=== PATIENT | male | born 1970 | race African-American/Black ===

== ENCOUNTER 2019-11-20 06:07 | Day surgery (SDC) | payer OTHER ==
[~2019-11-20] VITALS: Ht 175.3 cm; Wt 93.0 kg
[2019-11-20] VITALS (12 sets, daily range): BP systolic 97–137; BP diastolic 56–87
[~2019-11-20 06:07] MED LIST: BACTRIM-DS1 EA ORAL; BREO ELLIPTA 11 EACH IH; TIVICAY50 MG ORAL; VENTOLIN HFA18 GM INH; ZITHROMAX200 MG/5 M ORAL; ceFAZolin 1gm IVPB IVPB ONE; celeBREX 200mg Cap **SURGERY PATIENTS ONLY ORAL ONE; oxyCONTIN 20mg tab ORAL ONE
[2019-11-20] MEDS ORDERED: [UNRECOGNIZED DRUG - OTHER] PO (06:56)
[2019-11-20] MEDS ORDERED: Midazolam 2mg/2ml Inj ONE (07:14)
[2019-11-20] MEDS ORDERED: fentaNYL 100 mcg/2 mL IV ONE (07:14)
[2019-11-20] MEDS ORDERED: EPINEPHrine 1mg/1ml Amp ONE (07:21)
[2019-11-20] MEDS ORDERED: Kenalog-40 1ml Vial ONE (07:21)
[2019-11-20] MEDS ORDERED: Ketorolac 30mg Inj ONE (07:21)
[2019-11-20] MEDS ORDERED: Duramorph PF 5mg/10ml amp ONE (07:22)
[2019-11-20] MEDS ORDERED: Lidocaine 1% 10mg/ml/Epi 0.005mg/ml 30ml vial INJ ONE (07:22)
[2019-11-20] MEDS ORDERED: NS Irrig 2000ml IRRIG ONE ×2 (07:25→07:45)
[2019-11-20] MEDS ORDERED: D5 1/2NS 1,000 ML IV SCH (07:30)
[2019-11-20] MEDS ORDERED: Sterile Water Irrig 1000ml IRRIG ONE (07:30)
[2019-11-20] MEDS ORDERED: LR 1000ml ONE (07:30)
[2019-11-20] MEDS ORDERED: HYDROcodone/Acetamin 5/325 tab ORAL PRN (07:30)
[2019-11-20] MEDS ORDERED: propofoL 1,000mg/100ml IV ONE (07:30)
[2019-11-20] MEDS ORDERED: HYDROmorphone 1mg/ml Carpuject SUBQ PRN (07:30)
[2019-11-20] MEDS ORDERED: Tylenol #3 tab (300mg/30mg) ORAL PRN (07:30)
--- NOTE | 2019-11-20 07:31 | Pre-Procedure Note/Attestation ---
Pre-Procedure Note/Attestation Complete Prior to Procedure Planned Procedure: left Procedure Narrative: knee arthroscopy, pssible menisectomy, synovectomy, possible condroplasty Indications for Procedure Pre-Operative Diagnosis: left knee internal derangment Attestation I attest that I discussed the nature of the procedure; its benefits; risks and complications; and alternatives (and the risks and benefits of such alternatives), prior to the procedure, with the patient (or the patient's legal hardware supplies sales representative). I attest that, if there was a reasonable possibility of needing a blood transfusion, the patient (or the patient's legal hardware supplies sales representative) was given the [facility] standardized written summary, pursuant to the Frederick Mita Blood Safety Act ([place] Health and Safety Code # 1645, as amended). I attest that I re-evaluated the patient just prior to the surgery and that there has been no change in the patient's H&P, except as documented below: Cale Taylor MD Nov 20, 2019 07:31
--- NOTE | 2019-11-20 07:31 | Operative Note - PDOC ---
Operative Note Operative Note Pre-op Diagnosis: left knee internal derangment Procedure: see op report Post-op Diagnosis: same as pre-op plus Operative Findings: consistent w/pre-op dx studies Anesthesia: general, MAC Specimen: none Complications: none Condition: stable Estimated Blood Loss: none Implant(s) used?: No Cale Taylor MD Nov 20, 2019 07:31
[2019-11-20] MEDS: Bupivacaine 0.25% Inj 30ml INJ ONE ×2 (07:45→08:06)
[2019-11-20] MEDS ORDERED: Lidocaine 1% MPF 10mg/ml 5ml ONE (07:53)
[2019-11-20] MEDS ORDERED: Metoclopramide 10mg/2ml Inj ONE (07:53)
--- NOTE | 2019-11-20 08:33 | Immediate Post-Op Evaluation ---
Immediate Post-Op Evalulation Immediate Post-Op Evalulation Procedure: left knee scope Date of Evaluation: Nov 20, 2019 Time of Evaluation: 08:29 IV Fluids: tarrillion Blood Pressure Systolic: 98 Blood Pressure Diastolic: 50 Pulse Rate: 70 Respiratory Rate: 14 O2 Sat by Pulse Oximetry: 98 Temperature (Fahrenheit): 97.5 Nausea: No Vomiting: No Patient Status: awake, reacts, patent Drug: ancef Given Within 1 Hr of Incision: Yes Time Given: 07:40 Wendy Lu CRNA Nov 20, 2019 08:33
--- NOTE | 2019-11-20 08:41 | Anethesia Preoperative Eval ---
Anesthesia Pre-op PMH/ROS General Date of Evaluation: Nov 20, 2019 Time of Evaluation: 07:30 Anesthesiologist: willian ASA Score: ASA 2 Mallampati Score Class I : Soft palate, uvula, fauces, pillars visible Class II: Soft palate, uvula, fauces visible Class III: Soft palate, base of uvula visible Class IV: Only hard plate visible Mallampati Classification: Class III Surgeon: rylee Diagnosis: left knee pain Surgical Procedure: left knee scope Anesthesia History: none Social History: alcohol use Family History: no anesthesia problems Allergies: Coded Allergies: LISINOPRIL (Verified Allergy, Unknown, 11/18/19) Medications: see eMAR Patient NPO?: Yes NPO Date: Nov 20, 2019 NPO Time: 00:01 Past Medical History Cardiovascular: Reports: HTN; Denies: CAD, SC, valve dz, arrhythmia, other Pulmonary: Reports: asthma; Denies: COPD, DAVID, other Gastrointestinal/Genitourinary: Reports: GERD; Denies: CRI, ESRD, other Neurologic/Psychiatric: Denies: dementia, CVA, depression/anxiety, TIA, other Endocrine: Denies: DM, hypothyroidism, steroids, other HEENT: Denies: cataract (L), cataract (R), glaucoma, SOBOBA (L), SOBOBA (R), other Hematology/Immune: Reports: bleeding disorder; Denies: anemia, DVT, other Musculoskeletal/Integumentary: Denies: OA, RA, DJD, DDD, edema, other Other: obesity PSxH Narrative: see chart Anesthesia Pre-op Phys. Exam Physician Exam Last Vital Signs Date Time Temp Pulse Resp B/P (MAP) Pulse Ox O2 Delivery O2 Flow Rate FiO2 11/20/19 06:50 97.9 67 18 125/82 96 Room Air Constitutional: NAD Neurologic: CN 2-12 intact Cardiovascular: RRR Respiratory: CTA Gastrointestinal: S/NT/ND Airway Exam Mallampati Classification 3 Mallampati Score: Class II Neck: thick TMD: 2fb ROM: full Dentures: no upper, no lower Anesthesia Pre-op A/P Studies Pre-op Studies: EKG - SR Risk Assessment & Plan Assessment: covid neg; pt c/o of "SEVERE Hiccups" as a complication of GA with previous surgeries. Also, pt refused spinal anesthesia due to previous back pain as a result of spinal anesthesia. Discussed GA with TIVA and risk and benefits of TIVA. Pt agrees and wishes to proceed. Plan: General- TIVA Status Change Before Surgery: No Pre-Antibiotics Drug: Ancef Given Within 1 Hr of Incision: Yes Time Given: 07:40 Wendy Lu CRNA Nov 20, 2019 08:41
--- NOTE | 2019-11-20 09:00 | Operative Note - Dictated ---
DATE OF OPERATION: 11/20/2019 PREOPERATIVE DIAGNOSIS: Left knee medial meniscus tear. POSTOPERATIVE DIAGNOSES: 1. Grade 2 medial patellar facet chondral damage. 2. Left knee medial meniscus tear. 3. Hypertrophic synovial tissue medial, lateral, and patellofemoral compartment. PROCEDURES: 1. Left knee arthroscopic partial medial meniscectomy. 2. Synovectomy medial, lateral, and patellofemoral compartment. 3. Gentle chondroplasty, medial patellar facet. SURGEON: Cale Taylor MD. ANESTHESIA: MAC. INDICATION FOR PROCEDURE: The patient is a pleasant gentleman, who sustained a significant injury to the left knee, was diagnosed with a meniscal tear, failed conservative treatment, elected to undergo left knee arthroscopy with medial meniscectomy. Risks, limitations, expectations, complication of procedure were discussed in detail. All questions addressed. DESCRIPTION OF PROCEDURE: After informed consent obtained, the patient was brought to the operating room. The patient was placed under general anesthesia. Left knee was prepped and draped in a sterile manner. Time-out was performed. Inferolateral stab incision was then made. Trocar introduced into the knee joint. Systematic tour of the knee was performed. There was some grade 2 chondral damage medial patellar facet, hypertrophic synovial tissue patellar and medial compartment. Medial compartment was entered. There was complex tear of posterior horn medial meniscus. Partial meniscectomy was performed. There was also some adjacent level grade 2 chondral damage in the medial tibial plateau. A gentle chondroplasty was performed. The synovectomy extended from the medial compartment to intercondylar notch lateral compartment. The ACL was probed, noted to be intact. Lateral compartment was entered, free from meniscal chondral damage. Camera was repositioned. Patellofemoral compartment, synovectomy was completed. Chondroplasty was completed. Instruments were removed. ESTIMATED BLOOD LOSS: None. COMPLICATIONS: None. SPECIMENS: None. IMPLANTS: None. Cale Taylor M.D. DR: EMILY JOB#: [id number] CC:
--- NOTE | 2019-11-20 09:42 | 48 Hour Post Anesthesia Eval ---
Post Anesthesia Evaluation Procedure: left knee scope Date of Evaluation: Nov 20, 2019 Time of Evaluation: 09:41 Blood Pressure Systolic: 122 0: 81 Pulse Rate: 65 Respiratory Rate: 14 O2 Sat by Pulse Oximetry: 99 Airway: patent Nausea: No Vomiting: No Hydration Status: adequate Cardiopulmonary Status: stable Mental Status/LOC: patient returned to baseline Follow-up Care/Observations: no signs of anesthetic reaction Post-Anesthesia Complications: none Follow-up care needed: N/A Wendy Lu CRNA Nov 20, 2019 09:42
[2019-11-20] MEDS ORDERED: fentaNYL 100 mcg/2 mL IV PRN (09:45)
== END 2019-11-20 10:45 | disposition home or self-care (01) ==
LOC: SUR 06:07
DX: S83.232A Complex tear of medial meniscus, current injury, left knee, initial encounter (principal); M67.262 Synovial hypertrophy, not elsewhere classified, left lower leg; I10 Essential (primary) hypertension; K21.9 Gastro-esophageal reflux disease without esophagitis; E66.9 Obesity, unspecified; X58.XXXA Exposure to other specified factors, initial encounter; Y92.9 Unspecified place or not applicable; Z68.30 Body mass index [BMI] 30.0-30.9, adult
CPT/HCPCS: 29876; 29881; 94003; J0171; J0690; J1885; J2250; J2405; J2704; J2765; J3010; J3301; J3490; J7120; U0002; 94150

== ENCOUNTER 2019-12-24 07:07 | Inpatient (IN) | payer MEDICAID, OTHER ==
[~2019-12-24] VITALS: Ht 175.3 cm; Wt 104.8 kg
[~2019-12-24 07:07] MED LIST changes: +AMLODIPINE BESY10 MG ORAL; +MULTIVITAMINS1 EAC2 ORAL; +[UNRECOGNIZED DRUG - OTHER] PO; -ceFAZolin 1gm IVPB IVPB ONE; -celeBREX 200mg Cap **SURGERY PATIENTS ONLY ORAL ONE; -oxyCONTIN 20mg tab ORAL ONE
--- NOTE | 2019-12-24 07:44 | Emergency Room Report ---
History of Present Illness General Chief Complaint: Fever Source: Patient Present Illness HPI Disclaimer: Please note that this report is being documented using DRAGON technology. This can lead to erroneous entry secondary to incorrect interpretation by the dictating instrument. HPI: 49-year-old male history of HIV on retroviral therapy presents for evaluation of fevers after surgery. Patient recently underwent a meniscal repair the right knee which he states is complicated by postop infection according to his PMD and therapeutic surgeon Dr. Taylor. He has been on antibiotics but cannot recall which ones. Reports low-grade fevers 101 over the past few days. Decreased mobility in the right knee. States there is no new swelling and that this swelling that is currently there is baseline. Denies numbness or tingling. Denies overlying skin breakdown. Denies cough, shortness of breath, vomiting. He reports intermittent nausea from the tramadol but otherwise feels well eating and drinking. Denies sore throat, URI, anosmia or other symptoms. Recent Covid test was negative. PMH: HIV PSH: Bilateral meniscal repair Allergies: Lisinopril Social Hx: Reviewed Allergies: Coded Allergies: LISINOPRIL (Verified Allergy, Severe, FACE SWELLING, 12/11/19) COVID-19 Screening Contact w/high risk pt: No Experienced COVID-19 symptoms?: No COVID-19 Testing performed FIG WASHER: No Nursing Documentation-PMH Past Medical History: No History, Except For Hx Cardiac Problems: Yes - right knee surgery 12/11/19 Hx Hypertension: Yes Hx Asthma: Yes Hx Cancer: No Hx Gastrointestinal Problems: No Hx Neurological Problems: No Review of Systems All Other Systems: negative except mentioned in HPI Physical Exam Vital Signs Date Time Temp Pulse Resp B/P (MAP) Pulse Ox O2 Delivery O2 Flow Rate FiO2 12/24/19 07:15 101.5 105 20 150/115 (127) 98 Room Air General: Awake and alert, no acute distress HEENT: NC/AT. EOMI. Cardiovascular: RRR. S1 and S2 normal. No murmur appreciated Resp: Normal work of breathing. No cough, wheezing or crackles appreciated Abdomen: Abdomen is soft, nondistended. Nontender Skin: Intact. No abrasions, laceration or rash over the exposed skin MSK: Normal tone and bulk. Moving all extremities. Effusion around the distal femur. Warm to the touch. No overlying cellulitic changes ulcerations or breakdown. Neuro: Awake and alert. Mentating appropriately. Procedures Additional Procedure Procedure Narrative Right knee aspiration: Knee was prepped with Betadine for antiseptic and draped in sterile fashion. 6 cc 1% lidocaine without epinephrine injected into the skin for anesthetic. Lateral approach taken of the superior aspect of right knee with negative pressure advance needle. Able to aspirate approximately 45 cc yellow straw- colored material I was mildly cloudy but not overly pruritic. No bleeding. Patient tolerated the procedure well. Sterile bandage applied. No complications. Medical Decision Making Diagnostic Impression: Primary Impression: Septic joint of right knee joint ER Course 49-year-old male presents for evaluation of fever. He had a recent knee surgery though also was taking antibiotics for dental infection which he states was resolved after the tooth was extracted. He arrives febrile mildly tachycardic. Culture sent. Broad labs ordered. Joint aspiration performed shows over 60,000 nucleated cells which are 99% polymorphonuclear cells concerning for septic joint. ESR and CRP are elevated. Patient receiving broad-spectrum antibiotics vancomycin and ceftriaxone. Discussed with his surgeon Dr. Taylor who will take the patient for OR and washout. He will be admitted to panel physician Dr. Sandhu. Laboratory Tests Test 12/24/19 08:00 12/24/19 08:40 White Blood Count 10.4 K/UL (4.8-10.8) Red Blood Count 5.04 M/UL (4.70-6.10) Hemoglobin 13.3 G/DL (14.2-18.0) L Hematocrit 39.9 % (42.0-52.0) L Mean Corpuscular Volume 79 FL (80-99) L Mean Corpuscular Hemoglobin 26.3 PG (27.0-31.0) L Mean Corpuscular Hemoglobin Concent 33.3 G/DL (32.0-36.0) Red Cell Distribution Width 13.2 % (11.6-14.8) Platelet Count 394 K/UL (150-450) Mean Platelet Volume 6.4 FL (6.5-10.1) L Neutrophils (%) (Auto) 78.4 % (45.0-75.0) H Lymphocytes (%) (Auto) 9.5 % (20.0-45.0) L Monocytes (%) (Auto) 10.5 % (1.0-10.0) H Eosinophils (%) (Auto) 0.4 % (0.0-3.0) Basophils (%) (Auto) 1.2 % (0.0-2.0) Erythrocyte Sedimentation Rate 62 MM/HR (0-15) H Urine Color Pale yellow Urine Appearance Clear Urine pH 6 (4.5-8.0) Urine Specific Dora 1.005 (1.005-1.035) Urine Protein Negative (NEGATIVE) Urine Glucose (UA) Negative (NEGATIVE) Urine Ketones Negative (NEGATIVE) Urine Blood Negative (NEGATIVE) Urine Nitrite Negative (NEGATIVE) Urine Bilirubin Negative (NEGATIVE) Urine Urobilinogen Normal MG/DL (0.0-1.0) Urine Leukocyte Esterase Negative (NEGATIVE) Sodium Level 135 MMOL/L (136-145) L Potassium Level 3.7 MMOL/L (3.5-5.1) Chloride Level 98 MMOL/L (98-107) Carbon Dioxide Level 30 MMOL/L (21-32) Anion Gap 7 mmol/L (5-15) Blood Urea Nitrogen 8 mg/dL (7-18) Creatinine 1.3 MG/DL (0.55-1.30) Estimated Glomerular Filtration Rate > 60 mL/min (>60) Glucose Level 106 MG/DL (74-106) Lactic Acid Level 0.90 mmol/L (0.4-2.0) Calcium Level 9.4 MG/DL (8.5-10.1) Total Bilirubin 1.4 MG/DL (0.2-1.0) H Direct Bilirubin 0.7 MG/DL (0.0-0.3) H Aspartate Amino Transferase (AST) 52 U/L (15-37) H Alanine Aminotransferase (ALT) 82 U/L (12-78) H Alkaline Phosphatase 177 U/L (46-116) H Total Creatine Kinase 186 U/L (26-308) Creatine Kinase MB < 0.5 NG/ML (0.0-3.6) Creatine Kinase MB Relative Index 0.2 Troponin I 0.000 ng/mL (0.000-0.056) C-Reactive Protein, Quantitative 28.1 mg/dL (0.00-0.90) H Total Protein 7.5 G/DL (6.4-8.2) Albumin 2.9 G/DL (3.4-5.0) L Globulin 4.6 g/dL Albumin/Globulin Ratio 0.6 (1.0-2.7) L Body Fluid Source Synovial Body Fluid Volume 20 mL Body Fluid Appearance Yellow/cloudy (Clear) Body Fluid RBC 5500 /CUMM Body Fluid Total Nucleated Cells 86591 /CUMM Body Fluid Polynuclear WBCs (%) 99 % Body Fluid Mononuclear WBCs (%) 1 % Body Fluid Mesothelial Cells (%) 0 % Body Fluid Comment Pending Microbiology Date/Time Source Procedure Growth Status 12/24/19 08:00 Nasopharynx SARS-CoV-2 RdRp Gene Assay - Final Complete EKG Diagnostic Results Troponin ordered: Yes When was troponin ordered?: Dec 24, 2019 EKG Time: 07:49 Rate: tachycardiac Rhythm: NSR ST Segments: no acute changes Other Impression Sinus tachycardia, normal axis, normal intervals, no ST segment changes Rhythm Strip Diag. Results Rhythm Strip Time: 07:49 EP Interpretation: yes Rate: 103 Rhythm: NSR, no PVC's, no ectopy Last Vital Signs Date Time Temp Pulse Resp B/P (MAP) Pulse Ox O2 Delivery O2 Flow Rate FiO2 12/24/19 07:15 101.5 105 20 150/115 (127) 98 Room Air Disposition: ADMITTED INPATIENT Condition: Serious Sam Mortensen MD Dec 24, 2019 07:44
[2019-12-24] MEDS ORDERED: Acetaminophen 500mg (ES) tab ORAL ONE (07:45)
[2019-12-24 07:51] VITALS: BP 150/115
[2019-12-24] MEDS ORDERED: Morphine Sulfate 4mg/ml Inj (IV USE ONLY) IVP ONE ×2 (08:00→13:00)
--- NOTE | 2019-12-24 08:00 | NUR ---
ED Nurse Note:pt. came to ER with infected post-up right knee site, it looks swallen and pt. has fever, he is ambulatory, blood cultures and covid swab sent to labs, pt. received pain meds
[2019-12-24] MEDS ORDERED: Lidocaine 1% Plain 30 ml INJ ONE (08:30)
[2019-12-24 08:31] LABS: APPEARANCE,URINE CLEAR; BILIRUBIN, URINE NEGATIVE (NEGATIVE); COLOR,URINE PALE YELLOW; GLUCOSE, URINE (UA) NEGATIVE (NEGATIVE); KETONES,URINE NEGATIVE (NEGATIVE); LEUKOCYTE ESTERASE ,URINE NEGATIVE (NEGATIVE); NITRITE,URINE NEGATIVE (NEGATIVE); PH,URINE 6 (4.5-8.0); PROTEIN,URINE NEGATIVE (NEGATIVE); UROBILINOGEN,URINE NORMAL MG/DL (0.0-1.0)
[2019-12-24 08:35] LABS: BASOPHILS % (AUTO) 1.2 % (0.0-2.0); EOSINOPHILS % (AUTO) 0.4 % (0.0-3.0); HEMATOCRIT 39.9 % (42.0-52.0); HEMOGLOBIN 13.3 G/DL (14.2-18.0); LYMPHOCYTES % (AUTO) 9.5 % (20.0-45.0); MEAN CORPUSCULAR VOLUME 79 FL (80-99); MONOCYTES % (AUTO) 10.5 % (1.0-10.0); NEUTROPHILS % (AUTO) 78.4 % (45.0-75.0); PLATELET COUNT 394 K/UL (150-450); RED BLOOD COUNT 5.04 M/UL (4.70-6.10); RED CELL DISTRIBUTION WIDTH 13.2 % (11.6-14.8); WHITE BLOOD COUNT 10.4 K/UL (4.8-10.8)
[2019-12-24 08:43] VITALS: BP 145/89
--- NOTE | 2019-12-24 08:45 | NUR ---
ED Nurse Note:pt. had right knee drainage done at the bed side by ER MD, fluid was sent to labs for culture
[2019-12-24 08:52] LABS: ANION GAP 7 mmol/L (5-15); BLOOD UREA NITROGEN 8 mg/dL (7-18); CALCIUM 9.4 MG/DL (8.5-10.1); CARBON DIOXIDE 30 MMOL/L (21-32); CHLORIDE 98 MMOL/L (98-107); CREATININE 1.3 MG/DL (0.55-1.30); POTASSIUM 3.7 MMOL/L (3.5-5.1); SODIUM 135 MMOL/L (136-145)
[2019-12-24 09:04] LABS: ALANINE AMINOTRANSFERASE 82 U/L (12-78); ALBUMIN 2.9 G/DL (3.4-5.0); ALBUMIN/GLOBULIN RATIO 0.6 (1.0-2.7); ALKALINE PHOSPHATASE 177 U/L (46-116); ASPARTATE AMINO TRANSFERASE 52 U/L (15-37); BILIRUBIN,TOTAL 1.4 MG/DL (0.2-1.0); CKMB < 0.5 NG/ML (0.0-3.6); CREATINE KINASE 186 U/L (26-308)
[2019-12-24 09:05] LABS: BILIRUBIN,DIRECT 0.7 MG/DL (0.0-0.3)
[2019-12-24] MEDS ORDERED: Vancomycin 1 GM in NS 275 ML IVPB ONE (11:00)
[2019-12-24] MEDS ORDERED: cefTRIAXone 2 GM in NS 55 ML IVPB ONE (11:00)
[2019-12-24] MEDS ORDERED: Azithromycin 600mg Tab ORAL SCH (11:45)
[2019-12-24] MEDS ORDERED: Albuterol/Ipratropium 3ml neb HHN PRN (11:45)
[2019-12-24] MEDS ORDERED: Miralax 17gm pkt ORAL PRN (11:45)
[2019-12-24 12:49] VITALS: BP 143/86
--- NOTE | 2019-12-24 13:20 | NUR ---
NURSE NOTES: PT arrived to the floor via [facility] , pt is a/o X4, breaths regular unlabored at RA, c/o pain to the R knee 08/11, pain medication given to pt prior to transfer from ER, will continue to monitor , belongings verified and signed for . Assessed pt ,skin intact Except the R knee , with 4x4 [place] dressing, oriented pt to the room, bed in low locked position side rails upX2 , call light with in reach, will call for admission orders
--- NOTE | 2019-12-24 14:43 | Consultation ---
History of Present Illness General Date patient seen: Dec 24, 2019 Chief Complaint: Fever Present Illness HPI 49 y/o M with hx of HIV on ARV, HTN, asthma presents to ED On 12/24/19 with fever and possible post-op infection. Patient had recent meniscal repair of R knee 12/11/19. There was concern for post-op infection per PMD and Dr Taylor and patient has been taking antibiotics (Doxycycline 100mg bid for 4 days). Fever up to 101, decreased mobility R knee. +intermittent nausea from tramadol. Denied cough, SOB, vomiting, sore throat, URI. Recent covid test was negative Allergies: Coded Allergies: LISINOPRIL (Verified Allergy, Severe, FACE SWELLING, 12/11/19) Medication History Scheduled Albuterol Sulfate (Ventolin Hfa), 1 PUFF INH PRN, (Reported) Amlodipine Besylate* (Amlodipine Besylate*), 20 MG ORAL DAILY, (Reported) Azithromycin* (Zithromax*), 1,200 MG ORAL ONCE A WEEK, (Reported) Dolutegravir Sodium (Tivicay), 50 MG ORAL BID, (Reported) Fluticasone/Vilanterol (Breo Ellipta 100-25 Mcg INH), 1 EACH IH DAILY, (Reported) Multivitamins* (Multivitamins*), 1 TAB ORAL DAILY, (Reported) Trimethoprim/Sulfamethoxazole (Bactrim Ds Tablet), 1 TAB ORAL DAILY, (Reported) [precobix], Unknown Dose PO DAILY, (Reported) Patient History Healthcare decision maker Resuscitation status Advanced Directive on File Patient History Narrative Pmhx: as above Shx: reviewed Fhx: non contributory Review of Systems All Other Systems: negative except mentioned in HPI Physical Exam Physical Exam Narrative General: Awake and alert, no acute distress HEENT: NC/AT. EOMI. Cardiovascular: RRR. S1 and S2 normal. No murmur appreciated Resp: Normal work of breathing. No cough, wheezing or crackles appreciated Abdomen: Abdomen is soft, nondistended. Nontender Skin: Intact. No abrasions, laceration or rash over the exposed skin MSK: Normal tone and bulk. Moving all extremities. Effusion around the distal femur. Warm to the touch. No overlying cellulitic changes ulcerations or breakdown. Neuro: Awake and alert. Mentating appropriately. Last 24 Hour Vital Signs Date Time Temp Pulse Resp B/P (MAP) Pulse Ox O2 Delivery O2 Flow Rate FiO2 12/24/19 13:50 Room Air 12/24/19 13:49 99.1 12/24/19 12:50 99.1 92 17 145/89 98 Room Air 12/24/19 12:49 99.1 92 17 143/86 98 Room Air 12/24/19 08:43 99.1 95 17 145/89 98 Room Air 12/24/19 08:43 99.1 12/24/19 08:35 101.5 12/24/19 07:51 105 20 Room Air 12/24/19 07:51 101.5 105 20 150/115 98 Room Air 12/24/19 07:15 101.5 105 20 150/115 (127) 98 Room Air Laboratory Tests Test 12/24/19 08:00 12/24/19 08:40 White Blood Count 10.4 K/UL (4.8-10.8) Red Blood Count 5.04 M/UL (4.70-6.10) Hemoglobin 13.3 G/DL (14.2-18.0) L Hematocrit 39.9 % (42.0-52.0) L Mean Corpuscular Volume 79 FL (80-99) L Mean Corpuscular Hemoglobin 26.3 PG (27.0-31.0) L Mean Corpuscular Hemoglobin Concent 33.3 G/DL (32.0-36.0) Red Cell Distribution Width 13.2 % (11.6-14.8) Platelet Count 394 K/UL (150-450) Mean Platelet Volume 6.4 FL (6.5-10.1) L Neutrophils (%) (Auto) 78.4 % (45.0-75.0) H Lymphocytes (%) (Auto) 9.5 % (20.0-45.0) L Monocytes (%) (Auto) 10.5 % (1.0-10.0) H Eosinophils (%) (Auto) 0.4 % (0.0-3.0) Basophils (%) (Auto) 1.2 % (0.0-2.0) Erythrocyte Sedimentation Rate 62 MM/HR (0-15) H Urine Color Pale yellow Urine Appearance Clear Urine pH 6 (4.5-8.0) Urine Specific [place] 1.005 (1.005-1.035) Urine Protein Negative (NEGATIVE) Urine Glucose (UA) Negative (NEGATIVE) Urine Ketones Negative (NEGATIVE) Urine Blood Negative (NEGATIVE) Urine Nitrite Negative (NEGATIVE) Urine Bilirubin Negative (NEGATIVE) Urine Urobilinogen Normal MG/DL (0.0-1.0) Urine Leukocyte Esterase Negative (NEGATIVE) Sodium Level 135 MMOL/L (136-145) L Potassium Level 3.7 MMOL/L (3.5-5.1) Chloride Level 98 MMOL/L (98-107) Carbon Dioxide Level 30 MMOL/L (21-32) Anion Gap 7 mmol/L (5-15) Blood Urea Nitrogen 8 mg/dL (7-18) Creatinine 1.3 MG/DL (0.55-1.30) Estimat Glomerular Filtration Rate > 60 mL/min (>60) Glucose Level 106 MG/DL (74-106) Lactic Acid Level 0.90 mmol/L (0.4-2.0) Calcium Level 9.4 MG/DL (8.5-10.1) Total Bilirubin 1.4 MG/DL (0.2-1.0) H Direct Bilirubin 0.7 MG/DL (0.0-0.3) H Aspartate Amino Transf (AST/SGOT) 52 U/L (15-37) H Alanine Aminotransferase (ALT/SGPT) 82 U/L (12-78) H Alkaline Phosphatase 177 U/L (46-116) H Total Creatine Kinase 186 U/L (26-308) Creatine Kinase MB < 0.5 NG/ML (0.0-3.6) Creatine Kinase MB Relative Index 0.2 Troponin I 0.000 ng/mL (0.000-0.056) C-Reactive Protein, Quantitative 28.1 mg/dL (0.00-0.90) H Total Protein 7.5 G/DL (6.4-8.2) Albumin 2.9 G/DL (3.4-5.0) L Globulin 4.6 g/dL Albumin/Globulin Ratio 0.6 (1.0-2.7) L Body Fluid Source Synovial Body Fluid Volume 20 mL Body Fluid Appearance Yellow/cloudy (Clear) Body Fluid RBC 5500 /CUMM Body Fluid Total Nucleated Cells 19479 /CUMM Body Fluid Polynuclear WBCs (%) 99 % Body Fluid Mononuclear WBCs (%) 1 % Body Fluid Mesothelial Cells (%) 0 % Body Fluid Comment Pending Microbiology Date/Time Source Procedure Growth Status 12/24/19 08:00 Nasopharynx SARS-CoV-2 RdRp Gene Assay - Final Complete Height (Feet): 5 Height (Inches): 9.00 Weight (Pounds): 205 Medications Current Medications Medications (Trade) Dose Ordered Sig/Griselda Route PRN Reason Start Time Stop Time Status Last Admin Dose Admin Acetaminophen (Tylenol) 650 mg Q4H PRN ORAL Temp >100.5 12/24/19 11:45 01/23/20 11:44 Albuterol/ Ipratropium (Albuterol/ Ipratropium) 3 ml Q4H PRN HHN Shortness of Breath 12/24/19 11:45 12/29/19 11:44 Amlodipine Besylate (Norvasc) 20 mg DAILY ORAL 12/25/19 09:00 01/24/20 08:59 Azithromycin (Zithromax Peds) 1,200 mg ONCE A WEEK ORAL 12/24/19 11:45 12/31/19 11:44 UNV Cefepime HCl 2 gm/ Dextrose 110 ml @ 220 mls/hr EVERY 12 HOURS IV 12/24/19 21:00 12/31/19 20:59 Dextrose (Dextrose 50%) 25 ml Q30M PRN IV Hypoglycemia 12/24/19 11:45 03/23/20 11:44 Dextrose (Dextrose 50%) 50 ml Q30M PRN IV Hypoglycemia 12/24/19 11:45 03/23/20 11:44 Dolutegravir Sodium (Tivicay) 50 mg BID ORAL 12/24/19 18:00 03/23/20 17:59 UNV Heparin Sodium (Porcine) (Heparin 5000 units/ml) 5,000 units EVERY 12 HOURS SUBQ 12/24/19 21:00 02/07/20 20:59 Ondansetron HCl (Zofran) 4 mg Q6H PRN IVP Nausea & Vomiting 12/24/19 11:45 01/23/20 11:44 Polyethylene Glycol (Miralax) 17 gm DAILYPRN PRN ORAL Constipation 12/24/19 11:45 01/23/20 11:44 Temazepam (Restoril) 15 mg HSPRN PRN ORAL Insomnia 12/24/19 11:45 12/31/19 11:44 Trimethoprim/ Sulfamethoxazole (Bactrim-DS) 1 tab DAILY ORAL 12/25/19 09:00 01/01/20 08:59 Vancomycin HCl (Vanco pharmacy to dose) 1 ea DAILY PRN MISC . 12/24/19 14:00 01/23/20 13:59 Vancomycin/Sodium Chloride 275 ml @ 183.333 mls/hr Q12H IVPB 12/24/19 22:00 12/29/19 21:59 Assessment/Plan Assessment/Plan: Abx: IV Vancomycin 12/23- Cefepime 12/23- Assessment: COVID19 neg x1 -12/23 rapid COVID PCR neg Sepsis R knee septic arthritis- post-op -synovial fluid: wbc 62.8k (N99%), RBC 5.5k; cx not sent by ER doc ( I verified this with micro lab) -ESR 62, CRP 28.1 Fever No leukocytosis HIV/AIDS on ARV -dx 2003. has undergo multiple regimens. Has developed resistant to Truvada component. On Tivicay and Prescobix for 1 yr now. Latest CD4 100s; previously 40s. HTN asthma Plan: -Continue empiric IV Vancomycin and Cefepime #1 -f/u cx -Monitor CBC/CMP, temperatures -Continue ppx bactrim and Azithromycin -Continue ARV: Tivicay and Prezcobix -CD4, HIV VL -Ortho f/u- plan for wash out -please obtain OR cultures Thank you for this consultation. Will continue to follow along with you. Discussed with RN and micro lab staff. Parvin Gifford M.D. Dec 24, 2019 14:43
[2019-12-24] MEDS ORDERED: Duramorph PF 5mg/10ml amp ONE (15:37)
[2019-12-24] MEDS ORDERED: Kenalog-40 1ml Vial ONE (15:37)
[2019-12-24] MEDS ORDERED: Ketorolac 30mg Inj ONE (15:37)
[2019-12-24] MEDS ORDERED: Lidocaine 1% 10mg/ml/Epi 0.005mg/ml 30ml vial INJ ONE (15:38)
[2019-12-24] MEDS ORDERED: Bupivacaine 0.25% Inj 30ml INJ ONE (15:38)
[2019-12-24] MEDS ORDERED: Bacitracin 50000 Units Vial ONE (15:39)
[2019-12-24] MEDS ORDERED: NeoSporin Gu Irrig 1ml Amp IRRIG ONE (15:39)
[2019-12-24 16:00] VITALS: BP 146/77
--- NOTE | 2019-12-24 16:24 | NUR ---
NURSE NOTES:RECEIVED A PHONE CALL FR.SURGERY RN.(MANUEL PARK),STATED THAT PER (SURGEON),SURGERY IS CANCELLED TODAY SINCE THE PATIENT ATE.PRIMARY RN(BELLA)INFORMED.
[2019-12-24] MEDS ORDERED: Dolutegravir Sodium 50mg tab ORAL SCH (18:00)
--- NOTE | 2019-12-24 19:57 | NUR ---
NURSE HAND-OFF: Important Events on Shift: new admit Patient Status: stable Diet: regular Pending Orders: Pending Results/Labs: Pending MD notification: Latest Vital Signs: Temperature 99.7 , Pulse 99 , B/P 146 /77 , Respiratory Rate 19 , O2 SAT 98 , Room Air, O2 Flow Rate . Vital Sign Comment: Latest Kemp Fall Score: 20 Fall Risk: Low Risk Safety Measures: Call light Within Reach, Bed Alarm Zone 2, Side Rails Side Rails x2, Bed position Low and Locked. Fall Precautions: Report given to Rita VIZCAINO.
--- NOTE | 2019-12-24 20:00 | NUR ---
NURSE NOTES: Received report from CARRILLO Wall. Rounds done, no distress noted, patient alert and oriented, bed in low position, locked, side rails up x2,c all light within reach. Saline lock intact and patent. Aware of status NPO after midnight in preparation for tomorrow's procedure. Will continue to monitor.
--- NOTE | 2019-12-24 20:17 | History & Physical ---
History and Physical History & Physicial Keith Sandhu MD Dec 24, 2019 20:17
[2019-12-24] MEDS: Heparin 5000 units/ml inj SUBQ SCH (21:10)
[2019-12-24 21:30] VITALS: BP 122/77
[2019-12-24] MEDS: HYDROcodone/Acetamin 5/325 tab ORAL PRN (21:40)
[2019-12-24] MEDS: Cefepime HCl 2 GM in D5W 110 ML IV SCH (21:46)
[2019-12-24] MEDS: Vancomycin 1.25gm/NS Premix q24h IVPB SCH (22:17)
--- NOTE | 2019-12-24 23:30 | Consultation ---
DATE OF CONSULTATION: 12/24/2019 ORTHOPEDIC CONSULTATION CONSULTING PHYSICIAN: Cale Taylor MD HISTORY OF PRESENT ILLNESS: Patient is a pleasant gentleman who underwent right knee arthroscopic medial meniscectomy. Sometime last week, he had some issues with his dentition and he went to his dentist who gave him some antibiotics. Patient reports that he had some type of oral infection, which he has been treated for. Once he stopped the antibiotics, he noticed swelling and pain in the right knee. He contacted me earlier this weekend. I discussed that it sounds like he may have an infection and needs to go to the nearest emergency room. Patient delayed showing up to the emergency showed until today where he was evaluated. He had a tap of his right knee performed, which showed concern for possible infection. PAST MEDICAL HISTORY: Per intake chart. PAST SURGICAL HISTORY: Per intake chart. MEDICATIONS: Per intake chart. ASSESSMENT: 1. Status post right knee arthroscopic medial meniscectomy. 2. HIV. 3. Teeth infection. DISCUSSION: At this point, it seems like he potentially could have seeded his right knee from his issues. He did not inform me of his prior teeth issues prior to the surgery; however, he had previous surgery 2 weeks prior to the right knee scope where he had no issues. I think this may be related to more of acute infection due to his dentition rather than postop complication. Regardless, his aspiration was concerning for an infection. Therefore, we will and proceed with incision and drainage of the right knee. ADDENDUM: Patient was made NPO in anticipation of surgery later on today. However, the patient ate lunch, and therefore surgery will be postponed until tomorrow. Patient was informed previously that if he goes to the ER, he should not eat or drink given that he may require surgery. I am not sure exactly why he ate lunch today given those instructions previously. aCle Taylor M.D. DR: DEBBIE JOB#: [id number] CC:
[2019-12-25] VITALS (23 sets, daily range): BP systolic 103–154; BP diastolic 55–95
[2019-12-25] MEDS ORDERED: Vancomycin 1 GM in D5W 275 ML IV SCH (00:30)
--- NOTE | 2019-12-25 01:30 | History and Physical Report ---
DATE OF ADMISSION: 12/24/2019 CHIEF COMPLAINT: Right knee pain. HISTORY OF PRESENT ILLNESS: This is a 49 years old gentleman with past medical history significant for HIV on retroviral medication, hypertension, asthma, who presented to the emergency room complaining about fever as well as right knee pain after had a recent right knee meniscectomy on 12/11/[address] Cale Taylor. The patient was noted to have right knee swollen, tender to touch. He was recently treated for the oral cavity infection with antibiotics. Once his antibiotics are finished, he noticed that he is having a fever of 101, decreased mobility with severe right knee pain, intermittent nausea on the tramadol. Subsequently, the patient decided to come to the emergency room. Shortly after initial evaluation in the emergency department, the patient was admitted to the hospital with right knee septic arthritis. PAST MEDICAL AND PAST SURGICAL HISTORY: As above, history on HIV on retroviral medication, hypertension, asthma, history of meniscus tear with femur fracture, history of bilateral shoulder surgery. MEDICATIONS: At home, please refer to medication reconciliation. ALLERGIES: To lisinopril with severe facial swelling. SOCIAL HISTORY: The patient denies any smoking at this time. He is an ex-smoker, quit in 2012, and denies any alcohol or substance abuse. FAMILY HISTORY: Noncontributory. REVIEW OF SYSTEMS: Mostly as above. Denies any dysuria, frequency, or hematuria. Denies any hemoptysis. Complained about fever of 101. Denies any loss of consciousness. Complained about right knee pain. PHYSICAL EXAMINATION: VITAL SIGNS: On admission, temperature 101.5, pulse of 105, respirations 20, and blood pressure 150/115. GENERAL: The patient is awake, responsive, in no acute distress. HEAD AND NECK: Pupils are equal and reactive to light. Extraocular movements are intact. Neck was supple. No JVD. LUNGS: Good air entry with no wheezing or rales. HEART: S1, S2. Regular rhythm. No gallops. ABDOMEN: Soft, nondistended, nontender. No rebound tenderness. No fluid shift. EXTREMITIES: No cyanosis, clubbing, or edema. The right knee has tender to touch, mildly edematous in the joint. NEUROLOGIC: Cranial nerves II through XII are grossly intact. The patient is moving all the extremities. Gait was not assessed due to the patient's status. RECTAL: Refused and deferred. : Refused and deferred. PSYCHIATRIC: Mood and affect is intact. LABORATORY AND DIAGNOSTIC DATA: Laboratory on admission from the emergency department, WBC of 10.4, hemoglobin 13, hematocrit 39, and platelets is 394. ESR is 62. Sodium 135, potassium 3.7, chloride 98, bicarbonate 30, BUN 8, creatinine 1.3, and glucose is 106. Total bilirubin of 1.4, direct bilirubin of 0.7, AST of 52, ALT of 82, alkaline phosphatase 177. Troponin 0.00. CRP is 28.1. Albumin is 2.9. UA is unremarkable. COVID-19 test is negative. ASSESSMENT: 1. Right knee septic arthritis. 2. HIV, on retroviral medication. 3. Hypertension. 4. History of asthma. PLAN: Admit the patient to medical floor. We will follow up with Dr. Cale Taylor recommendation. We will continue home medication, broad-spectrum antibiotics with vancomycin and cefepime. DVT prophylaxis, heparin subcutaneous. Keep the patient NPO after midnight for anticipation of the right knee I and D and joint wash. Keith Sandhu M.D. DR: MARION JOB#: [id number] CC:
[2019-12-25] MEDS: HYDROcodone/Acetamin 5/325 tab ORAL PRN (04:53)
[2019-12-25] MEDS: Potassium Chloride 20 MEQ in 1/2 NS 1000ml 1,000 ML IV SCH ×3 (06:47)
[2019-12-25 06:54] LABS: BASOPHILS % (AUTO) 1.3 % (0.0-2.0); EOSINOPHILS % (AUTO) 1.3 % (0.0-3.0); HEMOGLOBIN 11.3 G/DL (14.2-18.0); MEAN CORPUSCULAR VOLUME 81 FL (80-99); MONOCYTES % (AUTO) 8.1 % (1.0-10.0); NEUTROPHILS % (AUTO) 79.4 % (45.0-75.0); PLATELET COUNT 335 K/UL (150-450); RED BLOOD COUNT 4.31 M/UL (4.70-6.10); RED CELL DISTRIBUTION WIDTH 12.9 % (11.6-14.8); WHITE BLOOD COUNT 8.8 K/UL (4.8-10.8)
[2019-12-25 07:44] LABS: ALANINE AMINOTRANSFERASE 62 U/L (12-78); ALBUMIN 2.3 G/DL (3.4-5.0); ALBUMIN/GLOBULIN RATIO 0.6 (1.0-2.7); ALKALINE PHOSPHATASE 148 U/L (46-116); ANION GAP 8 mmol/L (5-15); ASPARTATE AMINO TRANSFERASE 39 U/L (15-37); BILIRUBIN,TOTAL 0.8 MG/DL (0.2-1.0); BLOOD UREA NITROGEN 6 mg/dL (7-18); CALCIUM 8.9 MG/DL (8.5-10.1); CARBON DIOXIDE 27 MMOL/L (21-32); CHLORIDE 102 MMOL/L (98-107); CREATININE 1.2 MG/DL (0.55-1.30); POTASSIUM 3.5 MMOL/L (3.5-5.1); SODIUM 137 MMOL/L (136-145)
--- NOTE | 2019-12-25 07:44 | NUR ---
NURSE HAND-OFF: Important Events on Shift: NPO after midnight Patient Status: stable Diet: NPO Pending Orders: [] Pending Results/Labs:[] Pending MD notification:[] Latest Vital Signs: Temperature 99.7 , Pulse 91 , B/P 154 /92 , Respiratory Rate 20 , O2 SAT 98 , Room Air, O2 Flow Rate . Vital Sign Comment: [] Latest Kemp Fall Score: 20 Fall Risk: Low Risk Safety Measures: Call light Within Reach, Bed Alarm Zone 1, Side Rails Side Rails x2, Bed position Low and Locked. Fall Precautions: Patient Fall Education Report given to CARRILLO Wall. Tess jeffers.
--- NOTE | 2019-12-25 07:52 | NUR ---
NURSE NOTES: Received report from ata VIZCAINO, rounds made pt awake c/o R knee pain , will provide medication as ordered , pt a/o X4 breaths regular and unlabored on RA no s/s of distress, Pt has IVF on R hand 22G ,intact patent asymptomatic, bed in low locked position call light with in reach , will continue to monitor
[2019-12-25] MEDS: Heparin 5000 units/ml inj SUBQ SCH ×2 (09:00→21:54)
[2019-12-25] MEDS: Bactrim-DS 1 tab ORAL SCH (09:03)
[2019-12-25] MEDS: Cefepime HCl 2 GM in D5W 110 ML IV SCH ×2 (09:03→21:53)
[2019-12-25] MEDS: Vancomycin 1.25gm/NS Premix q24h IVPB SCH ×2 (10:08→22:25)
--- NOTE | 2019-12-25 10:30 | NUR ---
NURSE NOTES: Received call from pharmacy follow up regarding regarding pt's meningitis letter, pt stated he did not not receive it. Pt stated that he received both meningitics vaccines already before this visit but does not remember the dates. . Pharmacist called and notified regarding update. Called and notified forced her about the missing antivirals , pt unable get someone to bring Meds to the hospital, MD to follw up on getting med refilled
[2019-12-25] MEDS ORDERED: NeoSporin Gu Irrig 1ml Amp IRRIG ONE ×2 (11:07→11:27)
[2019-12-25] MEDS ORDERED: Bacitracin 50000 Units Vial ONE ×2 (11:07→11:27)
[2019-12-25] MEDS ORDERED: fentaNYL 100 mcg/2 mL IV ONE (11:37)
[2019-12-25] MEDS ORDERED: Midazolam 2mg/2ml Inj ONE ×2 (11:37→12:56)
--- NOTE | 2019-12-25 11:40 | Pre-Procedure Note/Attestation ---
Pre-Procedure Note/Attestation Complete Prior to Procedure Planned Procedure: right Procedure Narrative: knee arthrothomy and incision and drainage Indications for Procedure Pre-Operative Diagnosis: right knee septic joint Attestation I attest that I discussed the nature of the procedure; its benefits; risks and complications; and alternatives (and the risks and benefits of such alternati ves), prior to the procedure, with the patient (or the patient's legal sales representative advertising). I attest that, if there was a reasonable possibility of needing a blood transfusion, the patient (or the patient's legal sales representative advertising) was given the [facility] standardized written summary, pursuant to the [employer] Blood Safety Act ([place] Health and Safety Code # 1645, as amended). I attest that I re-evaluated the patient just prior to the surgery and that there has been no change in the patient's H&P, except as documented below: Cale Taylor MD Dec 25, 2019 11:40
--- NOTE | 2019-12-25 11:40 | Operative Note - PDOC ---
Operative Note Operative Note Pre-op Diagnosis: right knee septic joint Procedure: see op report Post-op Diagnosis: same as pre-op plus Operative Findings: consistent w/pre-op dx studies Anesthesia: MAC Specimen: none Complications: none Condition: stable Estimated Blood Loss: none Implant(s) used?: No Cale Taylor MD Dec 25, 2019 11:40
[2019-12-25] MEDS ORDERED: Lidocaine 1% MPF 10mg/ml 5ml ONE (11:41)
[2019-12-25] MEDS ORDERED: Sterile Water Irrig 1000ml IRRIG ONE (12:00)
[2019-12-25] MEDS ORDERED: LR 1000ml ONE (12:00)
[2019-12-25] MEDS ORDERED: NS Irrig 4000ml IRRIG ONE (12:00)
[2019-12-25] MEDS ORDERED: D5 1/2NS 1,000 ML IV SCH (12:18)
--- NOTE | 2019-12-25 12:25 | Anethesia Preoperative Eval ---
Anesthesia Pre-op PMH/ROS General Date of Evaluation: Dec 25, 2019 Time of Evaluation: 11:42 Anesthesiologist: Tara ASA Score: ASA 3 Mallampati Score Class I : Soft palate, uvula, fauces, pillars visible Class II: Soft palate, uvula, fauces visible Class III: Soft palate, base of uvula visible Class IV: Only hard plate visible Mallampati Classification: Class III Surgeon: Brandon Diagnosis: R infected knee joint Surgical Procedure: I&D R knee Anesthesia History: other - hickup Family History: no anesthesia problems Allergies: Coded Allergies: LISINOPRIL (Verified Allergy, Severe, FACE SWELLING, 12/11/19) Patient NPO?: Yes Past Medical History Cardiovascular: Reports: HTN; Denies: CAD, NC, valve dz, arrhythmia, other Pulmonary: Reports: asthma - mild; Denies: COPD, DAVID, other Gastrointestinal/Genitourinary: Reports: GERD Neurologic/Psychiatric: Reports: depression/anxiety; Denies: dementia, CVA, TIA, other Endocrine: Denies: DM, hypothyroidism, steroids, other Hematology/Immune: Reports: anemia - mild, other - HIV + stable on meds; Denies: DVT, bleeding disorder Other: obesity PMH Narrative: as above PSxH Narrative: see chart Anesthesia Pre-op Phys. Exam Physician Exam Last Vital Signs Date Time Temp Pulse Resp B/P (MAP) Pulse Ox O2 Delivery O2 Flow Rate FiO2 12/25/19 09:02 79 133/84 12/25/19 09:00 Room Air 12/25/19 08:00 98.3 18 98 Constitutional: NAD Neurologic: CN 2-12 intact Cardiovascular: RRR, no M/R/G Respiratory: CTA Airway Exam Mallampati Score: Class II MO: limited Neck: flexible ROM: full Teeth: missing Dentures: no upper, no lower Anesthesia Pre-op A/P Labs Hematology Test 12/25/19 05:40 White Blood Count Pending Red Blood Count 4.31 M/UL (4.70-6.10) L Hemoglobin 11.3 G/DL (14.2-18.0) L Hematocrit 35.0 % (42.0-52.0) L Mean Corpuscular Volume 81 FL (80-99) Mean Corpuscular Hemoglobin 26.2 PG (27.0-31.0) L Mean Corpuscular Hemoglobin Concent 32.3 G/DL (32.0-36.0) Red Cell Distribution Width 12.9 % (11.6-14.8) Platelet Count 335 K/UL (150-450) Mean Platelet Volume 5.4 FL (6.5-10.1) L Neutrophils (%) (Auto) 79.4 % (45.0-75.0) H Lymphocytes (%) (Auto) 10.0 % (20.0-45.0) L Monocytes (%) (Auto) 8.1 % (1.0-10.0) Eosinophils (%) (Auto) 1.3 % (0.0-3.0) Basophils (%) (Auto) 1.3 % (0.0-2.0) Lymphocytes Pending Chemistry Test 12/25/19 05:40 Sodium Level 137 MMOL/L (136-145) Potassium Level 3.5 MMOL/L (3.5-5.1) Chloride Level 102 MMOL/L (98-107) Carbon Dioxide Level 27 MMOL/L (21-32) Anion Gap 8 mmol/L (5-15) Blood Urea Nitrogen 6 mg/dL (7-18) L Creatinine 1.2 MG/DL (0.55-1.30) Estimat Glomerular Filtration Rate > 60 mL/min (>60) Glucose Level 107 MG/DL (74-106) H Calcium Level 8.9 MG/DL (8.5-10.1) Total Bilirubin 0.8 MG/DL (0.2-1.0) Aspartate Amino Transf (AST/SGOT) 39 U/L (15-37) H Alanine Aminotransferase (ALT/SGPT) 62 U/L (12-78) Alkaline Phosphatase 148 U/L (46-116) H Total Protein 6.3 G/DL (6.4-8.2) L Albumin 2.3 G/DL (3.4-5.0) L Globulin 4.0 g/dL Albumin/Globulin Ratio 0.6 (1.0-2.7) L Risk Assessment & Plan Assessment: ASA 3 Plan: GA with LMA Status Change Before Surgery: No Pre-Antibiotics Drug: Ancef 1gr. Given Within 1 Hr of Incision: Yes Time Given: 12:15 Stephane Pacheco MD Dec 25, 2019 12:25
[2019-12-25] MEDS ORDERED: LR 1000ml 1,000 ML IVLG SCH (12:30)
[2019-12-25] MEDS ORDERED: Hydromorphone 0.5mg/0.5ml inj IVP PRN (12:30)
[2019-12-25] MEDS ORDERED: DiphenhydrAMINE 50mg/ml Inj IVP PRN (12:30)
--- NOTE | 2019-12-25 12:44 | Infectious Diseases Prog Note ---
Assessment/Plan Abx: IV Vancomycin 12/23- Cefepime 12/23- Assessment: COVID19 neg x1 -12/23 rapid COVID PCR neg Sepsis R knee septic arthritis- post-op infection -12/24 SP I+D --OR cx p -synovial fluid: wbc 62.8k (N99%), RBC 5.5k; cx stain no organisms, many wbc; cx NTD -ESR 62, CRP 28.1 Fever; improving No leukocytosis HIV/AIDS on ARV -dx 2003. has undergo multiple regimens. Has developed resistant to Truvada component. On Tivicay and Prescobix for 1 yr now. Latest CD4 100s; previously 40s. Elevated LFTs, improving HTN asthma Plan: -Continue empiric IV Vancomycin and Cefepime #2 -f/u cx -Monitor CBC/CMP, temperatures -Continue ppx bactrim and Azithromycin -Continue ARV: Tivicay and Prezcobix -f/u CD4, HIV VL -Ortho f/u -f/u OR cultures Thank you for this consultation. Will continue to follow along with you. Discussed with RN and pharmacy staff. Subjective Allergies: Coded Allergies: LISINOPRIL (Verified Allergy, Severe, FACE SWELLING, 12/11/19) Tm 100.9 no leukocytosis sp I+D today Objective Last 24 Hour Vital Signs Date Time Temp Pulse Resp B/P (MAP) Pulse Ox O2 Delivery O2 Flow Rate FiO2 12/25/19 09:02 79 133/84 12/25/19 09:00 Room Air 12/25/19 08:00 98.3 79 18 133/84 (100) 98 12/25/19 04:00 99.7 91 20 154/92 (112) 98 12/25/19 00:00 98.8 83 16 127/65 (85) 95 12/24/19 21:30 100.9 90 20 122/77 (92) 99 92 12/24/19 21:00 Room Air 12/24/19 16:00 99.7 99 19 146/77 (100) 98 12/24/19 13:50 Room Air 12/24/19 13:49 99.1 12/24/19 12:50 99.1 92 17 145/89 98 Room Air 12/24/19 12:49 99.1 92 17 143/86 98 Room Air Height (Feet): 5 Height (Inches): 9.00 Weight (Pounds): 205 General: Awake and alert, no acute distress HEENT: NC/AT. EOMI. Cardiovascular: RRR. S1 and S2 normal. No murmur appreciated Resp: Normal work of breathing. No wheezing or crackles appreciated Abdomen: Abdomen is soft, nondistended. Nontender Skin: Intact. No abrasions, laceration or rash over the exposed skin MSK: R knee surgical bandages in place; L knee surgical wound healing well, no redness, swelling, warmth or TTP Neuro: Awake and alert. Microbiology Date/Time Source Procedure Growth Status 12/24/19 08:30 Knee Right Gram Stain - Final Resulted 12/24/19 08:30 Knee Right Wound Culture - Preliminary NO GROWTH Resulted 12/24/19 08:00 Nasopharynx SARS-CoV-2 RdRp Gene Assay - Final Complete Laboratory Tests Test 12/25/19 05:40 White Blood Count Pending Red Blood Count 4.31 M/UL (4.70-6.10) L Hemoglobin 11.3 G/DL (14.2-18.0) L Hematocrit 35.0 % (42.0-52.0) L Mean Corpuscular Volume 81 FL (80-99) Mean Corpuscular Hemoglobin 26.2 PG (27.0-31.0) L Mean Corpuscular Hemoglobin Concent 32.3 G/DL (32.0-36.0) Red Cell Distribution Width 12.9 % (11.6-14.8) Platelet Count 335 K/UL (150-450) Mean Platelet Volume 5.4 FL (6.5-10.1) L Neutrophils (%) (Auto) 79.4 % (45.0-75.0) H Lymphocytes (%) (Auto) 10.0 % (20.0-45.0) L Monocytes (%) (Auto) 8.1 % (1.0-10.0) Eosinophils (%) (Auto) 1.3 % (0.0-3.0) Basophils (%) (Auto) 1.3 % (0.0-2.0) Lymphocytes Pending Sodium Level 137 MMOL/L (136-145) Potassium Level 3.5 MMOL/L (3.5-5.1) Chloride Level 102 MMOL/L (98-107) Carbon Dioxide Level 27 MMOL/L (21-32) Anion Gap 8 mmol/L (5-15) Blood Urea Nitrogen 6 mg/dL (7-18) L Creatinine 1.2 MG/DL (0.55-1.30) Estimat Glomerular Filtration Rate > 60 mL/min (>60) Glucose Level 107 MG/DL (74-106) H Calcium Level 8.9 MG/DL (8.5-10.1) Total Bilirubin 0.8 MG/DL (0.2-1.0) Aspartate Amino Transf (AST/SGOT) 39 U/L (15-37) H Alanine Aminotransferase (ALT/SGPT) 62 U/L (12-78) Alkaline Phosphatase 148 U/L (46-116) H Total Protein 6.3 G/DL (6.4-8.2) L Albumin 2.3 G/DL (3.4-5.0) L Globulin 4.0 g/dL Albumin/Globulin Ratio 0.6 (1.0-2.7) L Percent CD3 Cells Pending Absolute CD3 Count Pending Percent CD4 Cells Pending Absolute CD4 Count Pending T-Lymphocyte CD4/CD8 Ratio Pending Percent CD8 Cells Pending Absolute CD8 Count Pending HIV-1 RNA (PCR) log10 Value Pending HIV-1 RNA Ultraquantitative (PCR) Pending Current Medications Medications (Trade) Dose Ordered Sig/Griselda Route PRN Reason Start Time Stop Time Status Last Admin Dose Admin Acetaminophen (Tylenol) 650 mg Q4H PRN ORAL Temp >100.5 12/24/19 11:45 01/23/20 11:44 12/25/19 06:52 Acetaminophen/ Hydrocodone Bitart ([place] 5/325) 1 tab Q4H PRN ORAL For Pain 12/25/19 11:45 01/01/20 11:44 Albuterol/ Ipratropium (Albuterol/ Ipratropium) 3 ml Q4H PRN HHN Shortness of Breath 12/24/19 11:45 12/29/19 11:44 Amlodipine Besylate (Norvasc) 20 mg DAILY ORAL 12/25/19 09:00 01/24/20 08:59 12/25/19 09:02 Cefepime HCl 2 gm/ Dextrose 110 ml @ 220 mls/hr EVERY 12 HOURS IV 12/24/19 21:00 12/31/19 20:59 12/25/19 09:03 Dextrose (Dextrose 50%) 25 ml Q30M PRN IV Hypoglycemia 12/24/19 11:45 03/23/20 11:44 Dextrose (Dextrose 50%) 50 ml Q30M PRN IV Hypoglycemia 12/24/19 11:45 03/23/20 11:44 Dextrose/Sodium Chloride 1,000 ml @ 75 mls/hr Q13H IV 12/25/19 12:18 01/24/20 12:17 Diphenhydramine HCl (Benadryl) 25 mg Q15M PRN IVP Itching 12/25/19 12:30 12/25/19 21:00 Docusate Sodium (Colace) 100 mg THREE TIMES A DAY ORAL 12/25/19 13:00 01/24/20 12:59 Dolutegravir Sodium (Tivicay) 50 mg BID ORAL 12/24/19 18:00 03/23/20 17:59 UNV Heparin Sodium (Porcine) (Heparin 5000 units/ml) 5,000 units EVERY 12 HOURS SUBQ 12/24/19 21:00 02/07/20 20:59 12/24/19 21:10 Hydromorphone HCl (Dilaudid) 0.5 mg Q4H PRN SUBQ Mild Pain (Pain Scale 1-3) 12/25/19 11:45 01/01/20 11:44 Hydromorphone HCl (Dilaudid) 0.5 mg Q5M PRN IVP Severe Pain (Pain Scale 7-10) 12/25/19 12:30 12/25/19 21:00 Lactated Ringer's 1,000 ml @ 10 mls/hr Q24H IVLG 12/25/19 12:30 12/25/19 14:29 Non-Formulary Medication (Non-Formulary Med) 1 ea DAILY ORAL 12/26/19 09:00 01/25/20 08:59 UNV Ondansetron HCl (Zofran) 4 mg Q1H PRN IVP Nausea & Vomiting 12/25/19 12:30 12/25/19 21:00 Ondansetron HCl (Zofran) 4 mg Q6H PRN IVP Nausea & Vomiting 12/24/19 11:45 01/23/20 11:44 Ondansetron HCl (Zofran) 4 mg Q6H PRN IVP Nausea & Vomiting 12/25/19 11:45 01/24/20 11:44 Polyethylene Glycol (Miralax) 17 gm DAILYPRN PRN ORAL Constipation 12/24/19 11:45 01/23/20 11:44 Senna/Docusate Sodium (Lolly-Colace) 1 tab TWICE A DAY ORAL 12/25/19 18:00 01/24/20 17:59 Temazepam (Restoril) 15 mg HSPRN PRN ORAL Insomnia 12/24/19 21:00 12/31/19 20:59 Trimethoprim/ Sulfamethoxazole (Bactrim-DS) 1 tab DAILY ORAL 12/25/19 09:00 01/01/20 08:59 12/25/19 09:03 Vancomycin HCl (Vanco pharmacy to dose) 1 ea DAILY PRN MISC . 12/24/19 14:00 01/23/20 13:59 Vancomycin/Sodium Chloride 275 ml @ 183.333 mls/hr Q12H IVPB 12/24/19 22:00 12/29/19 21:59 12/25/19 10:08 Parvin Gifford M.D. Dec 25, 2019 12:44
[2019-12-25] MEDS ORDERED: Meperidine 25mg/1ml Inj (FOR RIGORS ONLY) ONE (12:54)
--- NOTE | 2019-12-25 12:56 | Immediate Post-Op Evaluation ---
Immediate Post-Op Evalulation Immediate Post-Op Evalulation Procedure: I&D of R infected knee Date of Evaluation: Dec 25, 2019 Time of Evaluation: 12:55 IV Fluids: 300 Blood Products: none Estimated Blood Loss: mion Urinary Output: none Blood Pressure Systolic: 136 Blood Pressure Diastolic: 72 Pulse Rate: 86 Respiratory Rate: 22 O2 Sat by Pulse Oximetry: 98 Temperature (Fahrenheit): 97.5 Pain Score (1-10): 2 Nausea: No Vomiting: No Complications none Patient Status: reacts, patent, none Hydration Status: adequate Stephane Pacheco MD Dec 25, 2019 12:56
[2019-12-25] MEDS ORDERED: Meperidine 25mg/1ml Inj (FOR RIGORS ONLY) IV PRN (13:00)
[2019-12-25] MEDS: Docusate 100mg cap ORAL SCH ×2 (13:00→17:54)
[2019-12-25] MEDS ORDERED: Midazolam 2mg/2ml Inj IVP SCH (13:01)
--- NOTE | 2019-12-25 13:37 | NUR ---
NURSE NOTES: pt brought back to the floor S/P surgery, pt stable , breaths regular unlabored on O2 NC 2L. pt c/o of pain level 9/10, pt received pain medication prior to his transfer, vitals checked and are WNL , will continue to monitor and provide pain medication as ordered Pt's surgical dressing on the R leg clean intact with no s/s of bleeding, will call for IS and continue to monitor
--- NOTE | 2019-12-25 15:10 | NUR ---
CASE MANAGEMENT: INITIAL REVIEW 49 YO M PRESENTED TO ED FROM HOME CC: FEVER PMHx: HIV. Bilateral meniscal repair. SI:SEPTIC JOINT VS: T 101.5 HR 105 RR 20 B/P 150/115 SATS 98% ON RA LABS: NA 135 TBILI 1.4 DBILI 0.7 AST 52 ALT 82 ALP 177 IS: TYLENOL PO X1 NS BOLUS IV X1 MORPHINE IV X1 LIDOCAINE INJ X1 PATIENT ADMITTED TO MED/SURG 12/24/2019 @ 0944 DCP: HOME CONCURRENT REVIEW FOR 12/25/2019 SI:SEPTIC JOINT POD#1 Procedure: I&D of R infected knee VS: T 97.2 HR 102 RR 24 B/P 142/86 SATS 100% ON 3L/NC LABS: BUN 6 GLU 107 AST 39 ALP 148 IS: CEFEPIME IV Q12H NORVASC PO QD BACTRIM PO QD VANCO IV Q12H DEXTROSE/SODIUM IV @ 75 ML/HR MED/SURG DCP: HOME PLAN OF CARE: SUHA MICHELLE
--- NOTE | 2019-12-25 15:31 | NUR ---
INSURANCE NO B/AR INDICATION WHERE TO SEND CLINICALS Addendum: 12/25/19 at 1600 by Nory Cabrera CM Fax clinicals to Robbin Romeo at [phone]
[2019-12-25] MEDS: Hydromorphone 0.5mg/0.5ml inj SUBQ PRN (15:39)
--- NOTE | 2019-12-25 15:46 | 48 Hour Post Anesthesia Eval ---
Post Anesthesia Evaluation Procedure: I&D of R infected knee Date of Evaluation: Dec 25, 2019 Time of Evaluation: 15:45 Blood Pressure Systolic: 138 0: 91 Pulse Rate: 82 Respiratory Rate: 16 Temperature (Fahrenheit): 98.4 O2 Sat by Pulse Oximetry: 100 Airway: patent Nausea: No Vomiting: No Pain Intensity: 3 Hydration Status: adequate Cardiopulmonary Status: Stable Mental Status/LOC: patient returned to baseline Follow-up Care/Observations: 0 Post-Anesthesia Complications: 0 Follow-up care needed: N/A Hernandez Lemos MD Dec 25, 2019 15:46
[2019-12-25] MEDS ORDERED: ASPIRIN81 MG ORAL (17:21)
[2019-12-25] MEDS ORDERED: VIT D ORAL (17:21)
[2019-12-25] MEDS ORDERED: ACETAMINOPHEN325 M1 ORAL (17:21)
[2019-12-25] MEDS ORDERED: AMLODIPINE BES2.5 MG ORAL (17:21)
[2019-12-25] MEDS ORDERED: DOXYCYCLINE MO100 MG ORAL (17:21)
[2019-12-25] MEDS ORDERED: GABAPENTIN400 MG ORAL (17:21)
[2019-12-25] MEDS ORDERED: ATORVASTATIN CA10 MG ORAL (17:21)
[2019-12-25] MEDS ORDERED: BREO ELLIPTA 21 EACH INH (17:21)
[2019-12-25] MEDS ORDERED: VITAMIN D325 MC1 PO (17:21)
--- NOTE | 2019-12-25 17:53 | Internal Med Progress Note ---
Subjective Physician Name Keith Sandhu Attending Physician Keith Sandhu MD Current Medications Medications (Trade) Dose Ordered Sig/Griselda Route PRN Reason Start Time Stop Time Status Last Admin Dose Admin Acetaminophen (Tylenol) 650 mg Q4H PRN ORAL Temp >100.5 12/24/19 11:45 01/23/20 11:44 12/25/19 06:52 Acetaminophen/ Hydrocodone Bitart ([place] 5/325) 1 tab Q4H PRN ORAL For Pain 12/25/19 11:45 01/01/20 11:44 Albuterol/ Ipratropium (Albuterol/ Ipratropium) 3 ml Q4H PRN HHN Shortness of Breath 12/24/19 11:45 12/29/19 11:44 Amlodipine Besylate (Norvasc) 20 mg DAILY ORAL 12/25/19 09:00 01/24/20 08:59 12/25/19 09:02 Cefepime HCl 2 gm/ Dextrose 110 ml @ 220 mls/hr EVERY 12 HOURS IV 12/24/19 21:00 12/31/19 20:59 12/25/19 09:03 Dextrose (Dextrose 50%) 25 ml Q30M PRN IV Hypoglycemia 12/24/19 11:45 03/23/20 11:44 Dextrose (Dextrose 50%) 50 ml Q30M PRN IV Hypoglycemia 12/24/19 11:45 03/23/20 11:44 Docusate Sodium (Colace) 100 mg THREE TIMES A DAY ORAL 12/25/19 13:00 01/24/20 12:59 Heparin Sodium (Porcine) (Heparin 5000 units/ml) 5,000 units EVERY 12 HOURS SUBQ 12/24/19 21:00 02/07/20 20:59 12/24/19 21:10 Hydromorphone HCl (Dilaudid) 0.5 mg Q4H PRN SUBQ Mild Pain (Pain Scale 1-3) 12/25/19 11:45 01/01/20 11:44 12/25/19 15:39 Hydromorphone HCl (Dilaudid) 1 mg Q3H PRN IVP severe pain 12/25/19 16:00 01/01/20 15:59 Ondansetron HCl (Zofran) 4 mg Q6H PRN IVP Nausea & Vomiting 12/24/19 11:45 01/23/20 11:44 Ondansetron HCl (Zofran) 4 mg Q6H PRN IVP Nausea & Vomiting 12/25/19 11:45 01/24/20 11:44 Patient Own Medication (Patient's Own Med) 1 ea BID ORAL 12/25/19 18:00 01/24/20 17:59 Patient Own Medication (Patient's Own Med) 1 ea DAILY ORAL 12/25/19 18:00 01/24/20 17:59 Polyethylene Glycol (Miralax) 17 gm DAILYPRN PRN ORAL Constipation 12/24/19 11:45 01/23/20 11:44 Senna/Docusate Sodium (Lolly-Colace) 1 tab TWICE A DAY ORAL 12/25/19 18:00 01/24/20 17:59 Temazepam (Restoril) 15 mg HSPRN PRN ORAL Insomnia 12/24/19 21:00 12/31/19 20:59 Trimethoprim/ Sulfamethoxazole (Bactrim-DS) 1 tab DAILY ORAL 12/25/19 09:00 01/01/20 08:59 12/25/19 09:03 Vancomycin HCl 250 ml @ 166.667 mls/hr Q12HR@1000,2200 IVPB 12/26/19 22:00 12/31/19 21:59 Vancomycin HCl ([facility] pharmacy to dose) 1 ea DAILY PRN MISC . 12/24/19 14:00 01/23/20 13:59 Vancomycin/Sodium Chloride 275 ml @ 183.333 mls/hr Q12H IVPB 12/24/19 22:00 12/26/19 12:00 12/25/19 10:08 Allergies: Coded Allergies: LISINOPRIL (Verified Allergy, Severe, FACE SWELLING, 12/11/19) Subjective awake, alert, responsive, complaining about severe right knee pain, status post of I & D today. Objective Last Vital Signs Date Time Temp Pulse Resp B/P (MAP) Pulse Ox O2 Delivery O2 Flow Rate FiO2 12/25/19 15:46 82 16 100 12/25/19 15:30 99.6 136/75 (95) 12/25/19 13:40 Nasal Cannula 3 Laboratory Tests Test 12/25/19 05:40 12/25/19 12:15 White Blood Count Pending Red Blood Count 4.31 M/UL (4.70-6.10) L Hemoglobin 11.3 G/DL (14.2-18.0) L Hematocrit 35.0 % (42.0-52.0) L Mean Corpuscular Volume 81 FL (80-99) Mean Corpuscular Hemoglobin 26.2 PG (27.0-31.0) L Mean Corpuscular Hemoglobin Concent 32.3 G/DL (32.0-36.0) Red Cell Distribution Width 12.9 % (11.6-14.8) Platelet Count 335 K/UL (150-450) Mean Platelet Volume 5.4 FL (6.5-10.1) L Neutrophils (%) (Auto) 79.4 % (45.0-75.0) H Lymphocytes (%) (Auto) 10.0 % (20.0-45.0) L Monocytes (%) (Auto) 8.1 % (1.0-10.0) Eosinophils (%) (Auto) 1.3 % (0.0-3.0) Basophils (%) (Auto) 1.3 % (0.0-2.0) Lymphocytes Pending Sodium Level 137 MMOL/L (136-145) Potassium Level 3.5 MMOL/L (3.5-5.1) Chloride Level 102 MMOL/L (98-107) Carbon Dioxide Level 27 MMOL/L (21-32) Anion Gap 8 mmol/L (5-15) Blood Urea Nitrogen 6 mg/dL (7-18) L Creatinine 1.2 MG/DL (0.55-1.30) Estimat Glomerular Filtration Rate > 60 mL/min (>60) Glucose Level 107 MG/DL (74-106) H Calcium Level 8.9 MG/DL (8.5-10.1) Total Bilirubin 0.8 MG/DL (0.2-1.0) Aspartate Amino Transf (AST/SGOT) 39 U/L (15-37) H Alanine Aminotransferase (ALT/SGPT) 62 U/L (12-78) Alkaline Phosphatase 148 U/L (46-116) H Total Protein 6.3 G/DL (6.4-8.2) L Albumin 2.3 G/DL (3.4-5.0) L Globulin 4.0 g/dL Albumin/Globulin Ratio 0.6 (1.0-2.7) L Percent CD3 Cells Pending Absolute CD3 Count Pending Percent CD4 Cells Pending Absolute CD4 Count Pending T-Lymphocyte CD4/CD8 Ratio Pending Percent CD8 Cells Pending Absolute CD8 Count Pending HIV-1 RNA (PCR) log10 Value Pending HIV-1 RNA Ultraquantitative (PCR) Pending Body Fluid Source Synovial fluid Body Fluid Volume 10 mL Body Fluid Appearance Very cloudy (Clear) Body Fluid RBC 2000 /CUMM Body Fluid Total Nucleated Cells 28421 /CUMM Body Fluid Polynuclear WBCs (%) 99 % Body Fluid Mononuclear WBCs (%) 1 % Body Fluid Mesothelial Cells (%) 0 % Body Fluid Comment Right knee Microbiology Date/Time Source Procedure Growth Status 12/24/19 08:30 Knee Right Gram Stain - Final Resulted 12/24/19 08:30 Knee Right Wound Culture - Preliminary NO GROWTH Resulted 12/24/19 08:00 Nasopharynx SARS-CoV-2 RdRp Gene Assay - Final Complete Intake and Output 12/24/19 12/25/19 19:00 07:00 Intake Total 1600 ml 1200 ml Output Total 1400 ml Balance 1600 ml -200 ml Intake Oral 1600 ml 1200 ml Output Urine Total 1400 ml # Voids 3 3 Objective GENERAL: awake, responsive, in no acute distress. HEAD AND NECK: Pupils are equal and reactive to light. Extraocular movements are intact. Neck was supple. No JVD. LUNGS: Good air entry with no wheezing or rales. HEART: S1, S2. Regular rhythm. No gallops. ABDOMEN: Soft, nondistended, nontender. No rebound tenderness. No fluid shift. EXTREMITIES: No cyanosis, clubbing, or edema. right knee has tender to touch, dressing intact. NEUROLOGIC: Cranial nerves II through XII are grossly intact. The patient is moving all the extremities. Gait was not assessed due to the patient's status. RECTAL: Refused and deferred. : Refused and deferred. PSYCHIATRIC: Mood and affect is intact. Assessment/Plan Assessment/Plan ASSESSMENT: 1. Right knee septic arthritis. 2. HIV, on retroviral medication. 3. Hypertension. 4. History of asthma. PLAN: In medical floor. Follow up with Dr. Cale Taylor recommendation. Abx: vancomycin and cefepime. DVT prophylaxis: Heparin subcutaneous. S/P right knee I and D and joint wash (12/25/2019). Keith Sandhu MD Dec 25, 2019 17:53
[2019-12-25] MEDS: Docusate Sod/Senna tab ORAL SCH (17:54)
[2019-12-25] MEDS: PREZCOBIX ORAL SCH (17:56)
[2019-12-25] MEDS: HYDROmorphone 1mg/ml Carpuject IVP PRN (17:56)
--- NOTE | 2019-12-25 19:21 | NUR ---
NURSE HAND-OFF: Important Events on Shift: s/p surgery, pain management Patient Status: stable Diet: regular Pending Orders: Pending Results/Labs: Pending MD notification: Latest Vital Signs: Temperature 98.8 , Pulse 99 , B/P 130 /74 , Respiratory Rate 19 , O2 SAT 100 , Nasal Cannula, O2 Flow Rate 3 . Vital Sign Comment: Latest Kemp Fall Score: 20 Fall Risk: Low Risk Safety Measures: Call light Within Reach, Bed Alarm Zone 1, Side Rails Side Rails x2, Bed position Low and Locked. Fall Precautions: Patient Fall Education Report given to Matt VIZCAINO.
--- NOTE | 2019-12-25 19:35 | NUR ---
NURSE NOTES: received pt and report from fannie VIZCAINO, patient alert and oriented x 4 with no acute s/s of distress and no co of pain at the moment. IV site clean dry and intact and hep locked. Surgical dressing clean dry and intact. plan of care discussed.
--- NOTE | 2019-12-25 22:30 | NUR ---
NURSE NOTES: pt was febrile at 100.5 during 1999 vitals. before giving tylenol prn, fever went as high up as 102.1. given tylenol for fever and started cooling measures. fever decreased to 101. will continue to monitor temperature.
--- NOTE | 2019-12-25 22:30 | Operative Note - Dictated ---
DATE OF OPERATION: 12/24/2019 PREOPERATIVE DIAGNOSIS: Right knee possible septic joint. POSTOPERATIVE DIAGNOSIS: Right knee possible septic joint. PROCEDURES: 1. Right knee arthrotomy. 2. Right knee incision and drainage, 12 liters of bacitracin irrigation. SURGEON: Cale Taylor M.D. INDICATION FOR PROCEDURE: The patient is a pleasant 49-year-old gentleman who has developed swelling and pain in the right knee after some issues, had significant pain and discomfort and was brought to the ER where aspiration showed concern for possible infection. The patient willing to go with operative fixation, incision and drainage of the right knee. Risks, limitations, expectations, and complication were discussed in detail. All questions addressed. DESCRIPTION OF PROCEDURE: After informed consent obtained, the patient was brought to the operative room. The patient was placed under general anesthesia. Right leg was prepped and draped in a sterile manner. Time-out was performed. The medial skin incision was then marked down. Leg was elevated. Skin was incised. Subcutaneous tissue dissected down to the medial border of patellar tendon. The synovium was then incised. Gross pus was visible, was sent off for appropriate analysis. At this point, once arthrotomy was complete, 12 liters of bacitracin irrigation was then used to irrigate the knee. Once that was done, arthrotomy site was closed with #1 Vicryl suture, 3-0 Vicryl suture, and 3-0 Monocryl sutures. Steri-Strips and a sterile dressing were applied. ESTIMATED BLOOD LOSS: None. COMPLICATIONS: None. SPECIMENS: 1. Right knee aspirate. 2. Right knee fluid x2. IMPLANTS: None. Cale Taylor M.D. DR: URBANO JOB#: [id number] CC: JOLEEN
--- NOTE | 2019-12-25 22:45 | NUR ---
NURSE NOTES: IV site no longer patent, unable to infuse vancomycin dose at the moment. will attempt IV insertion and run vancomycin when able to do so.
[2019-12-26] VITALS: BP 125/70
--- NOTE | 2019-12-26 00:30 | NUR ---
NURSE NOTES: pt temperature now 100.4, will continue cooling measures and monitor temp. will administer tylenol for fever once due if temp 100.5 or greater. pt with no chills, pts other vitals stable.
--- NOTE | 2019-12-26 00:35 | NUR ---
NURSE NOTES: multiple attempts made to reinsert IV, none successful, waiting on ER nurse or ICU nurse for insertion attempt. will run vancomycin when new iv site established
[2019-12-26] MEDS: HYDROcodone/Acetamin 5/325 tab ORAL PRN ×2 (00:49→09:39)
--- NOTE | 2019-12-26 03:45 | NUR ---
NURSE NOTES: patient temp now at 99.9 down from 100.4. pt stable and in no acute distress and no co of pain
[2019-12-26 04:00] VITALS: BP 131/85
--- NOTE | 2019-12-26 04:46 | NUR ---
NURSE NOTES: pt temp now at 99.6, continuing to trend down. will continue to monitor temp and endorse to day shift nurse
[2019-12-26] MEDS: HYDROmorphone 1mg/ml Carpuject IVP PRN ×2 (06:31→13:44)
--- NOTE | 2019-12-26 07:30 | NUR ---
NURSE NOTES: Patient is in bed awake and able to verbalize needs. Stable. Denies pain or SOB. Patient instructed to use call light for assistance, verbalized understanding. Surgical dressing c/d/i, catalina hose on. Patient is in bed in locked and lowest position with call light within reach. All safety measures provided. Will continue to monitor.
--- NOTE | 2019-12-26 07:38 | NUR ---
NURSE HAND-OFF: Important Events on Shift:pain management and temp control Patient Status: stable Diet: regular Pending Orders: NA Pending Results/Labs:NA Pending MD notification:NA Latest Vital Signs: Temperature 99.6 , Pulse 89 , B/P 131 /85 , Respiratory Rate 15 , O2 SAT 98 , Room Air, O2 Flow Rate 3 . Vital Sign Comment: stable except for temp. eventually stabilized after tylenol PRN and cooling measures Latest Kemp Fall Score: 20 Fall Risk: Low Risk Safety Measures: Call light Within Reach, Bed Alarm Zone 1, Side Rails Side Rails x2, Bed position Low and Locked. Fall Precautions: Patient Fall Education Report given to CARRILLO Padilla.
[2019-12-26 08:00] VITALS: BP 122/78
--- NOTE | 2019-12-26 08:20 | Infectious Diseases Prog Note ---
Assessment/Plan Abx: IV Vancomycin 12/23- Cefepime 12/23- Assessment: COVID19 neg x1 -12/23 rapid COVID PCR neg Sepsis R knee septic arthritis- post-op infection -12/24 SP I+D --OR cx p -synovial fluid: wbc 62.8k (N99%), RBC 5.5k; cx stain no organisms, many wbc; cx NTD -ESR 62, CRP 28.1 Fever; improving No leukocytosis HIV/AIDS on ARV -dx 2003. has undergo multiple regimens. Has developed resistant to Truvada component. On Tivicay and Prescobix for 1 yr now. Latest CD4 100s; previously 40s. Elevated LFTs, improving HTN asthma Plan: -Continue empiric IV Vancomycin and Cefepime #3 -f/u cx -Monitor CBC/CMP, temperatures -Continue ppx bactrim and Azithromycin -Continue ARV: Tivicay and Prezcobix -f/u CD4, HIV VL -Ortho f/u -f/u OR cultures Thank you for this consultation. Will continue to follow along with you. Discussed with RN Subjective Allergies: Coded Allergies: LISINOPRIL (Verified Allergy, Severe, FACE SWELLING, 12/11/19) Tmax 101 No leukocytosis NAD in bed Cx NTD Reports R knee is improved after procedure yesterday Objective Last 24 Hour Vital Signs Date Time Temp Pulse Resp B/P (MAP) Pulse Ox O2 Delivery O2 Flow Rate FiO2 12/26/19 04:00 99.6 89 15 131/85 (100) 98 12/26/19 00:00 100.4 86 16 125/70 (88) 97 12/25/19 22:29 101.0 12/25/19 21:00 Room Air 12/25/19 20:00 100.5 96 18 126/71 (89) 96 12/25/19 17:30 98.8 99 19 130/74 (92) 100 12/25/19 15:46 82 16 100 12/25/19 15:30 99.6 100 19 136/75 (95) 100 12/25/19 14:30 99.0 103 21 132/75 (94) 100 12/25/19 14:00 98.7 102 18 144/90 (108) 100 12/25/19 13:40 87 18 139/91 100 Nasal Cannula 3 87 12/25/19 13:37 98.7 93 16 136/84 (101) 93 12/25/19 13:30 95 15 145/89 100 Nasal Cannula 3 95 12/25/19 13:15 92 14 136/92 100 Nasal Cannula 3 92 12/25/19 13:00 96 18 136/92 100 Simple Mask 6 96 12/25/19 12:56 86 22 98 12/25/19 12:55 95 20 143/95 100 Simple Mask 6 95 12/25/19 12:48 97.2 102 24 142/86 98 Simple Mask 6 102 12/25/19 09:02 79 133/84 12/25/19 09:00 Room Air Height (Feet): 5 Height (Inches): 9.00 Weight (Pounds): 205 Gen: NAD HEENT: NCAT, EOMI, PERRL CV: RRR Pulm: CTAB Abd: Soft, NTND Ext: No c/c/e, R knee bandage c/d/i Neuro: Awake Microbiology Date/Time Source Procedure Growth Status 12/24/19 08:30 Knee Right Gram Stain - Final Resulted 12/24/19 08:30 Knee Right Wound Culture - Preliminary NO GROWTH Resulted 12/24/19 08:00 Nasopharynx SARS-CoV-2 RdRp Gene Assay - Final Complete 12/24/19 08:00 Blood Blood Culture - Preliminary NO GROWTH AFTER 24 HOURS Resulted 12/24/19 08:00 Blood Blood Culture - Preliminary NO GROWTH AFTER 24 HOURS Resulted Laboratory Tests Test 12/25/19 12:15 Body Fluid Source Synovial fluid Body Fluid Volume 10 mL Body Fluid Appearance Very cloudy (Clear) Body Fluid RBC 2000 /CUMM Body Fluid Total Nucleated Cells 56052 /CUMM Body Fluid Polynuclear WBCs (%) 99 % Body Fluid Mononuclear WBCs (%) 1 % Body Fluid Mesothelial Cells (%) 0 % Body Fluid Comment Right knee Current Medications Medications (Trade) Dose Ordered Sig/Griselda Route PRN Reason Start Time Stop Time Status Last Admin Dose Admin Acetaminophen (Tylenol) 650 mg Q4H PRN ORAL Temp >100.5 12/24/19 11:45 01/23/20 11:44 12/25/19 21:59 Acetaminophen/ Hydrocodone Bitart ([place] 5/325) 1 tab Q4H PRN ORAL For Pain 12/25/19 11:45 01/01/20 11:44 12/26/19 00:49 Albuterol/ Ipratropium (Albuterol/ Ipratropium) 3 ml Q4H PRN HHN Shortness of Breath 12/24/19 11:45 12/29/19 11:44 Amlodipine Besylate (Norvasc) 20 mg DAILY ORAL 12/25/19 09:00 01/24/20 08:59 12/25/19 09:02 Cefepime HCl 2 gm/ Dextrose 110 ml @ 220 mls/hr EVERY 12 HOURS IV 12/24/19 21:00 12/31/19 20:59 12/25/19 21:53 Dextrose (Dextrose 50%) 25 ml Q30M PRN IV Hypoglycemia 12/24/19 11:45 03/23/20 11:44 Dextrose (Dextrose 50%) 50 ml Q30M PRN IV Hypoglycemia 12/24/19 11:45 03/23/20 11:44 Docusate Sodium (Colace) 100 mg THREE TIMES A DAY ORAL 12/25/19 13:00 01/24/20 12:59 12/25/19 17:54 Heparin Sodium (Porcine) (Heparin 5000 units/ml) 5,000 units EVERY 12 HOURS SUBQ 12/24/19 21:00 02/07/20 20:59 12/25/19 21:54 Hydromorphone HCl (Dilaudid) 0.5 mg Q4H PRN SUBQ Mild Pain (Pain Scale 1-3) 12/25/19 11:45 01/01/20 11:44 12/25/19 15:39 Hydromorphone HCl (Dilaudid) 1 mg Q3H PRN IVP severe pain 12/25/19 16:00 01/01/20 15:59 12/26/19 06:31 Ondansetron HCl (Zofran) 4 mg Q6H PRN IVP Nausea & Vomiting 12/24/19 11:45 01/23/20 11:44 Ondansetron HCl (Zofran) 4 mg Q6H PRN IVP Nausea & Vomiting 12/25/19 11:45 01/24/20 11:44 Patient Own Medication (Patient's Own Med) 1 ea BID ORAL 12/25/19 18:00 01/24/20 17:59 12/25/19 17:56 Patient Own Medication (Patient's Own Med) 1 ea DAILY ORAL 12/25/19 18:00 01/24/20 17:59 12/25/19 17:56 Polyethylene Glycol (Miralax) 17 gm DAILYPRN PRN ORAL Constipation 12/24/19 11:45 01/23/20 11:44 Senna/Docusate Sodium (Lolly-Colace) 1 tab TWICE A DAY ORAL 12/25/19 18:00 01/24/20 17:59 12/25/19 17:54 Temazepam (Restoril) 15 mg HSPRN PRN ORAL Insomnia 12/24/19 21:00 12/31/19 20:59 Trimethoprim/ Sulfamethoxazole (Bactrim-DS) 1 tab DAILY ORAL 12/25/19 09:00 01/01/20 08:59 12/25/19 09:03 Vancomycin HCl 250 ml @ 166.667 mls/hr Q12HR@1000,2200 IVPB 12/26/19 22:00 12/31/19 21:59 Vancomycin HCl ([facility] pharmacy to dose) 1 ea DAILY PRN MISC . 12/24/19 14:00 01/23/20 13:59 Vancomycin/Sodium Chloride 275 ml @ 183.333 mls/hr Q12H IVPB 12/24/19 22:00 12/26/19 12:00 12/25/19 22:25 Mary Ann Yun M.D. Dec 26, 2019 08:20
[2019-12-26 09:04] LABS: BASOPHILS % (AUTO) 1.4 % (0.0-2.0); EOSINOPHILS % (AUTO) 1.6 % (0.0-3.0); HEMATOCRIT 34.7 % (42.0-52.0); HEMOGLOBIN 11.2 G/DL (14.2-18.0); LYMPHOCYTES % (AUTO) 7.9 % (20.0-45.0); MEAN CORPUSCULAR VOLUME 81 FL (80-99); MONOCYTES % (AUTO) 8.7 % (1.0-10.0); NEUTROPHILS % (AUTO) 80.5 % (45.0-75.0); PLATELET COUNT 358 K/UL (150-450); RED BLOOD COUNT 4.26 M/UL (4.70-6.10); WHITE BLOOD COUNT 7.7 K/UL (4.8-10.8)
[2019-12-26 09:21] LABS: ANION GAP 7 mmol/L (5-15); BLOOD UREA NITROGEN 4 mg/dL (7-18); CALCIUM 8.8 MG/DL (8.5-10.1); CARBON DIOXIDE 29 MMOL/L (21-32); CHLORIDE 101 MMOL/L (98-107); CREATININE 1.3 MG/DL (0.55-1.30); PHOSPHORUS 2.9 MG/DL (2.5-4.9); POTASSIUM 3.4 MMOL/L (3.5-5.1); SODIUM 136 MMOL/L (136-145)
[2019-12-26] MEDS: Bactrim-DS 1 tab ORAL SCH (09:28)
[2019-12-26] MEDS: Docusate Sod/Senna tab ORAL SCH ×2 (09:28→17:51)
[2019-12-26] MEDS: Docusate 100mg cap ORAL SCH ×3 (09:28→17:51)
[2019-12-26] MEDS: Heparin 5000 units/ml inj SUBQ SCH ×2 (09:30→20:54)
[2019-12-26] MEDS: PREZCOBIX ORAL SCH (09:30)
[2019-12-26] MEDS: Cefepime HCl 2 GM in D5W 110 ML IV SCH ×2 (09:31→20:54)
[2019-12-26] MEDS: Vancomycin 1750mg/D5W 550ml IVPB SCH ×2 (11:34)
[2019-12-26 12:00] VITALS: BP 121/76
--- NOTE | 2019-12-26 12:21 | NUR ---
CASE MANAGEMENT:REVIEW 12/26/19 SI: RT KNEE SEPTIC JOINT POD #2 S/P ARTHROTOMY,INCISION AND DRAINAGE 100.4 89 15 131/85 98% ON RA H/H-11.2/34.7 IS: IV VANCOMYCIN Q24 IV CEFEPIME Q12 BACTRIM PO QD NORVASC PO QD IV DILAUDID Q3HRS PRN : MED/SURG STATUS 3 EAST
--- NOTE | 2019-12-26 14:00 | NUR ---
NURSE NOTES: Patient refused to get out of bed x4. PT Salvador and RN both gave patient teaching regarding risks and benefits of getting out of bed and ambulating. Patient continued to refuse. Patient is stable, temp is 99.0 and warm to touch, surgical dressing c/d/i. All needs met at this time in bed in locked and lowest position with call light within reach, will continue to monitor.
--- NOTE | 2019-12-26 15:15 | NUR ---
P.T Note: Multiple attempts were made today however patient declined to participate due to c/o pain and not feeling well despite pain medication given by RN as well as education given on possible complications of prolonged bedrest and benefits of OOB activities following surgical procedure. Pt requested to be seen tomorrow. RN present in the room and was aware.
[2019-12-26 16:00] VITALS: BP 109/77
--- NOTE | 2019-12-26 17:37 | Internal Med Progress Note ---
Subjective Date of Service: Dec 26, 2019 Physician Name Ward Hoover Attending Physician Keith Sandhu MD Current Medications Medications (Trade) Dose Ordered Sig/Griselda Route PRN Reason Start Time Stop Time Status Last Admin Dose Admin Acetaminophen (Tylenol) 650 mg Q4H PRN ORAL Temp >100.5 12/24/19 11:45 01/23/20 11:44 12/25/19 21:59 Acetaminophen/ Hydrocodone Bitart ([place] 5/325) 1 tab Q4H PRN ORAL For Pain 12/25/19 11:45 01/01/20 11:44 12/26/19 09:39 Albuterol/ Ipratropium (Albuterol/ Ipratropium) 3 ml Q4H PRN HHN Shortness of Breath 12/24/19 11:45 12/29/19 11:44 Amlodipine Besylate (Norvasc) 20 mg DAILY ORAL 12/25/19 09:00 01/24/20 08:59 12/26/19 09:27 Cefepime HCl 2 gm/ Dextrose 110 ml @ 220 mls/hr EVERY 12 HOURS IV 12/24/19 21:00 12/31/19 20:59 12/26/19 09:31 Dextrose (Dextrose 50%) 25 ml Q30M PRN IV Hypoglycemia 12/24/19 11:45 03/23/20 11:44 Dextrose (Dextrose 50%) 50 ml Q30M PRN IV Hypoglycemia 12/24/19 11:45 03/23/20 11:44 Docusate Sodium (Colace) 100 mg THREE TIMES A DAY ORAL 12/25/19 13:00 01/24/20 12:59 12/26/19 13:44 Heparin Sodium (Porcine) (Heparin 5000 units/ml) 5,000 units EVERY 12 HOURS SUBQ 12/24/19 21:00 02/07/20 20:59 12/26/19 09:30 Hydromorphone HCl (Dilaudid) 0.5 mg Q4H PRN SUBQ Mild Pain (Pain Scale 1-3) 12/25/19 11:45 01/01/20 11:44 12/25/19 15:39 Hydromorphone HCl (Dilaudid) 1 mg Q3H PRN IVP severe pain 12/25/19 16:00 01/01/20 15:59 12/26/19 13:44 Ondansetron HCl (Zofran) 4 mg Q6H PRN IVP Nausea & Vomiting 12/25/19 11:45 01/24/20 11:44 Patient Own Medication (Patient's Own Med) 1 ea BID ORAL 12/25/19 18:00 01/24/20 17:59 12/26/19 09:31 Patient Own Medication (Patient's Own Med) 1 ea DAILY ORAL 12/25/19 18:00 01/24/20 17:59 12/26/19 09:30 Polyethylene Glycol (Miralax) 17 gm DAILYPRN PRN ORAL Constipation 12/24/19 11:45 01/23/20 11:44 Senna/Docusate Sodium (Lolly-Colace) 1 tab TWICE A DAY ORAL 12/25/19 18:00 01/24/20 17:59 12/26/19 09:28 Temazepam (Restoril) 15 mg HSPRN PRN ORAL Insomnia 12/24/19 21:00 12/31/19 20:59 Trimethoprim/ Sulfamethoxazole (Bactrim-DS) 1 tab DAILY ORAL 12/25/19 09:00 01/01/20 08:59 12/26/19 09:28 Vancomycin HCl ([facility] pharmacy to dose) 1 ea DAILY PRN MISC . 12/24/19 14:00 01/23/20 13:59 Vancomycin HCl 1.75 gm/Dextrose 550 ml @ 275 mls/hr Q24H IVPB 12/26/19 11:30 12/31/19 11:29 12/26/19 11:34 Allergies: Coded Allergies: LISINOPRIL (Verified Allergy, Severe, FACE SWELLING, 12/11/19) ROS Limited/Unobtainable: No Constitutional: Reports: no symptoms HEENT: Reports: no symptoms Cardiovascular: Reports: no symptoms Respiratory: Reports: no symptoms Gastrointestinal/Abdominal: Reports: no symptoms Genitourinary: Reports: no symptoms Neurologic/Psychiatric: Reports: no symptoms Subjective 49 YO M admitted with right knee pain. Now septic arthritis. Cover for Int Med-Dr Sandhu. S/P right knee arthrotomy and I&D Objective Last Vital Signs Date Time Temp Pulse Resp B/P (MAP) Pulse Ox O2 Delivery O2 Flow Rate FiO2 12/26/19 16:00 100.1 89 19 109/77 (88) 94 12/26/19 09:00 Room Air 12/25/19 13:40 3 Laboratory Tests Test 12/26/19 08:45 White Blood Count 7.7 K/UL (4.8-10.8) Red Blood Count 4.26 M/UL (4.70-6.10) L Hemoglobin 11.2 G/DL (14.2-18.0) L Hematocrit 34.7 % (42.0-52.0) L Mean Corpuscular Volume 81 FL (80-99) Mean Corpuscular Hemoglobin 26.4 PG (27.0-31.0) L Mean Corpuscular Hemoglobin Concent 32.4 G/DL (32.0-36.0) Red Cell Distribution Width 13.0 % (11.6-14.8) Platelet Count 358 K/UL (150-450) Mean Platelet Volume 5.7 FL (6.5-10.1) L Neutrophils (%) (Auto) 80.5 % (45.0-75.0) H Lymphocytes (%) (Auto) 7.9 % (20.0-45.0) L Monocytes (%) (Auto) 8.7 % (1.0-10.0) Eosinophils (%) (Auto) 1.6 % (0.0-3.0) Basophils (%) (Auto) 1.4 % (0.0-2.0) Sodium Level 136 MMOL/L (136-145) Potassium Level 3.4 MMOL/L (3.5-5.1) L Chloride Level 101 MMOL/L (98-107) Carbon Dioxide Level 29 MMOL/L (21-32) Anion Gap 7 mmol/L (5-15) Blood Urea Nitrogen 4 mg/dL (7-18) L Creatinine 1.3 MG/DL (0.55-1.30) Estimat Glomerular Filtration Rate > 60 mL/min (>60) Glucose Level 95 MG/DL (74-106) Calcium Level 8.8 MG/DL (8.5-10.1) Phosphorus Level 2.9 MG/DL (2.5-4.9) Magnesium Level 2.1 MG/DL (1.8-2.4) Vancomycin Level Trough 10.8 ug/mL (5.0-12.0) Microbiology Date/Time Source Procedure Growth Status 12/25/19 12:15 Knee Right Gram Stain - Final Resulted 12/25/19 12:15 Knee Right Aerobic Culture - Preliminary NO GROWTH Resulted 12/25/19 12:15 Knee Right Anaerobic Culture Pending Resulted 12/24/19 08:30 Knee Right Gram Stain - Final Resulted 12/24/19 08:30 Knee Right Wound Culture - Preliminary NO GROWTH Resulted 12/24/19 08:00 Nasopharynx SARS-CoV-2 RdRp Gene Assay - Final Complete 12/24/19 08:00 Blood Blood Culture - Preliminary NO GROWTH AFTER 24 HOURS Resulted 12/24/19 08:00 Blood Blood Culture - Preliminary NO GROWTH AFTER 24 HOURS Resulted Intake and Output 12/25/19 12/26/19 19:00 07:00 Intake Total 3300 ml 900 ml Output Total 1850 ml 2000 ml Balance 1450 ml -1100 ml Intake Oral 3200 ml 900 ml IV Total 100 ml Output Urine Total 1850 ml 2000 ml # Voids 4 Objective Objective GENERAL: awake, responsive, in no acute distress. HEAD AND NECK: Pupils are equal and reactive to light. Extraocular movements are intact. Neck was supple. No JVD. LUNGS: Good air entry with no wheezing or rales. HEART: S1, S2. Regular rhythm. No gallops. ABDOMEN: Soft, nondistended, nontender. No rebound tenderness. No fluid shift. EXTREMITIES: No cyanosis, clubbing, or edema. right knee has tender to touch, dressing intact. NEUROLOGIC: Cranial nerves II through XII are grossly intact. The patient is moving all the extremities. Gait was not assessed due to the patient's status. RECTAL: Refused and deferred. : Refused and deferred. PSYCHIATRIC: Mood and affect is intact. Assessment/Plan Assessment/Plan Assessment/Plan Assessment/Plan Assessment/Plan ASSESSMENT: 1. Right knee septic arthritis. 2. HIV, on retroviral medication. 3. Hypertension. 4. History of asthma. PLAN: In medical floor. Follow up with Dr. Cale Taylor recommendation. Abx: vancomycin and cefepime. DVT prophylaxis: Heparin subcutaneous. S/P right knee I and D and joint wash (12/25/2019). Ward Hoover MD Dec 26, 2019 17:37
[2019-12-26] MEDS ORDERED: Breo Ellipta 100/25mcg - 14 dose INH SCH (18:00)
--- NOTE | 2019-12-26 19:18 | NUR ---
NURSE HAND-OFF: Important Events on Shift: pain management, pt refused to get out of bed multiple times during shift Patient Status: stable Diet: regular Pending Orders: n/a Pending Results/Labs:n/a Pending MD notification:n/a Latest Vital Signs: Temperature 100.1 , Pulse 89 , B/P 109 /77 , Respiratory Rate 19 , O2 SAT 94 , Room Air, O2 Flow Rate 3 . Vital Sign Comment: n/a Latest Kemp Fall Score: 20 Fall Risk: Low Risk Safety Measures: Call light Within Reach, Side Rails x2, Bed position Low and Locked. Fall Precautions: Patient Fall Education Report given to Matt VIZCAINO.
--- NOTE | 2019-12-26 19:25 | NUR ---
NURSE NOTES: received pt and report from CARRILLO Padilla. pt alert and oriented x 4 with no acute s/s of distress and no co of pain at the moment. iv site clean dry and intact. surgical dressing clean dry and intact. plan of care discussed.
--- NOTE | 2019-12-26 19:35 | NUR ---
NURSE NOTES: pt febrile with temp 101.8. day shift nurse endorsed that Dr. Hoover rounded and is aware and that it is expected because of the septic infection. awaiting blood cultures for antibiotic management. I administered PRN tylenol for the fever. will continue to assess temp throughout the shift.
[2019-12-26] MEDS: Breo Ellipta 100/25mcg - 14 dose INH SCH (19:43)
--- NOTE | 2019-12-26 19:45 | NUR ---
NURSE NOTES: pt potassium level at 3.4. Day shift nurse endorsed that the pt had been seen by Dr. Hoover on rounds. No orders for potassium replenishment. Will monitor potassium levels pending results of next lab draw.
[2019-12-26 20:00] VITALS: BP 113/73
--- NOTE | 2019-12-26 21:13 | NUR ---
NURSE NOTES: pt temperature now at 99.7. pt with no chills and no acute distress. pt is currently sleeping.
[2019-12-26] MEDS ORDERED: Vancomycin 1.25gm Premix q24h IVPB SCH (22:00)
--- NOTE | 2019-12-26 22:14 | NUR ---
NURSE NOTES: pt temp now at 99.5. no shivering, no acute distress. will continue to monitor temp.
[2019-12-27] VITALS: BP 114/76
[2019-12-27 03:45] VITALS: BP 116/77
--- NOTE | 2019-12-27 03:47 | NUR ---
NURSE NOTES: pt temp beginning to climb. now at 100.1. will administer tylenol prn to prevent fever spike. will reassess temp and monitor.
[2019-12-27] MEDS: HYDROmorphone 1mg/ml Carpuject IVP PRN ×4 (03:59→22:23)
--- NOTE | 2019-12-27 04:58 | NUR ---
NURSE NOTES: assisted pt up out of bed and while using crutches at bedside ambulated to the bathroom. pt performed complete body sponge bath. pt gown changed and assisted back into bed. pt then told me his concern about a penile lesion which he noticed after wiping off a dry crusted area on the tip of his penis. patient also complaining of dry scalp which he always needs to scratch. small lesions also found on scalp. pt offered moisture barrier cream to address the dryness. will endorse these concerns to the day shift nurse to bring it to the attention of the provider.
[2019-12-27 05:50] LABS: BASOPHILS % (AUTO) 1.4 % (0.0-2.0); EOSINOPHILS % (AUTO) 1.5 % (0.0-3.0); HEMATOCRIT 37.9 % (42.0-52.0); HEMOGLOBIN 12.3 G/DL (14.2-18.0); LYMPHOCYTES % (AUTO) 9.1 % (20.0-45.0); MEAN CORPUSCULAR VOLUME 81 FL (80-99); PLATELET COUNT 392 K/UL (150-450); RED BLOOD COUNT 4.65 M/UL (4.70-6.10); RED CELL DISTRIBUTION WIDTH 13.2 % (11.6-14.8); WHITE BLOOD COUNT 7.4 K/UL (4.8-10.8)
[2019-12-27 06:15] LABS: ANION GAP 9 mmol/L (5-15); BLOOD UREA NITROGEN 6 mg/dL (7-18); CARBON DIOXIDE 28 MMOL/L (21-32); CHLORIDE 100 MMOL/L (98-107); CREATININE 1.5 MG/DL (0.55-1.30); POTASSIUM 3.7 MMOL/L (3.5-5.1); SODIUM 136 MMOL/L (136-145)
--- NOTE | 2019-12-27 07:43 | NUR ---
NURSE HAND-OFF: Important Events on Shift: pain management and fever management Patient Status: stable Diet: regular Pending Orders: NA Pending Results/Labs:NA Pending MD notification:NA Latest Vital Signs: Temperature 98.8 , Pulse 94 , B/P 116 /77 , Respiratory Rate 19 , O2 SAT 96 , Room Air, O2 Flow Rate 3 . Vital Sign Comment: stable through the shift despite fever, controlled by tylenol Latest Kemp Fall Score: 20 Fall Risk: Low Risk Safety Measures: Call light Within Reach, Bed Alarm Zone 1, Side Rails Side Rails x2, Bed position Low and Locked. Fall Precautions: Patient Fall Education Report given to CARRILLO Padilla.
[2019-12-27] MEDS: Breo Ellipta 100/25mcg - 14 dose INH SCH (07:50)
[2019-12-27 08:00] VITALS: BP 114/67
[2019-12-27] MEDS: Hydromorphone 0.5mg/0.5ml inj SUBQ PRN (08:00)
[2019-12-27] MEDS: Docusate 100mg cap ORAL SCH ×3 (08:05→17:14)
[2019-12-27] MEDS: PREZCOBIX ORAL SCH (08:05)
[2019-12-27] MEDS: Heparin 5000 units/ml inj SUBQ SCH ×2 (08:05→20:18)
[2019-12-27] MEDS: Bactrim-DS 1 tab ORAL SCH (08:05)
[2019-12-27] MEDS: Cefepime HCl 2 GM in D5W 110 ML IV SCH ×2 (08:05→20:22)
[2019-12-27] MEDS: Docusate Sod/Senna tab ORAL SCH ×2 (08:06→17:19)
--- NOTE | 2019-12-27 10:40 | NUR ---
PT EVALUATION NOTE Patient seen for initial evaluation and treatment initiated. Patient able to perform bed mobility with SBA. Patient transfers with SBA and crutches/FWW. Patient able to ambulate 100 ft with SBA/CGA and crutches/FWW. Patient will benefit from skilled inpatient PT intervention to increase strength and postural stability for improved level of functional mobility. Anticipate discharge home once medically cleared by MD. Patient has crutches. Recommend FWW for home use when patient needs to walk his dog. Addendum: 12/27/19 at 1217 by FAITH MASON PT Amended: Links added.
--- NOTE | 2019-12-27 11:26 | NUR ---
ASE MANAGEMENT:REVIEW 12/27/19 SI: RT KNEE SEPTIC JOINT POD #3........S/P ARTHROTOMY,INCISION AND DRAINAGE 100.1 94 20 114/67 100% ON RA H/H-12.3/37.9 CR+1.5 IS: IV VANCOMYCIN Q24 IV CEFEPIME Q12 BACTRIM PO QD NORVASC PO QD HEPARIN SQ Q12 IV DILAUDID Q3HRS PRN : MED/SURG STATUS 3 EAST DCP: FROM HOME
[2019-12-27] MEDS: Vancomycin 1750mg/D5W 550ml IVPB SCH ×2 (11:57)
[2019-12-27 12:00] VITALS: BP 120/69
--- NOTE | 2019-12-27 14:38 | CDS Physician Query ---
Clarification is required for compliance, coding accuracy, and to reflect severity of illness for this patient. Dear Keith Young MD Date: 12/27/2019 Doctor Of Chiropractic/CDS Name: Ralph Limon Clinical Documentation Statement: "49-year-old man underwent right knee arthroscopic medial meniscectomy. " ASSESSMENT: 1. Status post right knee arthroscopic medial meniscectomy. 2. HIV. 3. Teeth infection. Clinical Finding Show: Albumin (12/24): 2.3 g/dl [3.4-5.0], BMI: 34.2kg/m2 Please select the most appropriate option: [ ] Protein/Calorie Malnutrition [ ] Mild [ ] Moderate [ ] Severe [] Unknown degree [] Other: [x] Clinically Undetermined Present on Admission: [x] Yes [] No [] Clinically Undetermined Physician signature Date Please also document in your Progress Notes and/or Discharge Summary and indicate if the condition was present on admission. MTDD
--- NOTE | 2019-12-27 14:46 | Internal Med Progress Note ---
Subjective Date of Service: Dec 27, 2019 Physician Name Ward Hoover Attending Physician Keith Sandhu MD Current Medications Medications (Trade) Dose Ordered Sig/Griselda Route PRN Reason Start Time Stop Time Status Last Admin Dose Admin Acetaminophen (Tylenol) 650 mg Q4H PRN ORAL Temp >100.5 12/24/19 11:45 01/23/20 11:44 12/27/19 12:18 Acetaminophen/ Hydrocodone Bitart ([place] 5/325) 1 tab Q4H PRN ORAL For Pain 12/25/19 11:45 01/01/20 11:44 12/26/19 09:39 Albuterol/ Ipratropium (Albuterol/ Ipratropium) 3 ml Q4H PRN HHN Shortness of Breath 12/24/19 11:45 12/29/19 11:44 Amlodipine Besylate (Norvasc) 20 mg DAILY ORAL 12/25/19 09:00 01/24/20 08:59 12/26/19 09:27 Cefepime HCl 2 gm/ Dextrose 110 ml @ 220 mls/hr EVERY 12 HOURS IV 12/24/19 21:00 12/31/19 20:59 12/27/19 08:05 Dextrose (Dextrose 50%) 25 ml Q30M PRN IV Hypoglycemia 12/24/19 11:45 03/23/20 11:44 Dextrose (Dextrose 50%) 50 ml Q30M PRN IV Hypoglycemia 12/24/19 11:45 03/23/20 11:44 Docusate Sodium (Colace) 100 mg THREE TIMES A DAY ORAL 12/25/19 13:00 01/24/20 12:59 12/26/19 13:44 Fluticasone/ Vilanterol (Breo Ellipta 100/25) 1 puff DAILY INH 12/26/19 19:30 03/25/20 19:29 12/27/19 07:50 Heparin Sodium (Porcine) (Heparin 5000 units/ml) 5,000 units EVERY 12 HOURS SUBQ 12/24/19 21:00 02/07/20 20:59 12/27/19 08:05 Hydromorphone HCl (Dilaudid) 0.5 mg Q4H PRN SUBQ Mild Pain (Pain Scale 1-3) 12/25/19 11:45 01/01/20 11:44 12/27/19 08:00 Hydromorphone HCl (Dilaudid) 1 mg Q3H PRN IVP severe pain 12/25/19 16:00 01/01/20 15:59 12/27/19 13:08 Ondansetron HCl (Zofran) 4 mg Q6H PRN IVP Nausea & Vomiting 12/25/19 11:45 01/24/20 11:44 Patient Own Medication (Patient's Own Med) 1 ea BID ORAL 12/25/19 18:00 01/24/20 17:59 12/27/19 08:05 Patient Own Medication (Patient's Own Med) 1 ea DAILY ORAL 12/25/19 18:00 01/24/20 17:59 12/27/19 08:05 Polyethylene Glycol (Miralax) 17 gm DAILYPRN PRN ORAL Constipation 12/24/19 11:45 01/23/20 11:44 Senna/Docusate Sodium (Lolly-Colace) 1 tab TWICE A DAY ORAL 12/25/19 18:00 01/24/20 17:59 12/26/19 09:28 Temazepam (Restoril) 15 mg HSPRN PRN ORAL Insomnia 12/24/19 21:00 12/31/19 20:59 12/26/19 22:11 Trimethoprim/ Sulfamethoxazole (Bactrim-DS) 1 tab DAILY ORAL 12/25/19 09:00 01/01/20 08:59 12/27/19 08:05 Vancomycin HCl (Vanco pharmacy to dose) 1 ea DAILY PRN MISC . 12/24/19 14:00 01/23/20 13:59 Vancomycin HCl 1.75 gm/Dextrose 550 ml @ 275 mls/hr Q24H IVPB 12/26/19 11:30 12/31/19 11:29 12/27/19 11:57 Allergies: Coded Allergies: LISINOPRIL (Verified Allergy, Severe, FACE SWELLING, 12/11/19) ROS Limited/Unobtainable: No Constitutional: Reports: no symptoms HEENT: Reports: no symptoms Respiratory: Reports: no symptoms Gastrointestinal/Abdominal: Reports: no symptoms Genitourinary: Reports: no symptoms Neurologic/Psychiatric: Reports: no symptoms Subjective 49 YO M admitted with right knee pain. Now septic arthritis. Cover for Int Med-Dr Sandhu. S/P right knee arthrotomy and I&D Objective Last Vital Signs Date Time Temp Pulse Resp B/P (MAP) Pulse Ox O2 Delivery O2 Flow Rate FiO2 12/27/19 12:48 100.2 12/27/19 12:00 105 20 120/69 (86) 98 12/27/19 09:00 Room Air 12/27/19 07:50 21 12/25/19 13:40 3 Laboratory Tests Test 12/27/19 05:30 White Blood Count 7.4 K/UL (4.8-10.8) Red Blood Count 4.65 M/UL (4.70-6.10) L Hemoglobin 12.3 G/DL (14.2-18.0) L Hematocrit 37.9 % (42.0-52.0) L Mean Corpuscular Volume 81 FL (80-99) Mean Corpuscular Hemoglobin 26.4 PG (27.0-31.0) L Mean Corpuscular Hemoglobin Concent 32.4 G/DL (32.0-36.0) Red Cell Distribution Width 13.2 % (11.6-14.8) Platelet Count 392 K/UL (150-450) Mean Platelet Volume 5.4 FL (6.5-10.1) L Neutrophils (%) (Auto) 81.0 % (45.0-75.0) H Lymphocytes (%) (Auto) 9.1 % (20.0-45.0) L Monocytes (%) (Auto) 7.0 % (1.0-10.0) Eosinophils (%) (Auto) 1.5 % (0.0-3.0) Basophils (%) (Auto) 1.4 % (0.0-2.0) Sodium Level 136 MMOL/L (136-145) Potassium Level 3.7 MMOL/L (3.5-5.1) Chloride Level 100 MMOL/L (98-107) Carbon Dioxide Level 28 MMOL/L (21-32) Anion Gap 9 mmol/L (5-15) Blood Urea Nitrogen 6 mg/dL (7-18) L Creatinine 1.5 MG/DL (0.55-1.30) H Estimat Glomerular Filtration Rate > 60 mL/min (>60) Glucose Level 149 MG/DL (74-106) H Calcium Level 9.0 MG/DL (8.5-10.1) Microbiology Date/Time Source Procedure Growth Status 12/25/19 12:15 Knee Right Gram Stain - Final Resulted 12/25/19 12:15 Aerobic Culture - Preliminary Staphylococcus Sp Coag Neg Resulted 12/25/19 12:15 Knee Right Anaerobic Culture Pending Resulted Intake and Output 12/26/19 12/27/19 19:00 07:00 Intake Total 950 ml Output Total 2100 ml Balance -1150 ml Intake Oral 950 ml Output Urine Total 2100 ml # Voids 4 3 Objective Objective GENERAL: awake, responsive, in no acute distress. HEAD AND NECK: Pupils are equal and reactive to light. Extraocular movements are intact. Neck was supple. No JVD. LUNGS: Good air entry with no wheezing or rales. HEART: S1, S2. Regular rhythm. No gallops. ABDOMEN: Soft, nondistended, nontender. No rebound tenderness. No fluid shift. EXTREMITIES: No cyanosis, clubbing, or edema. right knee has tender to touch, dressing intact. NEUROLOGIC: Cranial nerves II through XII are grossly intact. The patient is moving all the extremities. Gait was not assessed due to the patient's status. RECTAL: Refused and deferred. : Refused and deferred. PSYCHIATRIC: Mood and affect is intact. Assessment/Plan Assessment/Plan Assessment/Plan Assessment/Plan Assessment/Plan ASSESSMENT: 1. Right knee septic arthritis. 2. HIV, on retroviral medication. 3. Hypertension. 4. History of asthma. PLAN: In medical floor. Follow up with Dr. Cale Taylor recommendation. Abx: vancomycin and cefepime. DVT prophylaxis: Heparin subcutaneous. S/P right knee I and D and joint wash (12/25/2019). Ward Hoover MD Dec 27, 2019 14:46
--- NOTE | 2019-12-27 15:00 | NUR ---
NURSE NOTES: Patient c/o right leg swelling. Dr. Hoover assessed legs, new orders for venous duplex noted. Will follow up as needed.
[2019-12-27 16:00] VITALS: BP 127/70
--- NOTE | 2019-12-27 17:41 | Diagnostic Imaging Report ---
EXAM: US Duplex Right Lower Extremity Veins CLINICAL HISTORY: SWELL. Right lower extremity edema, pain. TECHNIQUE: Real-time duplex ultrasound scan of the right lower extremity veins integrating B-mode two-dimensional vascular structure, Doppler spectral analysis, color flow Doppler imaging and compression. COMPARISON: No relevant prior studies available. FINDINGS: Deep veins: Unremarkable. No DVT in the visualized common femoral, femoral, proximal deep femoral or popliteal veins. The veins demonstrate normal color flow, are normally compressible, with normal phasic flow and/or augmentation response. Superficial veins: Unremarkable. No thrombus in the visualized great saphenous vein. Soft tissues: No acute findings. No popliteal cyst. IMPRESSION: Normal right lower extremity duplex venous ultrasound.
--- NOTE | 2019-12-27 19:18 | NUR ---
NURSE HAND-OFF: Important Events on Shift: pain management, antibiotic, out of bed. venous duplex negative Patient Status: stable Diet: n/a Pending Orders: n/a Pending Results/Labs:n/a Pending MD notification:n/a Latest Vital Signs: Temperature 98.8 , Pulse 104 , B/P 127 /70 , Respiratory Rate 20 , O2 SAT 98 , Room Air, O2 Flow Rate 3 . Vital Sign Comment: n/a Latest Kemp Fall Score: 20 Fall Risk: Low Risk Safety Measures: Call light Within Reach, Side Rails x2, Bed position Low and Locked. Fall Precautions: Patient Fall Education Report given to Matt VIZCAINO.
--- NOTE | 2019-12-27 19:20 | NUR ---
NURSE NOTES: received pt and report from Vaelrie VIZCAINO. patient alert and oriented x 4 in no acute distress but with complaint of pain. will administer pain medication when due. IV site noted clean dry and intact and running fluids as ordered. Plan of care discussed. surgical site clean dry and intact.
[2019-12-27 20:00] VITALS: BP 102/59
--- NOTE | 2019-12-27 20:15 | NUR ---
NURSE NOTES: pt febrile at 100.1. Will administer tylenol PRN and follow up with temp reassessment.
--- NOTE | 2019-12-27 21:00 | NUR ---
NURSE NOTES: pt temp at 99.7. no shivering and in no distress.
[2019-12-28] VITALS: BP 109/70
--- NOTE | 2019-12-28 00:26 | NUR ---
NURSE NOTES: patient vitals stable. patient in no acute distress and in no pain at the moment. pt temp trending down, now at 98.8.
[2019-12-28] MEDS: HYDROmorphone 1mg/ml Carpuject IVP PRN ×3 (03:46→14:54)
[2019-12-28 04:00] VITALS: BP 107/68
--- NOTE | 2019-12-28 04:03 | NUR ---
NURSE NOTES: pts temperature is again febrile. will administer tylenol and reassess temperature. pt also co pain, will give IV dilaudid and reassess accordingly. no chills observed, pt otherwise stable, other vitals wnl
[2019-12-28 06:39] LABS: BASOPHILS % (AUTO) 1.2 % (0.0-2.0); EOSINOPHILS % (AUTO) 1.2 % (0.0-3.0); HEMATOCRIT 34.4 % (42.0-52.0); HEMOGLOBIN 11.3 G/DL (14.2-18.0); LYMPHOCYTES % (AUTO) 9.7 % (20.0-45.0); MEAN CORPUSCULAR VOLUME 80 FL (80-99); MONOCYTES % (AUTO) 7.9 % (1.0-10.0); PLATELET COUNT 370 K/UL (150-450); RED CELL DISTRIBUTION WIDTH 13.1 % (11.6-14.8); WHITE BLOOD COUNT 6.6 K/UL (4.8-10.8)
[2019-12-28 06:46] LABS: ANION GAP 8 mmol/L (5-15); BLOOD UREA NITROGEN 10 mg/dL (7-18); CARBON DIOXIDE 26 MMOL/L (21-32); CHLORIDE 98 MMOL/L (98-107); CREATININE 1.5 MG/DL (0.55-1.30); POTASSIUM 3.8 MMOL/L (3.5-5.1); SODIUM 132 MMOL/L (136-145)
--- NOTE | 2019-12-28 07:45 | NUR ---
NURSE NOTES: Received report from CARRILLO Gutierrez. Patient in bed alert and oriented x 4 on RA. No acute distress. Denied pain at this time. IV site intact and patent. Surgical dressing on right leg, clean, dry and intact. Plan of care discussed. Call light within reach. Will continue to monitor.
--- NOTE | 2019-12-28 07:56 | NUR ---
NURSE HAND-OFF: Important Events on Shift:pain management, fever management Patient Status: stable Diet: regular Pending Orders: PICC line insertion Pending Results/Labs:NA Pending MD notification:NA Latest Vital Signs: Temperature 99.7 , Pulse 105 , B/P 107 /68 , Respiratory Rate 19 , O2 SAT 98 , Room Air, O2 Flow Rate 3 . Vital Sign Comment: stable through the shift except for fever, tylenol prn administered Latest Kemp Fall Score: 20 Fall Risk: Low Risk Safety Measures: Call light Within Reach, Bed Alarm Zone 1, Side Rails Side Rails x2, Bed position Low and Locked. Fall Precautions: Patient Fall Education Report given to CARRILLO Galan.
[2019-12-28 08:00] VITALS: BP 132/73
[2019-12-28] MEDS: PREZCOBIX ORAL SCH (08:46)
[2019-12-28] MEDS: Bactrim-DS 1 tab ORAL SCH (08:47)
[2019-12-28] MEDS: Cefepime HCl 2 GM in D5W 110 ML IV SCH (08:47)
[2019-12-28] MEDS ORDERED: ZINC50 M1 ORAL (08:49)
[2019-12-28] MEDS ORDERED: IBUPROFEN600 M1 ORAL (08:49)
[2019-12-28] MEDS ORDERED: NIACIN500 M1 ORAL (08:49)
[2019-12-28] MEDS ORDERED: MULTIVITAMINS1 EAC2 ORAL (08:50)
[2019-12-28] MEDS: Heparin 5000 units/ml inj SUBQ SCH ×2 (08:56→20:55)
[2019-12-28] MEDS: Docusate Sod/Senna tab ORAL SCH ×2 (08:57→17:41)
[2019-12-28] MEDS ORDERED: PREZCOBIX 8001 EACH ORAL (08:57)
[2019-12-28] MEDS: Docusate 100mg cap ORAL SCH ×3 (08:57→17:41)
[2019-12-28] MEDS: Breo Ellipta 100/25mcg - 14 dose INH SCH (09:00)
[2019-12-28] MEDS ORDERED: Heparin1,000 units/500ml Premix(Conc:2 units/ml) IV PRN (09:15)
[2019-12-28] MEDS ORDERED: Lidocaine 1% Plain 30 ml INJ PRN (09:15)
[2019-12-28] MEDS ORDERED: Vancomycin 1750mg/D5W 550ml IVPB SCH ×2 (11:30)
[2019-12-28] MEDS: HYDROcodone/Acetamin 5/325 tab ORAL PRN (11:40)
[2019-12-28] MEDS: Hydromorphone 0.5mg/0.5ml inj SUBQ PRN (11:44)
[2019-12-28 12:00] VITALS: BP 131/76
--- NOTE | 2019-12-28 13:13 | Infectious Diseases Prog Note ---
Assessment/Plan Assessment: COVID19 neg x1 -12/23 rapid COVID PCR neg Sepsis R knee septic arthritis- post-op infection -12/24 SP Right knee arthrotomy.Right knee incision and drainage, 12 liters of bacitracin irrigation. --OR findings: The synovium was then incised. Gross pus was visible, was sent off for appropriate analysis. At this point, once arthrotomy was complete, 12 liters of bacitracin irrigation was then used to irrigate the knee. --fluid wbc 88,375 (N 99%) --OR cx CONS, S. aureu (sensi p) -synovial fluid: wbc 62.8k (N99%), RBC 5.5k; cx stain no organisms, many wbc; cx CONS -ESR 62, CRP 28.1 Fever; improving- ongoing No leukocytosis -12/23 BCx NTD HIV/AIDS on ARV -CD4 102 -dx 2003. has undergo multiple regimens. Has developed resistant to Truvada component. On Tivicay and Prescobix for 1 yr now. Latest CD4 100s; previously 40s. Elevated LFTs, improving HTN asthma Plan: -Continue empiric IV Vancomycin and Cefepime #5 -f/u cx -Monitor CBC/CMP, temperatures -Continue ppx bactrim and Azithromycin -Continue ARV: Tivicay and Prezcobix -f/u HIV VL -Ortho f/u -f/u OR cultures -Bcx x2, CXR Thank you for this consultation. Will continue to follow along with you. Discussed with RN Subjective Allergies: Coded Allergies: LISINOPRIL (Verified Allergy, Severe, FACE SWELLING, 12/11/19) Tm 100.9 no leukocytosis sp I+D today Objective Last 24 Hour Vital Signs Date Time Temp Pulse Resp B/P (MAP) Pulse Ox O2 Delivery O2 Flow Rate FiO2 12/28/19 09:53 Room Air 21 12/28/19 09:52 Room Air 12/28/19 09:18 99.2 12/28/19 08:48 88 132/73 12/28/19 08:00 99.2 88 19 132/73 (92) 99 12/28/19 04:15 99.7 12/28/19 04:00 100.4 105 19 107/68 (81) 98 12/28/19 00:00 98.8 80 16 109/70 (83) 95 10/25/20 21:00 Room Air 12/27/19 20:51 99.7 12/27/19 20:00 100.1 97 18 102/59 (73) 95 12/27/19 16:00 98.8 104 20 127/70 (89) 98 Height (Feet): 5 Height (Inches): 9.00 Weight (Pounds): 205 General: Awake and alert, no acute distress HEENT: NC/AT. EOMI. Cardiovascular: RRR. S1 and S2 normal. No murmur appreciated Resp: Normal work of breathing. No wheezing or crackles appreciated Abdomen: Abdomen is soft, nondistended. Nontender Skin: Intact. No abrasions, laceration or rash over the exposed skin MSK: R knee surgical bandages in place; L knee surgical wound healing well, no redness, swelling, warmth or TTP Neuro: Awake and alert. Laboratory Tests Test 12/28/19 05:25 12/28/19 10:25 White Blood Count 6.6 K/UL (4.8-10.8) Red Blood Count 4.30 M/UL (4.70-6.10) L Hemoglobin 11.3 G/DL (14.2-18.0) L Hematocrit 34.4 % (42.0-52.0) L Mean Corpuscular Volume 80 FL (80-99) Mean Corpuscular Hemoglobin 26.2 PG (27.0-31.0) L Mean Corpuscular Hemoglobin Concent 32.8 G/DL (32.0-36.0) Red Cell Distribution Width 13.1 % (11.6-14.8) Platelet Count 370 K/UL (150-450) Mean Platelet Volume 5.6 FL (6.5-10.1) L Neutrophils (%) (Auto) 80.0 % (45.0-75.0) H Lymphocytes (%) (Auto) 9.7 % (20.0-45.0) L Monocytes (%) (Auto) 7.9 % (1.0-10.0) Eosinophils (%) (Auto) 1.2 % (0.0-3.0) Basophils (%) (Auto) 1.2 % (0.0-2.0) Sodium Level 132 MMOL/L (136-145) L Potassium Level 3.8 MMOL/L (3.5-5.1) Chloride Level 98 MMOL/L (98-107) Carbon Dioxide Level 26 MMOL/L (21-32) Anion Gap 8 mmol/L (5-15) Blood Urea Nitrogen 10 mg/dL (7-18) Creatinine 1.5 MG/DL (0.55-1.30) H Estimat Glomerular Filtration Rate > 60 mL/min (>60) Glucose Level 146 MG/DL (74-106) H Calcium Level 9.0 MG/DL (8.5-10.1) Vancomycin Level Trough 3.1 ug/mL (5.0-12.0) L Current Medications Medications (Trade) Dose Ordered Sig/Griselda Route PRN Reason Start Time Stop Time Status Last Admin Dose Admin Acetaminophen (Tylenol) 650 mg Q4H PRN ORAL Temp >100.5 12/24/19 11:45 01/23/20 11:44 12/28/19 03:45 Acetaminophen/ Hydrocodone Bitart ([place] 5/325) 1 tab Q4H PRN ORAL For Pain 12/25/19 11:45 01/01/20 11:44 12/28/19 11:40 Albuterol/ Ipratropium (Albuterol/ Ipratropium) 3 ml Q4H PRN HHN Shortness of Breath 12/24/19 11:45 12/29/19 11:44 Amlodipine Besylate (Norvasc) 20 mg DAILY ORAL 12/25/19 09:00 01/24/20 08:59 12/28/19 08:48 Cefepime HCl 2 gm/ Dextrose 110 ml @ 220 mls/hr EVERY 12 HOURS IV 12/24/19 21:00 12/31/19 20:59 12/28/19 08:47 Chlorhexidine Gluconate (Crystal-Hex 2%) 1 applic DAILY@2000 TOPIC 12/28/19 20:00 03/27/20 19:59 Dextrose (Dextrose 50%) 25 ml Q30M PRN IV Hypoglycemia 12/24/19 11:45 03/23/20 11:44 Dextrose (Dextrose 50%) 50 ml Q30M PRN IV Hypoglycemia 12/24/19 11:45 03/23/20 11:44 Docusate Sodium (Colace) 100 mg THREE TIMES A DAY ORAL 12/25/19 13:00 01/24/20 12:59 12/26/19 13:44 Fluticasone/ Vilanterol (Breo Ellipta /25) 1 puff DAILY INH 12/26/19 19:30 03/25/20 19:29 12/27/19 07:50 Heparin Sodium (Porcine) (Heparin 5000 units/ml) 5,000 units EVERY 12 HOURS SUBQ 12/24/19 21:00 02/07/20 20:59 12/28/19 08:56 Heparin Sodium/ Sodium Chloride (Heparin 1000 units/500ml Premix) 1,000 unit PRN PRN IV Radiology Procedure 12/28/19 09:15 02/11/20 09:14 Hydromorphone HCl (Dilaudid) 0.5 mg Q4H PRN SUBQ Mild Pain (Pain Scale 1-3) 12/25/19 11:45 01/01/20 11:44 12/28/19 11:44 Hydromorphone HCl (Dilaudid) 1 mg Q3H PRN IVP severe pain 12/25/19 16:00 01/01/20 15:59 12/28/19 08:48 Lidocaine HCl (Xylocaine 1% 30ml) 30 ml PRN PRN INJ Radiology Procedure 12/28/19 09:15 03/27/20 09:14 Ondansetron HCl (Zofran) 4 mg Q6H PRN IVP Nausea & Vomiting 12/25/19 11:45 01/24/20 11:44 Patient Own Medication (Patient's Own Med) 1 ea BID ORAL 12/25/19 18:00 01/24/20 17:59 12/28/19 08:46 Patient Own Medication (Patient's Own Med) 1 ea DAILY ORAL 12/25/19 18:00 01/24/20 17:59 12/28/19 08:46 Polyethylene Glycol (Miralax) 17 gm DAILYPRN PRN ORAL Constipation 12/24/19 11:45 01/23/20 11:44 Senna/Docusate Sodium (Lolly-Colace) 1 tab TWICE A DAY ORAL 12/25/19 18:00 01/24/20 17:59 12/26/19 09:28 Temazepam (Restoril) 15 mg HSPRN PRN ORAL Insomnia 12/24/19 21:00 12/31/19 20:59 12/27/19 20:21 Trimethoprim/ Sulfamethoxazole (Bactrim-DS) 1 tab DAILY ORAL 12/25/19 09:00 01/01/20 08:59 12/28/19 08:47 Vancomycin HCl (Vanco pharmacy to dose) 1 ea DAILY PRN MISC . 12/24/19 14:00 01/23/20 13:59 Vancomycin HCl 1.75 gm/Dextrose 550 ml @ 275 mls/hr Q12H IVPB 12/28/19 11:30 01/02/20 11:29 Parvin Gifford M.D. Dec 28, 2019 13:13
--- NOTE | 2019-12-28 13:21 | NUR ---
[facility] NOTE DISCHARGE PLANNING MESSAGE LEFT FOR DR MARTÍNEZ IN RE TO ABX ORDER AUTH IS NEEDED FROM PATIENTS INSURANCE Addendum: 12/28/19 at 1357 by RADHA HOUSER LVN LVN TO/RB RECEIVED FROM DR MARTÍNEZ. NOTED AND CARRIED OUT.
--- NOTE | 2019-12-28 13:50 | NUR ---
RADIOLOGY DEPT., CHEST X-RAY DONE.-P.DYE
--- NOTE | 2019-12-28 13:57 | NUR ---
DISCHARGE PLANNING ABX ORDER REFERRED TO [facility] P: [phone] F: [phone] Addendum: 12/28/19 at 1537 by RADHA HOUSER LVN LVN FOLLOW UP CALL MADE TO [facility]W [facility] WHO CONFIRMED RECEIPT OF ORDER. CALL THEM TRANSFERRED TO [facility]. PER [facility], SHE WILL BE REFERRING PATIENT FOR HOME HEALTH. [facility] WILL CALL BACK WITH UPDATE ON HOME HEALTH AND AUTH STATUS FOR IV ABX.
--- NOTE | 2019-12-28 14:00 | NUR ---
NURSE NOTES: came back from Radiology with stable condition. noted with PICC on left upper arm. Dressing clean and intact. No swelling, no redness, no tenderness. Received order Ok to use PICC. Flushed both lumens. good blood return.
[2019-12-28] MEDS: Vancomycin 1750mg/D5W 550ml IVPB SCH ×2 (14:15)
--- NOTE | 2019-12-28 14:34 | Pre-Procedure Note/Attestation ---
Pre-Procedure Note/Attestation Complete Prior to Procedure Planned Procedure: not applicable Procedure Narrative: PICC Indications for Procedure Pre-Operative Diagnosis: Needs IV access Attestation I attest that I discussed the nature of the procedure; its benefits; risks and complications; and alternatives (and the risks and benefits of such alternatives), prior to the procedure, with the patient (or the patient's legal passenger representative). I attest that, if there was a reasonable possibility of needing a blood cadena sfusion, the patient (or the patient's legal passenger representative) was given the [facility] standardized written summary, pursuant to the Frederick Mita Blood Safety Act ([place] Health and Safety Code # 1645, as amended). I attest that I re-evaluated the patient just prior to the surgery and that there has been no change in the patient's H&P, except as documented below: Juarez Lemos MD Dec 28, 2019 14:34
--- NOTE | 2019-12-28 14:34 | Brief Operative Note ---
Immediate Post Operative Note Operative Note Pre-op Diagnosis: Needs IV access Procedure: PICC Post-op Diagnosis: same as pre-op Surgeon: Marty Mcgraw Anesthesia: local Specimen: none Complications: none Fluids: none Implant(s) used?: No Juarez Mcgraw MD Dec 28, 2019 14:33
--- NOTE | 2019-12-28 14:43 | NUR ---
CASE MANAGEMENT:REVIEW SI;POD #4 RT KNEE ARTHROTOMY WITH I&D RIGHT KNEE SEPTIC JOINT 100.4 105 19 102/59 95% ON RA NA 132 CR 1.5 BG 146 IS;VANCOMYCIN IV A12 DILAUDID IV Q3 PRN NORCO PO Q4 PRN HEPARIN SUBQ Q12 PICC PLACEMENT MED SURG STATU DCP;PATIENT FROM HOME PLAN; HOME WITH HOME HEALTH IV ABX UNTIL 01/19/20 PER ID
--- NOTE | 2019-12-28 15:10 | Diagnostic Imaging Report ---
Indication: Cough Technique: One view of the chest Comparison: none Findings: There is left arm PICC, tip of which projects at the level of the downstream superior vena cava. The lungs and pleural spaces are clear. The heart size is upper limits normal. Impression: No acute process
[2019-12-28 16:00] VITALS: BP 114/73
[2019-12-28] MEDS ORDERED: Tubing IV Secondary IV ONE (16:48)
[2019-12-28] MEDS ORDERED: NS 275ml ONE (16:48)
--- NOTE | 2019-12-28 17:08 | Diagnostic Imaging Report ---
Indications: Needs long-term IV access Technique: Ultrasound confirms patent compressible left basilic vein. Total sterile technique, including sterile probe cover and sterile gel, hat, mask, sterile gown, large sterile drape, and preparation with 2% chlorhexidine utilized. Local anesthesia with 1% lidocaine. Under real-time ultrasound guidance, puncture distal vein using 21-gauge needle, documented and archived, passage 0.018 guidewire under direct fluoroscopy, which was used to determine appropriate catheter length, exchange for 4 Kyrgyz peel-away sheath. 4 Kyrgyz Bard dual-lumen power PICC cut to 42 cm. It was inserted through the peel-away sheath. Peel-away sheath and guidewire removed. Catheter fixed to the skin. Both catheter ports aspirated and flushed. Patient tolerated procedure well, without immediate complication. Digital radiograph documents satisfactory catheter tip position, at the cavoatrial junction. Total fluoroscopy time 16 seconds. Total dose area product [id number] Total number of images: 1 Impression: Successful placement of left arm PICC under sonographic and fluoroscopic guidance, as described above.
[2019-12-28] MEDS ORDERED: Albuterol/Ipratropium 3ml neb HHN PRN (17:31)
--- NOTE | 2019-12-28 19:05 | Internal Med Progress Note ---
Subjective Date of Service: Dec 28, 2019 Physician Name Ward Hoover Attending Physician Keith Sandhu MD Current Medications Medications (Trade) Dose Ordered Sig/Griselda Route PRN Reason Start Time Stop Time Status Last Admin Dose Admin Acetaminophen (Tylenol) 650 mg Q4H PRN ORAL Temp >100.5 12/24/19 11:45 01/23/20 11:44 12/28/19 17:37 Acetaminophen/ Hydrocodone Bitart ([place] 5/325) 1 tab Q4H PRN ORAL For Pain 12/25/19 11:45 01/01/20 11:44 12/28/19 11:40 Albuterol/ Ipratropium (Albuterol/ Ipratropium) 3 ml Q4H PRN HHN Shortness of Breath 12/28/19 17:31 01/02/20 17:30 Amlodipine Besylate (Norvasc) 20 mg DAILY ORAL 12/25/19 09:00 01/24/20 08:59 12/28/19 08:48 Chlorhexidine Gluconate (Crystal-Hex 2%) 1 applic DAILY@2000 TOPIC 12/28/19 20:00 03/27/20 19:59 Dextrose (Dextrose 50%) 25 ml Q30M PRN IV Hypoglycemia 12/24/19 11:45 03/23/20 11:44 Dextrose (Dextrose 50%) 50 ml Q30M PRN IV Hypoglycemia 12/24/19 11:45 03/23/20 11:44 Docusate Sodium (Colace) 100 mg THREE TIMES A DAY ORAL 12/25/19 13:00 01/24/20 12:59 12/26/19 13:44 Fluticasone/ Vilanterol (Breo Ellipta 100/25) 1 puff DAILY INH 12/26/19 19:30 03/25/20 19:29 12/27/19 07:50 Heparin Sodium (Porcine) (Heparin 5000 units/ml) 5,000 units EVERY 12 HOURS SUBQ 12/24/19 21:00 02/07/20 20:59 12/28/19 08:56 Heparin Sodium/ Sodium Chloride (Heparin 1000 units/500ml Premix) 1,000 unit PRN PRN IV Radiology Procedure 12/28/19 09:15 02/11/20 09:14 Hydromorphone HCl (Dilaudid) 0.5 mg Q4H PRN SUBQ Mild Pain (Pain Scale 1-3) 12/25/19 11:45 01/01/20 11:44 12/28/19 11:44 Hydromorphone HCl (Dilaudid) 1 mg Q3H PRN IVP severe pain 12/25/19 16:00 01/01/20 15:59 12/28/19 14:54 Lidocaine HCl (Xylocaine 1% 30ml) 30 ml PRN PRN INJ Radiology Procedure 12/28/19 09:15 03/27/20 09:14 Ondansetron HCl (Zofran) 4 mg Q6H PRN IVP Nausea & Vomiting 12/25/19 11:45 01/24/20 11:44 Patient Own Medication (Patient's Own Med) 1 ea BID ORAL 12/25/19 18:00 01/24/20 17:59 12/28/19 17:37 Patient Own Medication (Patient's Own Med) 1 ea DAILY ORAL 12/25/19 18:00 01/24/20 17:59 12/28/19 08:46 Polyethylene Glycol (Miralax) 17 gm DAILYPRN PRN ORAL Constipation 12/24/19 11:45 01/23/20 11:44 Senna/Docusate Sodium (Lolly-Colace) 1 tab TWICE A DAY ORAL 12/25/19 18:00 01/24/20 17:59 12/26/19 09:28 Temazepam (Restoril) 15 mg HSPRN PRN ORAL Insomnia 12/24/19 21:00 12/31/19 20:59 12/27/19 20:21 Trimethoprim/ Sulfamethoxazole (Bactrim-DS) 1 tab DAILY ORAL 12/25/19 09:00 01/01/20 08:59 12/28/19 08:47 Vancomycin HCl (Vanco pharmacy to dose) 1 ea DAILY PRN MISC . 12/24/19 14:00 01/23/20 13:59 Vancomycin HCl 1.75 gm/Dextrose 550 ml @ 275 mls/hr Q12H IVPB 12/28/19 15:00 01/02/20 14:59 12/28/19 14:15 Allergies: Coded Allergies: LISINOPRIL (Verified Allergy, Severe, FACE SWELLING, 12/11/19) ROS Limited/Unobtainable: No Constitutional: Reports: fever HEENT: Reports: no symptoms Cardiovascular: Reports: no symptoms Respiratory: Reports: no symptoms Gastrointestinal/Abdominal: Reports: no symptoms Genitourinary: Reports: no symptoms Neurologic/Psychiatric: Reports: no symptoms Subjective 49 YO M admitted with right knee pain. Now septic arthritis. Cover for Int Foster-Dr Sanhdu. S/P right knee arthrotomy and I&D. Low grade fever to 100.2F Objective Last Vital Signs Date Time Temp Pulse Resp B/P (MAP) Pulse Ox O2 Delivery O2 Flow Rate FiO2 12/28/19 18:07 99.2 12/28/19 16:00 93 19 114/73 (87) 97 12/28/19 09:53 Room Air 21 12/25/19 13:40 3 Laboratory Tests Test 12/28/19 05:25 12/28/19 10:25 White Blood Count 6.6 K/UL (4.8-10.8) Red Blood Count 4.30 M/UL (4.70-6.10) L Hemoglobin 11.3 G/DL (14.2-18.0) L Hematocrit 34.4 % (42.0-52.0) L Mean Corpuscular Volume 80 FL (80-99) Mean Corpuscular Hemoglobin 26.2 PG (27.0-31.0) L Mean Corpuscular Hemoglobin Concent 32.8 G/DL (32.0-36.0) Red Cell Distribution Width 13.1 % (11.6-14.8) Platelet Count 370 K/UL (150-450) Mean Platelet Volume 5.6 FL (6.5-10.1) L Neutrophils (%) (Auto) 80.0 % (45.0-75.0) H Lymphocytes (%) (Auto) 9.7 % (20.0-45.0) L Monocytes (%) (Auto) 7.9 % (1.0-10.0) Eosinophils (%) (Auto) 1.2 % (0.0-3.0) Basophils (%) (Auto) 1.2 % (0.0-2.0) Sodium Level 132 MMOL/L (136-145) L Potassium Level 3.8 MMOL/L (3.5-5.1) Chloride Level 98 MMOL/L (98-107) Carbon Dioxide Level 26 MMOL/L (21-32) Anion Gap 8 mmol/L (5-15) Blood Urea Nitrogen 10 mg/dL (7-18) Creatinine 1.5 MG/DL (0.55-1.30) H Estimat Glomerular Filtration Rate > 60 mL/min (>60) Glucose Level 146 MG/DL (74-106) H Calcium Level 9.0 MG/DL (8.5-10.1) Vancomycin Level Trough 3.1 ug/mL (5.0-12.0) L Intake and Output 12/27/19 12/28/19 19:00 07:00 Intake Total 1000 ml 950 ml Output Total 1350 ml Balance 1000 ml -400 ml Intake Oral 1000 ml 950 ml Output Urine Total 1350 ml # Voids 5 2 Objective Objective GENERAL: awake, responsive, in no acute distress. HEAD AND NECK: Pupils are equal and reactive to light. Extraocular movements are intact. Neck was supple. No JVD. LUNGS: Good air entry with no wheezing or rales. HEART: S1, S2. Regular rhythm. No gallops. ABDOMEN: Soft, nondistended, nontender. No rebound tenderness. No fluid shift. EXTREMITIES: No cyanosis, clubbing, or edema. right knee has tender to touch, dressing intact. NEUROLOGIC: Cranial nerves II through XII are grossly intact. The patient is moving all the extremities. Gait was not assessed due to the patient's status. RECTAL: Refused and deferred. : Refused and deferred. PSYCHIATRIC: Mood and affect is intact. Assessment/Plan Assessment/Plan Assessment/Plan Assessment/Plan Assessment/Plan ASSESSMENT: 1. Right knee septic arthritis=Coag neg Staph sp 2. HIV, on retroviral medication. 3. Hypertension. 4. History of asthma. PLAN: In medical floor. Follow up with Dr. Cale Taylor recommendation. Abx: vancomycin and cefepime. DVT prophylaxis: Heparin subcutaneous. S/P right knee I and D and joint wash (12/25/2019). D/C plan: Home with home health for IV abx until 01/19/20 Ward Hoover MD Dec 28, 2019 19:05
--- NOTE | 2019-12-28 19:30 | NUR ---
NURSE NOTES: Received report from Magdalena Titus RN
--- NOTE | 2019-12-28 19:37 | NUR ---
NURSE HAND-OFF: Important Events on Shift:[PICC insertion, low grade fever, tylenol given, pain control with dilaudid IV] Patient Status: [stable] Diet: [reg] Pending Orders: [] Pending Results/Labs:[] Pending MD notification:[] Latest Vital Signs: Temperature 99.2 , Pulse 93 , B/P 114 /73 , Respiratory Rate 19 , O2 SAT 97 , Room Air, O2 Flow Rate 3 . Vital Sign Comment: [low grade fever] Latest Kemp Fall Score: 20 Fall Risk: Low Risk Safety Measures: Call light Within Reach, Bed Alarm Zone 1, Side Rails Side Rails x2, Bed position Low and Locked. Fall Precautions: Patient Fall Education Report given to [CARRILLO Alcala].
[2019-12-28 20:00] VITALS: BP 116/68
[2019-12-28] MEDS: Dyna-Hex 2% Top Sol 2oz TOPIC SCH (20:55)
[2019-12-29] MEDS: Vancomycin 1750mg/D5W 550ml IVPB SCH ×4 (03:43→14:44)
[2019-12-29 04:00] VITALS: BP 125/67
[2019-12-29] MEDS: HYDROmorphone 1mg/ml Carpuject IVP PRN ×5 (04:02→16:50)
--- NOTE | 2019-12-29 04:59 | NUR ---
NURSE NOTES: Patient requesting to see case advocate about dc planning. Claims that he "needs help cleaning up and moving around." He also wants to see a registered nurse step down for itching/face rashes. Patient also states that he is refusing PT in the AM.
[2019-12-29 05:21] LABS: EOSINOPHILS % (AUTO) 1.9 % (0.0-3.0); HEMATOCRIT 34.4 % (42.0-52.0); HEMOGLOBIN 11.2 G/DL (14.2-18.0); LYMPHOCYTES % (AUTO) 12.8 % (20.0-45.0); MEAN CORPUSCULAR VOLUME 79 FL (80-99); MONOCYTES % (AUTO) 11.9 % (1.0-10.0); NEUTROPHILS % (AUTO) 71.4 % (45.0-75.0); PLATELET COUNT 425 K/UL (150-450); RED BLOOD COUNT 4.34 M/UL (4.70-6.10); RED CELL DISTRIBUTION WIDTH 12.8 % (11.6-14.8); WHITE BLOOD COUNT 7.7 K/UL (4.8-10.8)
[2019-12-29 05:25] LABS: ANION GAP 9 mmol/L (5-15); BLOOD UREA NITROGEN 10 mg/dL (7-18); CALCIUM 9.2 MG/DL (8.5-10.1); CARBON DIOXIDE 29 MMOL/L (21-32); CHLORIDE 97 MMOL/L (98-107); CREATININE 1.3 MG/DL (0.55-1.30); POTASSIUM 4.2 MMOL/L (3.5-5.1); SODIUM 135 MMOL/L (136-145)
[2019-12-29] MEDS: HYDROcodone/Acetamin 5/325 tab ORAL PRN (05:39)
--- NOTE | 2019-12-29 06:43 | NUR ---
NURSE HAND-OFF: Important Events on Shift: patient requests to see CM about dc planning, also wants to be referred to a research test engine operator. Patient states that he refuses AM PT. Seen ambulated to the restroom with a FWW. Pain management throughout the shift. Patient Status: stable Diet: reg Pending Orders: [] Pending Results/Labs:[] Pending MD notification:[] Latest Vital Signs: Temperature 98.8 , Pulse 91 , B/P 125 /67 , Respiratory Rate 18 , O2 SAT 97 , Room Air, O2 Flow Rate 3 . Vital Sign Comment: [] Latest Kemp Fall Score: 20 Fall Risk: Low Risk Safety Measures: Call light Within Reach, Bed Alarm Zone 1, Side Rails Side Rails x2, Bed position Low and Locked. Fall Precautions: Patient Fall Education Report given to Mae VIZCAINO .
--- NOTE | 2019-12-29 07:28 | NUR ---
NURSE NOTES: Report given to Mae VIZCAINO. Rounds done.
--- NOTE | 2019-12-29 07:43 | NUR ---
NURSE NOTES: Received report from Fredrick RN, rounds made pt sleeping breaths regular and unlabored on RA no s/s of distress, Pt has a PICC line the MARY TKO ,intact patent asymptomatic, bed in low locked position call light with in reach , will continue to monitor
[2019-12-29 08:00] VITALS: BP 129/74
[2019-12-29] MEDS: Bactrim-DS 1 tab ORAL SCH (08:44)
[2019-12-29] MEDS: Docusate 100mg cap ORAL SCH ×3 (08:44→17:39)
[2019-12-29] MEDS: Docusate Sod/Senna tab ORAL SCH ×2 (08:44→17:39)
[2019-12-29] MEDS: Heparin 5000 units/ml inj SUBQ SCH ×2 (08:48→21:17)
[2019-12-29] MEDS: PREZCOBIX ORAL SCH (08:49)
[2019-12-29] MEDS: Breo Ellipta 100/25mcg - 14 dose INH SCH (08:50)
--- NOTE | 2019-12-29 11:17 | NUR ---
NURSE NOTES: MD Gifford notified about positive MRSA lab results , left msg for MD with commercial credit officer
--- NOTE | 2019-12-29 11:25 | NUR ---
NURSE NOTES: Spoke to patient to clarify home address. Per Patient: [id number] [facility] [facility], [place] [address] [facility] for transportation.
--- NOTE | 2019-12-29 11:37 | NUR ---
P.T Note: Reviewed safe mobility techniques for transfers and gait/ambulation activities using the FWW on level surface and on stairs. Pt was able to verbalize and demonstrate understanding of the safety and proper mobility techniques. Pt currently is functioning safely and independently within the surgical guidelines. Pt educated on importance of OOB activities i.e ambulate as tolerated and OOB <> chair during meal time VS bedrest and encourage to perform them daily. Pt understood and agreed. Hospital issued FWW was adjusted according patient's height and safe to use within the room and at home. Skilled P.T service not longer needed at this time. DC P.T services.
--- NOTE | 2019-12-29 11:47 | NUR ---
THREAD INSPECTOR NOTE FOLLOW UP CALL MADE TO KIRA RUSSELL [phone]. S/W PHONG, CONFIRMED KIRA RUSSELL WILL SERVICE PATIENT FOR ABX AND INFORMED THIS CM THAT HOME HEALTH SERVICES WILL BE PROVIDED BY [facility] KIRA RUSSELL TO SCHEDULE MEDICATION DELIVERY WITH PATIENT Addendum: 12/29/19 at 1646 by RADHA HOUSER LVN LVN ABOVE UNABLE TO SERVICE PATIENT HE IS NOT WITHIN THEIR COVERED AREA
[2019-12-29 12:00] VITALS: BP 116/75
[2019-12-29] MEDS ORDERED: BACTRIM-DS1 EA ORAL (12:55)
[2019-12-29] MEDS ORDERED: VANCOMYCIN1.75 GM/17 IV (12:55)
[2019-12-29] MEDS ORDERED: ACETAMINOPHEN-1 EAC1 ORAL (13:17)
--- NOTE | 2019-12-29 14:54 | Infectious Diseases Prog Note ---
Assessment/Plan Assessment: COVID19 neg x1 -12/23 rapid COVID PCR neg Sepsis R knee septic arthritis- post-op infection -12/24 SP Right knee arthrotomy.Right knee incision and drainage, 12 liters of bacitracin irrigation. --OR findings: The synovium was then incised. Gross pus was visible, was sent off for appropriate analysis. At this point, once arthrotomy was complete, 12 liters of bacitracin irrigation was then used to irrigate the knee. --fluid wbc 88,375 (N 99%) --OR cx CONS, MRSA (S Vanco OLENA 1, bactrim, tetracycline) -synovial fluid: wbc 62.8k (N99%), RBC 5.5k; cx stain no organisms, many wbc; cx CONS -ESR 62, CRP 28.1 Fever; improving- ongoing No leukocytosis -12/27 CXR no acute disease Bcx p -12/23 BCx NTD HIV/AIDS on ARV -CD4 102, VL <20 -dx 2003. has undergo multiple regimens. Has developed resistant to Truvada component. On Tivicay and Prescobix for 1 yr now. Latest CD4 100s; previously 40s. Elevated LFTs, improving HTN asthma Plan: -Continue empiric IV Vancomycin #08/29 -upon discharge, continue above regimen; weekly CBC, BMP and vanco through -12/27 SP Cefepime #5 -f/u cx -Monitor CBC/CMP, temperatures -Continue ppx bactrim -Continue ARV: Tivicay and Prezcobix -Ortho f/u -f/u repeat Bcx x2 Thank you for this consultation. Will continue to follow along with you. Discussed with RN Subjective Allergies: Coded Allergies: LISINOPRIL (Verified Allergy, Severe, FACE SWELLING, 12/11/19) Tm 100.9 no leukocytosis sp I+D today Objective Last 24 Hour Vital Signs Date Time Temp Pulse Resp B/P (MAP) Pulse Ox O2 Delivery O2 Flow Rate FiO2 12/29/19 12:00 100.2 95 18 116/75 (89) 96 12/29/19 09:00 Room Air 12/29/19 08:44 93 129/74 12/29/19 08:00 98.4 93 18 129/74 (92) 96 12/29/19 07:10 80 18 98 Room Air 21 12/29/19 07:10 80 18 98 Room Air 21 12/29/19 06:09 98.8 12/29/19 04:32 98.8 12/29/19 04:00 98.7 91 18 125/67 (86) 97 12/28/19 21:00 Room Air 12/28/19 20:00 98.8 88 20 116/68 (84) 95 12/28/19 18:07 99.2 12/28/19 16:00 100.2 93 19 114/73 (87) 97 12/28/19 15:24 100.2 Height (Feet): 5 Height (Inches): 9.00 Weight (Pounds): 205 General: Awake and alert, no acute distress HEENT: NC/AT. EOMI. Cardiovascular: RRR. S1 and S2 normal. No murmur appreciated Resp: Normal work of breathing. No wheezing or crackles appreciated Abdomen: Abdomen is soft, nondistended. Nontender Skin: Intact. No abrasions, laceration or rash over the exposed skin MSK: R knee surgical bandages in place; L knee surgical wound healing well, no redness, swelling, warmth or TTP Neuro: Awake and alert. Laboratory Tests Test 12/29/19 04:00 White Blood Count 7.7 K/UL (4.8-10.8) Red Blood Count 4.34 M/UL (4.70-6.10) L Hemoglobin 11.2 G/DL (14.2-18.0) L Hematocrit 34.4 % (42.0-52.0) L Mean Corpuscular Volume 79 FL (80-99) L Mean Corpuscular Hemoglobin 25.8 PG (27.0-31.0) L Mean Corpuscular Hemoglobin Concent 32.6 G/DL (32.0-36.0) Red Cell Distribution Width 12.8 % (11.6-14.8) Platelet Count 425 K/UL (150-450) Mean Platelet Volume 5.5 FL (6.5-10.1) L Neutrophils (%) (Auto) 71.4 % (45.0-75.0) Lymphocytes (%) (Auto) 12.8 % (20.0-45.0) L Monocytes (%) (Auto) 11.9 % (1.0-10.0) H Eosinophils (%) (Auto) 1.9 % (0.0-3.0) Basophils (%) (Auto) 2.0 % (0.0-2.0) Sodium Level 135 MMOL/L (136-145) L Potassium Level 4.2 MMOL/L (3.5-5.1) Chloride Level 97 MMOL/L (98-107) L Carbon Dioxide Level 29 MMOL/L (21-32) Anion Gap 9 mmol/L (5-15) Blood Urea Nitrogen 10 mg/dL (7-18) Creatinine 1.3 MG/DL (0.55-1.30) Estimat Glomerular Filtration Rate > 60 mL/min (>60) Glucose Level 108 MG/DL (74-106) H Calcium Level 9.2 MG/DL (8.5-10.1) Current Medications Medications (Trade) Dose Ordered Sig/Griselda Route PRN Reason Start Time Stop Time Status Last Admin Dose Admin Acetaminophen (Tylenol) 650 mg Q4H PRN ORAL Temp >100.5 12/24/19 11:45 01/23/20 11:44 12/28/19 17:37 Acetaminophen/ Hydrocodone Bitart ([place] 5/325) 1 tab Q4H PRN ORAL For Pain 12/25/19 11:45 01/01/20 11:44 12/29/19 05:39 Albuterol/ Ipratropium (Albuterol/ Ipratropium) 3 ml Q4H PRN HHN Shortness of Breath 12/28/19 17:31 01/02/20 17:30 Amlodipine Besylate (Norvasc) 20 mg DAILY ORAL 12/25/19 09:00 01/24/20 08:59 12/29/19 08:44 Chlorhexidine Gluconate (Crystal-Hex 2%) 1 applic DAILY@1999 TOPIC 12/28/19 20:00 03/27/20 19:59 12/28/19 20:55 Dextrose (Dextrose 50%) 25 ml Q30M PRN IV Hypoglycemia 12/24/19 11:45 03/23/20 11:44 Dextrose (Dextrose 50%) 50 ml Q30M PRN IV Hypoglycemia 12/24/19 11:45 03/23/20 11:44 Docusate Sodium (Colace) 100 mg THREE TIMES A DAY ORAL 12/25/19 13:00 01/24/20 12:59 12/29/19 08:44 Fluticasone/ Vilanterol (Breo Ellipta 100/25) 1 puff DAILY INH 12/26/19 19:30 03/25/20 19:29 12/29/19 08:50 Heparin Sodium (Porcine) (Heparin 5000 units/ml) 5,000 units EVERY 12 HOURS SUBQ 12/24/19 21:00 02/07/20 20:59 12/29/19 08:48 Heparin Sodium/ Sodium Chloride (Heparin 1000 units/500ml Premix) 1,000 unit PRN PRN IV Radiology Procedure 12/28/19 09:15 02/11/20 09:14 Hydromorphone HCl (Dilaudid) 0.5 mg Q4H PRN SUBQ Mild Pain (Pain Scale 1-3) 12/25/19 11:45 01/01/20 11:44 12/28/19 11:44 Hydromorphone HCl (Dilaudid) 1 mg Q3H PRN IVP severe pain 12/25/19 16:00 01/01/20 15:59 12/29/19 13:43 Lidocaine HCl (Xylocaine 1% 30ml) 30 ml PRN PRN INJ Radiology Procedure 12/28/19 09:15 03/27/20 09:14 Ondansetron HCl (Zofran) 4 mg Q6H PRN IVP Nausea & Vomiting 12/25/19 11:45 01/24/20 11:44 Patient Own Medication (Patient's Own Med) 1 ea BID ORAL 12/25/19 18:00 01/24/20 17:59 12/29/19 08:43 Patient Own Medication (Patient's Own Med) 1 ea DAILY ORAL 12/25/19 18:00 01/24/20 17:59 12/29/19 08:49 Polyethylene Glycol (Miralax) 17 gm DAILYPRN PRN ORAL Constipation 12/24/19 11:45 01/23/20 11:44 Senna/Docusate Sodium (Lolly-Colace) 1 tab TWICE A DAY ORAL 12/25/19 18:00 01/24/20 17:59 12/29/19 08:44 Temazepam (Restoril) 15 mg HSPRN PRN ORAL Insomnia 12/24/19 21:00 12/31/19 20:59 12/28/19 21:06 Trimethoprim/ Sulfamethoxazole (Bactrim-DS) 1 tab DAILY ORAL 12/25/19 09:00 01/01/20 08:59 12/29/19 08:44 Vancomycin HCl (Vanco pharmacy to dose) 1 ea DAILY PRN MISC . 12/24/19 14:00 01/23/20 13:59 Vancomycin HCl 1.75 gm/Dextrose 550 ml @ 275 mls/hr Q12H IVPB 12/28/19 15:00 01/02/20 14:59 12/29/19 14:44 Parvin Gifford M.D. Dec 29, 2019 14:54
[2019-12-29 16:00] VITALS: BP 124/77
[2019-12-29] MEDS ORDERED: DiphenhydrAMINE 50mg/ml Inj IVP SCH (16:00)
[2019-12-29] MEDS ORDERED: Solu-MEDROL 40mg Inj IVP SCH ×2 (16:00→22:00)
--- NOTE | 2019-12-29 16:46 | NUR ---
LAW OFFICE ASSISTANT NOTE S/W PHONG AT [facility] [phone], CONFIRMS THAT PATIENT ACCEPTED FOR HOME HEALTH SERVICED WITH [facility] P: [phone] START OF CARE WILL BEGIN ON 12/30/19. NURSE LOW WITH [facility] WILL COORDINATE AND SCHEDULE WITH PATIENT.
--- NOTE | 2019-12-29 17:15 | Internal Med Progress Note ---
Subjective Date of Service: Dec 29, 2019 Physician Name SnehaWard Attending Physician Keith Sandhu MD Current Medications Medications (Trade) Dose Ordered Sig/Griselda Route PRN Reason Start Time Stop Time Status Last Admin Dose Admin Acetaminophen (Tylenol) 650 mg Q4H PRN ORAL Temp >100.5 12/24/19 11:45 01/23/20 11:44 12/28/19 17:37 Acetaminophen/ Hydrocodone Bitart ([place] 5/325) 1 tab Q4H PRN ORAL For Pain 12/25/19 11:45 01/01/20 11:44 12/29/19 05:39 Albuterol/ Ipratropium (Albuterol/ Ipratropium) 3 ml Q4H PRN HHN Shortness of Breath 12/28/19 17:31 01/02/20 17:30 Amlodipine Besylate (Norvasc) 20 mg DAILY ORAL 12/25/19 09:00 01/24/20 08:59 12/29/19 08:44 Chlorhexidine Gluconate (Crystal-Hex 2%) 1 applic DAILY@1999 TOPIC 12/28/19 20:00 03/27/20 19:59 12/28/19 20:55 Dextrose (Dextrose 50%) 25 ml Q30M PRN IV Hypoglycemia 12/24/19 11:45 03/23/20 11:44 Dextrose (Dextrose 50%) 50 ml Q30M PRN IV Hypoglycemia 12/24/19 11:45 03/23/20 11:44 Diphenhydramine HCl (Benadryl) 25 mg ONCE IVP 12/29/19 16:00 12/29/19 18:30 12/29/19 16:50 Docusate Sodium (Colace) 100 mg THREE TIMES A DAY ORAL 12/25/19 13:00 01/24/20 12:59 12/29/19 08:44 Fluticasone/ Vilanterol (Breo Ellipta 100/25) 1 puff DAILY INH 12/26/19 19:30 03/25/20 19:29 12/29/19 08:50 Heparin Sodium (Porcine) (Heparin 5000 units/ml) 5,000 units EVERY 12 HOURS SUBQ 12/24/19 21:00 02/07/20 20:59 12/29/19 08:48 Heparin Sodium/ Sodium Chloride (Heparin 1000 units/500ml Premix) 1,000 unit PRN PRN IV Radiology Procedure 12/28/19 09:15 02/11/20 09:14 Hydromorphone HCl (Dilaudid) 0.5 mg Q4H PRN SUBQ Mild Pain (Pain Scale 1-3) 12/25/19 11:45 01/01/20 11:44 12/28/19 11:44 Hydromorphone HCl (Dilaudid) 1 mg Q3H PRN IVP severe pain 12/25/19 16:00 01/01/20 15:59 12/29/19 16:50 Lidocaine HCl (Xylocaine 1% 30ml) 30 ml PRN PRN INJ Radiology Procedure 12/28/19 09:15 03/27/20 09:14 Methylprednisolone Sodium Succinate (Solu-MEDROL) 40 mg ONCE IVP 12/29/19 16:00 12/29/19 18:00 12/29/19 16:46 Ondansetron HCl (Zofran) 4 mg Q6H PRN IVP Nausea & Vomiting 12/25/19 11:45 01/24/20 11:44 Patient Own Medication (Patient's Own Med) 1 ea BID ORAL 12/25/19 18:00 01/24/20 17:59 12/29/19 08:43 Patient Own Medication (Patient's Own Med) 1 ea DAILY ORAL 12/25/19 18:00 01/24/20 17:59 12/29/19 08:49 Polyethylene Glycol (Miralax) 17 gm DAILYPRN PRN ORAL Constipation 12/24/19 11:45 01/23/20 11:44 Senna/Docusate Sodium (Lolly-Colace) 1 tab TWICE A DAY ORAL 12/25/19 18:00 01/24/20 17:59 12/29/19 08:44 Temazepam (Restoril) 15 mg HSPRN PRN ORAL Insomnia 12/24/19 21:00 12/31/19 20:59 12/28/19 21:06 Trimethoprim/ Sulfamethoxazole (Bactrim-DS) 1 tab DAILY ORAL 12/25/19 09:00 01/01/20 08:59 12/29/19 08:44 Vancomycin HCl (Vanco pharmacy to dose) 1 ea DAILY PRN MISC . 12/24/19 14:00 01/23/20 13:59 Vancomycin HCl 1.75 gm/Dextrose 550 ml @ 275 mls/hr Q12H IVPB 12/28/19 15:00 01/02/20 14:59 12/29/19 14:44 Allergies: Coded Allergies: LISINOPRIL (Verified Allergy, Severe, FACE SWELLING, 12/11/19) ROS Limited/Unobtainable: No Constitutional: Reports: no symptoms HEENT: Reports: no symptoms Cardiovascular: Reports: no symptoms Respiratory: Reports: no symptoms Gastrointestinal/Abdominal: Reports: no symptoms Genitourinary: Reports: no symptoms Neurologic/Psychiatric: Reports: no symptoms Subjective 49 YO M admitted with right knee pain. Now septic arthritis. Cover for Int Med-Dr Sandhu. S/P right knee arthrotomy and I&D. Low grade fever to 100.2F. C/O swelling of face (right eye almost swollen shut) and rash on neck/chest. Objective Last Vital Signs Date Time Temp Pulse Resp B/P (MAP) Pulse Ox O2 Delivery O2 Flow Rate FiO2 12/29/19 12:00 100.2 95 18 116/75 (89) 96 12/29/19 09:00 Room Air 12/29/19 07:10 21 12/25/19 13:40 3 Laboratory Tests Test 12/29/19 04:00 White Blood Count 7.7 K/UL (4.8-10.8) Red Blood Count 4.34 M/UL (4.70-6.10) L Hemoglobin 11.2 G/DL (14.2-18.0) L Hematocrit 34.4 % (42.0-52.0) L Mean Corpuscular Volume 79 FL (80-99) L Mean Corpuscular Hemoglobin 25.8 PG (27.0-31.0) L Mean Corpuscular Hemoglobin Concent 32.6 G/DL (32.0-36.0) Red Cell Distribution Width 12.8 % (11.6-14.8) Platelet Count 425 K/UL (150-450) Mean Platelet Volume 5.5 FL (6.5-10.1) L Neutrophils (%) (Auto) 71.4 % (45.0-75.0) Lymphocytes (%) (Auto) 12.8 % (20.0-45.0) L Monocytes (%) (Auto) 11.9 % (1.0-10.0) H Eosinophils (%) (Auto) 1.9 % (0.0-3.0) Basophils (%) (Auto) 2.0 % (0.0-2.0) Sodium Level 135 MMOL/L (136-145) L Potassium Level 4.2 MMOL/L (3.5-5.1) Chloride Level 97 MMOL/L (98-107) L Carbon Dioxide Level 29 MMOL/L (21-32) Anion Gap 9 mmol/L (5-15) Blood Urea Nitrogen 10 mg/dL (7-18) Creatinine 1.3 MG/DL (0.55-1.30) Estimat Glomerular Filtration Rate > 60 mL/min (>60) Glucose Level 108 MG/DL (74-106) H Calcium Level 9.2 MG/DL (8.5-10.1) Intake and Output 12/28/19 12/29/19 19:00 07:00 Intake Total 900 ml 1600 ml Output Total 900 ml 1000 ml Balance 0 ml 600 ml Intake Oral 900 ml 1600 ml Output Urine Total 900 ml 1000 ml # Voids 5 Objective Objective GENERAL: awake, responsive, in no acute distress. HEAD AND NECK: Pupils are equal and reactive to light. Extraocular movements are intact. Neck was supple. No JVD. LUNGS: Good air entry with no wheezing or rales. HEART: S1, S2. Regular rhythm. No gallops. ABDOMEN: Soft, nondistended, nontender. No rebound tenderness. No fluid shift. EXTREMITIES: No cyanosis, clubbing, or edema. right knee has tender to touch, dressing intact. NEUROLOGIC: Cranial nerves II through XII are grossly intact. The patient is moving all the extremities. Gait was not assessed due to the patient's status. RECTAL: Refused and deferred. : Refused and deferred. PSYCHIATRIC: Mood and affect is intact. Assessment/Plan Assessment/Plan Assessment/Plan Assessment/Plan Assessment/Plan ASSESSMENT: 1. Right knee septic arthritis=MRSA 2. HIV, on retroviral medication. 3. Hypertension. 4. History of asthma. 5. Facial swelling/rash (?rxn to antibiotic?) PLAN: on medical floor. Follow up with Dr. Cale Taylor recommendation. Abx: vancomycin and cefepime. DVT prophylaxis: Heparin subcutaneous. S/P right knee I and D and joint wash (12/25/2019). D/C plan: Home with home health for IV abx until 01/19/20 IV solumedrol and benadryl Ward Hoover MD Dec 29, 2019 17:15
--- NOTE | 2019-12-29 19:48 | NUR ---
NURSE NOTES: Received report from Mae VIZCAINO. Rounds done. Patient in stable condition.
--- NOTE | 2019-12-29 19:56 | NUR ---
NURSE NOTES: All discharge papers done and signed by pt, pt took all his prescriptions.
[2019-12-29 20:00] VITALS: BP 123/81
[2019-12-29] MEDS: Dyna-Hex 2% Top Sol 2oz TOPIC SCH (21:16)
[2019-12-29] MEDS: DiphenhydrAMINE 50mg/ml Inj IVP SCH (21:17)
[2019-12-30] MEDS: Vancomycin 1750mg/D5W 550ml IVPB SCH ×2 (03:29)
[2019-12-30] MEDS: DiphenhydrAMINE 50mg/ml Inj IVP SCH ×2 (03:30→09:28)
[2019-12-30 04:00] VITALS: BP 121/75
[2019-12-30 05:39] LABS: BASOPHILS % (AUTO) 0.6 % (0.0-2.0); HEMATOCRIT 35.5 % (42.0-52.0); HEMOGLOBIN 11.5 G/DL (14.2-18.0); LYMPHOCYTES % (AUTO) 9.1 % (20.0-45.0); MEAN CORPUSCULAR VOLUME 79 FL (80-99); MONOCYTES % (AUTO) 5.5 % (1.0-10.0); NEUTROPHILS % (AUTO) 84.7 % (45.0-75.0); PLATELET COUNT 457 K/UL (150-450); RED BLOOD COUNT 4.48 M/UL (4.70-6.10); WHITE BLOOD COUNT 7.7 K/UL (4.8-10.8)
[2019-12-30 05:55] LABS: ANION GAP 8 mmol/L (5-15); BLOOD UREA NITROGEN 13 mg/dL (7-18); CALCIUM 9.4 MG/DL (8.5-10.1); CARBON DIOXIDE 27 MMOL/L (21-32); CHLORIDE 98 MMOL/L (98-107); CREATININE 1.3 MG/DL (0.55-1.30); POTASSIUM 4.2 MMOL/L (3.5-5.1); SODIUM 133 MMOL/L (136-145)
--- NOTE | 2019-12-30 06:39 | NUR ---
NURSE HAND-OFF: Important Events on Shift: Patient started on benadryl around the clock yesterday 12/28, for facial swelling. Noted some improvement in swelling. Patient states that this significantly helps with pain in his leg. VSS and WNL Patient Status: stable Diet: reg Pending Orders: [] Pending Results/Labs:[] Pending MD notification:[] Latest Vital Signs: Temperature 98.5 , Pulse 94 , B/P 121 /75 , Respiratory Rate 20 , O2 SAT 97 , Room Air, O2 Flow Rate 3 . Vital Sign Comment: [] Latest Kemp Fall Score: 20 Fall Risk: Low Risk Safety Measures: Call light Within Reach, Bed Alarm Zone 1, Side Rails Side Rails x2, Bed position Low and Locked. Fall Precautions: Patient Fall Education Report given to Magdalena Titus RN .
--- NOTE | 2019-12-30 07:35 | NUR ---
NURSE NOTES: PLACED CALL TO [facility] TO RE-CONFIRM IF RESULT IN COMPUTER ABOUT MRSA OF KNEE RESULTED ON 12/24/2019 AND VERBALLY GIVEN TO CHARGE NURSE CORRECT. SPOKE TO KELLEN; RESULTS CONFIRMED CORRECT. PATIENT PLACED ON ISOLATION. SPOKE TO DR. RUTH KERN AWARE. PATIENT ALREADY ON VANCO.
--- NOTE | 2019-12-30 07:48 | NUR ---
NURSE NOTES: Received report from CARRILLO Alcala. Pt awake in bed, alert and oriented. No acute distress noted. Denied any pain at this time. Discharge was held due to periorbital swelling. Pt stated "I have to go home today, my animals are alone and they need to be fed." Will follow up for discharge. Noted with PICC intact and patent. Surgical wound dressing C/D/I. Call light within reach. Will continue to monitor.
[2019-12-30 08:00] VITALS: BP 128/78
[2019-12-30] MEDS: Breo Ellipta 100/25mcg - 14 dose INH SCH (08:41)
[2019-12-30] MEDS: Docusate Sod/Senna tab ORAL SCH (09:00)
[2019-12-30] MEDS: Docusate 100mg cap ORAL SCH (09:00)
[2019-12-30] MEDS: Heparin 5000 units/ml inj SUBQ SCH (09:22)
[2019-12-30 09:27] VITALS: BP 128/82
[2019-12-30] MEDS: PREZCOBIX ORAL SCH (09:27)
[2019-12-30] MEDS: Bactrim-DS 1 tab ORAL SCH (09:28)
--- NOTE | 2019-12-30 11:57 | Internal Med Progress Note ---
Subjective Date of Service: Dec 30, 2019 Physician Name SnehaWard Attending Physician Keith Sandhu MD Current Medications Medications (Trade) Dose Ordered Sig/Griselda Route PRN Reason Start Time Stop Time Status Last Admin Dose Admin Acetaminophen (Tylenol) 650 mg Q4H PRN ORAL Temp >100.5 12/24/19 11:45 01/23/20 11:44 12/28/19 17:37 Acetaminophen/ Hydrocodone Bitart ([place] 5/325) 1 tab Q4H PRN ORAL For Pain 12/25/19 11:45 01/01/20 11:44 12/29/19 05:39 Albuterol/ Ipratropium (Albuterol/ Ipratropium) 3 ml Q4H PRN HHN Shortness of Breath 12/28/19 17:31 01/02/20 17:30 Amlodipine Besylate (Norvasc) 20 mg DAILY ORAL 12/25/19 09:00 01/24/20 08:59 12/30/19 09:27 Chlorhexidine Gluconate (Crystal-Hex 2%) 1 applic DAILY@1999 TOPIC 12/28/19 20:00 03/27/20 19:59 12/29/19 21:16 Dextrose (Dextrose 50%) 25 ml Q30M PRN IV Hypoglycemia 12/24/19 11:45 03/23/20 11:44 Dextrose (Dextrose 50%) 50 ml Q30M PRN IV Hypoglycemia 12/24/19 11:45 03/23/20 11:44 Diphenhydramine HCl (Benadryl) 50 mg Q6H IVP 12/29/19 22:00 01/28/20 21:59 12/30/19 09:28 Docusate Sodium (Colace) 100 mg THREE TIMES A DAY ORAL 12/25/19 13:00 01/24/20 12:59 12/29/19 08:44 Fluticasone/ Vilanterol (Breo Ellipta 100/25) 1 puff DAILY INH 12/26/19 19:30 03/25/20 19:29 12/30/19 08:41 Heparin Sodium (Porcine) (Heparin 5000 units/ml) 5,000 units EVERY 12 HOURS SUBQ 12/24/19 21:00 02/07/20 20:59 12/30/19 09:22 Heparin Sodium/ Sodium Chloride (Heparin 1000 units/500ml Premix) 1,000 unit PRN PRN IV Radiology Procedure 12/28/19 09:15 02/11/20 09:14 Hydromorphone HCl (Dilaudid) 0.5 mg Q4H PRN SUBQ Mild Pain (Pain Scale 1-3) 12/25/19 11:45 01/01/20 11:44 12/28/19 11:44 Hydromorphone HCl (Dilaudid) 1 mg Q3H PRN IVP severe pain 12/25/19 16:00 01/01/20 15:59 12/29/19 16:50 Lidocaine HCl (Xylocaine 1% 30ml) 30 ml PRN PRN INJ Radiology Procedure 12/28/19 09:15 03/27/20 09:14 Ondansetron HCl (Zofran) 4 mg Q6H PRN IVP Nausea & Vomiting 12/25/19 11:45 01/24/20 11:44 Patient Own Medication (Patient's Own Med) 1 ea BID ORAL 12/25/19 18:00 01/24/20 17:59 12/30/19 09:27 Patient Own Medication (Patient's Own Med) 1 ea DAILY ORAL 12/25/19 18:00 01/24/20 17:59 12/30/19 09:27 Polyethylene Glycol (Miralax) 17 gm DAILYPRN PRN ORAL Constipation 12/24/19 11:45 01/23/20 11:44 Senna/Docusate Sodium (Lolly-Colace) 1 tab TWICE A DAY ORAL 12/25/19 18:00 01/24/20 17:59 12/29/19 08:44 Temazepam (Restoril) 15 mg HSPRN PRN ORAL Insomnia 12/24/19 21:00 12/31/19 20:59 12/28/19 21:06 Trimethoprim/ Sulfamethoxazole (Bactrim-DS) 1 tab DAILY ORAL 12/25/19 09:00 01/01/20 08:59 12/30/19 09:28 Vancomycin HCl (Vanco pharmacy to dose) 1 ea DAILY PRN MISC . 12/24/19 14:00 01/23/20 13:59 Vancomycin HCl 1.75 gm/Dextrose 550 ml @ 275 mls/hr Q12H IVPB 12/28/19 15:00 01/02/20 14:59 12/30/19 03:29 Allergies: Coded Allergies: LISINOPRIL (Verified Allergy, Severe, FACE SWELLING, 12/11/19) ROS Limited/Unobtainable: No Constitutional: Reports: no symptoms HEENT: Reports: no symptoms Cardiovascular: Reports: no symptoms Respiratory: Reports: no symptoms Gastrointestinal/Abdominal: Reports: no symptoms Genitourinary: Reports: no symptoms Subjective 49 YO M admitted with right knee pain. Now septic arthritis. Cover for Int Med-Dr Sandhu. S/P right knee arthrotomy and I&D. Low grade fever to 100.2F. C/O swelling of face (right eye almost swollen shut) and rash on neck/chest. Objective Last Vital Signs Date Time Temp Pulse Resp B/P (MAP) Pulse Ox O2 Delivery O2 Flow Rate FiO2 12/30/19 11:21 Room Air 12/30/19 09:27 97 128/82 12/30/19 08:42 16 98 21 12/30/19 08:00 98.1 12/25/19 13:40 3 Laboratory Tests Test 12/30/19 05:00 White Blood Count 7.7 K/UL (4.8-10.8) Red Blood Count 4.48 M/UL (4.70-6.10) L Hemoglobin 11.5 G/DL (14.2-18.0) L Hematocrit 35.5 % (42.0-52.0) L Mean Corpuscular Volume 79 FL (80-99) L Mean Corpuscular Hemoglobin 25.7 PG (27.0-31.0) L Mean Corpuscular Hemoglobin Concent 32.4 G/DL (32.0-36.0) Red Cell Distribution Width 13.0 % (11.6-14.8) Platelet Count 457 K/UL (150-450) H Mean Platelet Volume 5.3 FL (6.5-10.1) L Neutrophils (%) (Auto) 84.7 % (45.0-75.0) H Lymphocytes (%) (Auto) 9.1 % (20.0-45.0) L Monocytes (%) (Auto) 5.5 % (1.0-10.0) Eosinophils (%) (Auto) 0.0 % (0.0-3.0) Basophils (%) (Auto) 0.6 % (0.0-2.0) Sodium Level 133 MMOL/L (136-145) L Potassium Level 4.2 MMOL/L (3.5-5.1) Chloride Level 98 MMOL/L (98-107) Carbon Dioxide Level 27 MMOL/L (21-32) Anion Gap 8 mmol/L (5-15) Blood Urea Nitrogen 13 mg/dL (7-18) Creatinine 1.3 MG/DL (0.55-1.30) Estimat Glomerular Filtration Rate > 60 mL/min (>60) Glucose Level 159 MG/DL (74-106) H Calcium Level 9.4 MG/DL (8.5-10.1) Intake and Output 12/29/19 12/30/19 19:00 07:00 Intake Total 2800 ml 1000 ml Output Total 1500 ml 900 ml Balance 1300 ml 100 ml Intake Oral 2800 ml 1000 ml Output Urine Total 1500 ml 900 ml # Voids 5 4 Objective Objective GENERAL: awake, responsive, in no acute distress. HEAD AND NECK: Pupils are equal and reactive to light. Extraocular movements are intact. Neck was supple. No JVD. LUNGS: Good air entry with no wheezing or rales. HEART: S1, S2. Regular rhythm. No gallops. ABDOMEN: Soft, nondistended, nontender. No rebound tenderness. No fluid shift. EXTREMITIES: No cyanosis, clubbing, or edema. right knee has tender to touch, dressing intact. NEUROLOGIC: Cranial nerves II through XII are grossly intact. The patient is moving all the extremities. Gait was not assessed due to the patient's status. RECTAL: Refused and deferred. : Refused and deferred. PSYCHIATRIC: Mood and affect is intact. Assessment/Plan Assessment/Plan Assessment/Plan Assessment/Plan Assessment/Plan ASSESSMENT: 1. Right knee septic arthritis=MRSA 2. HIV, on retroviral medication. 3. Hypertension. 4. History of asthma. 5. Facial swelling/rash (?rxn to antibiotic?)-resolved PLAN: on medical floor. Follow up with Dr. Cale Taylor recommendation. Abx: vancomycin and cefepime. DVT prophylaxis: Heparin subcutaneous. S/P right knee I and D and joint wash (12/25/2019). D/C Home today with home health for IV vanco until 01/19/20 D/C IV solumedrol and benadryl Hoover,Ward MD Dec 30, 2019 11:57
--- NOTE | 2019-12-30 12:50 | Infectious Diseases Prog Note ---
Assessment/Plan Assessment: COVID19 neg x1 -12/23 rapid COVID PCR neg Sepsis R knee septic arthritis- post-op infection -12/24 SP Right knee arthrotomy.Right knee incision and drainage, 12 liters of bacitracin irrigation. --OR findings: The synovium was then incised. Gross pus was visible, was sent off for appropriate analysis. At this point, once arthrotomy was complete, 12 liters of bacitracin irrigation was then used to irrigate the knee. --fluid wbc 88,375 (N 99%) --OR cx CONS, MRSA (S Vanco OLENA 1, bactrim, tetracycline) -synovial fluid: wbc 62.8k (N99%), RBC 5.5k; cx stain no organisms, many wbc; cx CONS -ESR 62, CRP 28.1 Fever; improving No leukocytosis -12/27 CXR no acute disease Bcx p -12/23 BCx Neg HIV/AIDS on ARV -CD4 102, VL <20 -dx 2003. has undergo multiple regimens. Has developed resistant to Truvada component. On Tivicay and Prescobix for 1 yr now. Latest CD4 100s; previously 40s. Elevated LFTs, improving Drug allergy- ? 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 Will continue to follow along with you. Discussed with RN Subjective Allergies: Coded Allergies: LISINOPRIL (Verified Allergy, Severe, FACE SWELLING, 12/11/19) afebrile in 24hrs no leukocytosis Bcx neg allergic reaction- per patient started prior to admission- possibly to either doxycycline or tramadol- discharge was held- pt started on benadryl and solumedrol Objective Last 24 Hour Vital Signs Date Time Temp Pulse Resp B/P (MAP) Pulse Ox O2 Delivery O2 Flow Rate FiO2 12/30/19 11:21 Room Air 12/30/19 09:27 97 128/82 12/30/19 08:42 97 16 98 Room Air 21 12/30/19 08:40 96 16 97 Room Air 21 12/30/19 08:00 98.1 94 20 128/78 (95) 97 12/30/19 04:00 98.5 94 20 121/75 (90) 97 12/29/19 21:00 Room Air 12/29/19 20:00 98.8 93 20 123/81 (95) 95 12/29/19 16:00 99.4 98 20 124/77 (93) 96 Height (Feet): 5 Height (Inches): 9.00 Weight (Pounds): 205 General: Awake and alert, no acute distress HEENT: NC/AT. EOMI. Cardiovascular: RRR. S1 and S2 normal. No murmur appreciated Resp: Normal work of breathing. No wheezing or crackles appreciated Abdomen: Abdomen is soft, nondistended. Nontender Skin: Intact. No abrasions, laceration or rash over the exposed skin MSK: R knee surgical bandages in place; L knee surgical wound healing well, no redness, swelling, warmth or TTP Neuro: Awake and alert. Laboratory Tests Test 12/30/19 05:00 White Blood Count 7.7 K/UL (4.8-10.8) Red Blood Count 4.48 M/UL (4.70-6.10) L Hemoglobin 11.5 G/DL (14.2-18.0) L Hematocrit 35.5 % (42.0-52.0) L Mean Corpuscular Volume 79 FL (80-99) L Mean Corpuscular Hemoglobin 25.7 PG (27.0-31.0) L Mean Corpuscular Hemoglobin Concent 32.4 G/DL (32.0-36.0) Red Cell Distribution Width 13.0 % (11.6-14.8) Platelet Count 457 K/UL (150-450) H Mean Platelet Volume 5.3 FL (6.5-10.1) L Neutrophils (%) (Auto) 84.7 % (45.0-75.0) H Lymphocytes (%) (Auto) 9.1 % (20.0-45.0) L Monocytes (%) (Auto) 5.5 % (1.0-10.0) Eosinophils (%) (Auto) 0.0 % (0.0-3.0) Basophils (%) (Auto) 0.6 % (0.0-2.0) Sodium Level 133 MMOL/L (136-145) L Potassium Level 4.2 MMOL/L (3.5-5.1) Chloride Level 98 MMOL/L (98-107) Carbon Dioxide Level 27 MMOL/L (21-32) Anion Gap 8 mmol/L (5-15) Blood Urea Nitrogen 13 mg/dL (7-18) Creatinine 1.3 MG/DL (0.55-1.30) Estimat Glomerular Filtration Rate > 60 mL/min (>60) Glucose Level 159 MG/DL (74-106) H Calcium Level 9.4 MG/DL (8.5-10.1) Current Medications Medications (Trade) Dose Ordered Sig/Griselda Route PRN Reason Start Time Stop Time Status Last Admin Dose Admin Acetaminophen (Tylenol) 650 mg Q4H PRN ORAL Temp >100.5 12/24/19 11:45 01/23/20 11:44 12/28/19 17:37 Acetaminophen/ Hydrocodone Bitart ([place] 5/325) 1 tab Q4H PRN ORAL For Pain 12/25/19 11:45 01/01/20 11:44 12/29/19 05:39 Albuterol/ Ipratropium (Albuterol/ Ipratropium) 3 ml Q4H PRN HHN Shortness of Breath 12/28/19 17:31 01/02/20 17:30 Amlodipine Besylate (Norvasc) 20 mg DAILY ORAL 12/25/19 09:00 01/24/20 08:59 12/30/19 09:27 Chlorhexidine Gluconate (Crystal-Hex 2%) 1 applic DAILY@2000 TOPIC 12/28/19 20:00 03/27/20 19:59 12/29/19 21:16 Dextrose (Dextrose 50%) 25 ml Q30M PRN IV Hypoglycemia 12/24/19 11:45 03/23/20 11:44 Dextrose (Dextrose 50%) 50 ml Q30M PRN IV Hypoglycemia 12/24/19 11:45 03/23/20 11:44 Diphenhydramine HCl (Benadryl) 50 mg Q6H IVP 12/29/19 22:00 01/28/20 21:59 12/30/19 09:28 Docusate Sodium (Colace) 100 mg THREE TIMES A DAY ORAL 12/25/19 13:00 01/24/20 12:59 12/29/19 08:44 Fluticasone/ Vilanterol (Breo Ellipta ) 1 puff DAILY INH 12/26/19 19:30 03/25/20 19:29 12/30/19 08:41 Heparin Sodium (Porcine) (Heparin 5000 units/ml) 5,000 units EVERY 12 HOURS SUBQ 12/24/19 21:00 02/07/20 20:59 12/30/19 09:22 Heparin Sodium/ Sodium Chloride (Heparin 1000 units/500ml Premix) 1,000 unit PRN PRN IV Radiology Procedure 12/28/19 09:15 02/11/20 09:14 Hydromorphone HCl (Dilaudid) 0.5 mg Q4H PRN SUBQ Mild Pain (Pain Scale 1-3) 12/25/19 11:45 01/01/20 11:44 12/28/19 11:44 Hydromorphone HCl (Dilaudid) 1 mg Q3H PRN IVP severe pain 12/25/19 16:00 01/01/20 15:59 12/29/19 16:50 Lidocaine HCl (Xylocaine 1% 30ml) 30 ml PRN PRN INJ Radiology Procedure 12/28/19 09:15 03/27/20 09:14 Ondansetron HCl (Zofran) 4 mg Q6H PRN IVP Nausea & Vomiting 12/25/19 11:45 01/24/20 11:44 Patient Own Medication (Patient's Own Med) 1 ea BID ORAL 12/25/19 18:00 01/24/20 17:59 12/30/19 09:27 Patient Own Medication (Patient's Own Med) 1 ea DAILY ORAL 12/25/19 18:00 01/24/20 17:59 12/30/19 09:27 Polyethylene Glycol (Miralax) 17 gm DAILYPRN PRN ORAL Constipation 12/24/19 11:45 01/23/20 11:44 Senna/Docusate Sodium (Lolly-Colace) 1 tab TWICE A DAY ORAL 12/25/19 18:00 01/24/20 17:59 12/29/19 08:44 Temazepam (Restoril) 15 mg HSPRN PRN ORAL Insomnia 12/24/19 21:00 12/31/19 20:59 12/28/19 21:06 Trimethoprim/ Sulfamethoxazole (Bactrim-DS) 1 tab DAILY ORAL 12/25/19 09:00 01/01/20 08:59 12/30/19 09:28 Vancomycin HCl (Vanco pharmacy to dose) 1 ea DAILY PRN MISC . 12/24/19 14:00 01/23/20 13:59 Vancomycin HCl 1.75 gm/Dextrose 550 ml @ 275 mls/hr Q12H IVPB 12/28/19 15:00 01/02/20 14:59 12/30/19 03:29 Parvin Gifford M.D. Dec 30, 2019 12:50
--- NOTE | 2019-12-30 12:50 | NUR ---
NURSE NOTES: Pt in stable condition. Provided discharge instruction, Rx, Home health information and DME. Pt verbalized understanding. PICC line intact and patent and dressing was changed today. Pt will go home with PICC line for further IV therapy. All belongings were accounted for. Pt walked to downstair using FWW with nurse and picked up by transportation company.
--- NOTE | 2019-12-31 15:29 | Discharge Summary ---
Discharge Summary Discharge Summary _ DATE OF ADMISSION: 12/24/2019 DATE OF DISCHARGE: 12/30/2019 DISCHARGED BY: Dr. Sandhu REASON FOR ADMISSION: 49 years old male with past medical history significant for HIV, on antiretroviral therapy, hypertension, asthma, presented to emergency department complaining about fever and right knee pain after he had a recent right knee meniscectomy on 12/10. Patient noted the right knee was swollen and tender to touch. He recently was treated with antibiotic for oral cavity infection. Once antibiotic finished , he noted that he had fever of 101 and decreased mobility due to severe right knee pain. Subsequently patient decided to come to the hospital for further management. Laboratory work-up revealed WBC 10.4, hemoglobin 13, hematocrit 39 and platelets 394. Stable electrolytes and renal parameters. AST 52, ALT 82. Total bili 1.4 , direct bili 0.7. Troponin negative. CRP 28.1. ESR 62. Urinalysis revealed no evidence of urinary tract infection. Rapid COVID-19 was negative. Patient subsequently admitted with septic arthritis for further management. CONSULTANTS: ID specialist Dr. Gifford Orthopedic surgeon Dr. Taylor HOSPITAL COURSE: Patient admitted to medical surgical floor. Patient started on broad-spectrum antibiotic as per ID specialist recommendation. Orthopedic surgeon seen and evaluated patient. Patient undergone right knee I&D and joint washout with 12 L of bacitracin on 12/24. Postoperatively pain management was addressed as needed. Wound culture revealed Staph coag negative. Operative fluid culture revealed MRSA and staph coag negative. Fluid analysis revealed very cloudy synovial fluid with total nucleated cells 88,375. T-cell subset panel revealed CD4 102, and viral load less than 20. Patient was diagnosed with HIV in 2003. He undergone many multiply regimens and developed resistance with Truvada component. Patient at this time was on Tivicay and Prescobix for 1 year, which continued in the hospital. Latest CD4 100 , previously was 40. Prophylactic Bactrim continued. Pulse oximetry remained stable on room air. Chest x-ray revealed no acute cardiopulmonary pathology. Ellipta and albuterol inhaler continued. Venous duplex right lower extremity revealed no evidence of acute DVT. DVT prophylaxis provided Patient undergone placement of PICC line. Repeated blood cultures were negative as well. ID specialist recommended 4 weeks of antibiotic . Upon discharge continue with vancomycin with weekly CBC , BMP, and Vanco trough level .health Home health was arranged Patient noted to have a facial rash , possibly due to drug allergy, secondary to doxycycline or tramadol , present on admission. Patient received a short course of steroid and Benadryl, which discontinued prior to discharge. LFT trending down. Patient clinically stabilized and was ready for discharge home with home health services for IV antibiotics. FINAL DIAGNOSES: Right knee septic arthritis Status post right knee incision and drainage with joint washout HIV/AIDS, on ARV Hypertension Asthma DISCHARGE MEDICATIONS: See Medication Reconciliation list. DISCHARGE INSTRUCTIONS: Patient was discharged home with home health services. Follow up with primary care provider in one week. I have been assigned to dictate discharge summary for this account. I was not involved in the patient's management. Karen Figueroa NP Dec 31, 2019 15:29
== END 2019-12-30 12:44 | disposition home health service (06) | DRG 711 ==
LOC: EMR 07:45 → 3E 09:44 → EDBEDREQ 12:33
PROC: 0S9C0ZZ Drainage of Right Knee Joint, Open Approach (ICD-10-PCS; principal; 2019-12-25 13:45)
PROC: 02HV33Z Insertion of Infusion Device into Superior Vena Cava, Percutaneous Approach (ICD-10-PCS; 2019-12-28)
DX: T81.40XA Infection following a procedure, unspecified, initial encounter (principal); M00.061 Staphylococcal arthritis, right knee; B95.62 Methicillin resistant Staphylococcus aureus infection as the cause of diseases classified elsewhere; Y83.8 Other surgical procedures as the cause of abnormal reaction of the patient, or of later complication, without mention of misadventure at the time of the procedure; I10 Essential (primary) hypertension; J45.909 Unspecified asthma, uncomplicated; Z88.8 Allergy status to other drugs, medicaments and biological substances; Z87.891 Personal history of nicotine dependence; R22.9 Localized swelling, mass and lump, unspecified
CPT/HCPCS: 36415; 36573; 71045; 76937; 80048; 80053; 80202; 81003; 82248; 82550; 82553; 83605; 83735; 84100; 84484; 85025; 85651; 86140; 86360; 87040; 87070; 87075; 87181; 87205; 87536; 89051; 93971; 94003; 94150; 94640; 96361; 96365; 96368; 96375; 99291; C9399; J2180; J2250; J7030; U0002

== ENCOUNTER 2020-01-08 15:32 | Inpatient (IN) | payer MEDICAID ==
[~2020-01-08] VITALS: Ht 193 cm; Wt 87.0 kg
[~2020-01-08 15:32] MED LIST changes: +ACETAMINOPHEN-1 EAC1 ORAL; +ACETAMINOPHEN325 M1 ORAL; +AMLODIPINE BES2.5 MG ORAL; +ASPIRIN81 MG ORAL; +ATORVASTATIN CA10 MG ORAL; +BREO ELLIPTA 21 EACH INH; +DOXYCYCLINE MO100 MG ORAL; +GABAPENTIN400 MG ORAL; +IBUPROFEN600 M1 ORAL; +NIACIN500 M1 ORAL; +PREZCOBIX 8001 EACH ORAL; +VANCOMYCIN1.75 GM/17 IV; +VIT D ORAL; +VITAMIN D325 MC1 PO; +ZINC50 M1 ORAL
[2020-01-08 15:42] VITALS: BP 126/71
--- NOTE | 2020-01-08 15:42 | NUR ---
ED Nurse Note: Pt walked in to ED c/o PICC line malfuntion. Pt also c/o right knee pain/ swelling to the area. Pt had a right knee surgery with Dr. Taylor last 12/11/19. Pt reports occlussion and leak from his PICC line. Denies fever/ chills. Pt AAOx4, verbally responsive. Ambulatory with walker. No SOB, on room air. ERMD at bedside.
[2020-01-08] MEDS ORDERED: Ampicillin/Sulbactam Sod 3 GM in NS 110 ML IV ONE (16:00)
[2020-01-08] MEDS ORDERED: Vancomycin 1.5gm/NS Premix 275 ML IVPB ONE (16:00)
[2020-01-08] MEDS ORDERED: Vancomycin 1.5 GM in NS 275 ML IVPB ONE (16:15)
--- NOTE | 2020-01-08 16:15 | NUR ---
ED Nurse Note: Unable to established IV line however blood specimen collected and sent to lab.
[2020-01-08] MEDS ORDERED: Lidocaine 1% Plain 30 ml INJ ONE (16:30)
[2020-01-08] MEDS ORDERED: Heparin1,000 units/500ml Premix(Conc:2 units/ml) IV ONE (16:30)
[2020-01-08 16:36] LABS: BASOPHILS % (AUTO) 1.6 % (0.0-2.0); EOSINOPHILS % (AUTO) 1.1 % (0.0-3.0); HEMATOCRIT 30.9 % (42.0-52.0); HEMOGLOBIN 10.2 G/DL (14.2-18.0); LYMPHOCYTES % (AUTO) 7.6 % (20.0-45.0); MEAN CORPUSCULAR VOLUME 80 FL (80-99); MONOCYTES % (AUTO) 6.4 % (1.0-10.0); NEUTROPHILS % (AUTO) 83.4 % (45.0-75.0); PLATELET COUNT 560 K/UL (150-450); RED BLOOD COUNT 3.86 M/UL (4.70-6.10); RED CELL DISTRIBUTION WIDTH 13.8 % (11.6-14.8); WHITE BLOOD COUNT 9.9 K/UL (4.8-10.8)
[2020-01-08 16:45] LABS: CALCIUM 8.4 MG/DL (8.5-10.1); POTASSIUM 3.6 MMOL/L (3.5-5.1)
[2020-01-08 16:59] LABS: ALBUMIN 2.3 G/DL (3.4-5.0); ALBUMIN/GLOBULIN RATIO 0.5 (1.0-2.7); BILIRUBIN,TOTAL 0.4 MG/DL (0.2-1.0); CKMB 0.6 NG/ML (0.0-3.6)
--- NOTE | 2020-01-08 17:25 | Diagnostic Imaging Report ---
Indication: Shortness of breath Technique: One view of the chest Comparison: 12/28/2019 Findings: Lungs and pleural spaces are clear. Heart size is normal. No significant change Impression: No acute process
--- NOTE | 2020-01-08 17:45 | NUR ---
ED Nurse Note: IV line established 20g on MARY, patent and intact.
[2020-01-08] MEDS ORDERED: Albuterol 90mcg Inhaler 8gm INH PRN (18:30)
[2020-01-08] MEDS ORDERED: Albuterol ud Inhalation HHN PRN (18:30)
[2020-01-08] MEDS ORDERED: Zolpidem 5mg tab ORAL PRN (18:30)
[2020-01-08] MEDS ORDERED: Miralax 17gm pkt ORAL PRN (18:30)
--- NOTE | 2020-01-08 18:46 | NUR ---
ED Nurse Note: Urine sent to lab.
--- NOTE | 2020-01-08 19:06 | Emergency Room Report ---
History of Present Illness General Chief Complaint: General Complaint Source: Patient Present Illness HPI Patient is a 49-year-old male presents for increased subjective fever and chills. Reports having prior history of infection to his right lower extremity after previous surgery. Had recent drainage procedure. Had noticed increased discomfort and swelling to his knee as well as increased generalized body aches. He had been receiving IV antibiotics via PICC line. Had recent hospitalization. Patient had been receiving IV antibiotics. Had no recent vomiting. Line had accidentally been discontinued. 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 COVID-19 Screening: Negative COVID-19 COVID-19 Testing Source: nasal Patient History Past Medical History: see triage record Reviewed Nursing Documentation: PMH: Agreed; PSxH: Agreed Nursing Documentation-PMH Past Medical History: No History, Except For Hx Cardiac Problems: Yes Hx Hypertension: Yes Hx Asthma: Yes Hx Cancer: No Hx Gastrointestinal Problems: No Hx Neurological Problems: No Review of Systems All Other Systems: negative except mentioned in HPI Physical Exam Vital Signs Date Time Temp Pulse Resp B/P (MAP) Pulse Ox O2 Delivery O2 Flow Rate FiO2 01/08/20 15:36 97.7 86 18 126/71 (89) 97 Room Air Sp02 EP Interpretation: reviewed, normal General Appearance: normal inspection, well appearing, no apparent distress, alert, GCS 15 Head: atraumatic ENT: normal ENT inspection, hearing grossly normal, normal voice Neck: normal inspection, full range of motion, supple, no bony tend Respiratory: normal inspection, lungs clear, normal breath sounds, no respiratory distress, no retraction, no wheezing Cardiovascular #1: regular rate, rhythm, no edema Gastrointestinal: normal inspection, normal bowel sounds, non tender, soft, no guarding, no hernia Genitourinary: no CVA tenderness Musculoskeletal: normal inspection, back normal, swelling - Swelling to the right lower extremity knee no warmth or erythema healing wound, other Neurologic: alert, motor strength/tone normal, tufting supervisor III-XII nml as tested, responsive, speech normal, normal inspection Psychiatric: normal inspection, judgement/insight normal, mood/affect normal Medical Decision Making Diagnostic Impression: Primary Impression: Acute kidney injury Additional Impression: Infection of right knee ER Course Patient presented for fever and lower extremity swelling. Differential diagnosis include was not limited to cellulitis, renal failure, sepsis, line infection among others. Because of complexity of patient's case laboratory tests and imaging studies were ordered. Patient was given IV vancomycin due to prior history of MRSA . patient was noted to have a markedly elevated creatinine compared to patient's baseline. IV access. PICC line was placed for further IV access. Dr. Keith Sandhu was contacted for inpatient management Labs Test 01/08/20 16:15 White Blood Count 9.9 K/UL (4.8-10.8) Red Blood Count 3.86 M/UL (4.70-6.10) Hemoglobin 10.2 G/DL (14.2-18.0) Hematocrit 30.9 % (42.0-52.0) Mean Corpuscular Volume 80 FL (80-99) Mean Corpuscular Hemoglobin 26.4 PG (27.0-31.0) Mean Corpuscular Hemoglobin Concent 33.0 G/DL (32.0-36.0) Red Cell Distribution Width 13.8 % (11.6-14.8) Platelet Count 560 K/UL (150-450) Mean Platelet Volume 5.2 FL (6.5-10.1) Neutrophils (%) (Auto) 83.4 % (45.0-75.0) Lymphocytes (%) (Auto) 7.6 % (20.0-45.0) Monocytes (%) (Auto) 6.4 % (1.0-10.0) Eosinophils (%) (Auto) 1.1 % (0.0-3.0) Basophils (%) (Auto) 1.6 % (0.0-2.0) Sodium Level 135 MMOL/L (136-145) Potassium Level 3.6 MMOL/L (3.5-5.1) Chloride Level 100 MMOL/L (98-107) Carbon Dioxide Level 20 MMOL/L (21-32) Anion Gap 15 mmol/L (5-15) Blood Urea Nitrogen 22 mg/dL (7-18) Creatinine 5.0 MG/DL (0.55-1.30) Estimat Glomerular Filtration Rate 15.2 mL/min (>60) Glucose Level 111 MG/DL (74-106) Lactic Acid Level 0.70 mmol/L (0.4-2.0) Calcium Level 8.4 MG/DL (8.5-10.1) Total Bilirubin 0.4 MG/DL (0.2-1.0) Aspartate Amino Transf (AST/SGOT) 25 U/L (15-37) Alanine Aminotransferase (ALT/SGPT) 44 U/L (12-78) Alkaline Phosphatase 135 U/L (46-116) Total Creatine Kinase 98 U/L (26-308) Creatine Kinase MB 0.6 NG/ML (0.0-3.6) Creatine Kinase MB Relative Index 0.6 Troponin I 0.000 ng/mL (0.000-0.056) Total Protein 7.3 G/DL (6.4-8.2) Albumin 2.3 G/DL (3.4-5.0) Globulin 5.0 g/dL Albumin/Globulin Ratio 0.5 (1.0-2.7) Last Vital Signs Date Time Temp Pulse Resp B/P (MAP) Pulse Ox O2 Delivery O2 Flow Rate FiO2 01/08/20 15:42 86 18 Room Air 01/08/20 15:42 97.7 126/71 97 Status: improved Disposition: ADMITTED INPATIENT Condition: Stable Referrals: NON PHYSICIAN (PCP) Maynor Gutierrez MD Jan 08, 2020 19:06
[2020-01-08 19:19] LABS: APPEARANCE,URINE CLOUDY; BILIRUBIN, URINE NEGATIVE (NEGATIVE); COLOR,URINE PALE YELLOW; GLUCOSE, URINE (UA) NEGATIVE (NEGATIVE); KETONES,URINE NEGATIVE (NEGATIVE); LEUKOCYTE ESTERASE ,URINE 1+ (NEGATIVE); NITRITE,URINE NEGATIVE (NEGATIVE); PH,URINE 5 (4.5-8.0); PROTEIN,URINE NEGATIVE (NEGATIVE); UROBILINOGEN,URINE NORMAL MG/DL (0.0-1.0)
--- NOTE | 2020-01-08 19:30 | NUR ---
ED Nurse Note: report given to tom starkey. patient to be admitted to [facility] under the care of elder brown.
[2020-01-08 19:44] VITALS: BP 131/72
--- NOTE | 2020-01-08 19:49 | NUR ---
TRANSFER TO FLOOR: Patient transferred to [id number] as ordered, per elder brown. Report given to tom starkey. patient stable for transport. transferred to unit via gurney with [facility]. belongings and admission packet sent with patient.
[2020-01-08] MEDS: Dyna-Hex 2% Top Sol 2oz TOPIC SCH (20:00)
--- NOTE | 2020-01-08 20:00 | NUR ---
NURSE NOTES: ADMITTED PATIENT TO ROOM 410 BED 1 VIA [facility] FROM EMERGENCY DEPARTMENT WITH DIAGNOSIS ACUTE KIDNEY INJURY/RIGHT KNEE CELLULITIS UNDER THE CARE OF DR. Angelika URIOSTEGUI. IV INTACT TO LEFT UPPER ARM/GAUGE 20, NO REDNESS/SWELLING NOTED. PATIENT AWAKE, ALERT/ORIENTED X4, VERBALLY RESPONSIVE, DENIES PAIN. NO SIGNS AND SYMPTOMS OF ACUTE CARDIO RESPIRATORY DISTRESS/SHORTNESS OF BREATH, DENIES CHEST PAIN, SWELLING/WARMTH NOTED TO RIGHT KNEE, S/P RIGHT KNEE SURGERY 12/11/19/DR. GOULD SURGEON, WALKER AT BEDSIDE. . NO COMPLAINTS OF GI DISCOMFORT, DENIES N/V/D. ORIENTATED PATIENT TO ROOM/ENVIRONMENT. SIDE RAILS UP X2 FOR MOBILITY, BED IN LOWEST POSITION FOR SAFETY, ENCOURAGED PATIENT TO UTILIZE CALL LIGHT FOR ASSISTANCE, VERBALIZED UNDERSTANDING. NAD.
[2020-01-08] MEDS: Heparin 5000 units/ml inj SUBQ SCH (20:31)
[2020-01-08 21:52] LABS: ALANINE AMINOTRANSFERASE 38 U/L (12-78); ALBUMIN 2.2 G/DL (3.4-5.0); ALBUMIN/GLOBULIN RATIO 0.5 (1.0-2.7); ALKALINE PHOSPHATASE 123 U/L (46-116); ANION GAP 12 mmol/L (5-15); ASPARTATE AMINO TRANSFERASE 24 U/L (15-37); BILIRUBIN,TOTAL 0.3 MG/DL (0.2-1.0); BLOOD UREA NITROGEN 23 mg/dL (7-18); CALCIUM 8.3 MG/DL (8.5-10.1); CARBON DIOXIDE 22 MMOL/L (21-32); CHLORIDE 103 MMOL/L (98-107); CREATINE KINASE 87 U/L (26-308); CREATININE 5.2 MG/DL (0.55-1.30); PHOSPHORUS 4.5 MG/DL (2.5-4.9); POTASSIUM 3.6 MMOL/L (3.5-5.1); SODIUM 137 MMOL/L (136-145)
[2020-01-09 04:00] VITALS: BP 122/76
--- NOTE | 2020-01-09 06:35 | NUR ---
NURSE NOTES: RESTED WELL, NO SIGNIFICANT CHANGE OF CONDITION NOTED THROUGHOUT THE NIGHT. SAFETY MAINTAINED. NAD.
--- NOTE | 2020-01-09 07:00 | NUR ---
NURSE NOTES: TELEPHONE CALL PLACED TO DR. CISNEROS, , REGARDING BLOODY STOOL, LEFT MESSAGE ON VOICE MAIL, ENDORSED TO AM NURSE.
--- NOTE | 2020-01-09 07:40 | NUR ---
NURSE NOTES: RECEIVED PATIENT A/A/OX4 IN BED. ABLE TO MAKE NEEDS KNOWN. CALM AND COMFORTABLE. PIV PATENT AND INTACT TO LEFT UPPER ARM/GAUGE 20, NO REDNESS/SWELLING NOTED. DENIES PAIN/DISCOMFORT NOTED. NO SIGNS AND SYMPTOMS OF ACUTE CARDIO-RESPIRATORY DISTRESS/SHORTNESS OF BREATH. WALKER AT BEDSIDE. NO COMPLAINTS OF GI DISCOMFORT, DENIES N/V/D. SIDE RAILS UP X2 FOR MOBILITY, BED IN LOWEST POSITION FOR SAFETY, ENCOURAGED PATIENT TO UTILIZE CALL LIGHT FOR ASSISTANCE, VERBALIZED UNDERSTANDING. WILL CONT TO MONITOR.
--- NOTE | 2020-01-09 07:57 | NUR ---
NURSE HAND-OFF: Important Events on Shift:[PATIENT NOTED WITH MODERATE AMOUNT OF BLOODY STOOL, LEFT MESSAGE FOR MD [phone]] Patient Status: [STABLE,] Diet: [RENAL, MS GROUND] Pending Orders: [AM LABS] Pending Results/Labs:[] Pending MD notification:[] Latest Vital Signs: Temperature 98.3 , Pulse 76 , B/P 122 /76 , Respiratory Rate 18 , O2 SAT 100 , Room Air, O2 Flow Rate . Vital Sign Comment: [STABLE, AFEBRILE] Latest Kemp Fall Score: 95 Fall Risk: High Risk Safety Measures: Call light Within Reach, Bed Alarm Zone 1, Side Rails Side Rails x2, Bed position Low and Locked. Fall Precautions: Door Sign Patient Fall Education Report given to [JOEY RICHARDS].
[2020-01-09 08:00] VITALS: BP 144/65
--- NOTE | 2020-01-09 08:00 | NUR ---
NURSE HAND-OFF: Important Events on Shift:[NEW ADMISSION, STABLE] Patient Status: [STABLE] Diet: RENAL Pending Orders: AM LABS, PHLEBOTOMY UNABLE TO DRAW BLOOD, WILL SEND SOMEONE ELSE TO TRY Pending Results/Labs: Pending MD notification:[N/A] Latest Vital Signs: Temperature 98.3 , Pulse 76 , B/P 122 /76 , Respiratory Rate 18 , O2 SAT 100 , Room Air, O2 Flow Rate . Vital Sign Comment: STABLE, AFEBRILE Latest Kemp Fall Score: 95 Fall Risk: High Risk Safety Measures: Call light Within Reach, Bed Alarm Zone 1, Side Rails Side Rails x2, Bed position Low and Locked. Fall Precautions: Door Sign Patient Fall Education Report given to JOEY LEAL.
[2020-01-09] MEDS: Heparin 5000 units/ml inj SUBQ SCH ×2 (08:24→20:11)
[2020-01-09] MEDS ORDERED: Dolutegravir Sodium 50mg tab ORAL SCH (09:00)
[2020-01-09 10:24] LABS: BASOPHILS % (AUTO) 1.3 % (0.0-2.0); EOSINOPHILS % (AUTO) 1.8 % (0.0-3.0); HEMATOCRIT 30.6 % (42.0-52.0); HEMOGLOBIN 9.9 G/DL (14.2-18.0); LYMPHOCYTES % (AUTO) 11.3 % (20.0-45.0); MEAN CORPUSCULAR VOLUME 82 FL (80-99); NEUTROPHILS % (AUTO) 78.5 % (45.0-75.0); PLATELET COUNT 526 K/UL (150-450); RED BLOOD COUNT 3.71 M/UL (4.70-6.10); RED CELL DISTRIBUTION WIDTH 13.1 % (11.6-14.8)
[2020-01-09 10:58] LABS: ALANINE AMINOTRANSFERASE 38 U/L (12-78); ALBUMIN 2.3 G/DL (3.4-5.0); ALBUMIN/GLOBULIN RATIO 0.6 (1.0-2.7); ALKALINE PHOSPHATASE 130 U/L (46-116); ANION GAP 11 mmol/L (5-15); ASPARTATE AMINO TRANSFERASE 23 U/L (15-37); BILIRUBIN,TOTAL 0.3 MG/DL (0.2-1.0); BLOOD UREA NITROGEN 23 mg/dL (7-18); CALCIUM 7.9 MG/DL (8.5-10.1); CARBON DIOXIDE 24 MMOL/L (21-32); CHLORIDE 103 MMOL/L (98-107); CHOLESTEROL 222 MG/DL (< 200); CREATININE 5.4 MG/DL (0.55-1.30); HDL CHOLESTEROL 38 MG/DL (40-60); POTASSIUM 3.6 MMOL/L (3.5-5.1); SODIUM 138 MMOL/L (136-145); TRIGLYCERIDES 156 MG/DL (30-150)
--- NOTE | 2020-01-09 11:36 | Diagnostic Imaging Report ---
EXAM: US Retroperitoneal Complete, Renal CLINICAL HISTORY: Patient is a 49-year-old male presents for increased subjective fever and chills. Reports having prior history of infection to his right lower extremity after previous surgery. Had recent drainage procedure. Had noticed increased discomfort and swelling to his knee as well as increased generalized body aches. He had been receiving IV antibiotics via PICC line. Had recent hospitalization. Patient had been receiving IV antibiotics. Had no recent vomiting. Line had accidentally been discontinued. Reports having prior history of HIV with low CD4 count TECHNIQUE: Real-time complete ultrasound of the retroperitoneum with image documentation. COMPARISON: None FINDINGS: Inferior vena cava: Visualized portions of the IVC are grossly unremarkable. Right kidney: Right kidney measures 11.3 cm in length. No hydronephrosis or stone. Left kidney: Left kidney measures 13.0 cm in length. No hydronephrosis or stone. IMPRESSION: No hydronephrosis or stone.
[2020-01-09 12:01] VITALS: BP 116/75
--- NOTE | 2020-01-09 12:04 | Consultation ---
Consult Note Consult Note Asked to evaluate the patient at the request of Dr. Sandhu renal failure. Patient interviewed. Discussed with CARRILLO Wise. Preliminary labs ordered. HIV on ARV, HTN, asthma, recent meniscal repair of R knee 12/11/19 c/w MRSA septic arthritis HISTORY OF PRESENT ILLNESS: The patient underwent a right knee meniscectomy on December 11, 2019. The patient returned on December 24, 2019, with right knee pain and swelling. The patient was admitted from December 23 to December 30, 2019, with septic arthritis of the right knee. The patient underwent incision and drainage of the right knee on December 25, 2019. The patient was discharged home on vancomycin for septic arthritis of the right knee. The patient had a PICC line in place. The patient was receiving vancomycin from home health. The PICC line spontaneously was discontinued on January 08, 2020. The patient presented to [facility] complaining of fevers and chills. The patient is admitted for fevers, chills, and loss of intravenous access secondary to PICC line dislodgement. GENERAL: The patient is a well-developed and well-nourished male, in no apparent distress. HEENT: Eyes, pupils equal and responsive to light and accommodation. Extraocular movements intact. NECK: Supple. No lymphadenopathy. CHEST: Lungs are clear to auscultation bilaterally without wheezes or rales. CARDIOVASCULAR: Regular rate. S1, S2 normal without murmurs, rubs, or gallops. ABDOMEN: Soft, nontender, and nondistended. Positive bowel sounds. No evidence of hepatosplenomegaly. Currently, no rebound or guarding noted. EXTREMITIES: There is pain to palpation of the right knee, otherwise without clubbing, cyanosis, or edema. RECTAL: Not performed. GENITAL: Not performed. NEUROLOGIC: Cranial nerves II through XII grossly intact without focal deficits. Motor strength is 5/5 bilaterally, intact. Deep tendon reflexes are 2+, plantar. LABORATORY STUDIES: WBC 9.9, hemoglobin 10.2, hematocrit 38.9, and platelets 560,000. Sodium 135, potassium 3.6, chloride 100, CO2 of 20, BUN 22, creatinine 5 . Urinalysis showed 1+ leukocyte esterase with 2-4 wbc's. . . Assessment/Plan Acute renal failure Vancomycin level over 50 Hypertension HIV Kidney ultrasound, unremarkable Plan: Off Vanco Hydrate Monitor renal parameters Per orders Andrea Alegre MD Jan 09, 2020 12:04
--- NOTE | 2020-01-09 12:33 | NUR ---
NURSE NOTES: CALLED DR ROYAL RE; LINA RENAL AND VANCO RANDOM RESULTS. AWAITING FOR A RESPONSE. WILL CONT TO MONITOR.
--- NOTE | 2020-01-09 14:04 | NUR ---
NURSE NOTES: sent urine sample for drug screen per MD order. will cont to monitor.
[2020-01-09 16:00] VITALS: BP 113/76
--- NOTE | 2020-01-09 16:27 | History & Physical ---
History and Physical History & Physicial Dictated for Int Med-DR Sandhu no. [id number] Ward Hoover MD Jan 09, 2020 16:27
--- NOTE | 2020-01-09 17:28 | Consultation ---
History of Present Illness General Date patient seen: Jan 09, 2020 Chief Complaint: General Complaint Present Illness HPI 49 y/o M with hx of HIV on ARV, HTN, asthma, recent meniscal repair of R knee 12/11/19 c/w MRSA septic arthritis presented back to ED on 01/08/20 with renal failure. Patient was recently admitted here from 12/23- for R knee septic arthritis and underweint I+D and was discharge home with PICC line and IV Vancomycin. Allergies: Coded Allergies: LISINOPRIL (Verified Allergy, Severe, FACE SWELLING, 12/11/19) Medication History Scheduled Amlodipine Besylate* (Amlodipine Besylate*), 2.5 MG ORAL DAILY, (Reported) Atorvastatin Calcium* (Lipitor*), 10 MG ORAL BEDTIME, (Reported) Cholecalciferol (Vitamin D3) (Vitamin D3*), 50,000 UNITS PO ONCE A WEEK, ( Reported) Darunavir/Cobicistat (Prezcobix 800 mg-150 mg Tablet), 1 TAB ORAL DAILY, (Reported) Dolutegravir Sodium (Tivicay), 50 MG ORAL BID, (Reported) Doxycycline Monohydrate* (Doxycycline Monohydrate*), 100 MG ORAL TWICE A DAY, (Reported) Fluticasone/Vilanterol (Breo Ellipta 200-25 Mcg INH), 1 PUFF INH DAILY, (Reported) Gabapentin* (Gabapentin*), 400 MG ORAL BEDTIME, (Reported) Multivitamins* (Multivitamins*), 1 TAB ORAL DAILY, (Reported) Multivitamins* (Multivitamins*), 1 TAB ORAL DAILY, (Reported) Niacin (Niacin), 500 MG ORAL DAILY, (Reported) Trimethoprim/Sulfamethoxazole (Bactrim Ds Tablet), 1 TAB ORAL DAILY Vancomycin HCl in Water (Vancomycin 1,750 mg/17.5 ml Vl), 1.75 GM IV EVERY 12 HOURS Zinc (Zinc), Unknown Dose ORAL DAILY, (Reported) Scheduled PRN Acetaminophen With Codeine (T#3) (Tylenol #3 Tab*), 1 TAB ORAL Q4H PRN Albuterol Sulfate (Ventolin Hfa), 2 PUFF INH EVERY 4 HOURS PRN for Shortness of Breath, (Reported) Ibuprofen* (Motrin*), 600 MG ORAL DAILY PRN for For Pain, (Reported) Patient History Healthcare decision maker Resuscitation status Advanced Directive on File Patient History Narrative Pmhx: as above Shx: reviewed Fhmx: non contributory Review of Systems All Other Systems: negative except mentioned in HPI Physical Exam Physical Exam Narrative General Appearance: normal inspection, well appearing, no apparent distress, alert, GCS 15 Head: atraumatic ENT: normal ENT inspection, hearing grossly normal, normal voice Neck: normal inspection, full range of motion, supple, no bony tend Respiratory: normal inspection, lungs clear, normal breath sounds, no respiratory distress, no retraction, no wheezing Cardiovascular #1: regular rate, rhythm, no edema Gastrointestinal: normal inspection, normal bowel sounds, non tender, soft, no guarding, no hernia Genitourinary: no CVA tenderness Musculoskeletal: normal inspection, back normal, swelling - Swelling to the right lower extremity knee no warmth or erythema healing wound, other Last 24 Hour Vital Signs Date Time Temp Pulse Resp B/P (MAP) Pulse Ox O2 Delivery O2 Flow Rate FiO2 01/09/20 12:01 98.0 80 16 116/75 (89) 98 01/09/20 08:22 85 144/65 01/09/20 08:00 98.7 85 16 144/65 (91) 96 01/09/20 04:00 98.3 76 18 122/76 (91) 100 01/08/20 21:00 Room Air 01/08/20 19:52 97.7 74 14 131/72 98 Room Air 01/08/20 19:44 97.7 74 14 131/72 98 Room Air Intake and Output 01/08/20 01/09/20 19:00 07:00 Intake Total 560 ml Balance 560 ml Intake Oral 560 ml # Voids 2 Laboratory Tests Test 01/08/20 18:46 01/08/20 21:00 01/09/20 10:00 01/09/20 14:00 Urine Color Pale yellow Urine Appearance Cloudy Urine pH 5 (4.5-8.0) Urine Specific Purdy 1.020 (1.005-1.035) Urine Protein Negative (NEGATIVE) Urine Glucose (UA) Negative (NEGATIVE) Urine Ketones Negative (NEGATIVE) Urine Blood Negative (NEGATIVE) Urine Nitrite Negative (NEGATIVE) Urine Bilirubin Negative (NEGATIVE) Urine Urobilinogen Normal MG/DL (0.0-1.0) Urine Leukocyte Esterase 1+ (NEGATIVE) H Urine RBC 0 /HPF (0 - 0) Urine WBC 2-4 /HPF (0 - 0) Urine Squamous Epithelial Cells None /LPF (NONE/OCC) Urine Amorphous Sediment Many /LPF (NONE) H Urine Bacteria Many /HPF (NONE) H Urine Eosinophils None seen (NONE SEEN) Urine Random Sodium 60 mmol/L (20-110) Urine Random Chloride 66 mmol/L (55-125) Sodium Level 137 MMOL/L (136-145) 138 MMOL/L (136-145) Potassium Level 3.6 MMOL/L (3.5-5.1) 3.6 MMOL/L (3.5-5.1) Chloride Level 103 MMOL/L (98-107) 103 MMOL/L (98-107) Carbon Dioxide Level 22 MMOL/L (21-32) 24 MMOL/L (21-32) Anion Gap 12 mmol/L (5-15) 11 mmol/L (5-15) Blood Urea Nitrogen 23 mg/dL (7-18) H 23 mg/dL (7-18) H Creatinine 5.2 MG/DL (0.55-1.30) H 5.4 MG/DL (0.55-1.30) H Estimat Glomerular Filtration Rate 14.4 mL/min (>60) 13.8 mL/min (>60) Glucose Level 101 MG/DL (74-106) 105 MG/DL (74-106) Uric Acid 6.0 MG/DL (2.6-7.2) Calcium Level 8.3 MG/DL (8.5-10.1) L 7.9 MG/DL (8.5-10.1) L Phosphorus Level 4.5 MG/DL (2.5-4.9) Magnesium Level 2.0 MG/DL (1.8-2.4) Total Bilirubin 0.3 MG/DL (0.2-1.0) 0.3 MG/DL (0.2-1.0) Aspartate Amino Transf (AST/SGOT) 24 U/L (15-37) 23 U/L (15-37) Alanine Aminotransferase (ALT/SGPT) 38 U/L (12-78) 38 U/L (12-78) Alkaline Phosphatase 123 U/L (46-116) H 130 U/L (46-116) H Total Creatine Kinase 87 U/L (26-308) Total Protein 6.8 G/DL (6.4-8.2) 6.3 G/DL (6.4-8.2) L Albumin 2.2 G/DL (3.4-5.0) L 2.3 G/DL (3.4-5.0) L Globulin 4.6 g/dL 4.0 g/dL Albumin/Globulin Ratio 0.5 (1.0-2.7) L 0.6 (1.0-2.7) L Free Thyroxine 0.89 NG/DL (0.76-1.46) Free Triiodothyronine 1.8 pg/mL (2.3-4.2) L Cortisol 7.2 UG/DL White Blood Count 7.0 K/UL (4.8-10.8) Red Blood Count 3.71 M/UL (4.70-6.10) L Hemoglobin 9.9 G/DL (14.2-18.0) L Hematocrit 30.6 % (42.0-52.0) L Mean Corpuscular Volume 82 FL (80-99) Mean Corpuscular Hemoglobin 26.6 PG (27.0-31.0) L Mean Corpuscular Hemoglobin Concent 32.2 G/DL (32.0-36.0) Red Cell Distribution Width 13.1 % (11.6-14.8) Platelet Count 526 K/UL (150-450) H Mean Platelet Volume 5.5 FL (6.5-10.1) L Neutrophils (%) (Auto) 78.5 % (45.0-75.0) H Lymphocytes (%) (Auto) 11.3 % (20.0-45.0) L Monocytes (%) (Auto) 7.0 % (1.0-10.0) Eosinophils (%) (Auto) 1.8 % (0.0-3.0) Basophils (%) (Auto) 1.3 % (0.0-2.0) Hemoglobin A1c 6.1 % (4.3-6.0) H Triglycerides Level 156 MG/DL (30-150) H Cholesterol Level 222 MG/DL (< 200) H LDL Cholesterol 139 mg/dL (<100) H HDL Cholesterol 38 MG/DL (40-60) L Cholesterol/HDL Ratio 5.8 (3.3-4.4) H Thyroid Stimulating Hormone (TSH) 1.255 uiU/mL (0.358-3.740) Random Vancomycin Level > 50.0 ug/mL Urine Opiates Screen Negative (NEGATIVE) Urine Barbiturates Screen Negative (NEGATIVE) Phencyclidine (PCP) Screen Negative (NEGATIVE) Urine Amphetamines Screen Negative (NEGATIVE) Urine Benzodiazepines Screen Negative (NEGATIVE) Urine Cocaine Screen Negative (NEGATIVE) Urine Marijuana (THC) Screen Negative (NEGATIVE) Microbiology Date/Time Source Procedure Growth Status 01/08/20 18:46 Urine,Clean Catch Urine Culture - Preliminary NO GROWTH Resulted Height (Feet): 5 Height (Inches): 9.00 Weight (Pounds): 193 Medications Current Medications Medications (Trade) Dose Ordered Sig/Griselda Route PRN Reason Start Time Stop Time Status Last Admin Dose Admin Acetaminophen (Tylenol) 650 mg Q4H PRN ORAL fever 01/08/20 18:30 02/07/20 18:29 Albuterol Sulfate (Proventil) 2.5 mg Q4H PRN HHN Shortness of Breath 01/08/20 18:30 01/13/20 18:29 Amlodipine Besylate (Norvasc) 2.5 mg DAILY ORAL 01/09/20 09:00 02/08/20 08:59 01/09/20 08:22 Chlorhexidine Gluconate (Crystal-Hex 2%) 1 applic DAILY@1999 TOPIC 01/08/20 20:00 04/07/20 19:59 Clonidine HCl (Catapres Tab) 0.1 mg Q4H PRN ORAL For High Blood Pressure 01/08/20 18:30 04/07/20 18:29 Dextrose (Dextrose 50%) 25 ml Q30M PRN IV Hypoglycemia 01/08/20 18:30 04/07/20 18:29 Dextrose (Dextrose 50%) 50 ml Q30M PRN IV Hypoglycemia 01/08/20 18:30 04/07/20 18:29 Dolutegravir Sodium (Tivicay) 50 mg BID ORAL 01/09/20 09:00 04/08/20 08:59 UNV Gabapentin (Neurontin) 400 mg BEDTIME ORAL 01/08/20 21:00 02/07/20 20:59 01/08/20 20:31 Heparin Sodium (Porcine) (Heparin 5000 units/ml) 5,000 units EVERY 12 HOURS SUBQ 01/08/20 21:00 02/22/20 20:59 01/09/20 08:24 Ondansetron HCl (Zofran) 4 mg Q6H PRN IVP Nausea & Vomiting 01/08/20 18:30 02/07/20 18:29 Polyethylene Glycol (Miralax) 17 gm HSPRN PRN ORAL Constipation 01/08/20 18:30 02/07/20 18:29 Sodium Chloride 1,000 ml @ 75 mls/hr [id number] IV 01/09/20 16:30 02/08/20 16:29 Zolpidem Tartrate (Ambien) 5 mg HSPRN PRN ORAL Insomnia 01/08/20 18:30 01/15/20 18:29 01/08/20 20:33 Assessment/Plan Assessment/Plan: Abx: IV Vancomycin x1 01/07 Unasyn x1 01/07 Assessment: Afebrile No leukocytosis -CXR: no acute process Severe acute renal failure- from Vancomycin toxicity (random vanco>50) -Renal US: No hydronephrosis or stone. Recent R knee septic arthritis- post-op infection- healing well -12/24 SP Right knee arthrotomy.Right knee incision and drainage, 12 liters of bacitracin irrigation. --OR findings: The synovium was then incised. Gross pus was visible, was sent off for appropriate analysis. At this point, once arthrotomy was complete, 12 liters of bacitracin irrigation was then used to irrigate the knee. --fluid wbc 88,375 (N 99%) --OR cx CONS, MRSA (S Vanco OLENA 1, bactrim, tetracycline) -synovial fluid: wbc 62.8k (N99%), RBC 5.5k; cx stain no organisms, many wbc; cx CONS -ESR 62, CRP 28.1 -meniscal repair of R knee 12/11/19 HIV/AIDS on ARV -12/2019 CD4 102, VL <20 -dx 2003. has undergo multiple regimens. Has developed resistant to Truvada component. On Tivicay and Prescobix for 1 yr now. Latest CD4 100s; previously 40s. HTN asthma Plan: -Start Daptomycin from tomorrow on- still has vanco on his system (day abx #) -monitor CPK -f/u cx -Monitor CBC/CMP, temperatures -Continue ARV: Tivicay and Prezcobix -Atovaquone for PCP ppx Thank you for consulting [facility]. Will continue to follow along with you. Discussed with RN and Dr Hoover. Parvin Gifford M.D. Jan 09, 2020 17:28
--- NOTE | 2020-01-09 19:00 | History and Physical Report ---
DATE OF ADMISSION: 01/08/2020 CHIEF COMPLAINT: The patient is a 49-year-old male, who presents with chief complaint of fevers and chills. HISTORY OF PRESENT ILLNESS: The patient underwent a right knee meniscectomy on December 11, 2019. The patient returned on December 24, 2019, with right knee pain and swelling. The patient was admitted from December 23 to December 30, 2019, with septic arthritis of the right knee. The patient underwent incision and drainage of the right knee on December 25, 2019. The patient was discharged home on vancomycin for septic arthritis of the right knee. The patient had a PICC line in place. The patient was receiving vancomycin from home health. The PICC line spontaneously was discontinued on January 08, 2020. The patient presented to [facility] complaining of fevers and chills. The patient is admitted for fevers, chills, and loss of intravenous access secondary to PICC line dislodgement. REVIEW OF SYSTEMS: CONSTITUTIONAL: The patient complains of subjective fevers and chills. The patient denies weight loss or weight gain. HEENT: The patient denies ear or throat pain. The patient denies headache. CARDIOVASCULAR: The patient denies palpitations or chest pain. CHEST: The patient denies wheeze or shortness of breath. ABDOMINAL: The patient denies nausea, vomiting, diarrhea, or constipation. GENITOURINARY: The patient denies dysuria or increased frequency of urination. NEUROMUSCULAR: The patient complains of right knee pain. The patient denies seizures or generalized weakness. PAST MEDICAL HISTORY: Significant for: 1. Hypertension. 2. HIV. 3. Asthma. PAST SURGICAL HISTORY: Significant for: 1. Bilateral knee surgeries 20 years previously. 2. Left shoulder surgery. 3. Revision of left knee surgery in November 2017. 4. Right knee meniscectomy on December 11, 2019. 5. Incision and drainage of the right knee septic arthritis on December 25, 2019. CURRENT MEDICATIONS: 1. Albuterol metered-dose inhaler 2 puffs p.o. q.i.d. p.r.n. 2. Amlodipine 10 mg p.o. daily. 3. Atorvastatin 10 mg p.o. nightly. 4. Prezcobix 1 tablet p.o. daily. 5. Tivicay 1 tablet p.o. twice daily. 6. Neurontin 400 mg p.o. nightly. 7. Ibuprofen 600 mg p.o. q.6h. p.r.n. 8. Multivitamin p.o. daily. 9. Vancomycin, dosed per pharmacy. ALLERGIES: To lisinopril, which causes swelling. SOCIAL HISTORY: The patient is single and is lynne. The patient denies tobacco use having quit in 2012. 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 PHYSICAL EXAMINATION: VITAL SIGNS: Temperature 97.7, respirations 14, pulse 84, blood pressure 131/72. GENERAL: The patient is a well-developed and well-nourished male, in no apparent distress. HEENT: Eyes, pupils equal and responsive to light and accommodation. Extraocular movements intact. NECK: Supple. No lymphadenopathy. CHEST: Lungs are clear to auscultation bilaterally without wheezes or rales. CARDIOVASCULAR: Regular rate. S1, S2 normal without murmurs, rubs, or gallops. ABDOMEN: Soft, nontender, and nondistended. Positive bowel sounds. No evidence of hepatosplenomegaly. Currently, no rebound or guarding noted. EXTREMITIES: There is pain to palpation of the right knee, otherwise without clubbing, cyanosis, or edema. RECTAL: Not performed. GENITAL: Not performed. NEUROLOGIC: Cranial nerves II through XII grossly intact without focal deficits. Motor strength is 5/5 bilaterally, intact. Deep tendon reflexes are 2+, plantar. LABORATORY STUDIES: WBC 9.9, hemoglobin 10.2, hematocrit 38.9, and platelets 560,000. Sodium 135, potassium 3.6, chloride 100, CO2 of 20, BUN 22, creatinine glucose 111. Urinalysis showed 1+ leukocyte esterase with 2-4 wbc's. ASSESSMENT: This is a 49-year-old male with: 1. Septic arthritis of right knee. 2. Acute renal failure. 3. HIV. 4. Hypertension. 5. Hypercholesterolemia. 6. Asthma. TREATMENT: 1. Septic arthritis of right knee. An Infectious Disease consultation has been obtained with Dr. Gifford. The patient was on vancomycin at home. The patient has acute renal failure. Vancomycin will be discontinued. Follow recommendations of Infectious Disease concerning antibiotics. 2. Acute renal failure. A Nephrology consultation has been obtained with Dr. Alegre. Follow recommendations of Nephrology. 3. HIV. Continue Prezcobix and Tivicay as above. 4. Hypertension. Continue amlodipine as above. 5. Hypercholesterolemia. Continue atorvastatin as above. 6. Asthma. Continue albuterol metered-dose inhaler as above. Ward Hoover M.D. DR: Kulwinder JOB#: [id number] CC:
--- NOTE | 2020-01-09 19:02 | NUR ---
NURSE HAND-OFF: Important Events on Shift:[SENT URINE SAMPLE TO LAB; IVF INITIATED; INFORMED RE: ANTIVIRAL MEDS ] Patient Status: [STABLE ] Diet: [renal] Pending Orders: [labs; urine collection] Pending Results/Labs:[in am] Pending MD notification:[] Latest Vital Signs: Temperature 99.4 , Pulse 83 , B/P 113 /76 , Respiratory Rate 18 , O2 SAT 100 , Room Air, O2 Flow Rate . Vital Sign Comment: [] Latest Kemp Fall Score: 85 Fall Risk: High Risk Safety Measures: Call light Within Reach, Bed Alarm Zone 1, Side Rails Side Rails x2, Bed position Low and Locked. Fall Precautions: Yellow Socks Yellow Gown Door Sign Patient Fall Education Report given to [GODWIN].
--- NOTE | 2020-01-09 19:54 | NUR ---
NURSE NOTES: Patient in bed, awake and alert x4. On room air with no signs of distress or SOB. IV intact and running IVF as ordered. Bed locked and in lowest position. Call light in reach. Will continue plan of care.
[2020-01-09 20:00] VITALS: BP 133/71
[2020-01-09] MEDS: Dyna-Hex 2% Top Sol 2oz TOPIC SCH (20:03)
[2020-01-10] VITALS: BP 110/72
[2020-01-10 04:00] VITALS: BP 159/79
--- NOTE | 2020-01-10 06:49 | NUR ---
NURSE HAND-OFF: Important Events on Shift: No events Patient Status: Stable Diet: Renal Pending Orders: Urine eos Pending Results/Labs: Eos urine, CK, GGTP, BNP, Mag, Phos, CMP, CRP, Vanco, CBC Pending MD notification: N/A Latest Vital Signs: Temperature 99.0 , Pulse 85 , B/P 159 /79 , Respiratory Rate 18 , O2 SAT 97 , Room Air, O2 Flow Rate . Vital Sign Comment: N/A Latest Kemp Fall Score: 85 Fall Risk: High Risk Safety Measures: Call light Within Reach, Bed Alarm Zone 1, Side Rails Side Rails x2, Bed position Low and Locked. Fall Precautions: Yellow Socks Yellow Gown Door Sign Patient Fall Education Addendum: 01/10/20 at 0701 by GODWIN DORANTES RN Report given to JOEY Wise
--- NOTE | 2020-01-10 07:20 | NUR ---
NURSE NOTES: RECEIVED PATIENT A/A/OX4 IN BED. ABLE TO VERBALIZE NEEDS. CALM AND COMFORTABLE. PIV PATENT AND INTACT TO LEFT UPPER ARM/GAUGE 20, NO REDNESS/SWELLING NOTED. DENIES PAIN/DISCOMFORT NOTED. NO SIGNS AND SYMPTOMS OF ACUTE CARDIO-RESPIRATORY DISTRESS/SHORTNESS OF BREATH. WALKER AT BEDSIDE. NO COMPLAINTS OF GI DISCOMFORT, DENIES N/V/D. SIDE RAILS UP X2 FOR MOBILITY, BED IN LOWEST POSITION FOR SAFETY, ENCOURAGED PATIENT TO UTILIZE CALL LIGHT FOR ASSISTANCE, VERBALIZED UNDERSTANDING. WILL CONT TO MONITOR.
--- NOTE | 2020-01-10 07:21 | NUR ---
NURSE NOTES: PER REPORT GUSSET FOLDER UNABLE TO SUCCESSFULLY DRAW BLOOD. PATIENT APPEARED TO BE A HARDSTICK. ACADEMIC ASSISTANT WILL COME BACK TO RETRY. WILL CONT TO MONITOR.
[2020-01-10 08:00] VITALS: BP 120/76
[2020-01-10] MEDS: Atovaquone 750mg/5ml Susp ORAL SCH (08:50)
[2020-01-10] MEDS: Heparin 5000 units/ml inj SUBQ SCH ×2 (08:51→20:07)
[2020-01-10] MEDS: DAPTOmycin 500 MG in NS 55 ML IV SCH (10:38)
[2020-01-10 12:00] VITALS: BP 126/78
--- NOTE | 2020-01-10 12:05 | Nephrology Progress Note ---
Assessment/Plan Problem List: (1) Acute kidney injury (2) Vancomycin-induced nephrotoxicity (3) HIV disease Assessment Acute renal failure Vancomycin level over 50 Kidney ultrasound, unremarkable Plan January 09: As follow: Today's labs still pending Remains off Vanco Hydrate in process Monitor renal parameters Monitor Vanco levels Per orders Subjective ROS Limited/Unobtainable: No Constitutional: Reports: malaise Objective Objective Last 24 Hour Vital Signs Date Time Temp Pulse Resp B/P (MAP) Pulse Ox O2 Delivery O2 Flow Rate FiO2 01/10/20 08:50 84 120/76 01/10/20 08:00 98.6 84 18 120/76 (91) 98 01/10/20 04:00 99.0 85 18 159/79 (105) 97 01/10/20 00:00 98.0 80 18 110/72 (85) 100 01/09/20 20:31 Room Air 01/09/20 20:00 98.0 76 16 133/71 (91) 97 01/09/20 16:00 99.4 83 18 113/76 (88) 100 Intake and Output 01/09/20 01/10/20 19:00 07:00 Intake Total 950 ml 1000 ml Output Total 800 ml 1600 ml Balance 150 ml -600 ml Intake Oral 1000 ml Other 950 ml Output Urine Total 800 ml 1600 ml Chemistry panel and Vanco level still pending laboratory Tests 01/09/20 14:00: Urine Opiates Screen Negative, Urine Barbiturates Screen Negative, Phencyclidine (PCP) Screen Negative, Urine Amphetamines Screen Negative, Urine Benzodiazepines Screen Negative, Urine Cocaine Screen Negative, Urine Marijuana (THC) Screen Negative 01/10/20 06:00: Urine Eosinophils None seen Height (Feet): 5 Height (Inches): 9.00 Weight (Pounds): 193 General Appearance: no apparent distress Cardiovascular: normal rate Respiratory/Chest: lungs clear Abdomen: soft Andrea Alegre MD Jan 10, 2020 12:05
[2020-01-10 12:51] LABS: BASOPHILS % (AUTO) 1.4 % (0.0-2.0); EOSINOPHILS % (AUTO) 1.1 % (0.0-3.0); HEMATOCRIT 30.3 % (42.0-52.0); HEMOGLOBIN 9.7 G/DL (14.2-18.0); LYMPHOCYTES % (AUTO) 10.6 % (20.0-45.0); MEAN CORPUSCULAR VOLUME 83 FL (80-99); MONOCYTES % (AUTO) 7.2 % (1.0-10.0); NEUTROPHILS % (AUTO) 79.7 % (45.0-75.0); PLATELET COUNT 489 K/UL (150-450); RED BLOOD COUNT 3.64 M/UL (4.70-6.10); RED CELL DISTRIBUTION WIDTH 13.4 % (11.6-14.8); WHITE BLOOD COUNT 7.8 K/UL (4.8-10.8)
[2020-01-10 13:04] LABS: CALCIUM 8.3 MG/DL (8.5-10.1); CREATININE 5.5 MG/DL (0.55-1.30); POTASSIUM 4.2 MMOL/L (3.5-5.1)
[2020-01-10 13:09] LABS: ALBUMIN 2.3 G/DL (3.4-5.0); ALBUMIN/GLOBULIN RATIO 0.6 (1.0-2.7); BILIRUBIN,TOTAL 0.2 MG/DL (0.2-1.0)
[2020-01-10 13:11] LABS: ALBUMIN 2.2 G/DL (3.4-5.0); ALBUMIN/GLOBULIN RATIO 0.4 (1.0-2.7); BILIRUBIN,TOTAL 0.3 MG/DL (0.2-1.0); CALCIUM 8.8 MG/DL (8.5-10.1); CREATININE 5.5 MG/DL (0.55-1.30); POTASSIUM 4.2 MMOL/L (3.5-5.1)
[2020-01-10 13:23] LABS: CREATINE KINASE 83 U/L (26-308); GAMMA GLUTAMYL TRANSPEPTIDASE 177 U/L (5-85); LACTATE DEHYDROGENASE 291 U/L (81-234); PHOSPHORUS 4.3 MG/DL (2.5-4.9)
--- NOTE | 2020-01-10 14:55 | Cardiology Report ---
APPROVED REPORT EKG Measurement Heart [id number] FL [id number] <Conclusion> Sinus rhythm with short FL Cannot rule out Anterior infarct, age undetermined Abnormal ECG
--- NOTE | 2020-01-10 15:08 | Internal Med Progress Note ---
Subjective Date of Service: Jan 10, 2020 Physician Name Ward Hoover Attending Physician Keith Sandhu MD Current Medications Medications (Trade) Dose Ordered Sig/Griselda Route PRN Reason Start Time Stop Time Status Last Admin Dose Admin Acetaminophen (Tylenol) 650 mg Q4H PRN ORAL fever 01/08/20 18:30 02/07/20 18:29 Albuterol Sulfate (Proventil) 2.5 mg Q4H PRN HHN Shortness of Breath 01/08/20 18:30 01/13/20 18:29 Amlodipine Besylate (Norvasc) 2.5 mg DAILY ORAL 01/09/20 09:00 02/08/20 08:59 01/10/20 08:50 Atovaquone (Mepron Susp) 1,500 mg DAILY ORAL 01/10/20 09:00 04/09/20 08:59 01/10/20 08:50 Chlorhexidine Gluconate (Crystal-Hex 2%) 1 applic DAILY@2000 TOPIC 01/08/20 20:00 04/07/20 19:59 01/09/20 20:03 Clonidine HCl (Catapres Tab) 0.1 mg Q4H PRN ORAL For High Blood Pressure 01/08/20 18:30 04/07/20 18:29 Daptomycin 500 mg/ Sodium Chloride 55 ml @ 100 mls/hr EVERY OTHER DAY IV 01/10/20 09:00 01/17/20 08:59 01/10/20 10:38 Dextrose (Dextrose 50%) 25 ml Q30M PRN IV Hypoglycemia 01/08/20 18:30 04/07/20 18:29 Dextrose (Dextrose 50%) 50 ml Q30M PRN IV Hypoglycemia 01/08/20 18:30 04/07/20 18:29 Gabapentin (Neurontin) 400 mg BEDTIME ORAL 01/08/20 21:00 02/07/20 20:59 01/09/20 20:09 Heparin Sodium (Porcine) (Heparin 5000 units/ml) 5,000 units EVERY 12 HOURS SUBQ 01/08/20 21:00 02/22/20 20:59 01/10/20 08:51 Ondansetron HCl (Zofran) 4 mg Q6H PRN IVP Nausea & Vomiting 01/08/20 18:30 02/07/20 18:29 Polyethylene Glycol (Miralax) 17 gm HSPRN PRN ORAL Constipation 01/08/20 18:30 02/07/20 18:29 Sodium Chloride 1,000 ml @ 75 mls/hr [id number] IV 01/09/20 16:30 02/08/20 16:29 01/09/20 16:58 Temazepam (Restoril) 30 mg HSPRN PRN ORAL Insomnia 01/09/20 16:45 01/16/20 16:44 01/09/20 20:10 Allergies: Coded Allergies: LISINOPRIL (Verified Allergy, Severe, FACE SWELLING, 12/11/19) ROS Limited/Unobtainable: No Constitutional: Reports: no symptoms HEENT: Reports: no symptoms Cardiovascular: Reports: no symptoms Respiratory: Reports: no symptoms Gastrointestinal/Abdominal: Reports: no symptoms Genitourinary: Reports: no symptoms Neurologic/Psychiatric: Reports: no symptoms Subjective 49 YO M with history of septic arthritis right knee admitted with fever and loss of PICC line access, Cover for Int Foster-DR Sandhu Objective Last Vital Signs Date Time Temp Pulse Resp B/P (MAP) Pulse Ox O2 Delivery O2 Flow Rate FiO2 01/10/20 12:00 98.9 82 18 126/78 (94) 99 01/10/20 09:00 Room Air Laboratory Tests Test 01/10/20 06:00 01/10/20 11:35 Urine Eosinophils None seen (NONE SEEN) White Blood Count 7.8 K/UL (4.8-10.8) Red Blood Count 3.64 M/UL (4.70-6.10) L Hemoglobin 9.7 G/DL (14.2-18.0) L Hematocrit 30.3 % (42.0-52.0) L Mean Corpuscular Volume 83 FL (80-99) Mean Corpuscular Hemoglobin 26.7 PG (27.0-31.0) L Mean Corpuscular Hemoglobin Concent 32.1 G/DL (32.0-36.0) Red Cell Distribution Width 13.4 % (11.6-14.8) Platelet Count 489 K/UL (150-450) H Mean Platelet Volume 5.4 FL (6.5-10.1) L Neutrophils (%) (Auto) 79.7 % (45.0-75.0) H Lymphocytes (%) (Auto) 10.6 % (20.0-45.0) L Monocytes (%) (Auto) 7.2 % (1.0-10.0) Eosinophils (%) (Auto) 1.1 % (0.0-3.0) Basophils (%) (Auto) 1.4 % (0.0-2.0) Sodium Level 137 MMOL/L (136-145) Potassium Level 4.2 MMOL/L (3.5-5.1) Chloride Level 103 MMOL/L (98-107) Carbon Dioxide Level 24 MMOL/L (21-32) Anion Gap 10 mmol/L (5-15) Blood Urea Nitrogen 24 mg/dL (7-18) H Creatinine 5.5 MG/DL (0.55-1.30) H Estimat Glomerular Filtration Rate 13.6 mL/min (>60) Glucose Level 89 MG/DL (74-106) Calcium Level 8.3 MG/DL (8.5-10.1) L Phosphorus Level 4.3 MG/DL (2.5-4.9) Magnesium Level 2.1 MG/DL (1.8-2.4) Total Bilirubin 0.2 MG/DL (0.2-1.0) Gamma Glutamyl Transpeptidase 177 U/L (5-85) H Aspartate Amino Transf (AST/SGOT) 25 U/L (15-37) Alanine Aminotransferase (ALT/SGPT) 39 U/L (12-78) Alkaline Phosphatase 123 U/L (46-116) H Lactate Dehydrogenase 291 U/L (81-234) H Total Creatine Kinase 83 U/L (26-308) C-Reactive Protein, Quantitative 8.7 mg/dL (0.00-0.90) H Pro-B-Type Natriuretic Peptide 149 pg/mL (0-125) H Total Protein 6.2 G/DL (6.4-8.2) L Albumin 2.3 G/DL (3.4-5.0) L Globulin 3.9 g/dL Albumin/Globulin Ratio 0.6 (1.0-2.7) L Random Vancomycin Level 37.8 ug/mL Microbiology Date/Time Source Procedure Growth Status 01/08/20 18:46 Urine,Clean Catch Urine Culture - Preliminary NO GROWTH AFTER 24 HOURS Resulted 01/08/20 16:15 Blood Blood Culture - Preliminary NO GROWTH AFTER 24 HOURS Resulted 01/08/20 16:15 Blood Blood Culture - Preliminary NO GROWTH AFTER 24 HOURS Resulted Intake and Output 01/09/20 01/10/20 19:00 07:00 Intake Total 950 ml 1075 ml Output Total 800 ml 1600 ml Balance 150 ml -525 ml Intake Oral 1000 ml IV Total 75 ml Other 950 ml Output Urine Total 800 ml 1600 ml Objective PHYSICAL EXAMINATION: GENERAL: The patient is a well-developed and well-nourished male, in no apparent distress. HEENT: Eyes, pupils equal and responsive to light and accommodation. Extraocular movements intact. NECK: Supple. No lymphadenopathy. CHEST: Lungs are clear to auscultation bilaterally without wheezes or rales. CARDIOVASCULAR: Regular rate. S1, S2 normal without murmurs, rubs, or gallops. ABDOMEN: Soft, nontender, and nondistended. Positive bowel sounds. No evidence of hepatosplenomegaly. Currently, no rebound or guarding noted. EXTREMITIES: There is pain to palpation of the right knee, otherwise without clubbing, cyanosis, or edema. RECTAL: Not performed. GENITAL: Not performed. NEUROLOGIC: Cranial nerves II through XII grossly intact without focal deficits. Motor strength is 5/5 bilaterally, intact. Deep tendon reflexes are 2+, plantar. Assessment/Plan Assessment/Plan ASSESSMENT: This is a 49-year-old male with: 1. Septic arthritis of right knee. 2. Acute renal failure. 3. HIV. 4. Hypertension. 5. Hypercholesterolemia. 6. Asthma. TREATMENT: 1. Septic arthritis of right knee. Infectious Disease = Dr. Gifford. The patient was on vancomycin at home. The patient has acute renal failure. Vancomycin will be discontinued. ABX=Daptomycin per Infectious Disease 2. Acute renal failure. Nephrology = Dr. Alegre. Follow recommendations of Nephrology. 3. HIV. Continue Prezcobix and Tivicay as above. 4. Hypertension. Continue amlodipine as above. 5. Hypercholesterolemia. Continue atorvastatin as above. 6. Asthma. Continue albuterol metered-dose inhaler as above. Ward Hoover MD Jan 10, 2020 15:08
[2020-01-10 16:00] VITALS: BP 121/78
--- NOTE | 2020-01-10 17:00 | NUR ---
NURSE NOTES: MADE DR ROYAL AWARE OF THE BUN; CREAT AND VANCO RESULTS FOR TODAY. NO NEW ORDER OBTAINED. WILL CONT TO MONITOR.
--- NOTE | 2020-01-10 19:14 | NUR ---
NURSE HAND-OFF: Important Events on Shift:[VANCO LEVEL CONVEYED TO DR ROYAL, KEPT CLEAN AND COMFORTABLE; NO C/O PAIN/DISCOMFORT] Patient Status: [STABLE] Diet: [] Pending Orders: [LABS] Pending Results/Labs:[IN AM] Pending MD notification:[] Latest Vital Signs: Temperature 98.7 , Pulse 78 , B/P 121 /78 , Respiratory Rate 20 , O2 SAT 95 , Room Air, O2 Flow Rate . Vital Sign Comment: [] Latest Kemp Fall Score: 85 Fall Risk: High Risk Safety Measures: Call light Within Reach, Bed Alarm Zone 1, Side Rails Side Rails x2, Bed position Low and Locked. Fall Precautions: Yellow Socks Yellow Gown Door Sign Patient Fall Education Report given to [GODWIN].
--- NOTE | 2020-01-10 19:26 | NUR ---
NURSE NOTES: Patient in sleeping at this time but easily arousable. On room air with no signs of distress or SOB. IV intact and running IVF as ordered. Bed locked and in lowest position. Call light in reach. Will continue plan of care.
[2020-01-10] MEDS: Dyna-Hex 2% Top Sol 2oz TOPIC SCH (19:40)
[2020-01-10 20:00] VITALS: BP 119/74
[2020-01-11 04:00] VITALS: BP 142/74
--- NOTE | 2020-01-11 05:00 | NUR ---
NURSE NOTES: Patient noted to have mild reaction, possibly to hospital face soap, on forehead. Redness and irritation noted. No distress or SOB noted. VSS. Left message for Dr. Sandhu. Awaiting orders. Irritation appears to have decreased upon reassessment. Will continue to monitor.
--- NOTE | 2020-01-11 07:16 | NUR ---
NURSE HAND-OFF: Important Events on Shift: Mild skin reaction to soap Patient Status: Stable Diet: Renal Pending Orders: N/A Pending Results/Labs: Eos urine, mag, phos, CMP, uric acid, vanco random, Pending MD notification: Dr. Sandhu for skin reaction Latest Vital Signs: Temperature 98.8 , Pulse 82 , B/P 142 /74 , Respiratory Rate 18 , O2 SAT 98 , Room Air, O2 Flow Rate . Vital Sign Comment: N/A Latest Kemp Fall Score: 85 Fall Risk: High Risk Safety Measures: Call light Within Reach, Bed Alarm Zone 1, Side Rails Side Rails x2, Bed position Low and Locked. Fall Precautions: Yellow Socks Yellow Gown Door Sign Patient Fall Education Report given to JOEY Wise.
--- NOTE | 2020-01-11 07:35 | NUR ---
NURSE NOTES: RECEIVED PATIENT A/A/OX4 IN BED. ABLE TO VERBALIZE NEEDS. CALM AND COMFORTABLE. EATING BREAKFAST IN BED. PIV PATENT AND INTACT TO LEFT UPPER ARM/GAUGE 20, NO REDNESS/SWELLING NOTED. DENIES PAIN/DISCOMFORT NOTED. NO SIGNS AND SYMPTOMS OF ACUTE CARDIO-RESPIRATORY DISTRESS/SHORTNESS OF BREATH. WALKER AT BEDSIDE. NO COMPLAINTS OF GI DISCOMFORT, DENIES N/V/D. SIDE RAILS UP X2 FOR MOBILITY, BED IN LOWEST POSITION FOR SAFETY, ENCOURAGED PATIENT TO UTILIZE CALL LIGHT FOR ASSISTANCE, VERBALIZED UNDERSTANDING. WILL CONT TO MONITOR.
--- NOTE | 2020-01-11 07:42 | NUR ---
NURSE NOTES: Orders received from Dr. Sandhu regarding skin irritation. Endorsed to AM nurse.
[2020-01-11 08:00] VITALS: BP 131/78
[2020-01-11] MEDS: Atovaquone 750mg/5ml Susp ORAL SCH (08:39)
[2020-01-11] MEDS: Heparin 5000 units/ml inj SUBQ SCH ×2 (08:40→20:48)
[2020-01-11 09:36] LABS: BASOPHILS % (AUTO) 1.4 % (0.0-2.0); EOSINOPHILS % (AUTO) 2.4 % (0.0-3.0); HEMATOCRIT 34.4 % (42.0-52.0); HEMOGLOBIN 10.8 G/DL (14.2-18.0); LYMPHOCYTES % (AUTO) 10.3 % (20.0-45.0); MEAN CORPUSCULAR VOLUME 84 FL (80-99); MONOCYTES % (AUTO) 5.3 % (1.0-10.0); NEUTROPHILS % (AUTO) 80.6 % (45.0-75.0); PLATELET COUNT 487 K/UL (150-450); RED BLOOD COUNT 4.12 M/UL (4.70-6.10); RED CELL DISTRIBUTION WIDTH 13.3 % (11.6-14.8); WHITE BLOOD COUNT 7.3 K/UL (4.8-10.8)
[2020-01-11 10:04] LABS: ALBUMIN 2.3 G/DL (3.4-5.0); ALBUMIN/GLOBULIN RATIO 0.5 (1.0-2.7); BILIRUBIN,TOTAL 0.3 MG/DL (0.2-1.0); CREATININE 5.2 MG/DL (0.55-1.30); PHOSPHORUS 3.3 MG/DL (2.5-4.9); POTASSIUM 4.1 MMOL/L (3.5-5.1)
--- NOTE | 2020-01-11 10:11 | Nephrology Progress Note ---
Assessment/Plan Problem List: (1) Acute kidney injury (2) Vancomycin-induced nephrotoxicity (3) HIV disease Assessment Acute renal failure Vancomycin level over 50 Kidney ultrasound, unremarkable Plan January 10: Vancomycin level down to 26. Serum creatinine down to 5.2. Otherwise stable. Continue to monitor renal parameters. January 09: As follow: Today's labs still pending Remains off Vanco Hydrate in process Monitor renal parameters Monitor Vanco levels Per orders Subjective ROS Limited/Unobtainable: No Constitutional: Reports: malaise Objective Objective Last 24 Hour Vital Signs Date Time Temp Pulse Resp B/P (MAP) Pulse Ox O2 Delivery O2 Flow Rate FiO2 01/11/20 08:39 81 131/78 01/11/20 08:00 98.1 81 18 131/78 (95) 98 01/11/20 04:00 98.8 82 18 142/74 (96) 98 01/10/20 20:15 Room Air 01/10/20 20:00 98.0 81 18 119/74 (89) 97 01/10/20 16:00 98.7 78 20 121/78 (92) 95 01/10/20 12:00 98.9 82 18 126/78 (94) 99 Intake and Output 01/10/20 01/11/20 19:00 07:00 Intake Total 1690 ml 800 ml Output Total 900 ml 1500 ml Balance 790 ml -700 ml Intake Oral 840 ml 800 ml IV Total 850 ml Output Urine Total 900 ml 1500 ml Current Medications Medications (Trade) Dose Ordered Sig/Griselda Route PRN Reason Start Time Stop Time Status Last Admin Dose Admin Acetaminophen (Tylenol) 650 mg Q4H PRN ORAL fever 01/08/20 18:30 02/07/20 18:29 Albuterol Sulfate (Proventil) 2.5 mg Q4H PRN HHN Shortness of Breath 01/08/20 18:30 01/13/20 18:29 Amlodipine Besylate (Norvasc) 2.5 mg DAILY ORAL 01/09/20 09:00 02/08/20 08:59 01/11/20 08:39 Atovaquone (Mepron Susp) 1,500 mg DAILY ORAL 01/10/20 09:00 04/09/20 08:59 01/11/20 08:39 Chlorhexidine Gluconate (Crystal-Hex 2%) 1 applic DAILY@1999 TOPIC 01/08/20 20:00 04/07/20 19:59 01/09/20 20:03 Clonidine HCl (Catapres Tab) 0.1 mg Q4H PRN ORAL For High Blood Pressure 01/08/20 18:30 04/07/20 18:29 Daptomycin 500 mg/ Sodium Chloride 55 ml @ 100 mls/hr EVERY OTHER DAY IV 01/10/20 09:00 01/17/20 08:59 01/10/20 10:38 Dextrose (Dextrose 50%) 25 ml Q30M PRN IV Hypoglycemia 01/08/20 18:30 04/07/20 18:29 Dextrose (Dextrose 50%) 50 ml Q30M PRN IV Hypoglycemia 01/08/20 18:30 04/07/20 18:29 Gabapentin (Neurontin) 400 mg BEDTIME ORAL 01/08/20 21:00 02/07/20 20:59 01/10/20 20:06 Heparin Sodium (Porcine) (Heparin 5000 units/ml) 5,000 units EVERY 12 HOURS SUBQ 01/08/20 21:00 02/22/20 20:59 01/11/20 08:40 Hydrocortisone (Hydrocortisone) 1 applic BIDPRN PRN TOPIC Itching 01/11/20 09:30 04/10/20 09:29 Ondansetron HCl (Zofran) 4 mg Q6H PRN IVP Nausea & Vomiting 01/08/20 18:30 02/07/20 18:29 Polyethylene Glycol (Miralax) 17 gm HSPRN PRN ORAL Constipation 01/08/20 18:30 02/07/20 18:29 Sodium Chloride 1,000 ml @ 75 mls/hr [id number] IV 01/09/20 16:30 02/08/20 16:29 01/11/20 08:41 Temazepam (Restoril) 30 mg HSPRN PRN ORAL Insomnia 01/09/20 16:45 01/16/20 16:44 01/10/20 20:06 Laboratory Tests 01/10/20 11:35: White Blood Count 7.8, Red Blood Count 3.64L, Hemoglobin 9.7L, Hematocrit 30.3L, Mean Corpuscular Volume 83, Mean Corpuscular Hemoglobin 26.7L, Mean Corpuscular Hemoglobin Concent 32.1, Red Cell Distribution Width 13.4, Platelet Count 489H, Mean Platelet Volume 5.4L, Neutrophils (%) (Auto) 79.7H, Lymphocytes (%) (Auto) 10.6L, Monocytes (%) (Auto) 7.2, Eosinophils (%) (Auto) 1.1, Basophils (%) (Auto) 1.4, Sodium Level 137, Potassium Level 4.2, Chloride Level 103, Carbon Dioxide Level 24, Anion Gap 10, Blood Urea Nitrogen 24H, Creatinine 5.5H, Estimat Glomerular Filtration Rate 13.6, Glucose Level 89, Calcium Level 8.3L, Phosphorus Level 4.3, Magnesium Level 2.1, Total Bilirubin 0.2, Gamma Glutamyl Transpeptidase 177H, Aspartate Amino Transf (AST/SGOT) 25, Alanine Aminotransferase (ALT/SGPT) 39, Alkaline Phosphatase 123H, Lactate Dehydrogenase 291H, Total Creatine Kinase 83, C-Reactive Protein, Quantitative 8.7H, Pro-B-Type Natriuretic Peptide 149H, Total Protein 6.2L, Albumin 2.3L, Globulin 3.9, Albumin/Globulin Ratio 0.6L, Random Vancomycin Level 37.8 01/11/20 06:41: Urine Eosinophils None seen 01/11/20 09:25: White Blood Count 7.3, Red Blood Count 4.12L, Hemoglobin 10.8L, Hematocrit 34.4L , Mean Corpuscular Volume 84, Mean Corpuscular Hemoglobin 26.2L, Mean Corpuscular Hemoglobin Concent 31.3L, Red Cell Distribution Width 13.3, Platelet Count 487H, Mean Platelet Volume 5.4L, Neutrophils (%) (Auto) 80.6H, Lymphocytes (%) (Auto) 10.3L, Monocytes (%) (Auto) 5.3, Eosinophils (%) (Auto) 2.4, Basophils (%) (Auto) 1.4, Sodium Level 135L, Potassium Level 4.1, Chloride Level 104, Carbon Dioxide Level 22, Anion Gap 9, Blood Urea Nitrogen 23H, Creatinine 5.2H, Estimat Glomerular Filtration Rate 14.4, Glucose Level 103, Calcium Level 9.0, Phosphorus Level 3.3, Magnesium Level 1.9, Total Bilirubin 0.3, Aspartate Amino Transf (AST/SGOT) 33, Alanine Aminotransferase (ALT/SGPT) 46, Alkaline Phosphatase 119H, Total Protein 7.4, Albumin 2.3L, Globulin 5.1, Albumin/Globulin Ratio 0.5L, Random Vancomycin Level 26.2, Uric Acid 6.1 Height (Feet): 5 Height (Inches): 9.00 Weight (Pounds): 193 General Appearance: no apparent distress Cardiovascular: normal rate Respiratory/Chest: lungs clear Objective No change Andrea Alegre MD Jan 11, 2020 10:11
--- NOTE | 2020-01-11 11:44 | Pulmonology Progress Note ---
Subjective ROS Limited/Unobtainable: No Interval Events: allergic reaction to the soap this morning with some redness of face. Allergies: Coded Allergies: LISINOPRIL (Verified Allergy, Severe, FACE SWELLING, 12/11/19) Objective Last 24 Hour Vital Signs Date Time Temp Pulse Resp B/P (MAP) Pulse Ox O2 Delivery O2 Flow Rate FiO2 01/11/20 09:00 Room Air 01/11/20 08:39 81 131/78 01/11/20 08:00 98.1 81 18 131/78 (95) 98 01/11/20 04:00 98.8 82 18 142/74 (96) 98 01/10/20 20:15 Room Air 01/10/20 20:00 98.0 81 18 119/74 (89) 97 01/10/20 16:00 98.7 78 20 121/78 (92) 95 01/10/20 12:00 98.9 82 18 126/78 (94) 99 Intake and Output 01/10/20 01/11/20 19:00 07:00 Intake Total 1690 ml 800 ml Output Total 900 ml 1500 ml Balance 790 ml -700 ml Intake Oral 840 ml 800 ml IV Total 850 ml Output Urine Total 900 ml 1500 ml General Appearance: WD/WN HEENT: normocephalic, atraumatic Respiratory: chest wall non-tender, normal breath sounds Cardiovascular: normal peripheral pulses, normal rate, regular rhythm Abdomen: normal bowel sounds, soft, non tender, no organomegaly Genitourinary: normal external genitalia Extremities: no cyanosis Skin: no rash Microbiology Date/Time Source Procedure Growth Status 01/08/20 18:46 Urine,Clean Catch Urine Culture - Preliminary NO GROWTH AFTER 24 HOURS Resulted 01/08/20 16:15 Blood Blood Culture - Preliminary NO GROWTH AFTER 24 HOURS Resulted 01/08/20 16:15 Blood Blood Culture - Preliminary NO GROWTH AFTER 24 HOURS Resulted Laboratory Tests 01/11/20 06:41: Urine Eosinophils None seen 01/11/20 09:25: White Blood Count 7.3, Red Blood Count 4.12L, Hemoglobin 10.8L, Hematocrit 34.4L , Mean Corpuscular Volume 84, Mean Corpuscular Hemoglobin 26.2L, Mean Corpuscular Hemoglobin Concent 31.3L, Red Cell Distribution Width 13.3, Platelet Count 487H, Mean Platelet Volume 5.4L, Neutrophils (%) (Auto) 80.6H, Lymphocytes (%) (Auto) 10.3L, Monocytes (%) (Auto) 5.3, Eosinophils (%) (Auto) 2.4, Basophils (%) (Auto) 1.4, Sodium Level 135L, Potassium Level 4.1, Chloride Level 104, Carbon Dioxide Level 22, Anion Gap 9, Blood Urea Nitrogen 23H, Creatinine 5.2H, Estimat Glomerular Filtration Rate 14.4, Glucose Level 103, Uric Acid 6.1, Calcium Level 9.0, Phosphorus Level 3.3, Magnesium Level 1.9, Total Bilirubin 0.3, Aspartate Amino Transf (AST/SGOT) 33, Alanine Aminotransferase (ALT/SGPT) 46, Alkaline Phosphatase 119H, Total Protein 7.4, Albumin 2.3L, Globulin 5.1, Albumin/Globulin Ratio 0.5L, Random Vancomycin Level 26.2 Current Medications Medications (Trade) Dose Ordered Sig/Griselda Route PRN Reason Start Time Stop Time Status Last Admin Dose Admin Acetaminophen (Tylenol) 650 mg Q4H PRN ORAL fever 01/08/20 18:30 02/07/20 18:29 Albuterol Sulfate (Proventil) 2.5 mg Q4H PRN HHN Shortness of Breath 01/08/20 18:30 01/13/20 18:29 Amlodipine Besylate (Norvasc) 2.5 mg DAILY ORAL 01/09/20 09:00 02/08/20 08:59 01/11/20 08:39 Atovaquone (Mepron Susp) 1,500 mg DAILY ORAL 01/10/20 09:00 04/09/20 08:59 01/11/20 08:39 Chlorhexidine Gluconate (Crystal-Hex 2%) 1 applic DAILY@2000 TOPIC 01/08/20 20:00 04/07/20 19:59 01/09/20 20:03 Clonidine HCl (Catapres Tab) 0.1 mg Q4H PRN ORAL For High Blood Pressure 01/08/20 18:30 04/07/20 18:29 Daptomycin 500 mg/ Sodium Chloride 55 ml @ 100 mls/hr EVERY OTHER DAY IV 01/10/20 09:00 01/17/20 08:59 01/10/20 10:38 Dextrose (Dextrose 50%) 25 ml Q30M PRN IV Hypoglycemia 01/08/20 18:30 04/07/20 18:29 Dextrose (Dextrose 50%) 50 ml Q30M PRN IV Hypoglycemia 01/08/20 18:30 04/07/20 18:29 Diphenhydramine HCl (Benadryl) 25 mg ONCE IVP 01/11/20 11:45 01/11/20 13:00 Gabapentin (Neurontin) 400 mg BEDTIME ORAL 01/08/20 21:00 02/07/20 20:59 01/10/20 20:06 Heparin Sodium (Porcine) (Heparin 5000 units/ml) 5,000 units EVERY 12 HOURS SUBQ 01/08/20 21:00 02/22/20 20:59 01/11/20 08:40 Hydrocortisone (Hydrocortisone) 1 applic BIDPRN PRN TOPIC Itching 01/11/20 09:30 04/10/20 09:29 Ondansetron HCl (Zofran) 4 mg Q6H PRN IVP Nausea & Vomiting 01/08/20 18:30 02/07/20 18:29 Polyethylene Glycol (Miralax) 17 gm HSPRN PRN ORAL Constipation 01/08/20 18:30 02/07/20 18:29 Sodium Chloride 1,000 ml @ 75 mls/hr [id number] IV 01/09/20 16:30 02/08/20 16:29 01/11/20 08:41 Temazepam (Restoril) 30 mg HSPRN PRN ORAL Insomnia 01/09/20 16:45 01/16/20 16:44 01/10/20 20:06 Assessment/Plan Problems: (1) Acute kidney injury (2) Vancomycin-induced nephrotoxicity (3) HIV disease Assessment/Plan IV fluids avoid nephrotoxic a check electrolytes daily ID evaluation Anat Bryan MD Jan 11, 2020 11:44
[2020-01-11] MEDS: DiphenhydrAMINE 50mg/ml Inj IVP SCH ×2 (11:45→12:26)
[2020-01-11 12:07] VITALS: BP 128/75
--- NOTE | 2020-01-11 15:11 | Infectious Diseases Prog Note ---
Assessment/Plan Assessment: Afebrile No leukocytosis -CXR: no acute process Severe acute renal failure- from Vancomycin toxicity (random vanco>50) -Renal US: No hydronephrosis or stone. Recent R knee septic arthritis- post-op infection- healing well -12/24 SP Right knee arthrotomy.Right knee incision and drainage, 12 liters of bacitracin irrigation. --OR findings: The synovium was then incised. Gross pus was visible, was sent off for appropriate analysis. At this point, once arthrotomy was complete, 12 liters of bacitracin irrigation was then used to irrigate the knee. --fluid wbc 88,375 (N 99%) --OR cx CONS, MRSA (S Vanco OLENA 1, bactrim, tetracycline) -synovial fluid: wbc 62.8k (N99%), RBC 5.5k; cx stain no organisms, many wbc; cx CONS -ESR 62, CRP 28.1 -meniscal repair of R knee 12/11/19 HIV/AIDS on ARV -12/2019 CD4 102, VL <20 -dx 2003. has undergo multiple regimens. Has developed resistant to Truvada component. On Tivicay and Prescobix for 1 yr now. Latest CD4 100s; previously 40s. HTN asthma Plan: -Cont Daptomycin #2 from tomorrow on- still has vanco on his system (day abx #) -monitor CPK --upon discharge will transition to PO ZYvox 600mg bid -01/07 SP IV Vancomyin x1, Unasyn x1 -f/u cx -Monitor CBC/CMP, temperatures -Continue ARV: Tivicay and Prezcobix ([facility] will send over supply) -Atovaquone for PCP ppx Thank you for consulting [facility]. Will continue to follow along with you. Discussed with RN and Dr Hoover. Subjective Allergies: Coded Allergies: LISINOPRIL (Verified Allergy, Severe, FACE SWELLING, 12/11/19) aFebrile no leukocytosis Bcx NTD cr remains at 5 Objective Last 24 Hour Vital Signs Date Time Temp Pulse Resp B/P (MAP) Pulse Ox O2 Delivery O2 Flow Rate FiO2 01/11/20 12:07 98.2 76 18 128/75 (92) 99 01/11/20 09:00 Room Air 01/11/20 08:39 81 131/78 01/11/20 08:00 98.1 81 18 131/78 (95) 98 01/11/20 04:00 98.8 82 18 142/74 (96) 98 01/10/20 20:15 Room Air 01/10/20 20:00 98.0 81 18 119/74 (89) 97 01/10/20 16:00 98.7 78 20 121/78 (92) 95 Height (Feet): 5 Height (Inches): 9.00 Weight (Pounds): 193 General Appearance: normal inspection, well appearing, no apparent distress, alert, GCS 15 Head: atraumatic ENT: normal ENT inspection, hearing grossly normal, normal voice Neck: normal inspection, full range of motion, supple, no bony tend Respiratory: normal inspection, lungs clear, normal breath sounds, no respiratory distress, no retraction, no wheezing Cardiovascular #1: regular rate, rhythm, no edema Gastrointestinal: normal inspection, normal bowel sounds, non tender, soft, no guarding, no hernia Genitourinary: no CVA tenderness Musculoskeletal: normal inspection, back normal, swelling - Swelling to the right lower extremity knee no warmth or erythema healing wound, other Microbiology Date/Time Source Procedure Growth Status 01/08/20 18:46 Urine,Clean Catch Urine Culture - Preliminary NO GROWTH AFTER 24 HOURS Resulted 01/08/20 16:15 Blood Blood Culture - Preliminary NO GROWTH AFTER 24 HOURS Resulted 01/08/20 16:15 Blood Blood Culture - Preliminary NO GROWTH AFTER 24 HOURS Resulted Laboratory Tests Test 01/11/20 06:41 01/11/20 09:25 Urine Eosinophils None seen (NONE SEEN) White Blood Count 7.3 K/UL (4.8-10.8) Red Blood Count 4.12 M/UL (4.70-6.10) L Hemoglobin 10.8 G/DL (14.2-18.0) L Hematocrit 34.4 % (42.0-52.0) L Mean Corpuscular Volume 84 FL (80-99) Mean Corpuscular Hemoglobin 26.2 PG (27.0-31.0) L Mean Corpuscular Hemoglobin Concent 31.3 G/DL (32.0-36.0) L Red Cell Distribution Width 13.3 % (11.6-14.8) Platelet Count 487 K/UL (150-450) H Mean Platelet Volume 5.4 FL (6.5-10.1) L Neutrophils (%) (Auto) 80.6 % (45.0-75.0) H Lymphocytes (%) (Auto) 10.3 % (20.0-45.0) L Monocytes (%) (Auto) 5.3 % (1.0-10.0) Eosinophils (%) (Auto) 2.4 % (0.0-3.0) Basophils (%) (Auto) 1.4 % (0.0-2.0) Sodium Level 135 MMOL/L (136-145) L Potassium Level 4.1 MMOL/L (3.5-5.1) Chloride Level 104 MMOL/L (98-107) Carbon Dioxide Level 22 MMOL/L (21-32) Anion Gap 9 mmol/L (5-15) Blood Urea Nitrogen 23 mg/dL (7-18) H Creatinine 5.2 MG/DL (0.55-1.30) H Estimat Glomerular Filtration Rate 14.4 mL/min (>60) Glucose Level 103 MG/DL (74-106) Uric Acid 6.1 MG/DL (2.6-7.2) Calcium Level 9.0 MG/DL (8.5-10.1) Phosphorus Level 3.3 MG/DL (2.5-4.9) Magnesium Level 1.9 MG/DL (1.8-2.4) Total Bilirubin 0.3 MG/DL (0.2-1.0) Aspartate Amino Transf (AST/SGOT) 33 U/L (15-37) Alanine Aminotransferase (ALT/SGPT) 46 U/L (12-78) Alkaline Phosphatase 119 U/L (46-116) H Total Protein 7.4 G/DL (6.4-8.2) Albumin 2.3 G/DL (3.4-5.0) L Globulin 5.1 g/dL Albumin/Globulin Ratio 0.5 (1.0-2.7) L Random Vancomycin Level 26.2 ug/mL Current Medications Medications (Trade) Dose Ordered Sig/Griselda Route PRN Reason Start Time Stop Time Status Last Admin Dose Admin Acetaminophen (Tylenol) 650 mg Q4H PRN ORAL fever 01/08/20 18:30 02/07/20 18:29 Albuterol Sulfate (Proventil) 2.5 mg Q4H PRN HHN Shortness of Breath 01/08/20 18:30 01/13/20 18:29 Amlodipine Besylate (Norvasc) 2.5 mg DAILY ORAL 01/09/20 09:00 02/08/20 08:59 01/11/20 08:39 Atovaquone (Mepron Susp) 1,500 mg DAILY ORAL 01/10/20 09:00 04/09/20 08:59 01/11/20 08:39 Chlorhexidine Gluconate (Crystal-Hex 2%) 1 applic DAILY@2000 TOPIC 01/08/20 20:00 04/07/20 19:59 01/09/20 20:03 Clonidine HCl (Catapres Tab) 0.1 mg Q4H PRN ORAL For High Blood Pressure 01/08/20 18:30 04/07/20 18:29 Daptomycin 500 mg/ Sodium Chloride 55 ml @ 100 mls/hr EVERY OTHER DAY IV 01/10/20 09:00 01/17/20 08:59 01/10/20 10:38 Dextrose (Dextrose 50%) 25 ml Q30M PRN IV Hypoglycemia 01/08/20 18:30 04/07/20 18:29 Dextrose (Dextrose 50%) 50 ml Q30M PRN IV Hypoglycemia 01/08/20 18:30 04/07/20 18:29 Gabapentin (Neurontin) 400 mg BEDTIME ORAL 01/08/20 21:00 02/07/20 20:59 01/10/20 20:06 Heparin Sodium (Porcine) (Heparin 5000 units/ml) 5,000 units EVERY 12 HOURS SUBQ 01/08/20 21:00 02/22/20 20:59 01/11/20 08:40 Hydrocortisone (Hydrocortisone) 1 applic BIDPRN PRN TOPIC Itching 01/11/20 09:30 04/10/20 09:29 Ondansetron HCl (Zofran) 4 mg Q6H PRN IVP Nausea & Vomiting 01/08/20 18:30 02/07/20 18:29 Polyethylene Glycol (Miralax) 17 gm HSPRN PRN ORAL Constipation 01/08/20 18:30 02/07/20 18:29 Sodium Chloride 1,000 ml @ 75 mls/hr [id number] IV 01/09/20 16:30 02/08/20 16:29 01/11/20 08:41 Temazepam (Restoril) 30 mg HSPRN PRN ORAL Insomnia 01/09/20 16:45 01/16/20 16:44 01/10/20 20:06 Parvin Gifford M.D. Jan 11, 2020 15:11
[2020-01-11 16:00] VITALS: BP 123/67
--- NOTE | 2020-01-11 16:15 | NUR ---
CASE MANAGEMENT:INITIAL REVIEW 01/09/20 49 YR OLD MALE PRESENTED TO ED FROM HOME CC;GENERAL COMPLAINT SI;ACUTE KIDNEY INJURY. RT KNEE CELLULITIS. 97.7 86 18 131/72 97% ON RA H/H 10.2/30.9 PLT 560 NA 135 BUN 22 CR 5.0 CA 8.4 ALP 135 ALB 2.3 UA+ LEUKOCYTE ESTERASE, AMORPHOUS SEDIMENT, BACTERIA URINE TOX ~ NEGATIVE BLOOD CX ~ NO GROWTH CXR ~ NO ACUTE PROCESS IS;VANCOMYCIN IV AMPICILLIN/SULBACTAM IV LIDOCAINE INJ HEPARIN IV ADMITTED TO MED SURG MED SURG STATUS DCP;FROM HOME CASE MANAGEMENT:REVIEW 01/11/20 SI;ACUTE RENAL FAILURE. SEPTIC ARTHRITIS. POST OP INFECTION. 98.8 82 18 142/74 98% ON RA H/H 10.8/34.4 NA 135 BUN 23 CR 5.2 ALB 2.3 IS;ATOVAQUONE PO QD DAPTOMYCIN IV QOD IVF NS @ 75 ML/HR NORVASC PO QD HEPARIN SUBQ Q12 MED SURG STATUS DCP;FROM HOME
--- NOTE | 2020-01-11 16:26 | NUR ---
NURSE NOTES: patient is up and about ambulating with a walker on the hallway. compression socks replaced and placed dry drsg on the right knee. will cont to monitor.
[2020-01-11] MEDS ORDERED: DiphenhydrAMINE 50mg/ml Inj IVP SCH (16:45)
--- NOTE | 2020-01-11 18:24 | NUR ---
INSURANCE ALL CLINICALS/REVIEW/ H/P FAXED TO [facility] [phone] PH [phone]
--- NOTE | 2020-01-11 18:58 | NUR ---
NURSE HAND-OFF: Important Events on Shift:[REINSERTION IV ACCESS RWRIST 24G; CHANGE DRSG ON RT KNEE; AMBULATE WITH WALKER] Patient Status: [STABLE] Diet: [RENAL] Pending Orders: [LABS] Pending Results/Labs:[IN AM] Pending MD notification:[] Latest Vital Signs: Temperature 98.2 , Pulse 82 , B/P 123 /67 , Respiratory Rate 18 , O2 SAT 99 , Room Air, O2 Flow Rate . Vital Sign Comment: [] Latest Kemp Fall Score: 85 Fall Risk: High Risk Safety Measures: Call light Within Reach, Bed Alarm Zone 1, Side Rails Side Rails x2, Bed position Low and Locked. Fall Precautions: Yellow Socks Yellow Gown Door Sign Patient Fall Education Report given to [VANE].
--- NOTE | 2020-01-11 19:17 | Internal Med Progress Note ---
Subjective Date of Service: Jan 11, 2020 Physician Name Ward Hoover Attending Physician Keith Sandhu MD Current Medications Medications (Trade) Dose Ordered Sig/Griselda Route PRN Reason Start Time Stop Time Status Last Admin Dose Admin Acetaminophen (Tylenol) 650 mg Q4H PRN ORAL fever 01/08/20 18:30 02/07/20 18:29 Albuterol Sulfate (Proventil) 2.5 mg Q4H PRN HHN Shortness of Breath 01/08/20 18:30 01/13/20 18:29 Amlodipine Besylate (Norvasc) 2.5 mg DAILY ORAL 01/09/20 09:00 02/08/20 08:59 01/11/20 08:39 Atovaquone (Mepron Susp) 1,500 mg DAILY ORAL 01/10/20 09:00 04/09/20 08:59 01/11/20 08:39 Chlorhexidine Gluconate (Crystal-Hex 2%) 1 applic DAILY@2000 TOPIC 01/08/20 20:00 04/07/20 19:59 01/09/20 20:03 Clonidine HCl (Catapres Tab) 0.1 mg Q4H PRN ORAL For High Blood Pressure 01/08/20 18:30 04/07/20 18:29 Daptomycin 500 mg/ Sodium Chloride 55 ml @ 100 mls/hr EVERY OTHER DAY IV 01/10/20 09:00 01/17/20 08:59 01/10/20 10:38 Dextrose (Dextrose 50%) 25 ml Q30M PRN IV Hypoglycemia 01/08/20 18:30 04/07/20 18:29 Dextrose (Dextrose 50%) 50 ml Q30M PRN IV Hypoglycemia 01/08/20 18:30 04/07/20 18:29 Gabapentin (Neurontin) 400 mg BEDTIME ORAL 01/08/20 21:00 02/07/20 20:59 01/10/20 20:06 Heparin Sodium (Porcine) (Heparin 5000 units/ml) 5,000 units EVERY 12 HOURS SUBQ 01/08/20 21:00 02/22/20 20:59 01/11/20 08:40 Hydrocortisone (Hydrocortisone) 1 applic BIDPRN PRN TOPIC Itching 01/11/20 09:30 04/10/20 09:29 Ondansetron HCl (Zofran) 4 mg Q6H PRN IVP Nausea & Vomiting 01/08/20 18:30 02/07/20 18:29 Patient Own Medication (Patient's Own Med) 1 ea BID ORAL 01/12/20 09:00 02/11/20 08:59 UNV Patient Own Medication (Patient's Own Med) 1 ea DAILY ORAL 01/12/20 09:00 02/11/20 08:59 UNV Polyethylene Glycol (Miralax) 17 gm HSPRN PRN ORAL Constipation 01/08/20 18:30 02/07/20 18:29 Sodium Chloride 1,000 ml @ 75 mls/hr [id number] IV 01/09/20 16:30 02/08/20 16:29 01/11/20 08:41 Temazepam (Restoril) 30 mg HSPRN PRN ORAL Insomnia 01/09/20 16:45 01/16/20 16:44 01/10/20 20:06 Allergies: Coded Allergies: LISINOPRIL (Verified Allergy, Severe, FACE SWELLING, 12/11/19) ROS Limited/Unobtainable: No Constitutional: Reports: no symptoms HEENT: Reports: no symptoms Cardiovascular: Reports: no symptoms Respiratory: Reports: no symptoms Gastrointestinal/Abdominal: Reports: no symptoms Genitourinary: Reports: no symptoms Neurologic/Psychiatric: Reports: no symptoms Subjective 49 YO M with history of septic arthritis right knee admitted with fever and loss of PICC line access, Cover for [facility] Foster-DR Sandhu Objective Last Vital Signs Date Time Temp Pulse Resp B/P (MAP) Pulse Ox O2 Delivery O2 Flow Rate FiO2 01/11/20 16:00 98.2 82 18 123/67 (85) 99 01/11/20 09:00 Room Air Laboratory Tests Test 01/11/20 06:41 01/11/20 09:25 Urine Eosinophils None seen (NONE SEEN) White Blood Count 7.3 K/UL (4.8-10.8) Red Blood Count 4.12 M/UL (4.70-6.10) L Hemoglobin 10.8 G/DL (14.2-18.0) L Hematocrit 34.4 % (42.0-52.0) L Mean Corpuscular Volume 84 FL (80-99) Mean Corpuscular Hemoglobin 26.2 PG (27.0-31.0) L Mean Corpuscular Hemoglobin Concent 31.3 G/DL (32.0-36.0) L Red Cell Distribution Width 13.3 % (11.6-14.8) Platelet Count 487 K/UL (150-450) H Mean Platelet Volume 5.4 FL (6.5-10.1) L Neutrophils (%) (Auto) 80.6 % (45.0-75.0) H Lymphocytes (%) (Auto) 10.3 % (20.0-45.0) L Monocytes (%) (Auto) 5.3 % (1.0-10.0) Eosinophils (%) (Auto) 2.4 % (0.0-3.0) Basophils (%) (Auto) 1.4 % (0.0-2.0) Sodium Level 135 MMOL/L (136-145) L Potassium Level 4.1 MMOL/L (3.5-5.1) Chloride Level 104 MMOL/L (98-107) Carbon Dioxide Level 22 MMOL/L (21-32) Anion Gap 9 mmol/L (5-15) Blood Urea Nitrogen 23 mg/dL (7-18) H Creatinine 5.2 MG/DL (0.55-1.30) H Estimat Glomerular Filtration Rate 14.4 mL/min (>60) Glucose Level 103 MG/DL (74-106) Uric Acid 6.1 MG/DL (2.6-7.2) Calcium Level 9.0 MG/DL (8.5-10.1) Phosphorus Level 3.3 MG/DL (2.5-4.9) Magnesium Level 1.9 MG/DL (1.8-2.4) Total Bilirubin 0.3 MG/DL (0.2-1.0) Aspartate Amino Transf (AST/SGOT) 33 U/L (15-37) Alanine Aminotransferase (ALT/SGPT) 46 U/L (12-78) Alkaline Phosphatase 119 U/L (46-116) H Total Protein 7.4 G/DL (6.4-8.2) Albumin 2.3 G/DL (3.4-5.0) L Globulin 5.1 g/dL Albumin/Globulin Ratio 0.5 (1.0-2.7) L Random Vancomycin Level 26.2 ug/mL Intake and Output 01/10/20 01/11/20 19:00 07:00 Intake Total 1690 ml 800 ml Output Total 900 ml 1500 ml Balance 790 ml -700 ml Intake Oral 840 ml 800 ml IV Total 850 ml Output Urine Total 900 ml 1500 ml Objective PHYSICAL EXAMINATION: GENERAL: The patient is a well-developed and well-nourished male, in no apparent distress. HEENT: Eyes, pupils equal and responsive to light and accommodation. Extraocular movements intact. NECK: Supple. No lymphadenopathy. CHEST: Lungs are clear to auscultation bilaterally without wheezes or rales. CARDIOVASCULAR: Regular rate. S1, S2 normal without murmurs, rubs, or gallops. ABDOMEN: Soft, nontender, and nondistended. Positive bowel sounds. No evidence of hepatosplenomegaly. Currently, no rebound or guarding noted. EXTREMITIES: There is pain to palpation of the right knee, otherwise without clubbing, cyanosis, or edema. RECTAL: Not performed. GENITAL: Not performed. NEUROLOGIC: Cranial nerves II through XII grossly intact without focal deficits. Motor strength is 5/5 bilaterally, intact. Deep tendon reflexes are 2+, plantar. Assessment/Plan Assessment/Plan ASSESSMENT: This is a 49-year-old male with: 1. Septic arthritis of right knee. 2. Acute renal failure. 3. HIV. 4. Hypertension. 5. Hypercholesterolemia. 6. Asthma. TREATMENT: 1. Septic arthritis of right knee. Infectious Disease = Dr. Gifford. The patient was on vancomycin at home. The patient has acute renal failure. Vancomycin has been discontinued. ABX=Daptomycin per Infectious Disease 2. Acute renal failure. Nephrology = Dr. Alegre. Follow recommendations of Nephrology. 3. HIV. Continue Prezcobix and Tivicay as above. 4. Hypertension. Continue amlodipine as above. 5. Hypercholesterolemia. Continue atorvastatin as above. 6. Asthma. Continue albuterol metered-dose inhaler as above. Ward Hoover MD Jan 11, 2020 19:17
--- NOTE | 2020-01-11 19:30 | NUR ---
Received report from JOEY Reynaga.The patient ia alert and oriented x4 was sleeping and does not seem to be in any distress at this time. The Resp is even and unlabored.He was noted with a R wrist 24g that is patent and asymptomatic.The patient can ambulate with a walker. The bed in low level and the call light within easy reach. Bed siderails up x2. Will continue to monitor.
[2020-01-11 20:00] VITALS: BP 132/87
[2020-01-11] MEDS: Dyna-Hex 2% Top Sol 2oz TOPIC SCH (20:00)
[2020-01-12] VITALS: BP 131/80
[2020-01-12 04:00] VITALS: BP 128/79
[2020-01-12 05:33] LABS: BASOPHILS % (AUTO) 1.9 % (0.0-2.0); HEMATOCRIT 30.9 % (42.0-52.0); HEMOGLOBIN 9.8 G/DL (14.2-18.0); LYMPHOCYTES % (AUTO) 10.5 % (20.0-45.0); MEAN CORPUSCULAR VOLUME 82 FL (80-99); MONOCYTES % (AUTO) 11.1 % (1.0-10.0); NEUTROPHILS % (AUTO) 72.6 % (45.0-75.0); PLATELET COUNT 436 K/UL (150-450); RED BLOOD COUNT 3.76 M/UL (4.70-6.10); RED CELL DISTRIBUTION WIDTH 13.1 % (11.6-14.8); WHITE BLOOD COUNT 6.3 K/UL (4.8-10.8)
--- NOTE | 2020-01-12 05:48 | NUR ---
NURSE NOTES: The patient slept all night long and does not appear to be in any acute distress at this time. Earlier in the night he received Tylenol 650 mg for mild pain and it was well tolerated.Will continue to monitor
[2020-01-12 05:57] LABS: ALBUMIN 2.2 G/DL (3.4-5.0); ALBUMIN/GLOBULIN RATIO 0.5 (1.0-2.7); BILIRUBIN,TOTAL 0.4 MG/DL (0.2-1.0); CREATININE 4.8 MG/DL (0.55-1.30); POTASSIUM 4.2 MMOL/L (3.5-5.1)
--- NOTE | 2020-01-12 07:18 | NUR ---
NURSE HAND-OFF: Important Events on Shift: Patient Status: Diet: Pending Orders: Pending Results/Labs: Pending MD notification: Latest Vital Signs: Temperature 97.6 , Pulse 81 , B/P 128 /79 , Respiratory Rate 18 , O2 SAT 96 , Room Air, O2 Flow Rate . Vital Sign Comment: Latest Kemp Fall Score: 85 Fall Risk: High Risk Safety Measures: Call light Within Reach, Bed Alarm Zone 1, Side Rails Side Rails x2, Bed position Low and Locked. Fall Precautions: Yellow Socks Yellow Gown Door Sign Patient Fall Education Report given to .
[2020-01-12 08:00] VITALS: BP 131/83
--- NOTE | 2020-01-12 08:00 | NUR ---
NURSE NOTES: Patient awake and alert and oriented,respirations unlabored.IV fluids infusing as ordered. Noted optiform dressing to right knee ,right leg elevated on pillow.patient sitting up and eating breakfast.Call light within reach.
[2020-01-12] MEDS: Atovaquone 750mg/5ml Susp ORAL SCH (08:24)
[2020-01-12] MEDS: Heparin 5000 units/ml inj SUBQ SCH ×2 (08:29→20:15)
--- NOTE | 2020-01-12 10:19 | Nephrology Progress Note ---
Assessment/Plan Problem List: (1) Acute kidney injury (2) Vancomycin-induced nephrotoxicity (3) HIV disease Assessment Acute renal failure Vancomycin level over 50 Kidney ultrasound, unremarkable Plan January 11: Vancomycin level and creatinine level declining. Continue to observe and monitor. Discussed with RN. January 10: Vancomycin level down to 26. Serum creatinine down to 5.2. Otherwise stable. Continue to monitor renal parameters. January 09: As follow: Today's labs still pending Remains off Vanco Hydrate in process Monitor renal parameters Monitor Vanco levels Per orders Subjective ROS Limited/Unobtainable: No Objective Objective Last 24 Hour Vital Signs Date Time Temp Pulse Resp B/P (MAP) Pulse Ox O2 Delivery O2 Flow Rate FiO2 01/12/20 08:22 83 131/83 01/12/20 04:00 97.6 81 18 128/79 (95) 96 01/12/20 00:00 97.9 84 20 131/80 (97) 99 01/11/20 21:00 Room Air 01/11/20 20:00 97.7 84 18 132/87 (102) 97 01/11/20 16:00 98.2 82 18 123/67 (85) 99 01/11/20 12:07 98.2 76 18 128/75 (92) 99 Intake and Output 01/11/20 01/12/20 19:00 07:00 Intake Total 1350 ml 1650 ml Output Total 550 ml 1400 ml Balance 800 ml 250 ml Intake Oral 600 ml 750 ml IV Total 750 ml 900 ml Output Urine Total 550 ml 1400 ml # Voids 4 Current Medications Medications (Trade) Dose Ordered Sig/Griselda Route PRN Reason Start Time Stop Time Status Last Admin Dose Admin Acetaminophen (Tylenol) 650 mg Q4H PRN ORAL fever 01/08/20 18:30 02/07/20 18:29 01/12/20 03:42 Albuterol Sulfate (Proventil) 2.5 mg Q4H PRN HHN Shortness of Breath 01/08/20 18:30 01/13/20 18:29 Amlodipine Besylate (Norvasc) 2.5 mg DAILY ORAL 01/09/20 09:00 02/08/20 08:59 01/12/20 08:22 Atovaquone (Mepron Susp) 1,500 mg DAILY ORAL 01/10/20 09:00 04/09/20 08:59 01/12/20 08:24 Chlorhexidine Gluconate (Crystal-Hex 2%) 1 applic DAILY@2000 TOPIC 01/08/20 20:00 04/07/20 19:59 01/09/20 20:03 Clonidine HCl (Catapres Tab) 0.1 mg Q4H PRN ORAL For High Blood Pressure 01/08/20 18:30 04/07/20 18:29 Daptomycin 500 mg/ Sodium Chloride 55 ml @ 100 mls/hr EVERY OTHER DAY IV 01/10/20 09:00 01/17/20 08:59 01/10/20 10:38 Dextrose (Dextrose 50%) 25 ml Q30M PRN IV Hypoglycemia 01/08/20 18:30 04/07/20 18:29 Dextrose (Dextrose 50%) 50 ml Q30M PRN IV Hypoglycemia 01/08/20 18:30 04/07/20 18:29 Diphenhydramine HCl (Benadryl) 25 mg Q4HR PRN ORAL Itching 01/12/20 10:15 02/11/20 10:14 UNV Gabapentin (Neurontin) 400 mg BEDTIME ORAL 01/08/20 21:00 02/07/20 20:59 01/11/20 20:47 Heparin Sodium (Porcine) (Heparin 5000 units/ml) 5,000 units EVERY 12 HOURS SUBQ 01/08/20 21:00 02/22/20 20:59 01/12/20 08:29 Hydrocortisone (Hydrocortisone) 1 applic BIDPRN PRN TOPIC Itching 01/11/20 09:30 04/10/20 09:29 Ondansetron HCl (Zofran) 4 mg Q6H PRN IVP Nausea & Vomiting 01/08/20 18:30 02/07/20 18:29 Patient Own Medication (Patient's Own Med) 1 ea BID ORAL 01/12/20 09:00 02/11/20 08:59 UNV Patient Own Medication (Patient's Own Med) 1 ea DAILY ORAL 01/12/20 09:00 02/11/20 08:59 UNV Polyethylene Glycol (Miralax) 17 gm HSPRN PRN ORAL Constipation 01/08/20 18:30 02/07/20 18:29 Sodium Chloride 1,000 ml @ 75 mls/hr [id number] IV 01/09/20 16:30 02/08/20 16:29 01/11/20 22:04 Temazepam (Restoril) 30 mg HSPRN PRN ORAL Insomnia 01/09/20 16:45 01/16/20 16:44 01/11/20 20:47 Laboratory Tests 01/12/20 04:50: White Blood Count 6.3, Red Blood Count 3.76L, Hemoglobin 9.8L, Hematocrit 30.9L, Mean Corpuscular Volume 82, Mean Corpuscular Hemoglobin 26.2L, Mean Corpuscular Hemoglobin Concent 31.8L, Red Cell Distribution Width 13.1, Platelet Count 436, Mean Platelet Volume 5.5L, Neutrophils (%) (Auto) 72.6, Lymphocytes (%) (Auto) 10.5L, Monocytes (%) (Auto) 11.1H, Eosinophils (%) (Auto) 4.0H, Basophils (%) (Auto) 1.9, Sodium Level 137, Potassium Level 4.2, Chloride Level 105, Carbon Dioxide Level 25, Anion Gap 7, Blood Urea Nitrogen 23H, Creatinine 4.8H, Estimat Glomerular Filtration Rate 15.9, Glucose Level 100, Calcium Level 9.0, Phosphorus Level 4.0, Magnesium Level 1.9, Total Bilirubin 0.4, Aspartate Amino Transf (AST/SGOT) 30, Alanine Aminotransferase (ALT/SGPT) 48, Alkaline Phosphatase 105, Total Protein 6.9, Albumin 2.2L, Globulin 4.7, Albumin/Globulin Ratio 0.5L, Random Vancomycin Level 19.0 Height (Feet): 5 Height (Inches): 9.00 Weight (Pounds): 193 General Appearance: no apparent distress Cardiovascular: normal rate Respiratory/Chest: decreased breath sounds Abdomen: soft Objective No change Andrea Alegre MD Jan 12, 2020 10:19
--- NOTE | 2020-01-12 10:32 | NUR ---
RD ASSESSMENT & RECOMMENDATIONS SEE CARE ACTIVITY FOR COMPLETE ASSESSMENT DAILY ESTIMATED NEEDS: Needs based on ARF, HIV/ 87kg 25-30 kcals/kg 8106-0008 total kcals 0.6-0.8 g protein/kg 52-70 g total protein 20-25 mL/kg 9383-6424 total fluid mLs NUTRITION DIAGNOSIS: Altered nutrition related lab values R/T ARF, altered lipid metabolism as evidenced by elev creat (5.0->5.5-> 4.8 trend down), elev triglyceride (156), elev cholesterol (222), elev LDL (139) CURRENT DIET:RENAL PO DIET RECOMMENDATIONS: Renal + low fat/low cholesterol ADDITIONAL RECOMMENDATIONS: * Daily standing wt * Monitor renal fxn and lytes -> creat slowly trending down, K, alfredo, mag wnl
[2020-01-12 12:00] VITALS: BP 154/74
--- NOTE | 2020-01-12 13:05 | Pulmonology Progress Note ---
Subjective ROS Limited/Unobtainable: No Interval Events: allergic reaction to the soap this morning with some redness of face. Allergies: Coded Allergies: LISINOPRIL (Verified Allergy, Severe, FACE SWELLING, 12/11/19) Objective Last 24 Hour Vital Signs Date Time Temp Pulse Resp B/P (MAP) Pulse Ox O2 Delivery O2 Flow Rate FiO2 01/12/20 12:00 99.0 77 19 154/74 (100) 97 01/12/20 09:00 Room Air 01/12/20 08:22 83 131/83 01/12/20 08:00 98.2 83 19 131/83 (99) 96 01/12/20 04:00 97.6 81 18 128/79 (95) 96 01/12/20 00:00 97.9 84 20 131/80 (97) 99 01/11/20 21:00 Room Air 01/11/20 20:00 97.7 84 18 132/87 (102) 97 01/11/20 16:00 98.2 82 18 123/67 (85) 99 Intake and Output 01/11/20 01/12/20 19:00 07:00 Intake Total 1350 ml 1650 ml Output Total 550 ml 1400 ml Balance 800 ml 250 ml Intake Oral 600 ml 750 ml IV Total 750 ml 900 ml Output Urine Total 550 ml 1400 ml # Voids 4 General Appearance: WD/WN HEENT: normocephalic, atraumatic Respiratory: chest wall non-tender, normal breath sounds Cardiovascular: normal peripheral pulses, normal rate, regular rhythm Abdomen: normal bowel sounds, soft, non tender, no organomegaly Genitourinary: normal external genitalia Extremities: no cyanosis Skin: no rash Laboratory Tests 01/12/20 04:50: White Blood Count 6.3, Red Blood Count 3.76L, Hemoglobin 9.8L, Hematocrit 30.9L, Mean Corpuscular Volume 82, Mean Corpuscular Hemoglobin 26.2L, Mean Corpuscular Hemoglobin Concent 31.8L, Red Cell Distribution Width 13.1, Platelet Count 436, Mean Platelet Volume 5.5L, Neutrophils (%) (Auto) 72.6, Lymphocytes (%) (Auto) 10.5L, Monocytes (%) (Auto) 11.1H, Eosinophils (%) (Auto) 4.0H, Basophils (%) (Auto) 1.9, Sodium Level 137, Potassium Level 4.2, Chloride Level 105, Carbon Dioxide Level 25, Anion Gap 7, Blood Urea Nitrogen 23H, Creatinine 4.8H, Estimat Glomerular Filtration Rate 15.9, Glucose Level 100, Calcium Level 9.0, Phosphorus Level 4.0, Magnesium Level 1.9, Total Bilirubin 0.4, Aspartate Amino Transf (AST/SGOT) 30, Alanine Aminotransferase (ALT/SGPT) 48, Alkaline Phosphatase 105, Total Protein 6.9, Albumin 2.2L, Globulin 4.7, Albumin/Globulin Ratio 0.5L, Random Vancomycin Level 19.0 Current Medications Medications (Trade) Dose Ordered Sig/Griselda Route PRN Reason Start Time Stop Time Status Last Admin Dose Admin Acetaminophen (Tylenol) 650 mg Q4H PRN ORAL fever 01/08/20 18:30 02/07/20 18:29 01/12/20 03:42 Albuterol Sulfate (Proventil) 2.5 mg Q4H PRN HHN Shortness of Breath 01/08/20 18:30 01/13/20 18:29 Amlodipine Besylate (Norvasc) 2.5 mg DAILY ORAL 01/09/20 09:00 02/08/20 08:59 01/12/20 08:22 Atovaquone (Mepron Susp) 1,500 mg DAILY ORAL 01/10/20 09:00 04/09/20 08:59 01/12/20 08:24 Chlorhexidine Gluconate (Crystal-Hex 2%) 1 applic DAILY@2000 TOPIC 01/08/20 20:00 04/07/20 19:59 01/09/20 20:03 Clonidine HCl (Catapres Tab) 0.1 mg Q4H PRN ORAL For High Blood Pressure 01/08/20 18:30 04/07/20 18:29 Daptomycin 500 mg/ Sodium Chloride 55 ml @ 100 mls/hr EVERY OTHER DAY IV 01/10/20 09:00 01/17/20 08:59 01/10/20 10:38 Dextrose (Dextrose 50%) 25 ml Q30M PRN IV Hypoglycemia 01/08/20 18:30 04/07/20 18:29 Dextrose (Dextrose 50%) 50 ml Q30M PRN IV Hypoglycemia 01/08/20 18:30 04/07/20 18:29 Diphenhydramine HCl (Benadryl) 25 mg Q4H PRN ORAL Itching 01/12/20 10:15 02/11/20 10:14 01/12/20 10:35 Gabapentin (Neurontin) 400 mg BEDTIME ORAL 01/08/20 21:00 02/07/20 20:59 01/11/20 20:47 Heparin Sodium (Porcine) (Heparin 5000 units/ml) 5,000 units EVERY 12 HOURS SUBQ 01/08/20 21:00 02/22/20 20:59 01/12/20 08:29 Hydrocortisone (Hydrocortisone) 1 applic BIDPRN PRN TOPIC Itching 01/11/20 09:30 04/10/20 09:29 Ondansetron HCl (Zofran) 4 mg Q6H PRN IVP Nausea & Vomiting 01/08/20 18:30 02/07/20 18:29 Patient Own Medication (Patient's Own Med) 1 ea BID ORAL 01/12/20 18:00 02/11/20 17:59 Patient Own Medication (Patient's Own Med) 1 ea DAILY ORAL 01/12/20 14:00 02/11/20 13:59 Polyethylene Glycol (Miralax) 17 gm HSPRN PRN ORAL Constipation 01/08/20 18:30 02/07/20 18:29 Sodium Chloride 1,000 ml @ 75 mls/hr [id number] IV 01/09/20 16:30 02/08/20 16:29 01/11/20 22:04 Temazepam (Restoril) 30 mg HSPRN PRN ORAL Insomnia 01/09/20 16:45 01/16/20 16:44 01/11/20 20:47 Assessment/Plan Problems: (1) Acute kidney injury (2) Vancomycin-induced nephrotoxicity (3) HIV disease Assessment/Plan slightly improved renal function IV fluids avoid nephrotoxic agents check electrolytes daily ID evaluation Anat Bryan MD Jan 12, 2020 13:05
--- NOTE | 2020-01-12 14:11 | Infectious Diseases Prog Note ---
Assessment/Plan Assessment: Afebrile No leukocytosis -CXR: no acute process Severe acute renal failure- from Vancomycin toxicity (random vanco>50); now slowly coming down -Renal US: No hydronephrosis or stone. Recent R knee septic arthritis- post-op infection- healing well -12/24 SP Right knee arthrotomy.Right knee incision and drainage, 12 liters of bacitracin irrigation. --OR findings: The synovium was then incised. Gross pus was visible, was sent off for appropriate analysis. At this point, once arthrotomy was complete, 12 liters of bacitracin irrigation was then used to irrigate the knee. --fluid wbc 88,375 (N 99%) --OR cx CONS, MRSA (S Vanco OLENA 1, bactrim, tetracycline) -synovial fluid: wbc 62.8k (N99%), RBC 5.5k; cx stain no organisms, many wbc; cx CONS -ESR 62, CRP 28.1 -meniscal repair of R knee 12/11/19 HIV/AIDS on ARV -12/2019 CD4 102, VL <20 -dx 2003. has undergo multiple regimens. Has developed resistant to Truvada component. On Tivicay and Prescobix for 1 yr now. Latest CD4 100s; previously 40s. HTN asthma Plan: -Cont Daptomycin #3 (day abx #) -monitor CPK --upon discharge will transition to PO ZYvox 600mg bid -01/07 SP IV Vancomyin x1, Unasyn x1 -f/u cx -Monitor CBC/CMP, temperatures -Continue ARV: Tivicay and Prezcobix ([facility] will send over supply) -Atovaquone for PCP ppx Thank you for consulting [facility]. Will continue to follow along with you. Discussed with RN and Dr Hoover. Subjective Allergies: Coded Allergies: LISINOPRIL (Verified Allergy, Severe, FACE SWELLING, 12/11/19) aFebrile no leukocytosis cr starting to decrease Objective Last 24 Hour Vital Signs Date Time Temp Pulse Resp B/P (MAP) Pulse Ox O2 Delivery O2 Flow Rate FiO2 01/12/20 12:00 99.0 77 19 154/74 (100) 97 01/12/20 09:00 Room Air 01/12/20 08:22 83 131/83 01/12/20 08:00 98.2 83 19 131/83 (99) 96 01/12/20 04:00 97.6 81 18 128/79 (95) 96 01/12/20 00:00 97.9 84 20 131/80 (97) 99 01/11/20 21:00 Room Air 01/11/20 20:00 97.7 84 18 132/87 (102) 97 01/11/20 16:00 98.2 82 18 123/67 (85) 99 Height (Feet): 5 Height (Inches): 9.00 Weight (Pounds): 193 General Appearance: normal inspection, well appearing, no apparent distress, alert, GCS 15 Head: atraumatic ENT: normal ENT inspection, hearing grossly normal, normal voice Neck: normal inspection, full range of motion, supple, no bony tend Respiratory: normal inspection, lungs clear, normal breath sounds, no respiratory distress, no retraction, no wheezing Cardiovascular #1: regular rate, rhythm, no edema Gastrointestinal: normal inspection, normal bowel sounds, non tender, soft, no guarding, no hernia Genitourinary: no CVA tenderness Musculoskeletal: normal inspection, back normal, swelling - Swelling to the right lower extremity knee no warmth or erythema healing wound, other Laboratory Tests Test 01/12/20 04:50 White Blood Count 6.3 K/UL (4.8-10.8) Red Blood Count 3.76 M/UL (4.70-6.10) L Hemoglobin 9.8 G/DL (14.2-18.0) L Hematocrit 30.9 % (42.0-52.0) L Mean Corpuscular Volume 82 FL (80-99) Mean Corpuscular Hemoglobin 26.2 PG (27.0-31.0) L Mean Corpuscular Hemoglobin Concent 31.8 G/DL (32.0-36.0) L Red Cell Distribution Width 13.1 % (11.6-14.8) Platelet Count 436 K/UL (150-450) Mean Platelet Volume 5.5 FL (6.5-10.1) L Neutrophils (%) (Auto) 72.6 % (45.0-75.0) Lymphocytes (%) (Auto) 10.5 % (20.0-45.0) L Monocytes (%) (Auto) 11.1 % (1.0-10.0) H Eosinophils (%) (Auto) 4.0 % (0.0-3.0) H Basophils (%) (Auto) 1.9 % (0.0-2.0) Sodium Level 137 MMOL/L (136-145) Potassium Level 4.2 MMOL/L (3.5-5.1) Chloride Level 105 MMOL/L (98-107) Carbon Dioxide Level 25 MMOL/L (21-32) Anion Gap 7 mmol/L (5-15) Blood Urea Nitrogen 23 mg/dL (7-18) H Creatinine 4.8 MG/DL (0.55-1.30) H Estimat Glomerular Filtration Rate 15.9 mL/min (>60) Glucose Level 100 MG/DL (74-106) Calcium Level 9.0 MG/DL (8.5-10.1) Phosphorus Level 4.0 MG/DL (2.5-4.9) Magnesium Level 1.9 MG/DL (1.8-2.4) Total Bilirubin 0.4 MG/DL (0.2-1.0) Aspartate Amino Transf (AST/SGOT) 30 U/L (15-37) Alanine Aminotransferase (ALT/SGPT) 48 U/L (12-78) Alkaline Phosphatase 105 U/L (46-116) Total Protein 6.9 G/DL (6.4-8.2) Albumin 2.2 G/DL (3.4-5.0) L Globulin 4.7 g/dL Albumin/Globulin Ratio 0.5 (1.0-2.7) L Random Vancomycin Level 19.0 ug/mL Current Medications Medications (Trade) Dose Ordered Sig/Griselda Route PRN Reason Start Time Stop Time Status Last Admin Dose Admin Acetaminophen (Tylenol) 650 mg Q4H PRN ORAL fever 01/08/20 18:30 02/07/20 18:29 01/12/20 03:42 Albuterol Sulfate (Proventil) 2.5 mg Q4H PRN HHN Shortness of Breath 01/08/20 18:30 01/13/20 18:29 Amlodipine Besylate (Norvasc) 2.5 mg DAILY ORAL 01/09/20 09:00 02/08/20 08:59 01/12/20 08:22 Atovaquone (Mepron Susp) 1,500 mg DAILY ORAL 01/10/20 09:00 04/09/20 08:59 01/12/20 08:24 Chlorhexidine Gluconate (Crystal-Hex 2%) 1 applic DAILY@2000 TOPIC 01/08/20 20:00 04/07/20 19:59 01/09/20 20:03 Clonidine HCl (Catapres Tab) 0.1 mg Q4H PRN ORAL For High Blood Pressure 01/08/20 18:30 04/07/20 18:29 Daptomycin 500 mg/ Sodium Chloride 55 ml @ 100 mls/hr EVERY OTHER DAY IV 01/10/20 09:00 01/17/20 08:59 01/10/20 10:38 Dextrose (Dextrose 50%) 25 ml Q30M PRN IV Hypoglycemia 01/08/20 18:30 04/07/20 18:29 Dextrose (Dextrose 50%) 50 ml Q30M PRN IV Hypoglycemia 01/08/20 18:30 04/07/20 18:29 Diphenhydramine HCl (Benadryl) 25 mg Q4H PRN ORAL Itching 01/12/20 10:15 02/11/20 10:14 01/12/20 10:35 Gabapentin (Neurontin) 400 mg BEDTIME ORAL 01/08/20 21:00 02/07/20 20:59 01/11/20 20:47 Heparin Sodium (Porcine) (Heparin 5000 units/ml) 5,000 units EVERY 12 HOURS SUBQ 01/08/20 21:00 02/22/20 20:59 01/12/20 08:29 Hydrocortisone (Hydrocortisone) 1 applic BIDPRN PRN TOPIC Itching 01/11/20 09:30 04/10/20 09:29 Ondansetron HCl (Zofran) 4 mg Q6H PRN IVP Nausea & Vomiting 01/08/20 18:30 02/07/20 18:29 Patient Own Medication (Patient's Own Med) 1 ea BID ORAL 01/12/20 18:00 02/11/20 17:59 Patient Own Medication (Patient's Own Med) 1 ea DAILY ORAL 01/12/20 14:00 02/11/20 13:59 Polyethylene Glycol (Miralax) 17 gm HSPRN PRN ORAL Constipation 01/08/20 18:30 02/07/20 18:29 Sodium Chloride 1,000 ml @ 75 mls/hr [id number] IV 01/09/20 16:30 02/08/20 16:29 01/11/20 22:04 Temazepam (Restoril) 30 mg HSPRN PRN ORAL Insomnia 01/09/20 16:45 01/16/20 16:44 01/11/20 20:47 Parvin Gifford M.D. Jan 12, 2020 14:11
[2020-01-12] MEDS: DAPTOmycin 500 MG in NS 55 ML IV SCH (14:57)
[2020-01-12] MEDS: PREZCOBIX ORAL SCH (15:23)
[2020-01-12 16:00] VITALS: BP 131/78
--- NOTE | 2020-01-12 16:01 | NUR ---
CASE MANAGEMENT:REVIEW SI;AC RENAL FAILURE D/T VANCOMYCIN NEPHROTOXICITY RT KNEE SEPTIC ARTHRITIS ~ S/P SURGICAL I&D 99.0 84 20 154/74 96% ON RA H/H 9.8/30.9 BUN 23 CR 4.8 ALB 2.2 IS;BENADRYL IV ATOVAQUONE PO QD DAPTOMYCIN IV QOD IVF NS @ 75 ML/HR NORVASC PO QD HEPARIN SUBQ Q12 MED SURG STATUS DCP;FROM HOME
--- NOTE | 2020-01-12 17:39 | Internal Med Progress Note ---
Subjective Date of Service: Jan 12, 2020 Physician Name Ward Hoover Attending Physician Keith Sandhu MD Current Medications Medications (Trade) Dose Ordered Sig/Griselda Route PRN Reason Start Time Stop Time Status Last Admin Dose Admin Acetaminophen (Tylenol) 650 mg Q4H PRN ORAL fever 01/08/20 18:30 02/07/20 18:29 01/12/20 03:42 Acetaminophen/ Hydrocodone Bitart (Halma 10/325) 1 tab Q6H PRN ORAL Severe Pain (Pain Scale 7-10) 01/12/20 16:00 01/19/20 15:59 Albuterol Sulfate (Proventil) 2.5 mg Q4H PRN HHN Shortness of Breath 01/08/20 18:30 01/13/20 18:29 Amlodipine Besylate (Norvasc) 2.5 mg DAILY ORAL 01/09/20 09:00 02/08/20 08:59 01/12/20 08:22 Atovaquone (Mepron Susp) 1,500 mg DAILY ORAL 01/10/20 09:00 04/09/20 08:59 01/12/20 08:24 Chlorhexidine Gluconate (Crystal-Hex 2%) 1 applic DAILY@2000 TOPIC 01/08/20 20:00 04/07/20 19:59 01/09/20 20:03 Clonidine HCl (Catapres Tab) 0.1 mg Q4H PRN ORAL For High Blood Pressure 01/08/20 18:30 04/07/20 18:29 Daptomycin 500 mg/ Sodium Chloride 55 ml @ 100 mls/hr EVERY OTHER DAY IV 01/10/20 09:00 01/17/20 08:59 01/12/20 14:57 Dextrose (Dextrose 50%) 25 ml Q30M PRN IV Hypoglycemia 01/08/20 18:30 04/07/20 18:29 Dextrose (Dextrose 50%) 50 ml Q30M PRN IV Hypoglycemia 01/08/20 18:30 04/07/20 18:29 Diphenhydramine HCl (Benadryl) 25 mg Q4H PRN ORAL Itching 01/12/20 10:15 02/11/20 10:14 01/12/20 10:35 Gabapentin (Neurontin) 400 mg BEDTIME ORAL 01/08/20 21:00 02/07/20 20:59 01/11/20 20:47 Heparin Sodium (Porcine) (Heparin 5000 units/ml) 5,000 units EVERY 12 HOURS SUBQ 01/08/20 21:00 02/22/20 20:59 01/12/20 08:29 Hydrocortisone (Hydrocortisone) 1 applic BIDPRN PRN TOPIC Itching 01/11/20 09:30 04/10/20 09:29 Ondansetron HCl (Zofran) 4 mg Q6H PRN IVP Nausea & Vomiting 01/08/20 18:30 02/07/20 18:29 Patient Own Medication (Patient's Own Med) 1 ea BID ORAL 01/12/20 18:00 02/11/20 17:59 Patient Own Medication (Patient's Own Med) 1 ea DAILY ORAL 01/12/20 14:00 02/11/20 13:59 01/12/20 15:23 Polyethylene Glycol (Miralax) 17 gm HSPRN PRN ORAL Constipation 01/08/20 18:30 02/07/20 18:29 Sodium Chloride 1,000 ml @ 75 mls/hr [id number] IV 01/09/20 16:30 02/08/20 16:29 01/11/20 22:04 Temazepam (Restoril) 30 mg HSPRN PRN ORAL Insomnia 01/09/20 16:45 01/16/20 16:44 01/11/20 20:47 Allergies: Coded Allergies: LISINOPRIL (Verified Allergy, Severe, FACE SWELLING, 12/11/19) ROS Limited/Unobtainable: No Constitutional: Reports: no symptoms HEENT: Reports: no symptoms Cardiovascular: Reports: no symptoms Respiratory: Reports: no symptoms Gastrointestinal/Abdominal: Reports: no symptoms Genitourinary: Reports: no symptoms Neurologic/Psychiatric: Reports: no symptoms Subjective 49 YO M with history of septic arthritis right knee admitted with fever and loss of PICC line access, Cover for Karolyn Hutchison-DR Sandhu Objective Last Vital Signs Date Time Temp Pulse Resp B/P (MAP) Pulse Ox O2 Delivery O2 Flow Rate FiO2 01/12/20 16:00 97.7 81 18 131/78 (95) 98 01/12/20 09:00 Room Air Laboratory Tests Test 01/12/20 04:50 White Blood Count 6.3 K/UL (4.8-10.8) Red Blood Count 3.76 M/UL (4.70-6.10) L Hemoglobin 9.8 G/DL (14.2-18.0) L Hematocrit 30.9 % (42.0-52.0) L Mean Corpuscular Volume 82 FL (80-99) Mean Corpuscular Hemoglobin 26.2 PG (27.0-31.0) L Mean Corpuscular Hemoglobin Concent 31.8 G/DL (32.0-36.0) L Red Cell Distribution Width 13.1 % (11.6-14.8) Platelet Count 436 K/UL (150-450) Mean Platelet Volume 5.5 FL (6.5-10.1) L Neutrophils (%) (Auto) 72.6 % (45.0-75.0) Lymphocytes (%) (Auto) 10.5 % (20.0-45.0) L Monocytes (%) (Auto) 11.1 % (1.0-10.0) H Eosinophils (%) (Auto) 4.0 % (0.0-3.0) H Basophils (%) (Auto) 1.9 % (0.0-2.0) Sodium Level 137 MMOL/L (136-145) Potassium Level 4.2 MMOL/L (3.5-5.1) Chloride Level 105 MMOL/L (98-107) Carbon Dioxide Level 25 MMOL/L (21-32) Anion Gap 7 mmol/L (5-15) Blood Urea Nitrogen 23 mg/dL (7-18) H Creatinine 4.8 MG/DL (0.55-1.30) H Estimat Glomerular Filtration Rate 15.9 mL/min (>60) Glucose Level 100 MG/DL (74-106) Calcium Level 9.0 MG/DL (8.5-10.1) Phosphorus Level 4.0 MG/DL (2.5-4.9) Magnesium Level 1.9 MG/DL (1.8-2.4) Total Bilirubin 0.4 MG/DL (0.2-1.0) Aspartate Amino Transf (AST/SGOT) 30 U/L (15-37) Alanine Aminotransferase (ALT/SGPT) 48 U/L (12-78) Alkaline Phosphatase 105 U/L (46-116) Total Protein 6.9 G/DL (6.4-8.2) Albumin 2.2 G/DL (3.4-5.0) L Globulin 4.7 g/dL Albumin/Globulin Ratio 0.5 (1.0-2.7) L Random Vancomycin Level 19.0 ug/mL Intake and Output 01/11/20 01/12/20 19:00 07:00 Intake Total 1350 ml 1650 ml Output Total 550 ml 1400 ml Balance 800 ml 250 ml Intake Oral 600 ml 750 ml IV Total 750 ml 900 ml Output Urine Total 550 ml 1400 ml # Voids 4 Objective PHYSICAL EXAMINATION: GENERAL: The patient is a well-developed and well-nourished male, in no apparent distress. HEENT: Eyes, pupils equal and responsive to light and accommodation. Extraocular movements intact. NECK: Supple. No lymphadenopathy. CHEST: Lungs are clear to auscultation bilaterally without wheezes or rales. CARDIOVASCULAR: Regular rate. S1, S2 normal without murmurs, rubs, or gallops. ABDOMEN: Soft, nontender, and nondistended. Positive bowel sounds. No evidence of hepatosplenomegaly. Currently, no rebound or guarding noted. EXTREMITIES: There is pain to palpation of the right knee, otherwise without clubbing, cyanosis, or edema. RECTAL: Not performed. GENITAL: Not performed. NEUROLOGIC: Cranial nerves II through XII grossly intact without focal deficits. Motor strength is 5/5 bilaterally, intact. Deep tendon reflexes are 2+, plantar. Assessment/Plan Assessment/Plan ASSESSMENT: This is a 49-year-old male with: 1. Septic arthritis of right knee. 2. Acute renal failure due to vanco toxicity (>50) 3. HIV. 4. Hypertension. 5. Hypercholesterolemia. 6. Asthma. TREATMENT: 1. Septic arthritis of right knee. Infectious Disease = Dr. Gifford. The patient was on vancomycin at home. The patient has acute renal failure. Vancomycin has been discontinued. ABX=Daptomycin per Infectious Disease 2. Acute renal failure. Nephrology = Dr. Alegre. Follow recommendations of Nephrology. 3. HIV. Continue Prezcobix and Tivicay as above. 4. Hypertension. Continue amlodipine as above. 5. Hypercholesterolemia. Continue atorvastatin as above. 6. Asthma. Continue albuterol metered-dose inhaler as above. Ward Hoover MD Jan 12, 2020 17:39
[2020-01-12] MEDS: HYDROcodone/Acetamin 10/325 tab ORAL PRN (18:41)
[2020-01-12] MEDS: Solu-MEDROL 125mg Inj IVP SCH (18:43)
--- NOTE | 2020-01-12 19:00 | NUR ---
NURSE NOTES: patient resting,received norc for pain.IV fluids infusing.call light within reach.
--- NOTE | 2020-01-12 19:40 | NUR ---
NURSE HAND-OFF:Aileen RN Important Events on Shift:[]Noro for pain Patient Status: [] Diet: [Renal] Pending Orders: [] Pending Results/Labs:[] Pending MD notification:[] Latest Vital Signs: Temperature 97.7 , Pulse 81 , B/P 131 /78 , Respiratory Rate 18 , O2 SAT 98 , Room Air, O2 Flow Rate . Vital Sign Comment: [] Latest Kemp Fall Score: 85 Fall Risk: High Risk Safety Measures: Call light Within Reach, Bed Alarm Zone 1, Side Rails Side Rails x2, Bed position Low and Locked. Fall Precautions: y Yellow Socks Yellow Gown Door Sign y Patient Fall Education Report given to [].
[2020-01-12 20:00] VITALS: BP_SYST 107; BP_SYST 127; BP_DIAS 73
[2020-01-12] MEDS: Dyna-Hex 2% Top Sol 2oz TOPIC SCH (20:00)
--- NOTE | 2020-01-12 20:00 | NUR ---
NURSE NOTES: Patient received in bed aaox4, IVF infusing as ordered. Call light and personal belongings within reach. Will continue plan of care.
--- NOTE | 2020-01-12 20:45 | NUR ---
NURSE HAND-OFF: Aileen RN Important Events on Shift:[]norco for pain Patient Status: [] Diet: [Renal] Pending Orders: [] Pending Results/Labs:[] Pending MD notification:[] Latest Vital Signs: Temperature 97.7 , Pulse 81 , B/P 131 /78 , Respiratory Rate 18 , O2 SAT 98 , Room Air, O2 Flow Rate . Vital Sign Comment: [] Latest Kemp Fall Score: 85 Fall Risk: High Risk Safety Measures: Call light Within Reach, Bed Alarm Zone 1, Side Rails Side Rails x2, Bed position Low and Locked. Fall Precautions: ambulate Yellow Socks Yellow Gown Door Sign Patient Fall Education Report given to [].
--- NOTE | 2020-01-12 22:35 | NUR ---
TRANSFER TO FLOOR: Patient transferred to [[id number]. Report given to [Funmi RN]. Belongings and medications given to [Funmi, CARRILLO]. Family and or S/O informed of transfer.
--- NOTE | 2020-01-12 22:36 | NUR ---
NURSE NOTES: Patient transferred from . A&4. IV site patent and intact. Belongings were checked with Aileen VIZCAINO. Patient's walker at bedside. Bed in lowest position. Call light within reach. Will continue to monitor.
[2020-01-13] VITALS: BP 118/71
[2020-01-13] MEDS: Solu-MEDROL 125mg Inj IVP SCH ×4 (00:02→18:00)
[2020-01-13 04:00] VITALS: BP 105/70
[2020-01-13 05:31] LABS: HEMATOCRIT 32.6 % (42.0-52.0); HEMOGLOBIN 10.4 G/DL (14.2-18.0); MEAN CORPUSCULAR VOLUME 82 FL (80-99); PLATELET COUNT 444 K/UL (150-450); RED BLOOD COUNT 3.96 M/UL (4.70-6.10); RED CELL DISTRIBUTION WIDTH 12.9 % (11.6-14.8); WHITE BLOOD COUNT 5.7 K/UL (4.8-10.8)
[2020-01-13 06:32] LABS: ALBUMIN 2.2 G/DL (3.4-5.0); ALBUMIN/GLOBULIN RATIO 0.4 (1.0-2.7); BILIRUBIN,TOTAL 0.3 MG/DL (0.2-1.0); CALCIUM 9.1 MG/DL (8.5-10.1); CREATININE 4.4 MG/DL (0.55-1.30); PHOSPHORUS 3.7 MG/DL (2.5-4.9)
--- NOTE | 2020-01-13 07:45 | NUR ---
NURSE NOTES: Received report from CARRILLO Choudhary. Pt awake in bed, A&Ox4. No acute distress noted. Denies pain at this time. Wound dressing on right knee clean and intact. IV site intact and patent. Call light within reach. Will continue to monitor.
--- NOTE | 2020-01-13 07:49 | NUR ---
NURSE HAND-OFF: Important Events on Shift: Patient Status: Diet: Renal diet Pending Orders: Pending Results/Labs: Pending MD notification: Latest Vital Signs: Temperature 98.1 , Pulse 79 , B/P 105 /70 , Respiratory Rate 18 , O2 SAT 94 , Room Air, O2 Flow Rate . Vital Sign Comment: Latest Kemp Fall Score: 85 Fall Risk: High Risk Safety Measures: Call light Within Reach, Bed Alarm Zone 1, Side Rails Side Rails x2, Bed position Low and Locked. Fall Precautions: Yellow Socks Yellow Gown Door Sign Patient Fall Education Report given to Norman VIZCAINO.
[2020-01-13 08:00] VITALS: BP 127/76
[2020-01-13] MEDS: Atovaquone 750mg/5ml Susp ORAL SCH (08:51)
[2020-01-13] MEDS: PREZCOBIX ORAL SCH (08:52)
[2020-01-13] MEDS: Heparin 5000 units/ml inj SUBQ SCH ×2 (08:54→20:09)
--- NOTE | 2020-01-13 10:20 | Infectious Diseases Prog Note ---
Assessment/Plan Assessment: Afebrile No leukocytosis -CXR: no acute process Severe acute renal failure- from Vancomycin toxicity (random vanco>50); now slowly coming down -Renal US: No hydronephrosis or stone. Recent R knee septic arthritis- post-op infection- healing well -12/24 SP Right knee arthrotomy.Right knee incision and drainage, 12 liters of bacitracin irrigation. --OR findings: The synovium was then incised. Gross pus was visible, was sent off for appropriate analysis. At this point, once arthrotomy was complete, 12 liters of bacitracin irrigation was then used to irrigate the knee. --fluid wbc 88,375 (N 99%) --OR cx CONS, MRSA (S Vanco OLENA 1, bactrim, tetracycline) -synovial fluid: wbc 62.8k (N99%), RBC 5.5k; cx stain no organisms, many wbc; cx CONS -ESR 62, CRP 28.1 -meniscal repair of R knee 12/11/19 HIV/AIDS on ARV -12/2019 CD4 102, VL <20 -dx 2003. has undergo multiple regimens. Has developed resistant to Truvada component. On Tivicay and Prescobix for 1 yr now. Latest CD4 100s; previously 40s. Allergic reaction in face to soap HTN asthma Plan: -Cont Daptomycin #4 (day abx #) -monitor CPK --upon discharge will transition to PO ZYvox 600mg bid -01/07 SP IV Vancomyin x1, Unasyn x1 -f/u cx -Monitor CBC/CMP, temperatures -Continue ARV: Tivicay and Prezcobix ([facility] will send over supply) -Atovaquone for PCP ppx Thank you for consulting [facility]. Will continue to follow along with you. Discussed with RN and Dr Hoover. Subjective Allergies: Coded Allergies: LISINOPRIL (Verified Allergy, Severe, FACE SWELLING, 12/11/19) aFebrile cr improving Objective Last 24 Hour Vital Signs Date Time Temp Pulse Resp B/P (MAP) Pulse Ox O2 Delivery O2 Flow Rate FiO2 01/13/20 08:51 79 127/70 01/13/20 04:00 98.1 79 18 105/70 (82) 94 01/13/20 00:00 98.1 71 18 118/71 (87) 94 01/12/20 21:00 Room Air 01/12/20 20:00 98.0 82 18 107/73 (84) 94 01/12/20 16:00 97.7 81 18 131/78 (95) 98 01/12/20 12:00 99.0 77 19 154/74 (100) 97 Height (Feet): 5 Height (Inches): 9.00 Weight (Pounds): 193 General Appearance: normal inspection, well appearing, no apparent distress, alert, GCS 15 Head: atraumatic ENT: normal ENT inspection, hearing grossly normal, normal voice Neck: normal inspection, full range of motion, supple, no bony tend Respiratory: normal inspection, lungs clear, normal breath sounds, no respiratory distress, no retraction, no wheezing Cardiovascular #1: regular rate, rhythm, no edema Gastrointestinal: normal inspection, normal bowel sounds, non tender, soft, no guarding, no hernia Genitourinary: no CVA tenderness Musculoskeletal: normal inspection, back normal, swelling - Swelling to the right lower extremity knee no warmth or erythema healing wound, other Laboratory Tests Test 01/13/20 04:55 White Blood Count 5.7 K/UL (4.8-10.8) Red Blood Count 3.96 M/UL (4.70-6.10) L Hemoglobin 10.4 G/DL (14.2-18.0) L Hematocrit 32.6 % (42.0-52.0) L Mean Corpuscular Volume 82 FL (80-99) Mean Corpuscular Hemoglobin 26.3 PG (27.0-31.0) L Mean Corpuscular Hemoglobin Concent 32.0 G/DL (32.0-36.0) Red Cell Distribution Width 12.9 % (11.6-14.8) Platelet Count 444 K/UL (150-450) Mean Platelet Volume 5.4 FL (6.5-10.1) L Neutrophils (%) (Auto) % (45.0-75.0) Lymphocytes (%) (Auto) % (20.0-45.0) Monocytes (%) (Auto) % (1.0-10.0) Eosinophils (%) (Auto) % (0.0-3.0) Basophils (%) (Auto) % (0.0-2.0) Neutrophils % (Manual) Pending Lymphocytes % (Manual) Pending Platelet Estimate Pending Platelet Morphology Pending Erythrocyte Sedimentation Rate 111 MM/HR (0-15) H Sodium Level 134 MMOL/L (136-145) L Potassium Level 5.0 MMOL/L (3.5-5.1) Chloride Level 101 MMOL/L (98-107) Carbon Dioxide Level 23 MMOL/L (21-32) Anion Gap 10 mmol/L (5-15) Blood Urea Nitrogen 30 mg/dL (7-18) H Creatinine 4.4 MG/DL (0.55-1.30) H Estimat Glomerular Filtration Rate 17.6 mL/min (>60) Glucose Level 182 MG/DL (74-106) H Calcium Level 9.1 MG/DL (8.5-10.1) Phosphorus Level 3.7 MG/DL (2.5-4.9) Magnesium Level 1.8 MG/DL (1.8-2.4) Total Bilirubin 0.3 MG/DL (0.2-1.0) Aspartate Amino Transf (AST/SGOT) 42 U/L (15-37) H Alanine Aminotransferase (ALT/SGPT) 65 U/L (12-78) Alkaline Phosphatase 121 U/L (46-116) H C-Reactive Protein, Quantitative 12.9 mg/dL (0.00-0.90) H Total Protein 7.5 G/DL (6.4-8.2) Albumin 2.2 G/DL (3.4-5.0) L Globulin 5.3 g/dL Albumin/Globulin Ratio 0.4 (1.0-2.7) L Current Medications Medications (Trade) Dose Ordered Sig/Griselda Route PRN Reason Start Time Stop Time Status Last Admin Dose Admin Acetaminophen (Tylenol) 650 mg Q4H PRN ORAL fever 01/08/20 18:30 02/07/20 18:29 01/12/20 03:42 Acetaminophen/ Hydrocodone Bitart ([place] 10) 1 tab Q6H PRN ORAL Severe Pain (Pain Scale 7-10) 01/12/20 16:00 01/19/20 15:59 01/12/20 18:41 Albuterol Sulfate (Proventil) 2.5 mg Q4H PRN HHN Shortness of Breath 01/08/20 18:30 01/13/20 18:29 Amlodipine Besylate (Norvasc) 2.5 mg DAILY ORAL 01/09/20 09:00 02/08/20 08:59 01/13/20 08:51 Atovaquone (Mepron Susp) 1,500 mg DAILY ORAL 01/10/20 09:00 04/09/20 08:59 01/13/20 08:51 Chlorhexidine Gluconate (Crystal-Hex 2%) 1 applic DAILY@2000 TOPIC 01/08/20 20:00 04/07/20 19:59 01/09/20 20:03 Clonidine HCl (Catapres Tab) 0.1 mg Q4H PRN ORAL For High Blood Pressure 01/08/20 18:30 04/07/20 18:29 Daptomycin 500 mg/ Sodium Chloride 55 ml @ 100 mls/hr EVERY OTHER DAY IV 01/10/20 09:00 01/17/20 08:59 01/12/20 14:57 Dextrose (Dextrose 50%) 25 ml Q30M PRN IV Hypoglycemia 01/08/20 18:30 04/07/20 18:29 Dextrose (Dextrose 50%) 50 ml Q30M PRN IV Hypoglycemia 01/08/20 18:30 04/07/20 18:29 Diphenhydramine HCl (Benadryl) 25 mg Q4H PRN ORAL Itching 01/12/20 10:15 02/11/20 10:14 01/12/20 10:35 Gabapentin (Neurontin) 400 mg BEDTIME ORAL 01/08/20 21:00 02/07/20 20:59 01/12/20 20:15 Heparin Sodium (Porcine) (Heparin 5000 units/ml) 5,000 units EVERY 12 HOURS SUBQ 01/08/20 21:00 02/22/20 20:59 01/13/20 08:54 Hydrocortisone (Hydrocortisone) 1 applic BIDPRN PRN TOPIC Itching 01/11/20 09:30 04/10/20 09:29 Methylprednisolone Sodium Succinate (Solu-MEDROL) 60 mg EVERY 6 HOURS IVP 01/12/20 18:00 01/13/20 18:00 01/13/20 05:44 Ondansetron HCl (Zofran) 4 mg Q6H PRN IVP Nausea & Vomiting 01/08/20 18:30 02/07/20 18:29 Patient Own Medication (Patient's Own Med) 1 ea BID ORAL 01/12/20 18:00 02/11/20 17:59 01/13/20 08:52 Patient Own Medication (Patient's Own Med) 1 ea DAILY ORAL 01/12/20 14:00 02/11/20 13:59 01/13/20 08:52 Polyethylene Glycol (Miralax) 17 gm HSPRN PRN ORAL Constipation 01/08/20 18:30 02/07/20 18:29 Sodium Chloride 1,000 ml @ 75 mls/hr [id number] IV 01/09/20 16:30 02/08/20 16:29 01/13/20 00:02 Temazepam (Restoril) 30 mg HSPRN PRN ORAL Insomnia 01/09/20 16:45 01/16/20 16:44 01/12/20 20:50 Parvin Gifford M.D. Jan 13, 2020 10:20
--- NOTE | 2020-01-13 10:28 | Nephrology Progress Note ---
Assessment/Plan Problem List: (1) Acute kidney injury (2) Vancomycin-induced nephrotoxicity (3) HIV disease Assessment Acute renal failure Vancomycin level over 50 Kidney ultrasound, unremarkable Plan January 12: Serum creatinine continues to decline. Continue as is January 11: Vancomycin level and creatinine level declining. Continue to observe and monitor. Discussed with RN. January 10: Vancomycin level down to 26. Serum creatinine down to 5.2. Otherwise stable. Continue to monitor renal parameters. January 09: As follow: Today's labs still pending Remains off Vanco Hydrate in process Monitor renal parameters Monitor Vanco levels Per orders Subjective ROS Limited/Unobtainable: No Objective Objective Last 24 Hour Vital Signs Date Time Temp Pulse Resp B/P (MAP) Pulse Ox O2 Delivery O2 Flow Rate FiO2 01/13/20 09:00 Room Air 01/13/20 08:51 79 127/70 01/13/20 08:00 98.1 82 18 127/76 (93) 97 01/13/20 04:00 98.1 79 18 105/70 (82) 94 01/13/20 00:00 98.1 71 18 118/71 (87) 94 01/12/20 21:00 Room Air 01/12/20 20:00 98.0 82 18 107/73 (84) 94 01/12/20 16:00 97.7 81 18 131/78 (95) 98 01/12/20 12:00 99.0 77 19 154/74 (100) 97 Intake and Output 01/12/20 01/13/20 19:00 07:00 Intake Total 2010 ml 690 ml Output Total 600 ml 1350 ml Balance 1410 ml -660 ml Intake Oral 960 ml 240 ml IV Total 1050 ml 450 ml Output Urine Total 600 ml 1350 ml # Voids 2 3 Current Medications Medications (Trade) Dose Ordered Sig/Griselda Route PRN Reason Start Time Stop Time Status Last Admin Dose Admin Acetaminophen (Tylenol) 650 mg Q4H PRN ORAL fever 01/08/20 18:30 02/07/20 18:29 01/12/20 03:42 Acetaminophen/ Hydrocodone Bitart ([place] 10/325) 1 tab Q6H PRN ORAL Severe Pain (Pain Scale 7-10) 01/12/20 16:00 01/19/20 15:59 01/12/20 18:41 Albuterol Sulfate (Proventil) 2.5 mg Q4H PRN HHN Shortness of Breath 01/08/20 18:30 01/13/20 18:29 Amlodipine Besylate (Norvasc) 2.5 mg DAILY ORAL 01/09/20 09:00 02/08/20 08:59 01/13/20 08:51 Atovaquone (Mepron Susp) 1,500 mg DAILY ORAL 01/10/20 09:00 04/09/20 08:59 01/13/20 08:51 Chlorhexidine Gluconate (Crystal-Hex 2%) 1 applic DAILY@2000 TOPIC 01/08/20 20:00 04/07/20 19:59 01/09/20 20:03 Clonidine HCl (Catapres Tab) 0.1 mg Q4H PRN ORAL For High Blood Pressure 01/08/20 18:30 04/07/20 18:29 Daptomycin 500 mg/ Sodium Chloride 55 ml @ 100 mls/hr EVERY OTHER DAY IV 01/10/20 09:00 01/17/20 08:59 01/12/20 14:57 Dextrose (Dextrose 50%) 25 ml Q30M PRN IV Hypoglycemia 01/08/20 18:30 04/07/20 18:29 Dextrose (Dextrose 50%) 50 ml Q30M PRN IV Hypoglycemia 01/08/20 18:30 04/07/20 18:29 Diphenhydramine HCl (Benadryl) 25 mg Q4H PRN ORAL Itching 01/12/20 10:15 02/11/20 10:14 01/12/20 10:35 Gabapentin (Neurontin) 400 mg BEDTIME ORAL 01/08/20 21:00 02/07/20 20:59 01/12/20 20:15 Heparin Sodium (Porcine) (Heparin 5000 units/ml) 5,000 units EVERY 12 HOURS SUBQ 01/08/20 21:00 02/22/20 20:59 01/13/20 08:54 Hydrocortisone (Hydrocortisone) 1 applic BIDPRN PRN TOPIC Itching 01/11/20 09:30 04/10/20 09:29 Methylprednisolone Sodium Succinate (Solu-MEDROL) 60 mg EVERY 6 HOURS IVP 01/12/20 18:00 01/13/20 18:00 01/13/20 05:44 Ondansetron HCl (Zofran) 4 mg Q6H PRN IVP Nausea & Vomiting 01/08/20 18:30 02/07/20 18:29 Patient Own Medication (Patient's Own Med) 1 ea BID ORAL 01/12/20 18:00 02/11/20 17:59 01/13/20 08:52 Patient Own Medication (Patient's Own Med) 1 ea DAILY ORAL 01/12/20 14:00 02/11/20 13:59 01/13/20 08:52 Polyethylene Glycol (Miralax) 17 gm HSPRN PRN ORAL Constipation 01/08/20 18:30 02/07/20 18:29 Sodium Chloride 1,000 ml @ 75 mls/hr [id number] IV 01/09/20 16:30 02/08/20 16:29 01/13/20 00:02 Temazepam (Restoril) 30 mg HSPRN PRN ORAL Insomnia 01/09/20 16:45 01/16/20 16:44 01/12/20 20:50 Laboratory Tests 01/13/20 04:55: White Blood Count 5.7, Red Blood Count 3.96L, Hemoglobin 10.4L, Hematocrit 32.6L , Mean Corpuscular Volume 82, Mean Corpuscular Hemoglobin 26.3L, Mean Corpuscular Hemoglobin Concent 32.0, Red Cell Distribution Width 12.9, Platelet Count 444, Mean Platelet Volume 5.4L, Neutrophils (%) (Auto) , Lymphocytes (%) (Auto) , Monocytes (%) (Auto) , Eosinophils (%) (Auto) , Basophils (%) (Auto) , Neutrophils % (Manual) [Pending], Lymphocytes % (Manual) [Pending], Platelet Estimate [Pending], Platelet Morphology [Pending], Erythrocyte Sedimentation Rate 111H, Sodium Level 134L, Potassium Level 5.0, Chloride Level 101, Carbon Dioxide Level 23, Anion Gap 10, Blood Urea Nitrogen 30H, Creatinine 4.4H, Estimat Glomerular Filtration Rate 17.6, Glucose Level 182H, Calcium Level 9.1, Phosphorus Level 3.7, Magnesium Level 1.8, Total Bilirubin 0.3, Aspartate Amino Transf (AST/SGOT) 42H, Alanine Aminotransferase (ALT/SGPT) 65, Alkaline Phosphatase 121H, C-Reactive Protein, Quantitative 12.9H, Total Protein 7.5, Albumin 2.2L, Globulin 5.3, Albumin/Globulin Ratio 0.4L Height (Feet): 5 Height (Inches): 9.00 Weight (Pounds): 193 Cardiovascular: normal rate Respiratory/Chest: lungs clear Abdomen: soft Objective No change Andrea Alegre MD Jan 13, 2020 10:28
--- NOTE | 2020-01-13 11:47 | Pulmonology Progress Note ---
Subjective ROS Limited/Unobtainable: No Interval Events: allergic reaction to the soap this morning with some redness of face. Allergies: Coded Allergies: LISINOPRIL (Verified Allergy, Severe, FACE SWELLING, 12/11/19) Objective Last 24 Hour Vital Signs Date Time Temp Pulse Resp B/P (MAP) Pulse Ox O2 Delivery O2 Flow Rate FiO2 01/13/20 09:00 Room Air 01/13/20 08:51 79 127/70 01/13/20 08:00 98.1 82 18 127/76 (93) 97 01/13/20 04:00 98.1 79 18 105/70 (82) 94 01/13/20 00:00 98.1 71 18 118/71 (87) 94 01/12/20 21:00 Room Air 01/12/20 20:00 98.0 82 18 107/73 (84) 94 01/12/20 16:00 97.7 81 18 131/78 (95) 98 01/12/20 12:00 99.0 77 19 154/74 (100) 97 Intake and Output 01/12/20 01/13/20 19:00 07:00 Intake Total 2010 ml 690 ml Output Total 600 ml 1350 ml Balance 1410 ml -660 ml Intake Oral 960 ml 240 ml IV Total 1050 ml 450 ml Output Urine Total 600 ml 1350 ml # Voids 2 3 General Appearance: WD/WN HEENT: normocephalic, atraumatic Respiratory: chest wall non-tender, normal breath sounds Cardiovascular: normal peripheral pulses, normal rate, regular rhythm Abdomen: normal bowel sounds, soft, non tender, no organomegaly Genitourinary: normal external genitalia Extremities: no cyanosis Skin: no rash Laboratory Tests 01/13/20 04:55: White Blood Count 5.7, Red Blood Count 3.96L, Hemoglobin 10.4L, Hematocrit 32.6L , Mean Corpuscular Volume 82, Mean Corpuscular Hemoglobin 26.3L, Mean C orpuscular Hemoglobin Concent 32.0, Red Cell Distribution Width 12.9, Platelet Count 444, Mean Platelet Volume 5.4L, Neutrophils (%) (Auto) , Lymphocytes (%) (Auto) , Monocytes (%) (Auto) , Eosinophils (%) (Auto) , Basophils (%) (Auto) , Differential Total Cells Counted 100, Neutrophils % (Manual) 92H, Lymphocytes % (Manual) 5L, Monocytes % (Manual) 3, Eosinophils % (Manual) 0, Basophils % (Manual) 0, Band Neutrophils 0, Platelet Estimate Adequate, Platelet Morphology Normal, Red Blood Cell Morphology Normal, Erythrocyte Sedimentation Rate 111H, Sodium Level 134L, Potassium Level 5.0, Chloride Level 101, Carbon Dioxide Level 23, Anion Gap 10, Blood Urea Nitrogen 30H, Creatinine 4.4H, Estimat Glomerular Filtration Rate 17.6, Glucose Level 182H, Calcium Level 9.1, Phosphorus Level 3.7, Magnesium Level 1.8, Total Bilirubin 0.3, Aspartate Amino Transf (AST/SGOT) 42H, Alanine Aminotransferase (ALT/SGPT) 65, Alkaline Phosphatase 121H, C- Reactive Protein, Quantitative 12.9H, Total Protein 7.5, Albumin 2.2L, Globulin 5.3, Albumin/Globulin Ratio 0.4L Current Medications Medications (Trade) Dose Ordered Sig/Griselda Route PRN Reason Start Time Stop Time Status Last Admin Dose Admin Acetaminophen (Tylenol) 650 mg Q4H PRN ORAL fever 01/08/20 18:30 02/07/20 18:29 01/12/20 03:42 Acetaminophen/ Hydrocodone Bitart ([place] 10) 1 tab Q6H PRN ORAL Severe Pain (Pain Scale 7-10) 01/12/20 16:00 01/19/20 15:59 01/12/20 18:41 Albuterol Sulfate (Proventil) 2.5 mg Q4H PRN HHN Shortness of Breath 01/08/20 18:30 01/13/20 18:29 Amlodipine Besylate (Norvasc) 2.5 mg DAILY ORAL 01/09/20 09:00 02/08/20 08:59 01/13/20 08:51 Atovaquone (Mepron Susp) 1,500 mg DAILY ORAL 01/10/20 09:00 04/09/20 08:59 01/13/20 08:51 Chlorhexidine Gluconate (Crystal-Hex 2%) 1 applic DAILY@1999 TOPIC 01/08/20 20:00 04/07/20 19:59 01/09/20 20:03 Clonidine HCl (Catapres Tab) 0.1 mg Q4H PRN ORAL For High Blood Pressure 01/08/20 18:30 04/07/20 18:29 Daptomycin 500 mg/ Sodium Chloride 55 ml @ 100 mls/hr EVERY OTHER DAY IV 01/10/20 09:00 01/17/20 08:59 01/12/20 14:57 Dextrose (Dextrose 50%) 25 ml Q30M PRN IV Hypoglycemia 01/08/20 18:30 04/07/20 18:29 Dextrose (Dextrose 50%) 50 ml Q30M PRN IV Hypoglycemia 01/08/20 18:30 04/07/20 18:29 Diphenhydramine HCl (Benadryl) 25 mg Q4H PRN ORAL Itching 01/12/20 10:15 02/11/20 10:14 01/12/20 10:35 Gabapentin (Neurontin) 400 mg BEDTIME ORAL 01/08/20 21:00 02/07/20 20:59 01/12/20 20:15 Heparin Sodium (Porcine) (Heparin 5000 units/ml) 5,000 units EVERY 12 HOURS SUBQ 01/08/20 21:00 02/22/20 20:59 01/13/20 08:54 Hydrocortisone (Hydrocortisone) 1 applic BIDPRN PRN TOPIC Itching 01/11/20 09:30 04/10/20 09:29 Methylprednisolone Sodium Succinate (Solu-MEDROL) 60 mg EVERY 6 HOURS IVP 01/12/20 18:00 01/13/20 18:00 01/13/20 05:44 Ondansetron HCl (Zofran) 4 mg Q6H PRN IVP Nausea & Vomiting 01/08/20 18:30 02/07/20 18:29 Patient Own Medication (Patient's Own Med) 1 ea BID ORAL 01/12/20 18:00 02/11/20 17:59 01/13/20 08:52 Patient Own Medication (Patient's Own Med) 1 ea DAILY ORAL 01/12/20 14:00 02/11/20 13:59 01/13/20 08:52 Polyethylene Glycol (Miralax) 17 gm HSPRN PRN ORAL Constipation 01/08/20 18:30 02/07/20 18:29 Sodium Chloride 1,000 ml @ 75 mls/hr [id number] IV 01/09/20 16:30 02/08/20 16:29 01/13/20 00:02 Temazepam (Restoril) 30 mg HSPRN PRN ORAL Insomnia 01/09/20 16:45 01/16/20 16:44 01/12/20 20:50 Assessment/Plan Problems: (1) Acute kidney injury (2) Vancomycin-induced nephrotoxicity (3) HIV disease Assessment/Plan no new complains slightly improved renal function IV fluids avoid nephrotoxic agents check electrolytes daily Anat Bryan MD Jan 13, 2020 11:47
[2020-01-13 12:00] VITALS: BP 119/68
--- NOTE | 2020-01-13 12:23 | Internal Med Progress Note ---
Subjective Date of Service: Jan 13, 2020 Physician Name Ward Hoover Attending Physician Keith Sandhu MD Current Medications Medications (Trade) Dose Ordered Sig/Griselda Route PRN Reason Start Time Stop Time Status Last Admin Dose Admin Acetaminophen (Tylenol) 650 mg Q4H PRN ORAL fever 01/08/20 18:30 02/07/20 18:29 01/12/20 03:42 Acetaminophen/ Hydrocodone Bitart ([place] 10/325) 1 tab Q6H PRN ORAL Severe Pain (Pain Scale 7-10) 01/12/20 16:00 01/19/20 15:59 01/12/20 18:41 Albuterol Sulfate (Proventil) 2.5 mg Q4H PRN HHN Shortness of Breath 01/08/20 18:30 01/13/20 18:29 Amlodipine Besylate (Norvasc) 2.5 mg DAILY ORAL 01/09/20 09:00 02/08/20 08:59 01/13/20 08:51 Atovaquone (Mepron Susp) 1,500 mg DAILY ORAL 01/10/20 09:00 04/09/20 08:59 01/13/20 08:51 Chlorhexidine Gluconate (Crystal-Hex 2%) 1 applic DAILY@2000 TOPIC 01/08/20 20:00 04/07/20 19:59 01/09/20 20:03 Clonidine HCl (Catapres Tab) 0.1 mg Q4H PRN ORAL For High Blood Pressure 01/08/20 18:30 04/07/20 18:29 Daptomycin 500 mg/ Sodium Chloride 55 ml @ 100 mls/hr EVERY OTHER DAY IV 01/10/20 09:00 01/17/20 08:59 01/12/20 14:57 Dextrose (Dextrose 50%) 25 ml Q30M PRN IV Hypoglycemia 01/08/20 18:30 04/07/20 18:29 Dextrose (Dextrose 50%) 50 ml Q30M PRN IV Hypoglycemia 01/08/20 18:30 04/07/20 18:29 Diphenhydramine HCl (Benadryl) 25 mg Q4H PRN ORAL Itching 01/12/20 10:15 02/11/20 10:14 01/12/20 10:35 Gabapentin (Neurontin) 400 mg BEDTIME ORAL 01/08/20 21:00 02/07/20 20:59 01/12/20 20:15 Heparin Sodium (Porcine) (Heparin 5000 units/ml) 5,000 units EVERY 12 HOURS SUBQ 01/08/20 21:00 02/22/20 20:59 01/13/20 08:54 Hydrocortisone (Hydrocortisone) 1 applic BIDPRN PRN TOPIC Itching 01/11/20 09:30 04/10/20 09:29 Methylprednisolone Sodium Succinate (Solu-MEDROL) 60 mg EVERY 6 HOURS IVP 01/12/20 18:00 01/13/20 18:00 01/13/20 11:50 Ondansetron HCl (Zofran) 4 mg Q6H PRN IVP Nausea & Vomiting 01/08/20 18:30 02/07/20 18:29 Patient Own Medication (Patient's Own Med) 1 ea BID ORAL 01/12/20 18:00 02/11/20 17:59 01/13/20 08:52 Patient Own Medication (Patient's Own Med) 1 ea DAILY ORAL 01/12/20 14:00 02/11/20 13:59 01/13/20 08:52 Polyethylene Glycol (Miralax) 17 gm HSPRN PRN ORAL Constipation 01/08/20 18:30 02/07/20 18:29 Sodium Chloride 1,000 ml @ 75 mls/hr [id number] IV 01/09/20 16:30 02/08/20 16:29 01/13/20 00:02 Temazepam (Restoril) 30 mg HSPRN PRN ORAL Insomnia 01/09/20 16:45 01/16/20 16:44 01/12/20 20:50 Allergies: Coded Allergies: LISINOPRIL (Verified Allergy, Severe, FACE SWELLING, 12/11/19) ROS Limited/Unobtainable: No Constitutional: Reports: no symptoms HEENT: Reports: no symptoms Cardiovascular: Reports: no symptoms Respiratory: Reports: no symptoms Gastrointestinal/Abdominal: Reports: no symptoms Genitourinary: Reports: no symptoms Neurologic/Psychiatric: Reports: no symptoms Subjective 49 YO M with history of septic arthritis right knee admitted with fever and loss of PICC line access, Cover for Int Foster-DR Sandhu. C/O facial swelling Objective Last Vital Signs Date Time Temp Pulse Resp B/P (MAP) Pulse Ox O2 Delivery O2 Flow Rate FiO2 11/11/20 12:00 98.5 75 18 119/68 (85) 97 01/13/20 09:00 Room Air Laboratory Tests Test 01/13/20 04:55 White Blood Count 5.7 K/UL (4.8-10.8) Red Blood Count 3.96 M/UL (4.70-6.10) L Hemoglobin 10.4 G/DL (14.2-18.0) L Hematocrit 32.6 % (42.0-52.0) L Mean Corpuscular Volume 82 FL (80-99) Mean Corpuscular Hemoglobin 26.3 PG (27.0-31.0) L Mean Corpuscular Hemoglobin Concent 32.0 G/DL (32.0-36.0) Red Cell Distribution Width 12.9 % (11.6-14.8) Platelet Count 444 K/UL (150-450) Mean Platelet Volume 5.4 FL (6.5-10.1) L Neutrophils (%) (Auto) % (45.0-75.0) Lymphocytes (%) (Auto) % (20.0-45.0) Monocytes (%) (Auto) % (1.0-10.0) Eosinophils (%) (Auto) % (0.0-3.0) Basophils (%) (Auto) % (0.0-2.0) Differential Total Cells Counted 100 Neutrophils % (Manual) 92 % (45-75) H Lymphocytes % (Manual) 5 % (20-45) L Monocytes % (Manual) 3 % (1-10) Eosinophils % (Manual) 0 % (0-3) Basophils % (Manual) 0 % (0-2) Band Neutrophils 0 % (0-8) Platelet Estimate Adequate Platelet Morphology Normal Red Blood Cell Morphology Normal Erythrocyte Sedimentation Rate 111 MM/HR (0-15) H Sodium Level 134 MMOL/L (136-145) L Potassium Level 5.0 MMOL/L (3.5-5.1) Chloride Level 101 MMOL/L (98-107) Carbon Dioxide Level 23 MMOL/L (21-32) Anion Gap 10 mmol/L (5-15) Blood Urea Nitrogen 30 mg/dL (7-18) H Creatinine 4.4 MG/DL (0.55-1.30) H Estimat Glomerular Filtration Rate 17.6 mL/min (>60) Glucose Level 182 MG/DL (74-106) H Calcium Level 9.1 MG/DL (8.5-10.1) Phosphorus Level 3.7 MG/DL (2.5-4.9) Magnesium Level 1.8 MG/DL (1.8-2.4) Total Bilirubin 0.3 MG/DL (0.2-1.0) Aspartate Amino Transf (AST/SGOT) 42 U/L (15-37) H Alanine Aminotransferase (ALT/SGPT) 65 U/L (12-78) Alkaline Phosphatase 121 U/L (46-116) H C-Reactive Protein, Quantitative 12.9 mg/dL (0.00-0.90) H Total Protein 7.5 G/DL (6.4-8.2) Albumin 2.2 G/DL (3.4-5.0) L Globulin 5.3 g/dL Albumin/Globulin Ratio 0.4 (1.0-2.7) L Intake and Output 01/12/20 01/13/20 19:00 07:00 Intake Total 2010 ml 690 ml Output Total 600 ml 1350 ml Balance 1410 ml -660 ml Intake Oral 960 ml 240 ml IV Total 1050 ml 450 ml Output Urine Total 600 ml 1350 ml # Voids 2 3 Objective PHYSICAL EXAMINATION: GENERAL: The patient is a well-developed and well-nourished male, in no apparent distress. HEENT: Eyes, pupils equal and responsive to light and accommodation. Extraocular movements intact. NECK: Supple. No lymphadenopathy. CHEST: Lungs are clear to auscultation bilaterally without wheezes or rales. CARDIOVASCULAR: Regular rate. S1, S2 normal without murmurs, rubs, or gallops. ABDOMEN: Soft, nontender, and nondistended. Positive bowel sounds. No evidence of hepatosplenomegaly. Currently, no rebound or guarding noted. EXTREMITIES: There is pain to palpation of the right knee, otherwise without clubbing, cyanosis, or edema. RECTAL: Not performed. GENITAL: Not performed. NEUROLOGIC: Cranial nerves II through XII grossly intact without focal deficits. Motor strength is 5/5 bilaterally, intact. Deep tendon reflexes are 2+, plantar. Assessment/Plan Assessment/Plan ASSESSMENT: This is a 49-year-old male with: 1. Septic arthritis of right knee. 2. Acute renal failure due to vanco toxicity (>50) 3. HIV. 4. Hypertension. 5. Hypercholesterolemia. 6. Asthma. 7. Facial swelling?reaction to meds vs contact dermatitis? TREATMENT: 1. Septic arthritis of right knee. Infectious Disease = Dr. Gifford. The patient was on vancomycin at home. The patient has acute renal failure. Vancomycin has been discontinued. ABX day =Daptomycin per Infectious Disease (discharge home on oral zyvox when renal function normal) 2. Acute renal failure. Continue IV fluids. Nephrology = Dr. Alegre. Follow recommendations of Nephrology. 3. HIV. Continue Prezcobix and Tivicay as above. 4. Hypertension. Continue amlodipine as above. 5. Hypercholesterolemia. Continue atorvastatin as above. 6. Asthma. Continue albuterol metered-dose inhaler as above. 7. continue IV benadryl and solumedrol Ward Hoover MD Jan 13, 2020 12:23
--- NOTE | 2020-01-13 13:21 | NUR ---
CASE MANAGEMENT:REVIEW SI;RT KNEE SEPTIC ARTHRITIS. ACUTE RENAL FAILURE. 98.5 82 18 127/76 94% ON RA H/H 10.4/32.6 ESR 111 NA 134 BUN 30 CR 4.4 BG 182 AST 42 ALP 121 CRP 12.9 ALB 2.2 IS;SOLU-MEDROL IV Q6 ATOVAQUONE PO Q DAPTOMYCIN IV QOD IVF NS @ 75 ML/HR HEPARIN SUBQ Q12 MED SURG STATUS DCP;FROM HOME
[2020-01-13 16:00] VITALS: BP 128/68
--- NOTE | 2020-01-13 19:00 | NUR ---
NURSE NOTES: noted IV infiltrated. Removed IV. primary nurse and charge nurse attempted IV insertion many times but failed to obtain IV access . unable to give Solu- medrol IVP at 1800 due to no IV access. Left message to Dr. Sandhu.
[2020-01-13 20:00] VITALS: BP 138/82
[2020-01-13] MEDS: Dyna-Hex 2% Top Sol 2oz TOPIC SCH (20:00)
--- NOTE | 2020-01-13 20:04 | NUR ---
NURSE HAND-OFF: Important Events on Shift:[unable to obtain IV access due to hard stick] Patient Status: [stable] Diet: [reg] Pending Orders: [] Pending Results/Labs:[] Pending MD notification:[] Latest Vital Signs: Temperature 98.5 , Pulse 77 , B/P 128 /68 , Respiratory Rate 18 , O2 SAT 97 , Room Air, O2 Flow Rate . Vital Sign Comment: [stable] Latest Kemp Fall Score: 85 Fall Risk: High Risk Safety Measures: Call light Within Reach, Bed Alarm Zone 1, Side Rails Side Rails x2, Bed position Low and Locked. Fall Precautions: Yellow Socks Yellow Gown Door Sign Patient Fall Education Report given to [CARRILLO Dutta].
--- NOTE | 2020-01-14 00:46 | NUR ---
NURSES NOTE: Received report from CARRILLO Galan. Rounds made. Pt is A/OX4, denies pain currently. Requests Benadryl. Medication administered 25mg PO- effective. Pt states he no longer had pruritus. No outward s/s of distress. Breathing is even unlabored on RA. 1999 VS are within normal limits. R knee dressing, is dry intact. No IV access. made aware by AM nurse no current IV access. RN will attempt to get another line inserted NOC shift. Bed at lowest level. Call light within reach. Pt will continue to be monitored.
[2020-01-14 04:00] VITALS: BP 139/86
--- NOTE | 2020-01-14 06:40 | NUR ---
NURSE HAND-OFF: Important Events on Shift:[URQ bowel sounds only. No gas passed. Pt encouraged to take pain meds ATC to improve her mobility. IV infiltrated. Attempted to start another one x3 RN. Pt request to have day shift attempt as she was getting nervous from multiple sticks. ] Patient Status: [stable] Diet: [npo ice chips sips of water with meds] Pending Orders: [none] Pending Results/Labs:[none] Pending MD notification:[none] Latest Vital Signs: Temperature 98.0 , Pulse 83 , B/P 139 /86 , Respiratory Rate 18 , O2 SAT 97 , Room Air, O2 Flow Rate . Vital Sign Comment: [WNL] Latest Kemp Fall Score: 85 Fall Risk: High Risk Safety Measures: Call light Within Reach, Bed Alarm Zone 1, Side Rails Side Rails x2, Bed position Low and Locked. Fall Precautions: Yellow Socks Yellow Gown Door Sign Patient Fall Education Report given to []. Addendum: 01/14/20 at 0645 by Luzmaria Mg RN Charted on wrong patient. Pls see following Hand Off note for accurate information.
[2020-01-14 06:44] LABS: HEMATOCRIT 31.9 % (42.0-52.0); HEMOGLOBIN 10.2 G/DL (14.2-18.0); MEAN CORPUSCULAR VOLUME 83 FL (80-99); PLATELET COUNT 445 K/UL (150-450); RED BLOOD COUNT 3.87 M/UL (4.70-6.10); RED CELL DISTRIBUTION WIDTH 13.3 % (11.6-14.8); WHITE BLOOD COUNT 16.5 K/UL (4.8-10.8)
--- NOTE | 2020-01-14 06:45 | NUR ---
NURSE HAND-OFF: Important Events on Shift:[IV replaced. 18 gauge L FA.] Patient Status: [STABLE] Diet: [RENAL] Pending Orders: [NONE] Pending Results/Labs:[ALL AM LABS STILL PENDING] Pending MD notification:[NONE] Latest Vital Signs: Temperature 98.0 , Pulse 83 , B/P 139 /86 , Respiratory Rate 18 , O2 SAT 97 , Room Air, O2 Flow Rate . Vital Sign Comment: [WNL] Latest Kemp Fall Score: 85 Fall Risk: High Risk Safety Measures: Call light Within Reach, Bed Alarm Zone 1, Side Rails Side Rails x2, Bed position Low and Locked. Fall Precautions: Yellow Socks Yellow Gown Door Sign Patient Fall Education Report given to [].
--- NOTE | 2020-01-14 07:10 | NUR ---
NURSE NOTES: Report received from Luzmaria VIZCAINO, rounds made. Patient AOx4, calm. Respirations even/unlabored on RA. IV NS at 75 ml/hr to RFA, site asymptomatic. Voids in urinal. Denies SOB, pain, NV. Right knee, optifoam with ADRI hose in place, CDI. Neuros intact, skin warm, wiggles, pedal pulses palpable. Call light in reach, bed in lowest position, will continue to monitor.
[2020-01-14 07:12] LABS: ALANINE AMINOTRANSFERASE 125 U/L (12-78); ALBUMIN 2.4 G/DL (3.4-5.0); ALBUMIN/GLOBULIN RATIO 0.5 (1.0-2.7); ALKALINE PHOSPHATASE 127 U/L (46-116); ANION GAP 12 mmol/L (5-15); ASPARTATE AMINO TRANSFERASE 70 U/L (15-37); BILIRUBIN,TOTAL 0.2 MG/DL (0.2-1.0); BLOOD UREA NITROGEN 44 mg/dL (7-18); CALCIUM 8.9 MG/DL (8.5-10.1); CARBON DIOXIDE 22 MMOL/L (21-32); CHLORIDE 103 MMOL/L (98-107); CREATINE KINASE 49 U/L (26-308); CREATININE 4.3 MG/DL (0.55-1.30); POTASSIUM 4.6 MMOL/L (3.5-5.1); SODIUM 137 MMOL/L (136-145)
[2020-01-14 07:26] LABS: PHOSPHORUS 3.2 MG/DL (2.5-4.9)
--- NOTE | 2020-01-14 07:40 | NUR ---
HAND OFF: Report given to CARRILLO Catherine.
[2020-01-14 08:00] VITALS: BP 133/80
--- NOTE | 2020-01-14 08:37 | Nephrology Progress Note ---
Assessment/Plan Problem List: (1) Acute kidney injury (2) Vancomycin-induced nephrotoxicity (3) HIV disease Assessment Acute renal failure Vancomycin level over 50 Kidney ultrasound, unremarkable Plan January 13: Serum creatinine declining gradually. Vancomycin level lowering. Today the patient has leukocytosis. Continue per ID management. Avoid nephrotoxic's as possible. January 12: Serum creatinine continues to decline. Continue as is January 11: Vancomycin level and creatinine level declining. Continue to observe and monitor. Discussed with RN. January 10: Vancomycin level down to 26. Serum creatinine down to 5.2. Otherwise stable. Continue to monitor renal parameters. January 09: As follow: Today's labs still pending Remains off Vanco Hydrate in process Monitor renal parameters Monitor Vanco levels Per orders Subjective ROS Limited/Unobtainable: No Constitutional: Reports: malaise Objective Objective Last 24 Hour Vital Signs Date Time Temp Pulse Resp B/P (MAP) Pulse Ox O2 Delivery O2 Flow Rate FiO2 01/14/20 04:00 98.0 83 18 139/86 (103) 97 01/13/20 21:00 Room Air 01/13/20 20:00 97.6 82 17 138/82 (100) 97 01/13/20 16:00 98.5 77 18 128/68 (88) 97 01/13/20 12:00 98.5 75 18 119/68 (85) 97 01/13/20 09:00 Room Air 01/13/20 08:51 79 127/70 Intake and Output 01/13/20 01/14/20 19:00 07:00 Intake Total 1200 ml 240 ml Output Total 1000 ml Balance 200 ml 240 ml Intake Oral 1200 ml 240 ml Output Urine Total 1000 ml # Voids 3 4 Current Medications Medications (Trade) Dose Ordered Sig/Griselda Route PRN Reason Start Time Stop Time Status Last Admin Dose Admin Acetaminophen (Tylenol) 650 mg Q4H PRN ORAL fever 01/08/20 18:30 02/07/20 18:29 01/12/20 03:42 Acetaminophen/ Hydrocodone Bitart ([place] 10/325) 1 tab Q6H PRN ORAL Severe Pain (Pain Scale 7-10) 01/12/20 16:00 01/19/20 15:59 01/12/20 18:41 Amlodipine Besylate (Norvasc) 2.5 mg DAILY ORAL 01/09/20 09:00 02/08/20 08:59 01/13/20 08:51 Atovaquone (Mepron Susp) 1,500 mg DAILY ORAL 01/10/20 09:00 04/09/20 08:59 01/13/20 08:51 Chlorhexidine Gluconate (Crystal-Hex 2%) 1 applic DAILY@2000 TOPIC 01/08/20 20:00 04/07/20 19:59 01/09/20 20:03 Clonidine HCl (Catapres Tab) 0.1 mg Q4H PRN ORAL For High Blood Pressure 01/08/20 18:30 04/07/20 18:29 Daptomycin 500 mg/ Sodium Chloride 55 ml @ 100 mls/hr EVERY OTHER DAY IV 01/10/20 09:00 01/17/20 08:59 01/12/20 14:57 Dextrose (Dextrose 50%) 25 ml Q30M PRN IV Hypoglycemia 01/08/20 18:30 04/07/20 18:29 Dextrose (Dextrose 50%) 50 ml Q30M PRN IV Hypoglycemia 01/08/20 18:30 04/07/20 18:29 Diphenhydramine HCl (Benadryl) 25 mg Q4H PRN ORAL Itching 01/12/20 10:15 02/11/20 10:14 01/13/20 19:59 Gabapentin (Neurontin) 400 mg BEDTIME ORAL 01/08/20 21:00 02/07/20 20:59 01/12/20 20:15 Heparin Sodium (Porcine) (Heparin 5000 units/ml) 5,000 units EVERY 12 HOURS SUBQ 01/08/20 21:00 02/22/20 20:59 01/13/20 20:09 Hydrocortisone (Hydrocortisone) 1 applic BIDPRN PRN TOPIC Itching 01/11/20 09:30 04/10/20 09:29 Ondansetron HCl (Zofran) 4 mg Q6H PRN IVP Nausea & Vomiting 01/08/20 18:30 02/07/20 18:29 Patient Own Medication (Patient's Own Med) 1 ea BID ORAL 01/12/20 18:00 02/11/20 17:59 01/13/20 18:00 Patient Own Medication (Patient's Own Med) 1 ea DAILY ORAL 01/12/20 14:00 02/11/20 13:59 01/13/20 08:52 Polyethylene Glycol (Miralax) 17 gm HSPRN PRN ORAL Constipation 01/08/20 18:30 02/07/20 18:29 Sodium Chloride 1,000 ml @ 75 mls/hr [id number] IV 01/09/20 16:30 02/08/20 16:29 01/13/20 13:50 Temazepam (Restoril) 30 mg HSPRN PRN ORAL Insomnia 01/09/20 16:45 01/16/20 16:44 01/13/20 19:59 Laboratory Tests 01/14/20 05:10: White Blood Count 16.5#H, Red Blood Count 3.87L, Hemoglobin 10.2L, Hematocrit 31.9L, Mean Corpuscular Volume 83, Mean Corpuscular Hemoglobin 26.5L, Mean Corpuscular Hemoglobin Concent 32.1, Red Cell Distribution Width 13.3, Platelet Count 445, Mean Platelet Volume 5.8L, Neutrophils (%) (Auto) , Lymphocytes (%) (Auto) , Monocytes (%) (Auto) , Eosinophils (%) (Auto) , Basophils (%) (Auto) , Differential Total Cells Counted 100, Neutrophils % (Manual) 92H, Lymphocytes % (Manual) 6L, Monocytes % (Manual) 2, Eosinophils % (Manual) 0, Basophils % (Manual) 0, Band Neutrophils 0, Platelet Estimate Adequate, Platelet Morphology Normal, Hypochromasia 1+, Sodium Level 137, Potassium Level 4.6, Chloride Level 103, Carbon Dioxide Level 22, Anion Gap 12, Blood Urea Nitrogen 44H, Creatinine 4.3H, Estimat Glomerular Filtration Rate 18.1, Glucose Level 123H, Calcium Level 8.9, Phosphorus Level 3.2, Magnesium Level 1.9, Total Bilirubin 0.2, Aspartate Amino Transf (AST/SGOT) 70H, Alanine Aminotransferase (ALT/SGPT) 125H, Alkaline Phosphatase 127H, Total Creatine Kinase 49, Total Protein 7.4, Albumin 2.4L, Globulin 5.0, Albumin/Globulin Ratio 0.5L, Random Vancomycin Level 10.8 Height (Feet): 5 Height (Inches): 9.00 Weight (Pounds): 193 General Appearance: no apparent distress Cardiovascular: normal rate - Rate 80s Abdomen: soft Objective No change Andrea Alegre MD Jan 14, 2020 08:37
[2020-01-14] MEDS: Heparin 5000 units/ml inj SUBQ SCH ×2 (09:31→21:38)
[2020-01-14] MEDS: DAPTOmycin 500 MG in NS 55 ML IV SCH (09:35)
[2020-01-14] MEDS: Atovaquone 750mg/5ml Susp ORAL SCH (09:35)
[2020-01-14] MEDS: PREZCOBIX ORAL SCH (09:39)
--- NOTE | 2020-01-14 10:25 | NUR ---
NURSE NOTES: Spoke to Dr. Taylor regarding patient admission diagnosis, current status, labs, right knee dressing. Orders received for dressing change.
[2020-01-14 12:00] VITALS: BP 145/80
--- NOTE | 2020-01-14 12:01 | Pulmonology Progress Note ---
Subjective ROS Limited/Unobtainable: No Interval Events: feeling better Allergies: Coded Allergies: LISINOPRIL (Verified Allergy, Severe, FACE SWELLING, 12/11/19) Objective Last 24 Hour Vital Signs Date Time Temp Pulse Resp B/P (MAP) Pulse Ox O2 Delivery O2 Flow Rate FiO2 01/14/20 09:39 78 133/80 01/14/20 08:00 97.9 78 18 133/80 (97) 97 01/14/20 04:00 98.0 83 18 139/86 (103) 97 01/13/20 21:00 Room Air 01/13/20 20:00 97.6 82 17 138/82 (100) 97 01/13/20 16:00 98.5 77 18 128/68 (88) 97 Intake and Output 01/13/20 01/14/20 19:00 07:00 Intake Total 1200 ml 240 ml Output Total 1000 ml Balance 200 ml 240 ml Intake Oral 1200 ml 240 ml Output Urine Total 1000 ml # Voids 3 4 General Appearance: WD/WN HEENT: normocephalic, atraumatic Respiratory: chest wall non-tender, normal breath sounds Cardiovascular: normal peripheral pulses, normal rate, regular rhythm Abdomen: normal bowel sounds, soft, non tender, no organomegaly Genitourinary: normal external genitalia Extremities: no cyanosis Skin: no rash 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 Laboratory Tests 01/14/20 05:10: White Blood Count 16.5#H, Red Blood Count 3.87L, Hemoglobin 10.2L, Hematocrit 31.9L, Mean Corpuscular Volume 83, Mean Corpuscular Hemoglobin 26.5L, Mean Corpuscular Hemoglobin Concent 32.1, Red Cell Distribution Width 13.3, Platelet Count 445, Mean Platelet Volume 5.8L, Neutrophils (%) (Auto) , Lymphocytes (%) (Auto) , Monocytes (%) (Auto) , Eosinophils (%) (Auto) , Basophils (%) (Auto) , Differential Total Cells Counted 100, Neutrophils % (Manual) 92H, Lymphocytes % (Manual) 6L, Monocytes % (Manual) 2, Eosinophils % (Manual) 0, Basophils % (Manual) 0, Band Neutrophils 0, Platelet Estimate Adequate, Platelet Morphology Normal, Hypochromasia 1+, Sodium Level 137, Potassium Level 4.6, Chloride Level 103, Carbon Dioxide Level 22, Anion Gap 12, Blood Urea Nitrogen 44H, Creatinine 4.3H, Estimat Glomerular Filtration Rate 18.1, Glucose Level 123H, Calcium Level 8.9, Phosphorus Level 3.2, Magnesium Level 1.9, Total Bilirubin 0.2, Aspartate Amino Transf (AST/SGOT) 70H, Alanine Aminotransferase (ALT/SGPT) 125H, Alkaline Phosphatase 127H, Total Creatine Kinase 49, Total Protein 7.4, Albumin 2.4L, Globulin 5.0, Albumin/Globulin Ratio 0.5L, Random Vancomycin Level 10.8 Current Medications Medications (Trade) Dose Ordered Sig/Griselda Route PRN Reason Start Time Stop Time Status Last Admin Dose Admin Acetaminophen (Tylenol) 650 mg Q4H PRN ORAL fever 01/08/20 18:30 02/07/20 18:29 01/12/20 03:42 Acetaminophen/ Hydrocodone Bitart ([place] 10/325) 1 tab Q6H PRN ORAL Severe Pain (Pain Scale 7-10) 01/12/20 16:00 01/19/20 15:59 01/12/20 18:41 Amlodipine Besylate (Norvasc) 2.5 mg DAILY ORAL 01/09/20 09:00 02/08/20 08:59 01/14/20 09:39 Atovaquone (Mepron Susp) 1,500 mg DAILY ORAL 01/10/20 09:00 04/09/20 08:59 01/14/20 09:35 Chlorhexidine Gluconate (Crystal-Hex 2%) 1 applic DAILY@2000 TOPIC 01/08/20 20:00 04/07/20 19:59 01/09/20 20:03 Clonidine HCl (Catapres Tab) 0.1 mg Q4H PRN ORAL For High Blood Pressure 01/08/20 18:30 04/07/20 18:29 Daptomycin 500 mg/ Sodium Chloride 55 ml @ 100 mls/hr EVERY OTHER DAY IV 01/10/20 09:00 01/17/20 08:59 01/14/20 09:35 Dextrose (Dextrose 50%) 25 ml Q30M PRN IV Hypoglycemia 01/08/20 18:30 04/07/20 18:29 Dextrose (Dextrose 50%) 50 ml Q30M PRN IV Hypoglycemia 01/08/20 18:30 04/07/20 18:29 Diphenhydramine HCl (Benadryl) 25 mg Q4H PRN ORAL Itching 01/12/20 10:15 02/11/20 10:14 01/13/20 19:59 Gabapentin (Neurontin) 400 mg BEDTIME ORAL 01/08/20 21:00 02/07/20 20:59 01/12/20 20:15 Heparin Sodium (Porcine) (Heparin 5000 units/ml) 5,000 units EVERY 12 HOURS SUBQ 01/08/20 21:00 02/22/20 20:59 01/14/20 09:31 Hydrocortisone (Hydrocortisone) 1 applic BIDPRN PRN TOPIC Itching 01/11/20 09:30 04/10/20 09:29 Ondansetron HCl (Zofran) 4 mg Q6H PRN IVP Nausea & Vomiting 01/08/20 18:30 02/07/20 18:29 Patient Own Medication (Patient's Own Med) 1 ea BID ORAL 01/12/20 18:00 02/11/20 17:59 01/14/20 09:39 Patient Own Medication (Patient's Own Med) 1 ea DAILY ORAL 01/12/20 14:00 02/11/20 13:59 01/14/20 09:39 Polyethylene Glycol (Miralax) 17 gm HSPRN PRN ORAL Constipation 01/08/20 18:30 02/07/20 18:29 Sodium Chloride 1,000 ml @ 75 mls/hr [id number] IV 01/09/20 16:30 02/08/20 16:29 01/13/20 13:50 Temazepam (Restoril) 30 mg HSPRN PRN ORAL Insomnia 01/09/20 16:45 01/16/20 16:44 01/13/20 19:59 Assessment/Plan Problems: (1) Acute kidney injury (2) Vancomycin-induced nephrotoxicity (3) HIV disease Assessment/Plan creatinine is down to 4.3 no new complains slightly improved renal function IV fluids avoid nephrotoxic agents check electrolytes daily Anat Bryan MD Jan 14, 2020 12:01
--- NOTE | 2020-01-14 13:36 | Infectious Diseases Prog Note ---
Assessment/Plan Assessment: Afebrile Leukocytosis (on steroids) -CXR: no acute process Severe acute renal failure- from Vancomycin toxicity (random vanco>50); now slowly coming down -Renal US: No hydronephrosis or stone. Recent R knee septic arthritis- post-op infection- healing well -12/24 SP Right knee arthrotomy.Right knee incision and drainage, 12 liters of bacitracin irrigation. --OR findings: The synovium was then incised. Gross pus was visible, was sent off for appropriate analysis. At this point, once arthrotomy was complete, 12 liters of bacitracin irrigation was then used to irrigate the knee. --fluid wbc 88,375 (N 99%) --OR cx CONS, MRSA (S Vanco OLE[place] 1, bactrim, tetracycline) -synovial fluid: wbc 62.8k (N99%), RBC 5.5k; cx stain no organisms, many wbc; cx CONS -ESR 62, CRP 28.1 -meniscal repair of R knee 12/11/19 HIV/AIDS on ARV -12/2019 CD4 102, VL <20 -dx 2003. has undergo multiple regimens. Has developed resistant to Truvada component. On Tivicay and Prescobix for 1 yr now. Latest CD4 100s; previously 40s. Allergic reaction in face to soap; improving HTN asthma Plan: -Cont Daptomycin #5 (day abx #) -monitor CPK --upon discharge will transition to PO ZYvox 600mg bid -01/07 SP IV Vancomyin x1, Unasyn x1 -f/u cx -Monitor CBC/CMP, temperatures -Continue ARV: Tivicay and Prezcobix ([facility] will send over supply) -Atovaquone for PCP ppx Thank you for consulting [facility]. Will continue to follow along with you. Discussed with RN and Dr Hoover. Subjective Allergies: Coded Allergies: LISINOPRIL (Verified Allergy, Severe, FACE SWELLING, 12/11/19) aFebrile cr improving slowly mild leukocytosis= on steroids Objective Last 24 Hour Vital Signs Date Time Temp Pulse Resp B/P (MAP) Pulse Ox O2 Delivery O2 Flow Rate FiO2 01/14/20 12:00 99.0 81 16 145/80 (101) 97 01/14/20 09:39 78 133/80 01/14/20 08:00 97.9 78 18 133/80 (97) 97 01/14/20 04:00 98.0 83 18 139/86 (103) 97 01/13/20 21:00 Room Air 01/13/20 20:00 97.6 82 17 138/82 (100) 97 01/13/20 16:00 98.5 77 18 128/68 (88) 97 Height (Feet): 5 Height (Inches): 9.00 Weight (Pounds): 193 General Appearance: normal inspection, well appearing, no apparent distress, alert, GCS 15 Head: atraumatic ENT: normal ENT inspection, hearing grossly normal, normal voice Neck: normal inspection, full range of motion, supple, no bony tend Respiratory: normal inspection, lungs clear, normal breath sounds, no respiratory distress, no retraction, no wheezing Cardiovascular #1: regular rate, rhythm, no edema Gastrointestinal: normal inspection, normal bowel sounds, non tender, soft, no guarding, no hernia Genitourinary: no CVA tenderness Musculoskeletal: normal inspection, back normal, swelling - Swelling to the right lower extremity knee no warmth or erythema healing wound, other Laboratory Tests Test 01/14/20 05:10 White Blood Count 16.5 K/UL (4.8-10.8) #H Red Blood Count 3.87 M/UL (4.70-6.10) L Hemoglobin 10.2 G/DL (14.2-18.0) L Hematocrit 31.9 % (42.0-52.0) L Mean Corpuscular Volume 83 FL (80-99) Mean Corpuscular Hemoglobin 26.5 PG (27.0-31.0) L Mean Corpuscular Hemoglobin Concent 32.1 G/DL (32.0-36.0) Red Cell Distribution Width 13.3 % (11.6-14.8) Platelet Count 445 K/UL (150-450) Mean Platelet Volume 5.8 FL (6.5-10.1) L Neutrophils (%) (Auto) % (45.0-75.0) Lymphocytes (%) (Auto) % (20.0-45.0) Monocytes (%) (Auto) % (1.0-10.0) Eosinophils (%) (Auto) % (0.0-3.0) Basophils (%) (Auto) % (0.0-2.0) Differential Total Cells Counted 100 Neutrophils % (Manual) 92 % (45-75) H Lymphocytes % (Manual) 6 % (20-45) L Monocytes % (Manual) 2 % (1-10) Eosinophils % (Manual) 0 % (0-3) Basophils % (Manual) 0 % (0-2) Band Neutrophils 0 % (0-8) Platelet Estimate Adequate Platelet Morphology Normal Hypochromasia 1+ Sodium Level 137 MMOL/L (136-145) Potassium Level 4.6 MMOL/L (3.5-5.1) Chloride Level 103 MMOL/L (98-107) Carbon Dioxide Level 22 MMOL/L (21-32) Anion Gap 12 mmol/L (5-15) Blood Urea Nitrogen 44 mg/dL (7-18) H Creatinine 4.3 MG/DL (0.55-1.30) H Estimat Glomerular Filtration Rate 18.1 mL/min (>60) Glucose Level 123 MG/DL (74-106) H Calcium Level 8.9 MG/DL (8.5-10.1) Phosphorus Level 3.2 MG/DL (2.5-4.9) Magnesium Level 1.9 MG/DL (1.8-2.4) Total Bilirubin 0.2 MG/DL (0.2-1.0) Aspartate Amino Transf (AST/SGOT) 70 U/L (15-37) H Alanine Aminotransferase (ALT/SGPT) 125 U/L (12-78) H Alkaline Phosphatase 127 U/L (46-116) H Total Creatine Kinase 49 U/L (26-308) Total Protein 7.4 G/DL (6.4-8.2) Albumin 2.4 G/DL (3.4-5.0) L Globulin 5.0 g/dL Albumin/Globulin Ratio 0.5 (1.0-2.7) L Random Vancomycin Level 10.8 ug/mL Current Medications Medications (Trade) Dose Ordered Sig/Griselda Route PRN Reason Start Time Stop Time Status Last Admin Dose Admin Acetaminophen (Tylenol) 650 mg Q4H PRN ORAL fever 01/08/20 18:30 02/07/20 18:29 01/12/20 03:42 Acetaminophen/ Hydrocodone Bitart ([place] [address]) 1 tab Q6H PRN ORAL Severe Pain (Pain Scale 7-10) 01/12/20 16:00 01/19/20 15:59 01/12/20 18:41 Amlodipine Besylate (Norvasc) 2.5 mg DAILY ORAL 01/09/20 09:00 02/08/20 08:59 01/14/20 09:39 Atovaquone (Mepron Susp) 1,500 mg DAILY ORAL 01/10/20 09:00 04/09/20 08:59 01/14/20 09:35 Chlorhexidine Gluconate (Crystal-Hex 2%) 1 applic DAILY@2000 TOPIC 01/08/20 20:00 04/07/20 19:59 01/09/20 20:03 Clonidine HCl (Catapres Tab) 0.1 mg Q4H PRN ORAL For High Blood Pressure 01/08/20 18:30 04/07/20 18:29 Daptomycin 500 mg/ Sodium Chloride 55 ml @ 100 mls/hr EVERY OTHER DAY IV 01/10/20 09:00 01/17/20 08:59 01/14/20 09:35 Dextrose (Dextrose 50%) 25 ml Q30M PRN IV Hypoglycemia 01/08/20 18:30 04/07/20 18:29 Dextrose (Dextrose 50%) 50 ml Q30M PRN IV Hypoglycemia 01/08/20 18:30 04/07/20 18:29 Diphenhydramine HCl (Benadryl) 25 mg Q4H PRN ORAL Itching 01/12/20 10:15 02/11/20 10:14 01/14/20 12:32 Gabapentin (Neurontin) 400 mg BEDTIME ORAL 01/08/20 21:00 02/07/20 20:59 01/12/20 20:15 Heparin Sodium (Porcine) (Heparin 5000 units/ml) 5,000 units EVERY 12 HOURS SUBQ 01/08/20 21:00 02/22/20 20:59 01/14/20 09:31 Hydrocortisone (Hydrocortisone) 1 applic BIDPRN PRN TOPIC Itching 01/11/20 09:30 04/10/20 09:29 Ondansetron HCl (Zofran) 4 mg Q6H PRN IVP Nausea & Vomiting 01/08/20 18:30 02/07/20 18:29 Patient Own Medication (Patient's Own Med) 1 ea BID ORAL 01/12/20 18:00 02/11/20 17:59 01/14/20 09:39 Patient Own Medication (Patient's Own Med) 1 ea DAILY ORAL 01/12/20 14:00 02/11/20 13:59 01/14/20 09:39 Polyethylene Glycol (Miralax) 17 gm HSPRN PRN ORAL Constipation 01/08/20 18:30 02/07/20 18:29 Sodium Chloride 1,000 ml @ 75 mls/hr [id number] IV 01/09/20 16:30 02/08/20 16:29 01/13/20 13:50 Temazepam (Restoril) 30 mg HSPRN PRN ORAL Insomnia 01/09/20 16:45 01/16/20 16:44 01/13/20 19:59 Parvin Gifford M.D. Jan 14, 2020 13:35
--- NOTE | 2020-01-14 13:53 | NUR ---
CASE MANAGEMENT:REVIEW SI;SEPTIC ARTHRITIS. AC KIDNEY INJURY 2RY TO VANCO TOXICITY. 99.0 83 18 145/80 97% ON RA WBC 16.5 H/H 10.2/31.9 BUN 44 CR 4.3 AST 70 ALT 125 ALP 127 ALB 2.4 IS;BENADRYL PO ATOVAQUONE PO DAPTOMYCIN IV QOD IVF NS @ 75 ML/HR HEPARIN SUBQ Q12 MED SURG STATUS DCP;FROM HOME
[2020-01-14 15:43] VITALS: BP 142/75
--- NOTE | 2020-01-14 15:49 | Internal Med Progress Note ---
Subjective Physician Name Keith Sandhu Attending Physician Keith Sandhu MD Current Medications Medications (Trade) Dose Ordered Sig/Griselda Route PRN Reason Start Time Stop Time Status Last Admin Dose Admin Acetaminophen (Tylenol) 650 mg Q4H PRN ORAL fever 01/08/20 18:30 02/07/20 18:29 01/12/20 03:42 Acetaminophen/ Hydrocodone Bitart ([place] 10/325) 1 tab Q6H PRN ORAL Severe Pain (Pain Scale 7-10) 01/12/20 16:00 01/19/20 15:59 01/12/20 18:41 Amlodipine Besylate (Norvasc) 2.5 mg DAILY ORAL 01/09/20 09:00 02/08/20 08:59 01/14/20 09:39 Atovaquone (Mepron Susp) 1,500 mg DAILY ORAL 01/10/20 09:00 04/09/20 08:59 01/14/20 09:35 Clonidine HCl (Catapres Tab) 0.1 mg Q4H PRN ORAL For High Blood Pressure 01/08/20 18:30 04/07/20 18:29 Daptomycin 500 mg/ Sodium Chloride 55 ml @ 100 mls/hr EVERY OTHER DAY IV 01/10/20 09:00 01/21/20 23:59 01/14/20 09:35 Dextrose (Dextrose 50%) 25 ml Q30M PRN IV Hypoglycemia 01/08/20 18:30 04/07/20 18:29 Dextrose (Dextrose 50%) 50 ml Q30M PRN IV Hypoglycemia 01/08/20 18:30 04/07/20 18:29 Diphenhydramine HCl (Benadryl) 25 mg Q4H PRN ORAL Itching 01/12/20 10:15 02/11/20 10:14 01/14/20 12:32 Gabapentin (Neurontin) 400 mg BEDTIME ORAL 01/08/20 21:00 02/07/20 20:59 01/12/20 20:15 Heparin Sodium (Porcine) (Heparin 5000 units/ml) 5,000 units EVERY 12 HOURS SUBQ 01/08/20 21:00 02/22/20 20:59 01/14/20 09:31 Hydrocortisone (Hydrocortisone) 1 applic BIDPRN PRN TOPIC Itching 01/11/20 09:30 04/10/20 09:29 Ondansetron HCl (Zofran) 4 mg Q6H PRN IVP Nausea & Vomiting 01/08/20 18:30 02/07/20 18:29 Patient Own Medication (Patient's Own Med) 1 ea BID ORAL 01/12/20 18:00 02/11/20 17:59 01/14/20 09:39 Patient Own Medication (Patient's Own Med) 1 ea DAILY ORAL 01/12/20 14:00 02/11/20 13:59 01/14/20 09:39 Polyethylene Glycol (Miralax) 17 gm HSPRN PRN ORAL Constipation 01/08/20 18:30 02/07/20 18:29 Sodium Chloride 1,000 ml @ 75 mls/hr [id number] IV 01/09/20 16:30 02/08/20 16:29 01/14/20 15:40 Temazepam (Restoril) 30 mg HSPRN PRN ORAL Insomnia 01/09/20 16:45 01/16/20 16:44 01/13/20 19:59 Allergies: Coded Allergies: LISINOPRIL (Verified Allergy, Severe, FACE SWELLING, 12/11/19) Subjective awake, alert, responsive, NAD, WBC: 16.5 Objective Last Vital Signs Date Time Temp Pulse Resp B/P (MAP) Pulse Ox O2 Delivery O2 Flow Rate FiO2 01/14/20 15:43 97.4 77 16 142/75 (97) 95 01/13/20 21:00 Room Air Laboratory Tests Test 01/14/20 05:10 White Blood Count 16.5 K/UL (4.8-10.8) #H Red Blood Count 3.87 M/UL (4.70-6.10) L Hemoglobin 10.2 G/DL (14.2-18.0) L Hematocrit 31.9 % (42.0-52.0) L Mean Corpuscular Volume 83 FL (80-99) Mean Corpuscular Hemoglobin 26.5 PG (27.0-31.0) L Mean Corpuscular Hemoglobin Concent 32.1 G/DL (32.0-36.0) Red Cell Distribution Width 13.3 % (11.6-14.8) Platelet Count 445 K/UL (150-450) Mean Platelet Volume 5.8 FL (6.5-10.1) L Neutrophils (%) (Auto) % (45.0-75.0) Lymphocytes (%) (Auto) % (20.0-45.0) Monocytes (%) (Auto) % (1.0-10.0) Eosinophils (%) (Auto) % (0.0-3.0) Basophils (%) (Auto) % (0.0-2.0) Differential Total Cells Counted 100 Neutrophils % (Manual) 92 % (45-75) H Lymphocytes % (Manual) 6 % (20-45) L Monocytes % (Manual) 2 % (1-10) Eosinophils % (Manual) 0 % (0-3) Basophils % (Manual) 0 % (0-2) Band Neutrophils 0 % (0-8) Platelet Estimate Adequate Platelet Morphology Normal Hypochromasia 1+ Sodium Level 137 MMOL/L (136-145) Potassium Level 4.6 MMOL/L (3.5-5.1) Chloride Level 103 MMOL/L (98-107) Carbon Dioxide Level 22 MMOL/L (21-32) Anion Gap 12 mmol/L (5-15) Blood Urea Nitrogen 44 mg/dL (7-18) H Creatinine 4.3 MG/DL (0.55-1.30) H Estimat Glomerular Filtration Rate 18.1 mL/min (>60) Glucose Level 123 MG/DL (74-106) H Calcium Level 8.9 MG/DL (8.5-10.1) Phosphorus Level 3.2 MG/DL (2.5-4.9) Magnesium Level 1.9 MG/DL (1.8-2.4) Total Bilirubin 0.2 MG/DL (0.2-1.0) Aspartate Amino Transf (AST/SGOT) 70 U/L (15-37) H Alanine Aminotransferase (ALT/SGPT) 125 U/L (12-78) H Alkaline Phosphatase 127 U/L (46-116) H Total Creatine Kinase 49 U/L (26-308) Total Protein 7.4 G/DL (6.4-8.2) Albumin 2.4 G/DL (3.4-5.0) L Globulin 5.0 g/dL Albumin/Globulin Ratio 0.5 (1.0-2.7) L Random Vancomycin Level 10.8 ug/mL Intake and Output 01/13/20 01/14/20 19:00 07:00 Intake Total 1200 ml 240 ml Output Total 1000 ml Balance 200 ml 240 ml Intake Oral 1200 ml 240 ml Output Urine Total 1000 ml # Voids 3 4 Objective General: No acute distress, awake and alert HEENT: NCAT, sclera anicteric, PERRL, EOMI. Neck: Supple, no significant jugular venous distention, Lungs: Good inspiratory effort, no accessory muscle use, clear to auscultation bilaterally, no Wheeze or Rales. Heart: Regular rate and rhythm, normal S1/S2, no murmurs/gallops Abdomen: soft, nontender, nondistended. Normoactive bowel sounds. / Rectal: Refused and deferred. Extremities: No Cyanosis , clubbing or edema. Right knee dressing intact. Neuro: A&O x 3, Able to move all extremities Skin: warm, no rashes or lesions Psych: Normal mood and affect Assessment/Plan Assessment/Plan ASSESSMENT: This is a 49-year-old male with: 1. Septic arthritis of right knee. 2. Acute renal failure due to vanco toxicity (>50) 3. HIV. 4. Hypertension. 5. Hypercholesterolemia. 6. Asthma. 7. Facial swelling?reaction to meds vs contact dermatitis? 8. Vancomycin induced nephrotoxicity. TREATMENT: 1. Septic arthritis of right knee. Infectious Disease = Dr. Gifford. The patient was on vancomycin at home. The patient has acute renal failure. Vancomycin has been discontinued. ABX day 21=Daptomycin per Infectious Disease (discharge home on oral zyvox when renal function normal) 2. Acute renal failure. Continue IV fluids. Nephrology = Dr. Alegre. Follow recommendations of Nephrology. 3. HIV. Continue Prezcobix and Tivicay as above. 4. Hypertension. Continue amlodipine as above. 5. Hypercholesterolemia. Continue atorvastatin as above. 6. Asthma. Continue albuterol metered-dose inhaler as above. Code status: Full code DVT Prophylaxis: Heparin SQ PT Mobility OOB to chair Monitor Labs Keith Sandhu MD Jan 14, 2020 15:49
--- NOTE | 2020-01-14 15:50 | NUR ---
NURSE NOTES: Right knee optifoam removed, skin intact, scabbed area (possible leftover dermabond? per Dr. Taylor), applied 4x4 gauze and covered with ADRI hose, as ordered.
--- NOTE | 2020-01-14 16:22 | NUR ---
INSURANCE CLINICALS/REVIEW FAXED TO [facility] [phone] PH [phone]
--- NOTE | 2020-01-14 19:21 | NUR ---
NURSE HAND-OFF: Important Events on Shift:Right knee dressing changed Patient Status: stable Diet: Renal Pending Orders: LABS in AM Pending Results/Labs: Labs in AM (see Dr. Alegre order) Pending MD notification:none Latest Vital Signs: Temperature 97.4 , Pulse 77 , B/P 142 /75 , Respiratory Rate 16 , O2 SAT 95 , Room Air, O2 Flow Rate . Vital Sign Comment: none Latest Kemp Fall Score: 85 Fall Risk: High Risk Safety Measures: Call light Within Reach, Bed Alarm Zone 1, Side Rails Side Rails x2, Bed position Low and Locked. Fall Precautions: Yellow Socks Yellow Gown Door Sign Patient Fall Education Report given to Fredrick VIZCAINO.
--- NOTE | 2020-01-14 19:30 | NUR ---
NURSE NOTES: Received report from CARRILLO Catherine. Patient seen in bed asleep and in no apparent distress. Rounds done./
[2020-01-14 20:00] VITALS: BP 128/82
--- NOTE | 2020-01-14 21:30 | NUR ---
NURSE NOTES: Patient requested pain medication and sleeping medication. When given. patient refused the pain medication and was somewhat upset. Deescalating measures attempted. Patient refuses care afterwards.
[2020-01-14] MEDS: HYDROcodone/Acetamin 10/325 tab ORAL PRN (21:39)
[2020-01-15] VITALS: BP 145/83
--- NOTE | 2020-01-15 00:27 | CDS Physician Query ---
Clarification is required for compliance, coding accuracy, and to reflect severity of illness for this patient Dear Dr. Ward Hoover MD. Date: 01/14/20 CDI/ CDS Name:Ralph Limon Clinical Documentation States: 49-year-old male underwent a right knee meniscectomy on December 11, 2019. [ Sarah Solis M.D. 12/01] ASSESSMENT: Septic arthritis of right knee. 2. Acute renal failure. 3. HIV. 4. Hypertension. 5. Hypercholesterolemia. 6. Asthma. NUTRITION DIAGNOSIS: Altered nutrition related lab values R/T ARF, altered lipid metabolism as evidenced by elev creat (5.0->5.5-> 4.8 trend down), elev triglyceride (156), elev cholesterol (222), elev LDL (139) Clinical Finding Show: BMI: 23.4kg/m2 LAB (01/07) : Chem: Albumin 2.3 [3.4-5.0], Calcium lv. 9.1 Please select the most appropriate option: [] Protein/Calorie Malnutrition [] Mild [] Moderate [] Severe [] Hypoalbuminemia [] Cachexia [] Underweight [] Intestinal malabsorption [] Other [X] Unable to determine [] Not Applicable Present on Admission: [X] Yes [] No [] Clinically Undetermined Physician signature Date Please also document in your Progress Notes and/or Discharge Summary and indicate if the condition was present on admission. MTDD
[2020-01-15 04:00] VITALS: BP 136/83
[2020-01-15] MEDS: HYDROcodone/Acetamin 10/325 tab ORAL PRN ×2 (04:02→13:20)
--- NOTE | 2020-01-15 06:32 | NUR ---
NURSE HAND-OFF: Important Events on Shift: Patient was able to ambulate around the unit multiple times in the morning. Has good appetite and is drinking a lot of fluids. Patient requested PO [place] x1 throughout the shift. Patient Status: stable Diet: regular Pending Orders: [] Pending Results/Labs:[] Pending MD notification:[] Latest Vital Signs: Temperature 97.4 , Pulse 72 , B/P 136 /83 , Respiratory Rate 18 , O2 SAT 97 , Room Air, O2 Flow Rate . Vital Sign Comment: [] Latest Kemp Fall Score: 85 Fall Risk: High Risk Safety Measures: Call light Within Reach, Bed Alarm Zone 1, Side Rails Side Rails x2, Bed position Low and Locked. Fall Precautions: Yellow Socks Yellow Gown Door Sign Patient Fall Education Report given to Leonidas VIZCAINO
--- NOTE | 2020-01-15 07:15 | NUR ---
NURSE NOTES: Handoff received from Fredrick VIZCAINO. Patient is awake and alert, eating breakfast, no reports of pain or discomfort. Patient updated on plan of care. Bed is low and locked, side rails up x2, call light is within reach.
[2020-01-15 08:00] VITALS: BP 123/81
[2020-01-15] MEDS: Atovaquone 750mg/5ml Susp ORAL SCH (08:35)
[2020-01-15] MEDS: Heparin 5000 units/ml inj SUBQ SCH ×2 (08:37→20:10)
[2020-01-15] MEDS: PREZCOBIX ORAL SCH (08:40)
--- NOTE | 2020-01-15 08:52 | NUR ---
NURSE NOTES: Spoke with Radha in the lab regarding patient's blood draw. Cyndi was not able to draw labs this AM because the patient is a hard stick. Per Radha the lab will try again later.
[2020-01-15 09:21] LABS: HEMATOCRIT 30.7 % (42.0-52.0); HEMOGLOBIN 9.9 G/DL (14.2-18.0); MEAN CORPUSCULAR VOLUME 83 FL (80-99); PLATELET COUNT 376 K/UL (150-450); RED CELL DISTRIBUTION WIDTH 13.3 % (11.6-14.8); WHITE BLOOD COUNT 16.3 K/UL (4.8-10.8)
--- NOTE | 2020-01-15 09:41 | Nephrology Progress Note ---
Assessment/Plan Problem List: (1) Acute kidney injury (2) Vancomycin-induced nephrotoxicity (3) HIV disease Assessment Acute renal failure Vancomycin level over 50 Kidney ultrasound, unremarkable Plan January 14: Today's labs still pending. Continue per current management. January 13: Serum creatinine declining gradually. Vancomycin level lowering. Today the patient has leukocytosis. Continue per ID management. Avoid nephro toxic's as possible. January 12: Serum creatinine continues to decline. Continue as is January 11: Vancomycin level and creatinine level declining. Continue to observe and monitor. Discussed with RN. January 10: Vancomycin level down to 26. Serum creatinine down to 5.2. Otherwise stable. Continue to monitor renal parameters. January 09: As follow: Today's labs still pending Remains off Vanco Hydrate in process Monitor renal parameters Monitor Vanco levels Per orders Subjective ROS Limited/Unobtainable: No Objective Objective Last 24 Hour Vital Signs Date Time Temp Pulse Resp B/P (MAP) Pulse Ox O2 Delivery O2 Flow Rate FiO2 01/15/20 08:36 72 123/81 01/15/20 04:32 97.4 01/15/20 04:00 98.1 72 18 136/83 (100) 97 01/15/20 00:00 97.4 63 18 145/83 (103) 97 01/14/20 21:00 Room Air 01/14/20 20:00 98.0 78 20 128/82 (97) 96 01/14/20 15:43 97.4 77 16 142/75 (97) 95 01/14/20 12:00 99.0 81 16 145/80 (101) 97 Intake and Output 01/14/20 01/15/20 19:00 07:00 Intake Total 1875 ml 1200 ml Output Total 1850 ml 1600 ml Balance 25 ml -400 ml Intake Oral 1200 ml 1200 ml IV Total 675 ml Output Urine Total 1850 ml 1600 ml # Voids 5 7 Laboratory Tests 01/15/20 09:15: White Blood Count 16.3H, Red Blood Count 3.70L, Hemoglobin 9.9L, Hematocrit 30.7L, Mean Corpuscular Volume 83, Mean Corpuscular Hemoglobin 26.8L, Mean Corpuscular Hemoglobin Concent 32.3, Red Cell Distribution Width 13.3, Platelet Count 376, Mean Platelet Volume 5.5L, Neutrophils (%) (Auto) , Lymphocytes (%) (Auto) , Monocytes (%) (Auto) , Eosinophils (%) (Auto) , Basophils (%) (Auto) , Differential Total Cells Counted 100, Neutrophils % (Manual) 89H, Lymphocytes % (Manual) 4L, Monocytes % (Manual) 6, Eosinophils % (Manual) 1, Basophils % (Manual) 0, Band Neutrophils 0, Platelet Estimate Adequate, Platelet Morphology Normal, Hypochromasia 1+, Sodium Level [Pending], Potassium Level [Pending], Chloride Level [Pending], Carbon Dioxide Level [Pending], Blood Urea Nitrogen [Pending], Creatinine [Pending], Estimat Glomerular Filtration Rate [Pending], Glucose Level [Pending], Uric Acid [Pending], Calcium Level [Pending], Phosphorus Level [Pending], Magnesium Level [Pending], Total Bilirubin [Pending], Gamma Glutamyl Transpeptidase [Pending], Aspartate Amino Transf (AST/SGOT) [Pending], Alanine Aminotransferase (ALT/SGPT) [Pending], Alkaline Phosphatase [Pending], Total Creatine Kinase [Pending], C-Reactive Protein, Quantitative [Pending], Total Protein [Pending], Albumin [Pending], Globulin [Pending], Random Vancomycin Level [Pending] Height (Feet): 5 Height (Inches): 9.00 Weight (Pounds): 193 General Appearance: no apparent distress Objective No change Andrea Alegre MD Jan 15, 2020 09:41
[2020-01-15 09:47] LABS: ALANINE AMINOTRANSFERASE 119 U/L (12-78); ALBUMIN 2.2 G/DL (3.4-5.0); ALBUMIN/GLOBULIN RATIO 0.5 (1.0-2.7); ALKALINE PHOSPHATASE 110 U/L (46-116); ANION GAP 10 mmol/L (5-15); ASPARTATE AMINO TRANSFERASE 47 U/L (15-37); BILIRUBIN,TOTAL 0.2 MG/DL (0.2-1.0); BLOOD UREA NITROGEN 49 mg/dL (7-18); CALCIUM 8.6 MG/DL (8.5-10.1); CARBON DIOXIDE 22 MMOL/L (21-32); CHLORIDE 104 MMOL/L (98-107); CREATINE KINASE 42 U/L (26-308); GAMMA GLUTAMYL TRANSPEPTIDASE 183 U/L (5-85); PHOSPHORUS 3.3 MG/DL (2.5-4.9); POTASSIUM 4.6 MMOL/L (3.5-5.1); SODIUM 136 MMOL/L (136-145)
--- NOTE | 2020-01-15 10:48 | Infectious Diseases Prog Note ---
Assessment/Plan Assessment: Afebrile Leukocytosis (on steroids) -CXR: no acute process Severe acute renal failure- from Vancomycin toxicity (random vanco>50); now slowly coming down -Renal US: No hydronephrosis or stone. Recent R knee septic arthritis- post-op infection- healing well -12/24 SP Right knee arthrotomy.Right knee incision and drainage, 12 liters of bacitracin irrigation. --OR findings: The synovium was then incised. Gross pus was visible, was sent off for appropriate analysis. At this point, once arthrotomy was complete, 12 liters of bacitracin irrigation was then used to irrigate the knee. --fluid wbc 88,375 (N 99%) --OR cx CONS, MRSA (S Vanco OLENA 1, bactrim, tetracycline) -synovial fluid: wbc 62.8k (N99%), RBC 5.5k; cx stain no organisms, many wbc; cx CONS -ESR 62, CRP 28.1 -meniscal repair of R knee 12/11/19 HIV/AIDS on ARV -12/2019 CD4 102, VL <20 -dx 2003. has undergo multiple regimens. Has developed resistant to Truvada component. On Tivicay and Prescobix for 1 yr now. Latest CD4 100s; previously 40s. Allergic reaction in face to soap; improving HTN asthma Plan: -Cont Daptomycin #6 (day abx #) -monitor CPK --upon discharge will transition to PO ZYvox 600mg bid -01/07 SP IV Vancomyin x1, Unasyn x1 -f/u cx -Monitor CBC/CMP, temperatures -Continue ARV: Tivicay and Prezcobix ([facility] will send over supply) -Atovaquone for PCP ppx Thank you for consulting [facility]. Will continue to follow along with you. Discussed with RN . Subjective Allergies: Coded Allergies: LISINOPRIL (Verified Allergy, Severe, FACE SWELLING, 12/11/19) aFebrile cr improving slowly feeling better Objective Last 24 Hour Vital Signs Date Time Temp Pulse Resp B/P (MAP) Pulse Ox O2 Delivery O2 Flow Rate FiO2 01/15/20 09:00 Room Air 01/15/20 08:36 72 123/81 01/15/20 08:00 97.6 72 17 123/81 (95) 97 01/15/20 04:32 97.4 01/15/20 04:00 98.1 72 18 136/83 (100) 97 01/15/20 00:00 97.4 63 18 145/83 (103) 97 01/14/20 21:00 Room Air 01/14/20 20:00 98.0 78 20 128/82 (97) 96 01/14/20 15:43 97.4 77 16 142/75 (97) 95 01/14/20 12:00 99.0 81 16 145/80 (101) 97 Height (Feet): 5 Height (Inches): 9.00 Weight (Pounds): 193 General Appearance: normal inspection, well appearing, no apparent distress, alert, GCS 15 Head: atraumatic ENT: normal ENT inspection, hearing grossly normal, normal voice Neck: normal inspection, full range of motion, supple, no bony tend Respiratory: normal inspection, lungs clear, normal breath sounds, no respiratory distress, no retraction, no wheezing Cardiovascular #1: regular rate, rhythm, no edema Gastrointestinal: normal inspection, normal bowel sounds, non tender, soft, no guarding, no hernia Genitourinary: no CVA tenderness Musculoskeletal: normal inspection, back normal, swelling - Swelling to the right lower extremity knee no warmth or erythema healing wound, other Laboratory Tests Test 01/15/20 09:15 White Blood Count 16.3 K/UL (4.8-10.8) H Red Blood Count 3.70 M/UL (4.70-6.10) L Hemoglobin 9.9 G/DL (14.2-18.0) L Hematocrit 30.7 % (42.0-52.0) L Mean Corpuscular Volume 83 FL (80-99) Mean Corpuscular Hemoglobin 26.8 PG (27.0-31.0) L Mean Corpuscular Hemoglobin Concent 32.3 G/DL (32.0-36.0) Red Cell Distribution Width 13.3 % (11.6-14.8) Platelet Count 376 K/UL (150-450) Mean Platelet Volume 5.5 FL (6.5-10.1) L Neutrophils (%) (Auto) % (45.0-75.0) Lymphocytes (%) (Auto) % (20.0-45.0) Monocytes (%) (Auto) % (1.0-10.0) Eosinophils (%) (Auto) % (0.0-3.0) Basophils (%) (Auto) % (0.0-2.0) Differential Total Cells Counted 100 Neutrophils % (Manual) 89 % (45-75) H Lymphocytes % (Manual) 4 % (20-45) L Monocytes % (Manual) 6 % (1-10) Eosinophils % (Manual) 1 % (0-3) Basophils % (Manual) 0 % (0-2) Band Neutrophils 0 % (0-8) Platelet Estimate Adequate Platelet Morphology Normal Hypochromasia 1+ Sodium Level 136 MMOL/L (136-145) Potassium Level 4.6 MMOL/L (3.5-5.1) Chloride Level 104 MMOL/L (98-107) Carbon Dioxide Level 22 MMOL/L (21-32) Anion Gap 10 mmol/L (5-15) Blood Urea Nitrogen 49 mg/dL (7-18) H Creatinine 4.0 MG/DL (0.55-1.30) H Estimat Glomerular Filtration Rate 19.6 mL/min (>60) Glucose Level 118 MG/DL (74-106) H Uric Acid 5.9 MG/DL (2.6-7.2) Calcium Level 8.6 MG/DL (8.5-10.1) Phosphorus Level 3.3 MG/DL (2.5-4.9) Magnesium Level 1.9 MG/DL (1.8-2.4) Total Bilirubin 0.2 MG/DL (0.2-1.0) Gamma Glutamyl Transpeptidase 183 U/L (5-85) H Aspartate Amino Transf (AST/SGOT) 47 U/L (15-37) H Alanine Aminotransferase (ALT/SGPT) 119 U/L (12-78) H Alkaline Phosphatase 110 U/L (46-116) Total Creatine Kinase 42 U/L (26-308) C-Reactive Protein, Quantitative 3.1 mg/dL (0.00-0.90) H Total Protein 6.9 G/DL (6.4-8.2) Albumin 2.2 G/DL (3.4-5.0) L Globulin 4.7 g/dL Albumin/Globulin Ratio 0.5 (1.0-2.7) L Random Vancomycin Level 6.6 ug/mL Current Medications Medications (Trade) Dose Ordered Sig/Griselda Route PRN Reason Start Time Stop Time Status Last Admin Dose Admin Acetaminophen (Tylenol) 650 mg Q4H PRN ORAL fever 01/08/20 18:30 02/07/20 18:29 01/12/20 03:42 Acetaminophen/ Hydrocodone Bitart ([place] 10/325) 1 tab Q6H PRN ORAL Severe Pain (Pain Scale 7-10) 01/12/20 16:00 01/19/20 15:59 01/15/20 04:02 Amlodipine Besylate (Norvasc) 2.5 mg DAILY ORAL 01/09/20 09:00 02/08/20 08:59 01/15/20 08:36 Atovaquone (Mepron Susp) 1,500 mg DAILY ORAL 01/10/20 09:00 04/09/20 08:59 01/15/20 08:35 Clonidine HCl (Catapres Tab) 0.1 mg Q4H PRN ORAL For High Blood Pressure 01/08/20 18:30 04/07/20 18:29 Daptomycin 500 mg/ Sodium Chloride 55 ml @ 100 mls/hr EVERY OTHER DAY IV 01/10/20 09:00 01/21/20 23:59 01/14/20 09:35 Dextrose (Dextrose 50%) 25 ml Q30M PRN IV Hypoglycemia 01/08/20 18:30 04/07/20 18:29 Dextrose (Dextrose 50%) 50 ml Q30M PRN IV Hypoglycemia 01/08/20 18:30 04/07/20 18:29 Diphenhydramine HCl (Benadryl) 25 mg Q4H PRN ORAL Itching 01/12/20 10:15 02/11/20 10:14 01/15/20 08:49 Gabapentin (Neurontin) 400 mg BEDTIME ORAL 01/08/20 21:00 02/07/20 20:59 01/14/20 21:39 Heparin Sodium (Porcine) (Heparin 5000 units/ml) 5,000 units EVERY 12 HOURS SUBQ 01/08/20 21:00 02/22/20 20:59 01/15/20 08:37 Hydrocortisone (Hydrocortisone) 1 applic BIDPRN PRN TOPIC Itching 01/11/20 09:30 04/10/20 09:29 Ondansetron HCl (Zofran) 4 mg Q6H PRN IVP Nausea & Vomiting 01/08/20 18:30 02/07/20 18:29 Patient Own Medication (Patient's Own Med) 1 ea BID ORAL 01/12/20 18:00 02/11/20 17:59 01/15/20 08:40 Patient Own Medication (Patient's Own Med) 1 ea DAILY ORAL 01/12/20 14:00 02/11/20 13:59 01/15/20 08:40 Polyethylene Glycol (Miralax) 17 gm HSPRN PRN ORAL Constipation 01/08/20 18:30 02/07/20 18:29 Sodium Chloride 1,000 ml @ 75 mls/hr [id number] IV 01/09/20 16:30 02/08/20 16:29 01/15/20 05:57 Temazepam (Restoril) 30 mg HSPRN PRN ORAL Insomnia 01/09/20 16:45 01/16/20 16:44 01/14/20 21:39 Parvin Gifford M.D. Jan 15, 2020 10:48
[2020-01-15 12:00] VITALS: BP 135/87
--- NOTE | 2020-01-15 14:14 | Internal Med Progress Note ---
Subjective Physician Name Keith Sandhu Attending Physician Keith Sandhu MD Current Medications Medications (Trade) Dose Ordered Sig/Griselda Route PRN Reason Start Time Stop Time Status Last Admin Dose Admin Acetaminophen (Tylenol) 650 mg Q4H PRN ORAL fever 01/08/20 18:30 02/07/20 18:29 01/12/20 03:42 Acetaminophen/ Hydrocodone Bitart ([place] 10/325) 1 tab Q6H PRN ORAL Severe Pain (Pain Scale 7-10) 01/12/20 16:00 01/19/20 15:59 01/15/20 13:20 Amlodipine Besylate (Norvasc) 2.5 mg DAILY ORAL 01/09/20 09:00 02/08/20 08:59 01/15/20 08:36 Atovaquone (Mepron Susp) 1,500 mg DAILY ORAL 01/10/20 09:00 04/09/20 08:59 01/15/20 08:35 Clonidine HCl (Catapres Tab) 0.1 mg Q4H PRN ORAL For High Blood Pressure 01/08/20 18:30 04/07/20 18:29 Daptomycin 500 mg/ Sodium Chloride 55 ml @ 100 mls/hr EVERY OTHER DAY IV 01/10/20 09:00 01/21/20 23:59 01/14/20 09:35 Dextrose (Dextrose 50%) 25 ml Q30M PRN IV Hypoglycemia 01/08/20 18:30 04/07/20 18:29 Dextrose (Dextrose 50%) 50 ml Q30M PRN IV Hypoglycemia 01/08/20 18:30 04/07/20 18:29 Diphenhydramine HCl (Benadryl) 25 mg Q4H PRN ORAL Itching 01/12/20 10:15 02/11/20 10:14 01/15/20 08:49 Gabapentin (Neurontin) 400 mg BEDTIME ORAL 01/08/20 21:00 02/07/20 20:59 01/14/20 21:39 Heparin Sodium (Porcine) (Heparin 5000 units/ml) 5,000 units EVERY 12 HOURS SUBQ 01/08/20 21:00 02/22/20 20:59 01/15/20 08:37 Hydrocortisone (Hydrocortisone) 1 applic BIDPRN PRN TOPIC Itching 01/11/20 09:30 04/10/20 09:29 Ondansetron HCl (Zofran) 4 mg Q6H PRN IVP Nausea & Vomiting 01/08/20 18:30 02/07/20 18:29 Patient Own Medication (Patient's Own Med) 1 ea BID ORAL 01/12/20 18:00 02/11/20 17:59 01/15/20 08:40 Patient Own Medication (Patient's Own Med) 1 ea DAILY ORAL 01/12/20 14:00 02/11/20 13:59 01/15/20 08:40 Polyethylene Glycol (Miralax) 17 gm HSPRN PRN ORAL Constipation 01/08/20 18:30 02/07/20 18:29 Sodium Chloride 1,000 ml @ 75 mls/hr [id number] IV 01/09/20 16:30 02/08/20 16:29 01/15/20 05:57 Temazepam (Restoril) 30 mg HSPRN PRN ORAL Insomnia 01/09/20 16:45 01/16/20 16:44 01/14/20 21:39 Allergies: Coded Allergies: LISINOPRIL (Verified Allergy, Severe, FACE SWELLING, 12/11/19) Subjective awake, alert, responsive, NAD, ambulating in the hallway, WBC: 16.3 Objective Last Vital Signs Date Time Temp Pulse Resp B/P (MAP) Pulse Ox O2 Delivery O2 Flow Rate FiO2 01/15/20 09:00 Room Air 01/15/20 08:36 72 123/81 01/15/20 08:00 97.6 17 97 Laboratory Tests Test 01/15/20 09:15 White Blood Count 16.3 K/UL (4.8-10.8) H Red Blood Count 3.70 M/UL (4.70-6.10) L Hemoglobin 9.9 G/DL (14.2-18.0) L Hematocrit 30.7 % (42.0-52.0) L Mean Corpuscular Volume 83 FL (80-99) Mean Corpuscular Hemoglobin 26.8 PG (27.0-31.0) L Mean Corpuscular Hemoglobin Concent 32.3 G/DL (32.0-36.0) Red Cell Distribution Width 13.3 % (11.6-14.8) Platelet Count 376 K/UL (150-450) Mean Platelet Volume 5.5 FL (6.5-10.1) L Neutrophils (%) (Auto) % (45.0-75.0) Lymphocytes (%) (Auto) % (20.0-45.0) Monocytes (%) (Auto) % (1.0-10.0) Eosinophils (%) (Auto) % (0.0-3.0) Basophils (%) (Auto) % (0.0-2.0) Differential Total Cells Counted 100 Neutrophils % (Manual) 89 % (45-75) H Lymphocytes % (Manual) 4 % (20-45) L Monocytes % (Manual) 6 % (1-10) Eosinophils % (Manual) 1 % (0-3) Basophils % (Manual) 0 % (0-2) Band Neutrophils 0 % (0-8) Platelet Estimate Adequate Platelet Morphology Normal Hypochromasia 1+ Sodium Level 136 MMOL/L (136-145) Potassium Level 4.6 MMOL/L (3.5-5.1) Chloride Level 104 MMOL/L (98-107) Carbon Dioxide Level 22 MMOL/L (21-32) Anion Gap 10 mmol/L (5-15) Blood Urea Nitrogen 49 mg/dL (7-18) H Creatinine 4.0 MG/DL (0.55-1.30) H Estimat Glomerular Filtration Rate 19.6 mL/min (>60) Glucose Level 118 MG/DL (74-106) H Uric Acid 5.9 MG/DL (2.6-7.2) Calcium Level 8.6 MG/DL (8.5-10.1) Phosphorus Level 3.3 MG/DL (2.5-4.9) Magnesium Level 1.9 MG/DL (1.8-2.4) Total Bilirubin 0.2 MG/DL (0.2-1.0) Gamma Glutamyl Transpeptidase 183 U/L (5-85) H Aspartate Amino Transf (AST/SGOT) 47 U/L (15-37) H Alanine Aminotransferase (ALT/SGPT) 119 U/L (12-78) H Alkaline Phosphatase 110 U/L (46-116) Total Creatine Kinase 42 U/L (26-308) C-Reactive Protein, Quantitative 3.1 mg/dL (0.00-0.90) H Total Protein 6.9 G/DL (6.4-8.2) Albumin 2.2 G/DL (3.4-5.0) L Globulin 4.7 g/dL Albumin/Globulin Ratio 0.5 (1.0-2.7) L Random Vancomycin Level 6.6 ug/mL Intake and Output 01/14/20 01/15/20 19:00 07:00 Intake Total 1875 ml 1200 ml Output Total 1850 ml 1600 ml Balance 25 ml -400 ml Intake Oral 1200 ml 1200 ml IV Total 675 ml Output Urine Total 1850 ml 1600 ml # Voids 5 7 Objective General: No acute distress, awake and alert HEENT: NCAT, sclera anicteric, PERRL, EOMI. Neck: Supple, no significant jugular venous distention, Lungs: Good inspiratory effort, no accessory muscle use, clear to auscultation bilaterally, no Wheeze or Rales. Heart: Regular rate and rhythm, normal S1/S2, no murmurs/gallops Abdomen: soft, nontender, nondistended. Normoactive bowel sounds. / Rectal: Refused and deferred. Extremities: No Cyanosis , clubbing or edema. Right knee dressing intact. Neuro: A&O x 3, Able to move all extremities Skin: warm, no rashes or lesions Psych: Normal mood and affect Assessment/Plan Assessment/Plan ASSESSMENT: This is a 49-year-old male with: 1. Septic arthritis of right knee. 2. Acute renal failure due to vanco toxicity (>50) 3. HIV. 4. Hypertension. 5. Hypercholesterolemia. 6. Asthma. 7. Facial swelling?reaction to meds vs contact dermatitis? 8. Vancomycin induced nephrotoxicity. TREATMENT: 1. Septic arthritis of right knee. Infectious Disease = Dr. Gifford. The patient was on vancomycin at home. The patient has acute renal failure. Vancomycin has been discontinued. (ABX day /)=Daptomycin IV day # 6 per Infectious Disease (upon discharge will transition to PO ZYvox 600mg bid) 2. Acute renal failure. Continue IV fluids. Nephrology = Dr. Alegre. Follow recommendations of Nephrology. 3. HIV. Continue Prezcobix and Tivicay as above. 4. Hypertension. Continue amlodipine as above. 5. Hypercholesterolemia. Continue atorvastatin as above. 6. Asthma. Continue albuterol metered-dose inhaler as above. Code status: Full code DVT Prophylaxis: Heparin SQ PT Mobility OOB to chair Monitor Labs Keith Sandhu MD Jan 15, 2020 14:14
--- NOTE | 2020-01-15 15:06 | Pulmonology Progress Note ---
Subjective ROS Limited/Unobtainable: No Interval Events: feeling better Allergies: Coded Allergies: LISINOPRIL (Verified Allergy, Severe, FACE SWELLING, 12/11/19) Objective Last 24 Hour Vital Signs Date Time Temp Pulse Resp B/P (MAP) Pulse Ox O2 Delivery O2 Flow Rate FiO2 01/15/20 13:50 97.6 01/15/20 09:00 Room Air 01/15/20 08:36 72 123/81 01/15/20 08:00 97.6 72 17 123/81 (95) 97 01/15/20 04:32 97.4 01/15/20 04:00 98.1 72 18 136/83 (100) 97 01/15/20 00:00 97.4 63 18 145/83 (103) 97 01/14/20 21:00 Room Air 01/14/20 20:00 98.0 78 20 128/82 (97) 96 01/14/20 15:43 97.4 77 16 142/75 (97) 95 Intake and Output 01/14/20 01/15/20 19:00 07:00 Intake Total 1875 ml 1200 ml Output Total 1850 ml 1600 ml Balance 25 ml -400 ml Intake Oral 1200 ml 1200 ml IV Total 675 ml Output Urine Total 1850 ml 1600 ml # Voids 5 7 General Appearance: WD/WN HEENT: normocephalic, atraumatic Respiratory: chest wall non-tender, normal breath sounds Cardiovascular: normal peripheral pulses, normal rate, regular rhythm Abdomen: normal bowel sounds, soft, non tender, no organomegaly, hyperactive bowel sounds Genitourinary: normal external genitalia Extremities: no cyanosis Skin: no rash Neurologic: deck cadet II-XII grossly normal Laboratory Tests 01/15/20 09:15: White Blood Count 16.3H, Red Blood Count 3.70L, Hemoglobin 9.9L, Hematocrit 30.7L, Mean Corpuscular Volume 83, Mean Corpuscular Hemoglobin 26.8L, Mean Corpuscular Hemoglobin Concent 32.3, Red Cell Distribution Width 13.3, Platelet Count 376, Mean Platelet Volume 5.5L, Neutrophils (%) (Auto) , Lymphocytes (%) (Auto) , Monocytes (%) (Auto) , Eosinophils (%) (Auto) , Basophils (%) (Auto) , Differential Total Cells Counted 100, Neutrophils % (Manual) 89H, Lymphocytes % (Manual) 4L, Monocytes % (Manual) 6, Eosinophils % (Manual) 1, Basophils % (Manual) 0, Band Neutrophils 0, Platelet Estimate Adequate, Platelet Morphology Normal, Hypochromasia 1+, Sodium Level 136, Potassium Level 4.6, Chloride Level 104, Carbon Dioxide Level 22, Anion Gap 10, Blood Urea Nitrogen 49H, Creatinine 4.0H, Estimat Glomerular Filtration Rate 19.6, Glucose Level 118H, Uric Acid 5.9, Calcium Level 8.6, Phosphorus Level 3.3, Magnesium Level 1.9, Total Bilirubin 0.2, Gamma Glutamyl Transpeptidase 183H, Aspartate Amino Transf (AST/SGOT) 47H, Alanine Aminotransferase (ALT/SGPT) 119H, Alkaline Phosphatase 110, Total Creatine Kinase 42, C-Reactive Protein, Quantitative 3.1H, Total Protein 6.9, Albumin 2.2L, Globulin 4.7, Albumin/Globulin Ratio 0.5L, Random Vancomycin Level 6.6 Current Medications Medications (Trade) Dose Ordered Sig/Griselda Route PRN Reason Start Time Stop Time Status Last Admin Dose Admin Acetaminophen (Tylenol) 650 mg Q4H PRN ORAL fever 01/08/20 18:30 02/07/20 18:29 01/12/20 03:42 Acetaminophen/ Hydrocodone Bitart ([place] 10/325) 1 tab Q6H PRN ORAL Severe Pain (Pain Scale 7-10) 01/12/20 16:00 01/19/20 15:59 01/15/20 13:20 Amlodipine Besylate (Norvasc) 2.5 mg DAILY ORAL 01/09/20 09:00 02/08/20 08:59 01/15/20 08:36 Atovaquone (Mepron Susp) 1,500 mg DAILY ORAL 01/10/20 09:00 04/09/20 08:59 01/15/20 08:35 Clonidine HCl (Catapres Tab) 0.1 mg Q4H PRN ORAL For High Blood Pressure 01/08/20 18:30 04/07/20 18:29 Daptomycin 500 mg/ Sodium Chloride 55 ml @ 100 mls/hr EVERY OTHER DAY IV 01/10/20 09:00 01/21/20 23:59 01/14/20 09:35 Dextrose (Dextrose 50%) 25 ml Q30M PRN IV Hypoglycemia 01/08/20 18:30 04/07/20 18:29 Dextrose (Dextrose 50%) 50 ml Q30M PRN IV Hypoglycemia 01/08/20 18:30 04/07/20 18:29 Diphenhydramine HCl (Benadryl) 25 mg Q4H PRN ORAL Itching 01/12/20 10:15 02/11/20 10:14 01/15/20 08:49 Gabapentin (Neurontin) 400 mg BEDTIME ORAL 01/08/20 21:00 02/07/20 20:59 01/14/20 21:39 Heparin Sodium (Porcine) (Heparin 5000 units/ml) 5,000 units EVERY 12 HOURS SUBQ 01/08/20 21:00 02/22/20 20:59 01/15/20 08:37 Hydrocortisone (Hydrocortisone) 1 applic BIDPRN PRN TOPIC Itching 01/11/20 09:30 04/10/20 09:29 Ondansetron HCl (Zofran) 4 mg Q6H PRN IVP Nausea & Vomiting 01/08/20 18:30 02/07/20 18:29 Patient Own Medication (Patient's Own Med) 1 ea BID ORAL 01/12/20 18:00 02/11/20 17:59 01/15/20 08:40 Patient Own Medication (Patient's Own Med) 1 ea DAILY ORAL 01/12/20 14:00 02/11/20 13:59 01/15/20 08:40 Polyethylene Glycol (Miralax) 17 gm HSPRN PRN ORAL Constipation 01/08/20 18:30 02/07/20 18:29 Sodium Chloride 1,000 ml @ 75 mls/hr [id number] IV 01/09/20 16:30 02/08/20 16:29 01/15/20 05:57 Temazepam (Restoril) 30 mg HSPRN PRN ORAL Insomnia 01/09/20 16:45 01/16/20 16:44 01/14/20 21:39 Assessment/Plan Problems: (1) Acute kidney injury (2) Vancomycin-induced nephrotoxicity (3) HIV disease Assessment/Plan creatinine is down to 4 no new complains slightly improved renal function IV fluids avoid nephrotoxic agents check electrolytes daily Anat Bryan MD Jan 15, 2020 15:06
[2020-01-15 16:00] VITALS: BP 127/79
--- NOTE | 2020-01-15 16:55 | NUR ---
CASE MANAGEMENT: REVIEW 01/15/2020 SI:Acute kidney injury VS: T 97.6 HR 72 RR 17 B/P 123/81 SATS 97% ON RA LABS: WBC 16.3 BUN 49 CR 4 GLU 118 GGT 183 AST 47 ALT 119 IS: NS @ 75 ML/HR GABAPENTIN PO QHS NORVASC PO QD ATOVAQUONE PO QD DAPTOMYCIN IV QOD MED/SURG
--- NOTE | 2020-01-15 17:05 | NUR ---
INSURANCE CLINICALS/REVIEW FAXED TO [facility] [phone] PH [phone]
--- NOTE | 2020-01-15 19:30 | NUR ---
NURSE HAND-OFF: Important Events on Shift:[none] Patient Status: stable Diet: renal Pending Orders: Pending Results/Labs: Pending MD notification: Latest Vital Signs: Temperature 98.4 , Pulse 78 , B/P 127 /79 , Respiratory Rate 18 , O2 SAT 98 , Room Air, O2 Flow Rate . Vital Sign Comment: stable Latest Kemp Fall Score: 85 Fall Risk: High Risk Safety Measures: Call light Within Reach, Bed Alarm Zone 1, Side Rails Side Rails x2, Bed position Low and Locked. Fall Precautions: Yellow Socks Yellow Gown Door Sign Patient Fall Education Report given to Fredrick VIZCAINO.
--- NOTE | 2020-01-15 19:53 | NUR ---
NURSE NOTES: Received report from Leonidas VIZACINO. Patient seen in bed and in stable condition. Patient is requesting night medication as soon as he can get it. Otherwise stable
[2020-01-15 20:00] VITALS: BP 134/77
[2020-01-16 04:00] VITALS: BP 134/102
[2020-01-16] MEDS: HYDROcodone/Acetamin 10/325 tab ORAL PRN ×2 (05:13→13:26)
[2020-01-16 06:34] LABS: EOSINOPHILS % (AUTO) 8.6 % (0.0-3.0); HEMATOCRIT 32.8 % (42.0-52.0); HEMOGLOBIN 10.1 G/DL (14.2-18.0); LYMPHOCYTES % (AUTO) 7.4 % (20.0-45.0); MEAN CORPUSCULAR VOLUME 84 FL (80-99); MONOCYTES % (AUTO) 12.2 % (1.0-10.0); NEUTROPHILS % (AUTO) 69.8 % (45.0-75.0); PLATELET COUNT 379 K/UL (150-450); RED BLOOD COUNT 3.91 M/UL (4.70-6.10); RED CELL DISTRIBUTION WIDTH 13.6 % (11.6-14.8); WHITE BLOOD COUNT 8.2 K/UL (4.8-10.8)
--- NOTE | 2020-01-16 06:39 | NUR ---
NURSE HAND-OFF: Important Events on Shift:Patient was mostly asleep during my shift, this morning patient ambulated around the unit with no problem, reported some tightness and SOB this morning, requested for Breathing tx, received order from Dr Sandhu Patient Status: stable Diet: Regular Pending Orders: [] Pending Results/Labs:[] Pending MD notification:[] Latest Vital Signs: Temperature 98.2 , Pulse 71 , B/P 134 /102 , Respiratory Rate 18 , O2 SAT 97 , Room Air, O2 Flow Rate . Vital Sign Comment: [] Latest Kemp Fall Score: 85 Fall Risk: High Risk Safety Measures: Call light Within Reach, Bed Alarm Zone 1, Side Rails Side Rails x2, Bed position Low and Locked. Fall Precautions: Yellow Socks Yellow Gown Door Sign Patient Fall Education Report given to Tacho VIZCAINO .
[2020-01-16] MEDS ORDERED: Albuterol/Ipratropium 3ml neb HHN PRN (06:45)
[2020-01-16 06:56] LABS: ALBUMIN 2.2 G/DL (3.4-5.0); ALBUMIN/GLOBULIN RATIO 0.5 (1.0-2.7); BILIRUBIN,TOTAL 0.2 MG/DL (0.2-1.0); CALCIUM 8.4 MG/DL (8.5-10.1); CREATININE 3.7 MG/DL (0.55-1.30); PHOSPHORUS 2.9 MG/DL (2.5-4.9); POTASSIUM 4.2 MMOL/L (3.5-5.1)
--- NOTE | 2020-01-16 07:45 | NUR ---
NURSE NOTES: Receive report from CARRILLO Alcala. Pt awake in bed in RA. alert and oriented. No acute distress noted. Denied any pain at this time. IV intact and patent running IVF as ordered. wound dressing clean and intact. Bed in low position and locked. Call light within reach. Will continue to monitor.
[2020-01-16 08:00] VITALS: BP 122/73
[2020-01-16] MEDS: Atovaquone 750mg/5ml Susp ORAL SCH (09:00)
[2020-01-16] MEDS: PREZCOBIX ORAL SCH (09:34)
[2020-01-16] MEDS: DAPTOmycin 500 MG in NS 55 ML IV SCH (09:36)
[2020-01-16] MEDS: Heparin 5000 units/ml inj SUBQ SCH ×2 (09:37→21:37)
--- NOTE | 2020-01-16 10:15 | Infectious Diseases Prog Note ---
Assessment/Plan Assessment: Afebrile Leukocytosis (on steroids), Sp -CXR: no acute process Severe acute renal failure- from Vancomycin toxicity (random vanco>50); now slowly coming down -Renal US: No hydronephrosis or stone. Recent R knee septic arthritis- post-op infection- healing well -12/24 SP Right knee arthrotomy.Right knee incision and drainage, 12 liters of bacitracin irrigation. --OR findings: The synovium was then incised. Gross pus was visible, was sent off for appropriate analysis. At this point, once arthrotomy was complete, 12 liters of bacitracin irrigation was then used to irrigate the knee. --fluid wbc 88,375 (N 99%) --OR cx CONS, MRSA (S Vanco OLENA 1, bactrim, tetracycline) -synovial fluid: wbc 62.8k (N99%), RBC 5.5k; cx stain no organisms, many wbc; cx CONS -ESR 62, CRP 28.1 -meniscal repair of R knee 12/11/19 HIV/AIDS on ARV -12/2019 CD4 102, VL <20 -dx 2003. has undergo multiple regimens. Has developed resistant to Truvada component. On Tivicay and Prescobix for 1 yr now. Latest CD4 100s; previously 40s. Allergic reaction in face to soap; improving HTN asthma Plan: -Cont Daptomycin #7 (day abx #) -monitor CPK3 --upon discharge will transition to PO ZYvox 600mg bid -01/07 SP IV Vancomyin x1, Unasyn x1 -f/u cx -Monitor CBC/CMP, temperatures -Continue ARV: Tivicay and Prezcobix ([facility] will send over supply) -Atovaquone for PCP ppx Thank you for consulting [facility]. Will continue to follow along with you. Discussed with RN . Subjective Allergies: Coded Allergies: LISINOPRIL (Verified Allergy, Severe, FACE SWELLING, 12/11/19) afebrile nl WBC Objective Last 24 Hour Vital Signs Date Time Temp Pulse Resp B/P (MAP) Pulse Ox O2 Delivery O2 Flow Rate FiO2 01/16/20 09:40 79 16 97 Room Air 21 01/16/20 09:35 81 18 98 Room Air 21 79 16 97 01/16/20 09:35 85 122/73 01/16/20 05:48 98.2 01/16/20 04:00 98.0 71 18 134/102 (113) 97 01/15/20 21:00 Room Air 01/15/20 20:00 98.2 87 18 134/77 (96) 97 01/15/20 20:00 98.2 87 18 134/77 (96) 97 01/15/20 16:00 98.4 78 18 127/79 (95) 98 01/15/20 13:50 97.6 01/15/20 12:00 98.4 84 18 135/87 (103) 99 Height (Feet): 5 Height (Inches): 9.00 Weight (Pounds): 193 HEENT: atraumatic Respiratory/Chest: no respiratory distress Cardiovascular: regular rhythm Abdomen: non distended Laboratory Tests Test 01/16/20 05:15 White Blood Count 8.2 K/UL (4.8-10.8) Red Blood Count 3.91 M/UL (4.70-6.10) L Hemoglobin 10.1 G/DL (14.2-18.0) L Hematocrit 32.8 % (42.0-52.0) L Mean Corpuscular Volume 84 FL (80-99) Mean Corpuscular Hemoglobin 25.9 PG (27.0-31.0) L Mean Corpuscular Hemoglobin Concent 30.9 G/DL (32.0-36.0) L Red Cell Distribution Width 13.6 % (11.6-14.8) Platelet Count 379 K/UL (150-450) Mean Platelet Volume 5.6 FL (6.5-10.1) L Neutrophils (%) (Auto) 69.8 % (45.0-75.0) Lymphocytes (%) (Auto) 7.4 % (20.0-45.0) L Monocytes (%) (Auto) 12.2 % (1.0-10.0) H Eosinophils (%) (Auto) 8.6 % (0.0-3.0) H Basophils (%) (Auto) 2.0 % (0.0-2.0) Erythrocyte Sedimentation Rate 117 MM/HR (0-15) H Sodium Level 139 MMOL/L (136-145) Potassium Level 4.2 MMOL/L (3.5-5.1) Chloride Level 106 MMOL/L (98-107) Carbon Dioxide Level 24 MMOL/L (21-32) Anion Gap 9 mmol/L (5-15) Blood Urea Nitrogen 41 mg/dL (7-18) H Creatinine 3.7 MG/DL (0.55-1.30) H Estimat Glomerular Filtration Rate 21.5 mL/min (>60) Glucose Level 92 MG/DL (74-106) Calcium Level 8.4 MG/DL (8.5-10.1) L Phosphorus Level 2.9 MG/DL (2.5-4.9) Magnesium Level 1.9 MG/DL (1.8-2.4) Total Bilirubin 0.2 MG/DL (0.2-1.0) Aspartate Amino Transf (AST/SGOT) 42 U/L (15-37) H Alanine Aminotransferase (ALT/SGPT) 135 U/L (12-78) H Alkaline Phosphatase 106 U/L (46-116) C-Reactive Protein, Quantitative 2.6 mg/dL (0.00-0.90) H Total Protein 6.6 G/DL (6.4-8.2) Albumin 2.2 G/DL (3.4-5.0) L Globulin 4.4 g/dL Albumin/Globulin Ratio 0.5 (1.0-2.7) L Current Medications Medications (Trade) Dose Ordered Sig/Griselda Route PRN Reason Start Time Stop Time Status Last Admin Dose Admin Acetaminophen (Tylenol) 650 mg Q4H PRN ORAL fever 01/08/20 18:30 02/07/20 18:29 01/12/20 03:42 Acetaminophen/ Hydrocodone Bitart ([place] 10/325) 1 tab Q6H PRN ORAL Severe Pain (Pain Scale 7-10) 01/12/20 16:00 01/19/20 15:59 01/16/20 05:13 Albuterol/ Ipratropium (Albuterol/ Ipratropium) 3 ml Q4H PRN HHN Shortness of Breath 01/16/20 06:45 01/21/20 06:44 01/16/20 09:32 Amlodipine Besylate (Norvasc) 2.5 mg DAILY ORAL 01/09/20 09:00 02/08/20 08:59 01/16/20 09:35 Atovaquone (Mepron Susp) 1,500 mg DAILY ORAL 01/10/20 09:00 04/09/20 08:59 01/16/20 09:00 Clonidine HCl (Catapres Tab) 0.1 mg Q4H PRN ORAL For High Blood Pressure 01/08/20 18:30 04/07/20 18:29 Daptomycin 500 mg/ Sodium Chloride 55 ml @ 100 mls/hr EVERY OTHER DAY IV 01/10/20 09:00 01/21/20 23:59 01/16/20 09:36 Dextrose (Dextrose 50%) 25 ml Q30M PRN IV Hypoglycemia 01/08/20 18:30 04/07/20 18:29 Dextrose (Dextrose 50%) 50 ml Q30M PRN IV Hypoglycemia 01/08/20 18:30 04/07/20 18:29 Diphenhydramine HCl (Benadryl) 25 mg Q4H PRN ORAL Itching 01/12/20 10:15 02/11/20 10:14 01/16/20 05:13 Gabapentin (Neurontin) 400 mg BEDTIME ORAL 01/08/20 21:00 02/07/20 20:59 01/15/20 20:05 Heparin Sodium (Porcine) (Heparin 5000 units/ml) 5,000 units EVERY 12 HOURS SUBQ 01/08/20 21:00 02/22/20 20:59 01/16/20 09:37 Hydrocortisone (Hydrocortisone) 1 applic BIDPRN PRN TOPIC Itching 01/11/20 09:30 04/10/20 09:29 Ondansetron HCl (Zofran) 4 mg Q6H PRN IVP Nausea & Vomiting 01/08/20 18:30 02/07/20 18:29 Patient Own Medication (Patient's Own Med) 1 ea BID ORAL 01/12/20 18:00 02/11/20 17:59 01/16/20 09:34 Patient Own Medication (Patient's Own Med) 1 ea DAILY ORAL 01/12/20 14:00 02/11/20 13:59 01/16/20 09:34 Polyethylene Glycol (Miralax) 17 gm HSPRN PRN ORAL Constipation 01/08/20 18:30 02/07/20 18:29 Sodium Chloride 1,000 ml @ 75 mls/hr [id number] IV 01/09/20 16:30 02/08/20 16:29 01/16/20 06:52 Temazepam (Restoril) 30 mg HSPRN PRN ORAL Insomnia 01/09/20 16:45 01/16/20 16:44 01/15/20 20:09 Mina Damian MD Jan 16, 2020 10:15
[2020-01-16 12:00] VITALS: BP 132/79
--- NOTE | 2020-01-16 12:38 | Nephrology Progress Note ---
Assessment/Plan Problem List: (1) Acute kidney injury (2) Vancomycin-induced nephrotoxicity (3) HIV disease Assessment Acute renal failure Vancomycin level over 50 Kidney ultrasound, unremarkable Plan January 15: Serum creatinine lowering as he remains off of vancomycin. Continue per consultants. Continue to monitor renal parameters. January 14: Today's labs still pending. Continue per current management. January 13: Serum creatinine declining gradually. Vancomycin level lowering. Today the patient has leukocytosis. Continue per ID management. Avoid nephrotoxic's as possible. January 12: Serum creatinine continues to decline. Continue as is January 11: Vancomycin level and creatinine level declining. Continue to observe and monitor. Discussed with RN. January 10: Vancomycin level down to 26. Serum creatinine down to 5.2. Otherwise stable. Continue to monitor renal parameters. January 09: As follow: Today's labs still pending Remains off Vanco Hydrate in process Monitor renal parameters Monitor Vanco levels Per orders Subjective ROS Limited/Unobtainable: No Constitutional: Reports: malaise Objective Objective Last 24 Hour Vital Signs Date Time Temp Pulse Resp B/P (MAP) Pulse Ox O2 Delivery O2 Flow Rate FiO2 01/16/20 09:40 79 16 97 Room Air 21 01/16/20 09:35 81 18 98 Room Air 21 79 16 97 01/16/20 09:35 85 122/73 01/16/20 09:00 Room Air 01/16/20 08:00 98.4 85 18 122/73 (89) 96 01/16/20 05:48 98.2 01/16/20 04:00 98.0 71 18 134/102 (113) 97 01/15/20 21:00 Room Air 01/15/20 20:00 98.2 87 18 134/77 (96) 97 01/15/20 20:00 98.2 87 18 134/77 (96) 97 01/15/20 16:00 98.4 78 18 127/79 (95) 98 01/15/20 13:50 97.6 Intake and Output 01/15/20 01/16/20 19:00 07:00 Intake Total 1300 ml 1300 ml Output Total 1100 ml 950 ml Balance 200 ml 350 ml Intake Oral 1300 ml 1300 ml Output Urine Total 1100 ml 950 ml # Voids 6 5 Laboratory Tests 01/16/20 05:15: White Blood Count 8.2, Red Blood Count 3.91L, Hemoglobin 10.1L, Hematocrit 32.8L , Mean Corpuscular Volume 84, Mean Corpuscular Hemoglobin 25.9L, Mean Corpuscular Hemoglobin Concent 30.9L, Red Cell Distribution Width 13.6, Platelet Count 379, Mean Platelet Volume 5.6L, Neutrophils (%) (Auto) 69.8, Lymphocytes (%) (Auto) 7.4L, Monocytes (%) (Auto) 12.2H, Eosinophils (%) (Auto) 8.6H, Basophils (%) (Auto) 2.0, Erythrocyte Sedimentation Rate 117H, Sodium Level 139, Potassium Level 4.2, Chloride Level 106, Carbon Dioxide Level 24, Anion Gap 9, Blood Urea Nitrogen 41H, Creatinine 3.7H, Estimat Glomerular Filtration Rate 21.5, Glucose Level 92, Calcium Level 8.4L, Phosphorus Level 2.9, Magnesium Level 1.9, Total Bilirubin 0.2, Aspartate Amino Transf (AST/SGOT) 42H, Alanine Aminotransferase (ALT/SGPT) 135H, Alkaline Phosphatase 106, C-Reactive Protein, Quantitative 2.6H, Total Protein 6.6, Albumin 2.2L, Globulin 4.4, Albumin/Globulin Ratio 0.5L Height (Feet): 5 Height (Inches): 9.00 Weight (Pounds): 193 General Appearance: no apparent distress Cardiovascular: normal rate Respiratory/Chest: lungs clear Abdomen: soft Objective No change Andrea Alegre MD Jan 16, 2020 12:38
[2020-01-16 16:00] VITALS: BP 153/79
--- NOTE | 2020-01-16 16:40 | Internal Med Progress Note ---
Subjective Date of Service: Jan 16, 2020 Physician Name SnehaWard Attending Physician Keith Sandhu MD Current Medications Medications (Trade) Dose Ordered Sig/Griselda Route PRN Reason Start Time Stop Time Status Last Admin Dose Admin Acetaminophen (Tylenol) 650 mg Q4H PRN ORAL fever 01/08/20 18:30 02/07/20 18:29 01/12/20 03:42 Acetaminophen/ Hydrocodone Bitart ([place] 10/325) 1 tab Q6H PRN ORAL Severe Pain (Pain Scale 7-10) 01/12/20 16:00 01/19/20 15:59 01/16/20 13:26 Albuterol/ Ipratropium (Albuterol/ Ipratropium) 3 ml Q4H PRN HHN Shortness of Breath 01/16/20 06:45 01/21/20 06:44 01/16/20 09:32 Amlodipine Besylate (Norvasc) 2.5 mg DAILY ORAL 01/09/20 09:00 02/08/20 08:59 01/16/20 09:35 Atovaquone (Mepron Susp) 1,500 mg DAILY ORAL 01/10/20 09:00 04/09/20 08:59 01/16/20 09:00 Clonidine HCl (Catapres Tab) 0.1 mg Q4H PRN ORAL For High Blood Pressure 01/08/20 18:30 04/07/20 18:29 Daptomycin 500 mg/ Sodium Chloride 55 ml @ 100 mls/hr EVERY OTHER DAY IV 01/10/20 09:00 01/21/20 23:59 01/16/20 09:36 Dextrose (Dextrose 50%) 25 ml Q30M PRN IV Hypoglycemia 01/08/20 18:30 04/07/20 18:29 Dextrose (Dextrose 50%) 50 ml Q30M PRN IV Hypoglycemia 01/08/20 18:30 04/07/20 18:29 Diphenhydramine HCl (Benadryl) 25 mg Q4H PRN ORAL Itching 01/12/20 10:15 02/11/20 10:14 01/16/20 05:13 Gabapentin (Neurontin) 400 mg BEDTIME ORAL 01/08/20 21:00 02/07/20 20:59 01/15/20 20:05 Heparin Sodium (Porcine) (Heparin 5000 units/ml) 5,000 units EVERY 12 HOURS SUBQ 01/08/20 21:00 02/22/20 20:59 01/16/20 09:37 Hydrocortisone (Hydrocortisone) 1 applic BIDPRN PRN TOPIC Itching 01/11/20 09:30 04/10/20 09:29 Ondansetron HCl (Zofran) 4 mg Q6H PRN IVP Nausea & Vomiting 01/08/20 18:30 02/07/20 18:29 Patient Own Medication (Patient's Own Med) 1 ea BID ORAL 01/12/20 18:00 02/11/20 17:59 01/16/20 09:34 Patient Own Medication (Patient's Own Med) 1 ea DAILY ORAL 01/12/20 14:00 02/11/20 13:59 01/16/20 09:34 Polyethylene Glycol (Miralax) 17 gm HSPRN PRN ORAL Constipation 01/08/20 18:30 02/07/20 18:29 Sodium Chloride 1,000 ml @ 75 mls/hr [id number] IV 01/09/20 16:30 02/08/20 16:29 01/16/20 06:52 Temazepam (Restoril) 30 mg HSPRN PRN ORAL Insomnia 01/09/20 16:45 01/16/20 16:44 01/15/20 20:09 Allergies: Coded Allergies: LISINOPRIL (Verified Allergy, Severe, FACE SWELLING, 12/11/19) ROS Limited/Unobtainable: No Constitutional: Reports: no symptoms HEENT: Reports: no symptoms Cardiovascular: Reports: no symptoms Respiratory: Reports: no symptoms Gastrointestinal/Abdominal: Reports: no symptoms Genitourinary: Reports: no symptoms Neurologic/Psychiatric: Reports: no symptoms Subjective 49 YO M with history of septic arthritis right knee admitted with fever and loss of PICC line access, Cover for Int [facility]-DR Sandhu. Facial swelling resolved Objective Last Vital Signs Date Time Temp Pulse Resp B/P (MAP) Pulse Ox O2 Delivery O2 Flow Rate FiO2 01/16/20 16:00 98.2 79 18 153/79 (103) 97 01/16/20 09:40 Room Air 21 Laboratory Tests Test 01/16/20 05:15 White Blood Count 8.2 K/UL (4.8-10.8) Red Blood Count 3.91 M/UL (4.70-6.10) L Hemoglobin 10.1 G/DL (14.2-18.0) L Hematocrit 32.8 % (42.0-52.0) L Mean Corpuscular Volume 84 FL (80-99) Mean Corpuscular Hemoglobin 25.9 PG (27.0-31.0) L Mean Corpuscular Hemoglobin Concent 30.9 G/DL (32.0-36.0) L Red Cell Distribution Width 13.6 % (11.6-14.8) Platelet Count 379 K/UL (150-450) Mean Platelet Volume 5.6 FL (6.5-10.1) L Neutrophils (%) (Auto) 69.8 % (45.0-75.0) Lymphocytes (%) (Auto) 7.4 % (20.0-45.0) L Monocytes (%) (Auto) 12.2 % (1.0-10.0) H Eosinophils (%) (Auto) 8.6 % (0.0-3.0) H Basophils (%) (Auto) 2.0 % (0.0-2.0) Erythrocyte Sedimentation Rate 117 MM/HR (0-15) H Sodium Level 139 MMOL/L (136-145) Potassium Level 4.2 MMOL/L (3.5-5.1) Chloride Level 106 MMOL/L (98-107) Carbon Dioxide Level 24 MMOL/L (21-32) Anion Gap 9 mmol/L (5-15) Blood Urea Nitrogen 41 mg/dL (7-18) H Creatinine 3.7 MG/DL (0.55-1.30) H Estimat Glomerular Filtration Rate 21.5 mL/min (>60) Glucose Level 92 MG/DL (74-106) Calcium Level 8.4 MG/DL (8.5-10.1) L Phosphorus Level 2.9 MG/DL (2.5-4.9) Magnesium Level 1.9 MG/DL (1.8-2.4) Total Bilirubin 0.2 MG/DL (0.2-1.0) Aspartate Amino Transf (AST/SGOT) 42 U/L (15-37) H Alanine Aminotransferase (ALT/SGPT) 135 U/L (12-78) H Alkaline Phosphatase 106 U/L (46-116) C-Reactive Protein, Quantitative 2.6 mg/dL (0.00-0.90) H Total Protein 6.6 G/DL (6.4-8.2) Albumin 2.2 G/DL (3.4-5.0) L Globulin 4.4 g/dL Albumin/Globulin Ratio 0.5 (1.0-2.7) L Intake and Output 0 01/15/20 01/16/20 19:00 07:00 Intake Total 1300 ml 1300 ml Output Total 1100 ml 950 ml Balance 200 ml 350 ml Intake Oral 1300 ml 1300 ml Output Urine Total 1100 ml 950 ml # Voids 6 5 Objective PHYSICAL EXAMINATION: GENERAL: The patient is a well-developed and well-nourished male, in no apparent distress. HEENT: Eyes, pupils equal and responsive to light and accommodation. Extraocular movements intact. NECK: Supple. No lymphadenopathy. CHEST: Lungs are clear to auscultation bilaterally without wheezes or rales. CARDIOVASCULAR: Regular rate. S1, S2 normal without murmurs, rubs, or gallops. ABDOMEN: Soft, nontender, and nondistended. Positive bowel sounds. No evidence of hepatosplenomegaly. Currently, no rebound or guarding noted. EXTREMITIES: There is pain to palpation of the right knee, otherwise without clubbing, cyanosis, or edema. RECTAL: Not performed. GENITAL: Not performed. NEUROLOGIC: Cranial nerves II through XII grossly intact without focal deficits. Motor strength is 5/5 bilaterally, intact. Deep tendon reflexes are 2+, plantar. Assessment/Plan Assessment/Plan ASSESSMENT: This is a 49-year-old male with: 1. Septic arthritis of right knee. 2. Acute renal failure due to vanco toxicity (>50) 3. HIV. 4. Hypertension. 5. Hypercholesterolemia. 6. Asthma. 7. Facial swelling?reaction to meds vs contact dermatitis? TREATMENT: 1. Septic arthritis of right knee. Infectious Disease = Dr. Gifford. The patient was on vancomycin at home. The patient has acute renal failure. Vancomycin has been discontinued. ABX day =Daptomycin per Infectious Disease (discharge home on oral zyvox when renal function normal) 2. Acute renal failure. Continue IV fluids. Nephrology = Dr. Alegre. Follow recommendations of Nephrology. 3. HIV. Continue Prezcobix and Tivicay as above. 4. Hypertension. Continue amlodipine as above. 5. Hypercholesterolemia. Continue atorvastatin as above. 6. Asthma. Continue albuterol metered-dose inhaler as above. 7. continue IV benadryl and solumedrol Ward Hoover MD Jan 16, 2020 16:40
--- NOTE | 2020-01-16 19:09 | NUR ---
NURSE HAND-OFF: Important Events on Shift:[Pt on Daptomycin, No adverse reaction. Pain was controlled] Patient Status: [stable] Diet: [reg] Pending Orders: [] Pending Results/Labs:[] Pending MD notification:[] Latest Vital Signs: Temperature 98.2 , Pulse 79 , B/P 153 /79 , Respiratory Rate 18 , O2 SAT 97 , Room Air, O2 Flow Rate . Vital Sign Comment: [stable] Latest Kemp Fall Score: 85 Fall Risk: High Risk Safety Measures: Call light Within Reach, Bed Alarm Zone 1, Side Rails Side Rails x2, Bed position Low and Locked. Fall Precautions: Yellow Socks Yellow Gown Door Sign Patient Fall Education Report given to [CARRILLO Alcala].
--- NOTE | 2020-01-16 19:38 | NUR ---
NURSE NOTES: Received report from Magdalena Titus RN. Patient in stable condition seen in bed, call light is within reach. Able to make needs known.
[2020-01-16 20:00] VITALS: BP 124/80
--- NOTE | 2020-01-16 21:05 | NUR ---
NURSE NOTES: Called Dr Hoover/Dr Sandhu to have Restoril order renewed
[2020-01-17 04:00] VITALS: BP 145/93
--- NOTE | 2020-01-17 06:25 | NUR ---
NURSE HAND-OFF: Important Events on Shift: Patient did not request for pain medications throughout the night. Patient ambulated around the unit this AM. Patient Status: STABLE Diet: Renal Diet Pending Orders: [] Pending Results/Labs:[] Pending MD notification:[] Latest Vital Signs: Temperature 99.2 , Pulse 81 , B/P 145 /93 , Respiratory Rate 18 , O2 SAT 97 , Room Air, O2 Flow Rate . Vital Sign Comment: [] Latest Kemp Fall Score: 85 Fall Risk: High Risk Safety Measures: Call light Within Reach, Bed Alarm Zone 1, Side Rails Side Rails x2, Bed position Low and Locked. Fall Precautions: Yellow Socks Yellow Gown Door Sign Patient Fall Education
[2020-01-17 06:45] LABS: BASOPHILS % (AUTO) 1.8 % (0.0-2.0); EOSINOPHILS % (AUTO) 11.5 % (0.0-3.0); HEMATOCRIT 31.4 % (42.0-52.0); HEMOGLOBIN 9.9 G/DL (14.2-18.0); MEAN CORPUSCULAR VOLUME 83 FL (80-99); MONOCYTES % (AUTO) 10.7 % (1.0-10.0); PLATELET COUNT 330 K/UL (150-450); RED BLOOD COUNT 3.76 M/UL (4.70-6.10); RED CELL DISTRIBUTION WIDTH 13.7 % (11.6-14.8); WHITE BLOOD COUNT 6.8 K/UL (4.8-10.8)
[2020-01-17 07:11] LABS: CALCIUM 8.2 MG/DL (8.5-10.1); CREATININE 3.4 MG/DL (0.55-1.30); POTASSIUM 4.4 MMOL/L (3.5-5.1)
--- NOTE | 2020-01-17 07:27 | NUR ---
NURSE NOTES: Report given to Magdalena Titus RN
--- NOTE | 2020-01-17 07:59 | NUR ---
NURSE NOTES: Receive report from CARRILLO Alcala. Pt asleep in bed in RA. No acute distress noted. Denied any pain at this time. IV intact and patent running IVF as ordered. wound dressing clean and intact. Bed in low position and locked. Call light within reach. Will continue to monitor.
[2020-01-17 08:00] VITALS: BP 142/87
[2020-01-17] MEDS: Atovaquone 750mg/5ml Susp ORAL SCH (09:18)
[2020-01-17] MEDS: PREZCOBIX ORAL SCH (09:18)
[2020-01-17] MEDS: Heparin 5000 units/ml inj SUBQ SCH ×2 (09:20→21:00)
[2020-01-17 12:00] VITALS: BP 126/77
--- NOTE | 2020-01-17 14:07 | Nephrology Progress Note ---
Assessment/Plan Problem List: (1) Acute kidney injury (2) Vancomycin-induced nephrotoxicity (3) HIV disease Assessment Acute renal failure Vancomycin level over 50 Kidney ultrasound, unremarkable Plan January 16: Serum creatinine continues to lower. Continue per ID. Stable for discharge from renal standpoint to view be followed by a senior network systems engineer as an outpatient. January 15: Serum creatinine lowering as he remains off of vancomycin. Continue per consultants. Continue to monitor renal parameters. January 14: Today's labs still pending. Continue per current management. January 13: Serum creatinine declining gradually. Vancomycin level lowering. Today the patient has leukocytosis. Continue per ID management. Avoid nephrotoxic's as possible. January 12: Serum creatinine continues to decline. Continue as is January 11: Vancomycin level and creatinine level declining. Continue to observe and monitor. Discussed with RN. January 10: Vancomycin level down to 26. Serum creatinine down to 5.2. Otherwise stable. Continue to monitor renal parameters. January 09: As follow: Today's labs still pending Remains off Vanco Hydrate in process Monitor renal parameters Monitor Vanco levels Per orders Subjective ROS Limited/Unobtainable: No Constitutional: Reports: malaise, other - Slightly nausea Objective Objective Last 24 Hour Vital Signs Date Time Temp Pulse Resp B/P (MAP) Pulse Ox O2 Delivery O2 Flow Rate FiO2 01/17/20 12:00 98.6 87 18 126/77 (93) 97 01/17/20 09:19 81 142/87 01/17/20 09:00 Room Air 01/17/20 08:00 99.2 81 18 142/87 (105) 97 01/17/20 04:00 99.2 81 18 145/93 (110) 97 01/16/20 20:00 98.3 90 17 124/80 (95) 96 01/16/20 19:58 Room Air 01/16/20 16:00 98.2 79 18 153/79 (103) 97 Intake and Output 01/16/20 01/17/20 19:00 07:00 Intake Total 1200 ml 1700 ml Output Total 1100 ml 1000 ml Balance 100 ml 700 ml Intake Oral 1200 ml 1400 ml IV Total 300 ml Output Urine Total 1100 ml 1000 ml # Voids 5 4 Laboratory Tests 01/17/20 05:00: White Blood Count 6.8, Red Blood Count 3.76L, Hemoglobin 9.9L, Hematocrit 31.4L, Mean Corpuscular Volume 83, Mean Corpuscular Hemoglobin 26.4L, Mean Corpuscular Hemoglobin Concent 31.7L, Red Cell Distribution Width 13.7, Platelet Count 330, Mean Platelet Volume 5.6L, Neutrophils (%) (Auto) 62.0, Lymphocytes (%) (Auto) 14.0L, Monocytes (%) (Auto) 10.7H, Eosinophils (%) (Auto) 11.5H, Basophils (%) (Auto) 1.8, Sodium Level 139, Potassium Level 4.4, Chloride Level 105, Carbon Dioxide Level 26, Anion Gap 8, Blood Urea Nitrogen 30H, Creatinine 3.4H, Estimat Glomerular Filtration Rate 23.6, Glucose Level 89, Calcium Level 8.2L Height (Feet): 5 Height (Inches): 9.00 Weight (Pounds): 193 General Appearance: no apparent distress Abdomen: soft Objective No change Andrea Alegre MD Jan 17, 2020 14:07
--- NOTE | 2020-01-17 14:18 | Internal Med Progress Note ---
Subjective Date of Service: Jan 17, 2020 Physician Name SnehaWard Attending Physician Keith Sandhu MD Current Medications Medications (Trade) Dose Ordered Sig/Griselda Route PRN Reason Start Time Stop Time Status Last Admin Dose Admin Acetaminophen (Tylenol) 650 mg Q4H PRN ORAL fever 01/08/20 18:30 02/07/20 18:29 01/12/20 03:42 Acetaminophen/ Hydrocodone Bitart ([place] 10/325) 1 tab Q6H PRN ORAL Severe Pain (Pain Scale 7-10) 01/12/20 16:00 01/19/20 15:59 01/16/20 13:26 Albuterol/ Ipratropium (Albuterol/ Ipratropium) 3 ml Q4H PRN HHN Shortness of Breath 01/16/20 06:45 01/21/20 06:44 01/16/20 09:32 Amlodipine Besylate (Norvasc) 2.5 mg DAILY ORAL 01/09/20 09:00 02/08/20 08:59 01/17/20 09:19 Atovaquone (Mepron Susp) 1,500 mg DAILY ORAL 01/10/20 09:00 04/09/20 08:59 01/17/20 09:18 Clonidine HCl (Catapres Tab) 0.1 mg Q4H PRN ORAL For High Blood Pressure 01/08/20 18:30 04/07/20 18:29 Daptomycin 500 mg/ Sodium Chloride 55 ml @ 100 mls/hr EVERY OTHER DAY IV 01/10/20 09:00 01/21/20 23:59 01/16/20 09:36 Dextrose (Dextrose 50%) 25 ml Q30M PRN IV Hypoglycemia 01/08/20 18:30 04/07/20 18:29 Dextrose (Dextrose 50%) 50 ml Q30M PRN IV Hypoglycemia 01/08/20 18:30 04/07/20 18:29 Diphenhydramine HCl (Benadryl) 25 mg Q4H PRN ORAL Itching 01/12/20 10:15 02/11/20 10:14 01/16/20 05:13 Gabapentin (Neurontin) 400 mg BEDTIME ORAL 01/08/20 21:00 02/07/20 20:59 01/16/20 21:35 Heparin Sodium (Porcine) (Heparin 5000 units/ml) 5,000 units EVERY 12 HOURS SUBQ 01/08/20 21:00 02/22/20 20:59 01/17/20 09:20 Hydrocortisone (Hydrocortisone) 1 applic BIDPRN PRN TOPIC Itching 01/11/20 09:30 04/10/20 09:29 01/16/20 21:41 Ondansetron HCl (Zofran) 4 mg Q6H PRN IVP Nausea & Vomiting 01/08/20 18:30 02/07/20 18:29 01/17/20 12:52 Patient Own Medication (Patient's Own Med) 1 ea BID ORAL 01/12/20 18:00 02/11/20 17:59 01/17/20 09:18 Patient Own Medication (Patient's Own Med) 1 ea DAILY ORAL 01/12/20 14:00 02/11/20 13:59 01/17/20 09:18 Polyethylene Glycol (Miralax) 17 gm HSPRN PRN ORAL Constipation 01/08/20 18:30 02/07/20 18:29 Sodium Chloride 1,000 ml @ 75 mls/hr [id number] IV 01/09/20 16:30 02/08/20 16:29 01/17/20 10:51 Temazepam (Restoril) 30 mg HSPRN PRN ORAL Insomnia 01/16/20 21:30 01/23/20 21:29 01/16/20 21:36 Allergies: Coded Allergies: LISINOPRIL (Verified Allergy, Severe, FACE SWELLING, 12/11/19) ROS Limited/Unobtainable: No Constitutional: Reports: no symptoms HEENT: Reports: no symptoms Cardiovascular: Reports: no symptoms Respiratory: Reports: no symptoms Gastrointestinal/Abdominal: Reports: no symptoms Genitourinary: Reports: no symptoms Neurologic/Psychiatric: Reports: no symptoms Subjective 49 YO M with history of septic arthritis right knee admitted with fever and loss of PICC line access, Cover for [facility]-DR Sandhu. Objective Last Vital Signs Date Time Temp Pulse Resp B/P (MAP) Pulse Ox O2 Delivery O2 Flow Rate FiO2 01/17/20 12:00 98.6 87 18 126/77 (93) 97 01/17/20 09:00 Room Air 01/16/20 09:40 21 Laboratory Tests Test 01/17/20 05:00 White Blood Count 6.8 K/UL (4.8-10.8) Red Blood Count 3.76 M/UL (4.70-6.10) L Hemoglobin 9.9 G/DL (14.2-18.0) L Hematocrit 31.4 % (42.0-52.0) L Mean Corpuscular Volume 83 FL (80-99) Mean Corpuscular Hemoglobin 26.4 PG (27.0-31.0) L Mean Corpuscular Hemoglobin Concent 31.7 G/DL (32.0-36.0) L Red Cell Distribution Width 13.7 % (11.6-14.8) Platelet Count 330 K/UL (150-450) Mean Platelet Volume 5.6 FL (6.5-10.1) L Neutrophils (%) (Auto) 62.0 % (45.0-75.0) Lymphocytes (%) (Auto) 14.0 % (20.0-45.0) L Monocytes (%) (Auto) 10.7 % (1.0-10.0) H Eosinophils (%) (Auto) 11.5 % (0.0-3.0) H Basophils (%) (Auto) 1.8 % (0.0-2.0) Sodium Level 139 MMOL/L (136-145) Potassium Level 4.4 MMOL/L (3.5-5.1) Chloride Level 105 MMOL/L (98-107) Carbon Dioxide Level 26 MMOL/L (21-32) Anion Gap 8 mmol/L (5-15) Blood Urea Nitrogen 30 mg/dL (7-18) H Creatinine 3.4 MG/DL (0.55-1.30) H Estimat Glomerular Filtration Rate 23.6 mL/min (>60) Glucose Level 89 MG/DL (74-106) Calcium Level 8.2 MG/DL (8.5-10.1) L Intake and Output 01/16/20 01/17/20 19:00 07:00 Intake Total 1200 ml 1700 ml Output Total 1100 ml 1000 ml Balance 100 ml 700 ml Intake Oral 1200 ml 1400 ml IV Total 300 ml Output Urine Total 1100 ml 1000 ml # Voids 5 4 Objective PHYSICAL EXAMINATION: GENERAL: The patient is a well-developed and well-nourished male, in no apparent distress. HEENT: Eyes, pupils equal and responsive to light and accommodation. Extraocular movements intact. NECK: Supple. No lymphadenopathy. CHEST: Lungs are clear to auscultation bilaterally without wheezes or rales. CARDIOVASCULAR: Regular rate. S1, S2 normal without murmurs, rubs, or gallops. ABDOMEN: Soft, nontender, and nondistended. Positive bowel sounds. No evidence of hepatosplenomegaly. Currently, no rebound or guarding noted. EXTREMITIES: There is pain to palpation of the right knee, otherwise without clubbing, cyanosis, or edema. RECTAL: Not performed. GENITAL: Not performed. NEUROLOGIC: Cranial nerves II through XII grossly intact without focal deficits. Motor strength is 5/5 bilaterally, intact. Deep tendon reflexes are 2+, plantar. Assessment/Plan Assessment/Plan ASSESSMENT: This is a 49-year-old male with: 1. Septic arthritis of right knee. 2. Acute renal failure due to vanco toxicity (>50) 3. HIV. 4. Hypertension. 5. Hypercholesterolemia. 6. Asthma. 7. Facial swelling?reaction to meds vs contact dermatitis? TREATMENT: 1. Septic arthritis of right knee. Infectious Disease = Dr. Gifford. The patient was on vancomycin at home. The patient has acute renal failure. Vancomycin has been discontinued. ABX day 24/28=Daptomycin per Infectious Disease 2. Acute renal failure. Continue IV fluids. Nephrology = Dr. Alegre. Follow recommendations of Nephrology. 3. HIV. Continue Prezcobix and Tivicay as above. 4. Hypertension. Continue amlodipine as above. 5. Hypercholesterolemia. Continue atorvastatin as above. 6. Asthma. Continue albuterol metered-dose inhaler as above. 7. OK to discharge per nephrology; monitor renal function tests as outpatient 8. D/C daptomycin on discharge; Zyvox 600 mg BID for 7 days Ward Hoover MD Jan 17, 2020 14:18
[2020-01-17] MEDS ORDERED: LINEZOLID600 MG PO (14:35)
[2020-01-17 16:00] VITALS: BP 129/80
--- NOTE | 2020-01-17 19:30 | NUR ---
NURSE HAND-OFF: Important Events on Shift:[DC tomorrow] Patient Status: [stable] Diet: [reg] Pending Orders: [] Pending Results/Labs:[] Pending MD notification:[] Latest Vital Signs: Temperature 98.4 , Pulse 85 , B/P 129 /80 , Respiratory Rate 18 , O2 SAT 97 , Room Air, O2 Flow Rate . Vital Sign Comment: [stable] Latest Kemp Fall Score: 85 Fall Risk: High Risk Safety Measures: Call light Within Reach, Bed Alarm Zone 1, Side Rails Side Rails x2, Bed position Low and Locked. Fall Precautions: Yellow Socks Yellow Gown Door Sign Patient Fall Education Report given to [CARRILLO Lucero].
[2020-01-17 19:37] VITALS: BP 133/84
--- NOTE | 2020-01-17 19:49 | NUR ---
nurse's notes: received patient asleep but easily arousable; denies any pain; almost no edema on the right knee noted; no dressing on; catalina hose on. VSS; afebrile. will continue to monitor.
--- NOTE | 2020-01-17 21:30 | NUR ---
nurse's notes: Unable to flush IV HL on the left hand; patient refused offer to replace access - "I'm going home tomorrow!". also refused scheduled neurontin and heparin - "I think those meds make me sick". Education given and respected patient's right to refuse. will continue to monitor.
[2020-01-18 04:00] VITALS: BP 134/93
[2020-01-18 05:01] VITALS: BP 134/93
[2020-01-18] MEDS: HYDROcodone/Acetamin 10/325 tab ORAL PRN (05:53)
--- NOTE | 2020-01-18 06:36 | NUR ---
NURSE HAND-OFF: Important Events on Shift: slight elevation of temperature of 100.1 at 0400; encouraged fluid intake; agreed to reinsertion of iv access, however, this rn was unsuccessful; per patient, "i am a hard stick"; made know to bellows charger assembler; will endorse. complained of right knee pain; pain medication given, ice pack applied. no dressing needed on right knee as surgical site is clean and dry, no drainage, no swelling noted; anticipating discharge today to home with oral zyvox for 7 days. Patient Status: stable at this time Diet: see order Pending Orders: AML Pending Results/Labs:yes Pending MD notification:none Latest Vital Signs: Temperature 100.1 , Pulse 83 , B/P 134 /93 , Respiratory Rate 18 , O2 SAT 95 , Room Air, O2 Flow Rate . Vital Sign Comment: see chart and above comments Latest Kemp Fall Score: 85 Fall Risk: High Risk Safety Measures: Call light Within Reach, Bed Alarm Zone 1, Side Rails Side Rails x2, Bed position Low and Locked. Fall Precautions: Yellow Socks Yellow Gown Door Sign Patient Fall Education Report will be given to ann marie starkey
[2020-01-18 07:29] LABS: ALBUMIN 2.4 G/DL (3.4-5.0); ALBUMIN/GLOBULIN RATIO 0.5 (1.0-2.7); BILIRUBIN,TOTAL 0.2 MG/DL (0.2-1.0); CALCIUM 8.3 MG/DL (8.5-10.1); CREATININE 3.4 MG/DL (0.55-1.30); POTASSIUM 4.1 MMOL/L (3.5-5.1)
--- NOTE | 2020-01-18 07:45 | NUR ---
NURSE NOTES: Pt lying in bed w/bed in lowest position and call light within reach. Pt A&Ox4, VSS, and in no apparent distress. Pt has no IV access; and rt knee wound C/D/I. Pt scheduled to be D/C'd home this AM and is just waiting for PO abx from outpatient pharmacy. Will continue to monitor.
[2020-01-18 07:57] VITALS: BP 138/78
--- NOTE | 2020-01-18 08:12 | Infectious Diseases Prog Note ---
Assessment/Plan Note made in error, pt discharged prior to seeing him Subjective Allergies: Coded Allergies: LISINOPRIL (Verified Allergy, Severe, FACE SWELLING, 12/11/19) Objective Last 24 Hour Vital Signs Date Time Temp Pulse Resp B/P (MAP) Pulse Ox O2 Delivery O2 Flow Rate FiO2 01/18/20 07:57 98.8 83 18 138/78 (98) 97 90 01/18/20 04:00 100.1 83 18 134/93 (107) 95 01/17/20 21:00 Room Air 01/17/20 20:00 80 18 99 Room Air 21 01/17/20 19:37 98.2 86 17 133/84 (100) 100 01/17/20 16:00 98.4 85 18 129/80 (96) 97 01/17/20 12:00 98.6 87 18 126/77 (93) 97 01/17/20 09:19 81 142/87 01/17/20 09:00 Room Air 01/17/20 08:30 71 18 97 Room Air 21 Height (Feet): 5 Height (Inches): 9.00 Weight (Pounds): 193 Laboratory Tests Test 01/18/20 06:37 Sodium Level 135 MMOL/L (136-145) L Potassium Level 4.1 MMOL/L (3.5-5.1) Chloride Level 99 MMOL/L (98-107) Carbon Dioxide Level 28 MMOL/L (21-32) Anion Gap 8 mmol/L (5-15) Blood Urea Nitrogen 24 mg/dL (7-18) H Creatinine 3.4 MG/DL (0.55-1.30) H Estimat Glomerular Filtration Rate 23.6 mL/min (>60) Glucose Level 132 MG/DL (74-106) H Calcium Level 8.3 MG/DL (8.5-10.1) L Total Bilirubin 0.2 MG/DL (0.2-1.0) Aspartate Amino Transf (AST/SGOT) 24 U/L (15-37) Alanine Aminotransferase (ALT/SGPT) 78 U/L (12-78) Alkaline Phosphatase 103 U/L (46-116) Total Protein 6.8 G/DL (6.4-8.2) Albumin 2.4 G/DL (3.4-5.0) L Globulin 4.4 g/dL Albumin/Globulin Ratio 0.5 (1.0-2.7) L Current Medications Medications (Trade) Dose Ordered Sig/Griselda Route PRN Reason Start Time Stop Time Status Last Admin Dose Admin Acetaminophen (Tylenol) 650 mg Q4H PRN ORAL fever 01/08/20 18:30 02/07/20 18:29 01/12/20 03:42 Acetaminophen/ Hydrocodone Bitart ([place] 10/325) 1 tab Q6H PRN ORAL Severe Pain (Pain Scale 7-10) 01/12/20 16:00 01/19/20 15:59 01/18/20 05:53 Albuterol/ Ipratropium (Albuterol/ Ipratropium) 3 ml Q4H PRN HHN Shortness of Breath 01/16/20 06:45 01/21/20 06:44 01/16/20 09:32 Amlodipine Besylate (Norvasc) 2.5 mg DAILY ORAL 01/09/20 09:00 02/08/20 08:59 01/17/20 09:19 Atovaquone (Mepron Susp) 1,500 mg DAILY ORAL 01/10/20 09:00 04/09/20 08:59 01/17/20 09:18 Clonidine HCl (Catapres Tab) 0.1 mg Q4H PRN ORAL For High Blood Pressure 01/08/20 18:30 04/07/20 18:29 Daptomycin 500 mg/ Sodium Chloride 55 ml @ 100 mls/hr EVERY OTHER DAY IV 01/10/20 09:00 01/21/20 23:59 01/16/20 09:36 Dextrose (Dextrose 50%) 25 ml Q30M PRN IV Hypoglycemia 01/08/20 18:30 04/07/20 18:29 Dextrose (Dextrose 50%) 50 ml Q30M PRN IV Hypoglycemia 01/08/20 18:30 04/07/20 18:29 Diphenhydramine HCl (Benadryl) 25 mg Q4H PRN ORAL Itching 01/12/20 10:15 02/11/20 10:14 01/16/20 05:13 Gabapentin (Neurontin) 400 mg BEDTIME ORAL 01/08/20 21:00 02/07/20 20:59 01/16/20 21:35 Heparin Sodium (Porcine) (Heparin 5000 units/ml) 5,000 units EVERY 12 HOURS SUBQ 01/08/20 21:00 02/22/20 20:59 01/17/20 09:20 Hydrocortisone (Hydrocortisone) 1 applic BIDPRN PRN TOPIC Itching 01/11/20 09:30 04/10/20 09:29 01/16/20 21:41 Ondansetron HCl (Zofran ODT) 4 mg Q6H PRN ORAL Nausea & Vomiting 01/17/20 14:30 02/16/20 14:29 Patient Own Medication (Patient's Own Med) 1 ea BID ORAL 01/12/20 18:00 02/11/20 17:59 01/17/20 18:17 Patient Own Medication (Patient's Own Med) 1 ea DAILY ORAL 01/12/20 14:00 02/11/20 13:59 01/17/20 09:18 Polyethylene Glycol (Miralax) 17 gm HSPRN PRN ORAL Constipation 01/08/20 18:30 02/07/20 18:29 Sodium Chloride 1,000 ml @ 75 mls/hr [id number] IV 01/09/20 16:30 02/08/20 16:29 01/17/20 10:51 Temazepam (Restoril) 30 mg HSPRN PRN ORAL Insomnia 01/16/20 21:30 01/23/20 21:29 01/17/20 21:08 Mary Ann Yun M.D. Jan 18, 2020 08:12
[2020-01-18] MEDS: DAPTOmycin 500 MG in NS 55 ML IV SCH (08:59)
[2020-01-18] MEDS: Atovaquone 750mg/5ml Susp ORAL SCH (09:00)
[2020-01-18] MEDS: Heparin 5000 units/ml inj SUBQ SCH (09:00)
[2020-01-18 09:12] VITALS: BP 138/78
[2020-01-18] MEDS: PREZCOBIX ORAL SCH (09:13)
--- NOTE | 2020-01-18 09:45 | Nephrology Progress Note ---
Assessment/Plan Problem List: (1) Acute kidney injury (2) Vancomycin-induced nephrotoxicity (3) HIV disease Assessment Acute renal failure Vancomycin level over 50 Kidney ultrasound, unremarkable Plan January 17: Serum creatinine 3.4. Continue with same management. Urine for spot sodium and eosinophils ordered. Flomax nightly. January 16: Serum creatinine continues to lower. Continue per ID. Stable for discharge from renal standpoint to view be followed by a reservoir engineer as an outpatient. January 15: Serum creatinine lowering as he remains off of vancomycin. Continue per consultants. Continue to monitor renal parameters. January 14: Today's labs still pending. Continue per current management. January 13: Serum creatinine declining gradually. Vancomycin level lowering. Today the patient has leukocytosis. Continue per ID management. Avoid nephrotoxic's as possible. January 12: Serum creatinine continues to decline. Continue as is January 11: Vancomycin level and creatinine level declining. Continue to observe and monitor. Discussed with RN. January 10: Vancomycin level down to 26. Serum creatinine down to 5.2. Otherwise stable. Continue to monitor renal parameters. January 09: As follow: Today's labs still pending Remains off Vanco Hydrate in process Monitor renal parameters Monitor Vanco levels Per orders Subjective ROS Limited/Unobtainable: No Objective Objective Last 24 Hour Vital Signs Date Time Temp Pulse Resp B/P (MAP) Pulse Ox O2 Delivery O2 Flow Rate FiO2 01/18/20 09:12 90 138/78 01/18/20 07:57 98.8 83 18 138/78 (98) 97 90 01/18/20 04:00 100.1 83 18 134/93 (107) 95 01/17/20 21:00 Room Air 01/17/20 20:00 80 18 99 Room Air 21 01/17/20 19:37 98.2 86 17 133/84 (100) 100 01/17/20 16:00 98.4 85 18 129/80 (96) 97 01/17/20 12:00 98.6 87 18 126/77 (93) 97 Intake and Output 01/17/20 01/18/20 19:00 07:00 Intake Total 1000 ml 800 ml Output Total 1100 ml 600 ml Balance -100 ml 200 ml Intake Oral 1000 ml 800 ml Output Urine Total 1100 ml 600 ml # Voids 2 Current Medications Medications (Trade) Dose Ordered Sig/Griselda Route PRN Reason Start Time Stop Time Status Last Admin Dose Admin Acetaminophen (Tylenol) 650 mg Q4H PRN ORAL fever 01/08/20 18:30 02/07/20 18:29 01/12/20 03:42 Acetaminophen/ Hydrocodone Bitart (Welsh ) 1 tab Q6H PRN ORAL Severe Pain (Pain Scale 7-10) 01/12/20 16:00 01/19/20 15:59 01/18/20 05:53 Albuterol/ Ipratropium (Albuterol/ Ipratropium) 3 ml Q4H PRN HHN Shortness of Breath 01/16/20 06:45 01/21/20 06:44 01/16/20 09:32 Amlodipine Besylate (Norvasc) 2.5 mg DAILY ORAL 01/09/20 09:00 02/08/20 08:59 01/18/20 09:12 Atovaquone (Mepron Susp) 1,500 mg DAILY ORAL 01/10/20 09:00 04/09/20 08:59 01/17/20 09:18 Clonidine HCl (Catapres Tab) 0.1 mg Q4H PRN ORAL For High Blood Pressure 01/08/20 18:30 04/07/20 18:29 Dextrose (Dextrose 50%) 25 ml Q30M PRN IV Hypoglycemia 01/08/20 18:30 04/07/20 18:29 Dextrose (Dextrose 50%) 50 ml Q30M PRN IV Hypoglycemia 01/08/20 18:30 04/07/20 18:29 Diphenhydramine HCl (Benadryl) 25 mg Q4H PRN ORAL Itching 01/12/20 10:15 02/11/20 10:14 01/16/20 05:13 Gabapentin (Neurontin) 400 mg BEDTIME ORAL 01/08/20 21:00 02/07/20 20:59 01/16/20 21:35 Heparin Sodium (Porcine) (Heparin 5000 units/ml) 5,000 units EVERY 12 HOURS SUBQ 01/08/20 21:00 02/22/20 20:59 01/17/20 09:20 Hydrocortisone (Hydrocortisone) 1 applic BIDPRN PRN TOPIC Itching 01/11/20 09:30 04/10/20 09:29 01/16/20 21:41 Linezolid (Zyvox) 600 mg EVERY 12 HOURS ORAL 01/18/20 09:00 01/23/20 08:59 01/18/20 09:11 Ondansetron HCl (Zofran ODT) 4 mg Q6H PRN ORAL Nausea & Vomiting 01/17/20 14:30 02/16/20 14:29 Patient Own Medication (Patient's Own Med) 1 ea BID ORAL 01/12/20 18:00 02/11/20 17:59 01/18/20 09:14 Patient Own Medication (Patient's Own Med) 1 ea DAILY ORAL 01/12/20 14:00 02/11/20 13:59 01/18/20 09:13 Polyethylene Glycol (Miralax) 17 gm HSPRN PRN ORAL Constipation 01/08/20 18:30 02/07/20 18:29 Sodium Chloride 1,000 ml @ 75 mls/hr [id number] IV 01/09/20 16:30 02/08/20 16:29 01/17/20 10:51 Temazepam (Restoril) 30 mg HSPRN PRN ORAL Insomnia 01/16/20 21:30 01/23/20 21:29 01/17/20 21:08 Laboratory Tests 01/18/20 06:37: Sodium Level 135L, Potassium Level 4.1, Chloride Level 99, Carbon Dioxide Level 28, Anion Gap 8, Blood Urea Nitrogen 24H, Creatinine 3.4H, Estimat Glomerular Filtration Rate 23.6, Glucose Level 132H, Calcium Level 8.3L, Total Bilirubin 0.2, Aspartate Amino Transf (AST/SGOT) 24, Alanine Aminotransferase (ALT/SGPT) 78, Alkaline Phosphatase 103, Total Protein 6.8, Albumin 2.4L, Globulin 4.4, Albumin/Globulin Ratio 0.5L Height (Feet): 5 Height (Inches): 9.00 Weight (Pounds): 193 General Appearance: no apparent distress Objective No change Andrea Alegre MD Jan 18, 2020 09:45
--- NOTE | 2020-01-18 12:00 | NUR ---
NURSE NOTES: Escorted pt via wheelchair downstairs w/FWW and all belongings accounted for. Removed ID wristband before D/C and provided pt w/PO abx and D/C summary.
[2020-01-18] MEDS ORDERED: Tamsulosin 0.4mg cap ORAL SCH (21:00)
--- NOTE | 2020-01-20 09:44 | Discharge Summary ---
Discharge Summary Discharge Summary _ DATE OF ADMISSION: 01/08/2020 DATE OF DISCHARGE: 01/18/2020 DISCHARGED BY: Dr Sandhu REASON FOR ADMISSION: 49 years old male with recent right knee arthrotomy with incision and drainage, presented with fever and chills. Patient reported increased discomfort and swelling to his right knee as well as increased pain. Patient was receiving antibiotic via PICC line. Line was accidentally removed. Patient presented to the hospital for further management. Upon evaluation BUN 22, creatinine 5.0. Lactic acid 0.7. Troponin negative. CRP 8.7. No leukocytosis, hemoglobin 10.2, hematocrit 30.9, platelet count 560. Vanco level was 37.8. Chest x-ray revealed no acute cardiopulmonary pathology. PICC line was placed. Patient subsequently admitted for further management. CONSULTANTS: pulmonary/critical care Dr. Bryan ID specialist Dr. Gifford supervisor border department Dr. Alegre HOSPITAL COURSE: Patient admitted to medical surgical floor ID and supervisor border department closely followed. Vancomycin was stopped. Antibiotic changed to daptomycin as per ID specialist recommendation. [employer] closely followed. Renal ultrasound revealed no hydronephrosis. No stones. Normal bilateral kidney echogenicity. Patient initially had meniscal repair of right knee on 12/10. Patient undergone on 12/24 right knee arthrotomy , right knee incision and drainage , with 12 L of bacitracin irrigation. Fluid analysis revealed WBC 88,375. Fluid culture showed MRSA and coagulase negative staph. Urine culture was negative . Blood cultures were negative. Patient required total 4 weeks of antibiotics for treatment of septic arthritis. Upon discharge daptomycin was changed to Zyvox for additional 7 days to complete the total course of 28 days as per ID recommendation. ARB therapy was continued. Patient initially diagnosed with HIV in 2003 and had multiply regimens. He developed resistance to Truvada. Patient on current regimen with Tivicay and Prescobix for 1 year. Latest CD4 102 ( prior 40 ), viral load less than 20. Renal parameters and electrolytes were closely monitored. Vancomycin level trended down . Creatinine from 5.0 down to 3.4 upon discharge. Patient started on Flomax. Protein supplements provided as per registered dietitian recommendation. Home medication continue/ Blood pressure remained stable . Pulse oximetry remained stable on room air . Albuterol inhaler was on board as needed. Patient had allergic reaction to soap manifested as facial swelling, which improved. Patient clinically stabilized and was ready for discharge home. FINAL DIAGNOSES: Right knee septic arthritis ( probably due to postop infection) Acute kidney injury due to vancomycin toxicity Vancomycin induced nephrotoxicity HIV/AIDS Protein calorie malnutrition Hypertension Asthma Hypercholesterolemia Facial swelling ( due to allergic reaction to soap- improving) DISCHARGE MEDICATIONS: See Medication Reconciliation list. DISCHARGE INSTRUCTIONS: Patient was discharged home. Follow up with primary care provider in one week. I have been assigned to dictate discharge summary for this account. I was not involved in the patient's management. Karen Figueroa NP Jan 20, 2020 09:44
== END 2020-01-18 12:10 | disposition home or self-care (01) | DRG 892 ==
LOC: EMR 16:00 → 4E 17:36 → EDBEDREQ 19:02 → 3E 01-12 22:30
DX: M00.9 Pyogenic arthritis, unspecified (principal); N17.9 Acute kidney failure, unspecified; B20 Human immunodeficiency virus [HIV] disease; T36.8X5A Adverse effect of other systemic antibiotics, initial encounter; M13.861 Other specified arthritis, right knee; Z98.890 Other specified postprocedural states; E46 Unspecified protein-calorie malnutrition; I10 Essential (primary) hypertension; J45.909 Unspecified asthma, uncomplicated; L23.89 Allergic contact dermatitis due to other agents; E78.00 Pure hypercholesterolemia, unspecified; N14.2 Nephropathy induced by unspecified drug, medicament or biological substance; Z88.8 Allergy status to other drugs, medicaments and biological substances; Z87.891 Personal history of nicotine dependence
CPT/HCPCS: 36415; 71045; 76770; 80048; 80053; 80061; 80202; 80307; 81001; 82436; 82533; 82550; 82553; 82977; 83036; 83605; 83615; 83735; 83880; 84100; 84300; 84439; 84443; 84481; 84484; 84550; 85007; 85025; 85651; 86140; 87040; 87086; 89050; 93005; 94640; 94664; 96365; 96367; 99285; J2405; J7030; J7620